=== PATIENT | female | born 1950 | race Caucasian/White ===

== ENCOUNTER → 2018-01-30 09:50 | Outpatient (POV) | payer MEDICARE, MEDICAID, SELFPAY | PROVIDERS: PCP Internal Medicine Adolescent Medicine; Visit Provider Physician Assistant | DX: Z00.00 Encounter for general adult medical examination without abnormal findings (principal) ==

== ENCOUNTER → 2018-03-06 08:30 | Outpatient (CLI) | payer MEDICARE, MEDICAID, SELFPAY ==
[2018-03-06 08:57] LABS: Basophils # 0.1 K/mm3 (0-0.2); Basophils % 0.5 % (0.1-2.0); Eosinophils # 0.3 K/mm3 (0.0-0.4); Eosinophils % 2.2 % (0.1-12.0); Hematocrit 43.6 % (37.0-47.0); Hemoglobin 13.4 g/dL (12.2-16.2); Lymphocytes # 4.3 K/mm3 (0.7-4.5); Lymphocytes % 38.3 K/mm3 (10-50); Mean Corpuscular HGB Conc 30.8 g/dL (31.8-35.4); Mean Corpuscular Hemoglobin 27.7 pg (27.0-31.2); Mean Platelet Volume 7.2 fl (7.4-10.4); Monocytes # 0.8 K/mm3 (0.1-1.0); Monocytes % 6.8 % (1.7-9.3); Neutrophils # 5.9 K/mm3 (1.8-7.8); Neutrophils % 52.1 % (37.0-80.0); Platelet Count 449 K/mm3 (142-424); Red Blood Count 4.85 M/mm3 (4.20-5.40); Red Cell Distribution Width 16.5 % (11.5-17.5); White Blood Count 11.2 K/mm3 (4.8-10.8)
[2018-03-06 09:57] LABS: Alanine Aminotransferase 42 U/L (12-78); Albumin Level 3.9 gm/dL (3.4-5.0); Albumin/Globulin Ratio 1.1 (1.1-1.8); Alkaline Phosphatase 146 U/L (46-116); Anion Gap 11.3 mEq/L (5-15); Aspartate Amino Transferase 26 U/L (15-37); Bilirubin,Total 0.2 mg/dL (0.2-1.0); Blood Urea Nitrogen 23 mg/dL (7-18); Carbon Dioxide 30 mmol/L (21.0-32.0); Chloride 106 mmol/L (98-107); Creatinine,Serum 0.84 mg/dL (0.55-1.02); Estimated Glomerular Filt Rate 68 ml/min (>60); GFR (African American) 82 ML/MIN (>60); Globulin 3.7 gm/dl (1.3-3.2); Glucose 92 mg/dL (74-106); Potassium 5.3 mmoL/L (3.5-5.1); Sodium 142 mmol/L (136-145); Total Protein,Serum 7.6 gm/dL (6.4-8.2)
== END ==
PROVIDERS: Visit Provider Physician Assistant
DX: Z79.899 Other long term (current) drug therapy (principal); L40.0 Psoriasis vulgaris
CPT/HCPCS: 36415; 80053; 85025; 86480

== ENCOUNTER → 2018-03-13 11:02 | Outpatient (POV) | payer MEDICARE, OTHER, SELFPAY ==
[2018-03-13 11:40] VITALS: BP 147/81; PULSE 86; RESP 20; TEMP 36.6; O2SAT 99; BMI 25.7
--- NOTE | 2018-03-13 12:01 | HMH.PAINSOAP ---
[facility] Pain Management SOAP Note Subjective:: This patient is a pleasant 66-year-old white female who we previously saw for low back pain with bilateral hip injections. She was doing well up until recently when she hurt her back getting up into her 's truck. I believe she aggravated her SI joints. She is tender over both SI joints. She does have a positive Diamante's test bilaterally. She has benefited in the past from previous SI joint injections. She does suffer from chronic sacroiliitis. I believe she would benefit from repeat SI joint injections under fluoroscopy. Objective:: Alert and oriented ?3 in no acute distress. Patient does have an antalgic gait. Patient does have tenderness over both SI joints. Diamante's test positive bilaterally. Motor strength of the lower extremities is 5/5. There is no gross sensory deficit. Assessment:: Sacroiliitis Plan:: We will seek approval and plan on bilateral SI joint injections under fluoroscopy.
== END ==
PROVIDERS: PCP Internal Medicine Adolescent Medicine; Visit Provider Anesthesiology
DX: M46.1 Sacroiliitis, not elsewhere classified (principal)
CPT/HCPCS: 99212

== ENCOUNTER → 2018-04-03 10:57 | Outpatient (POV) | payer MEDICARE, OTHER, SELFPAY ==
[2018-04-03 11:05] VITALS: BP 170/74; PULSE 70; RESP 18; O2SAT 98; BMI 25.7
--- NOTE | 2018-04-03 11:18 | HMH.PAINSOAP ---
[facility] Pain Management SOAP Note Subjective:: Patient is a pleasant 68-year-old white female who presents today for follow-up after bilateral SI joint injections. Patient states she is doing extremely well. She rates her pain a 0 out of 10 today. She states she is 90-100% better. Patient is interested in just following up on an as-needed basis. ROS General: no recent weight change, no fever, no sleep disturbances Respiratory: no cough, no shortness of air, no recurring pulmonary infections Cardiovascular/Peripheral Vascular: No chest pain, No palpitations, no edema, no shortness of breath. Gastrointestinal: no incontinence, normal bowel movements reported Genitourinary: no incontinence Musculoskeletal: Bilateral SI joint pain Psychiatric: normal mood/ affect Neurological: [denies weakness in extremities], [denies balance issues] Objective:: Physical Exam General: Alert and oriented x3, no acute distress, pleasant and cooperative, [on room air] Lungs: Resps E/U, Symmetrical chest expansion, Eyes: PERRL Musculoskeletal: Flexion and extension of lumbar spine somewhat guarded secondary to pain, deep tendon reflexes normal, strength in upper and lower extremities [5/5], normal gait noted Neurological: speech clear, certified professional midwife equal, no gross sensory deficits Assessment:: Sacroiliitis Plan:: We will follow-up with this patient on an as-needed basis. This note was dictated using voice recognition software and may contain errors or omissions
--- NOTE | 2018-04-03 11:21 | P.CONS_ITS ---
[facility] Pain Management SOAP Note Subjective:: Patient is a pleasant 68-year-old white female who presents today for follow-up after bilateral SI joint injections. Patient states she is doing extremely well. She rates her pain a 0 out of 10 today. She states she is 90-100% better. Patient is interested in just following up on an as-needed basis. ROS General: no recent weight change, no fever, no sleep disturbances Respiratory: no cough, no shortness of air, no recurring pulmonary infections Cardiovascular/Peripheral Vascular: No chest pain, No palpitations, no edema, no shortness of breath. Gastrointestinal: no incontinence, normal bowel movements reported Genitourinary: no incontinence Musculoskeletal: Bilateral SI joint pain Psychiatric: normal mood/ affect Neurological: [denies weakness in extremities], [denies balance issues] Objective:: Physical Exam General: Alert and oriented x3, no acute distress, pleasant and cooperative, [ on room air] Lungs: Resps E/U, Symmetrical chest expansion, Eyes: PERRL Musculoskeletal: Flexion and extension of lumbar spine somewhat guarded secondary to pain, deep tendon reflexes normal, strength in upper and lower extremities [5/5], normal gait noted Neurological: speech clear, 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 This note was dictated using voice recognition software and may contain errors or omissions
== END ==
PROVIDERS: PCP Internal Medicine Adolescent Medicine; Visit Provider Clinical Nurse Specialist Family Health
DX: M46.1 Sacroiliitis, not elsewhere classified (principal)
CPT/HCPCS: 99212

== ENCOUNTER → 2018-05-02 13:47 | Outpatient (CLI) | payer MEDICARE, MEDICAID, SELFPAY ==
--- NOTE | 2018-05-02 13:57 | US_ITS ---
US thyroid HISTORY: ITS.REASON: THYROID NODULES ORDERING PHYSICIAN: Ruth Rodriguez PATIENT AGE: 68 years FINDINGS: The right lobe is 4.1 x 1.7 x 1.7 cm. 13 x 11 mm cyst in the upper pole. There is some question of mural nodularity posteriorly. Follow-up ultrasound suggested. This may be due to artifact. 4 mm mixed nodule mid pole The left lobe is 3.7 x 1.3 x 1.1 cm. 6 mm isoechoic nodule upper pole anteriorly 11 mm isoechoic area in the mid polar region possibly due to nodule but not well demonstrated in both transverse and longitudinal images millimeters due to an area of heterogeneous echogenicity. IMPRESSION: Bilateral thyroid nodules. There is an 13 mm cyst in the upper pole on the right with question of a mural nodule and there is a question of 11 mm isoechoic nodule in the mid polar region on the left. Recommend 6 month follow-up.
--- NOTE | 2018-05-02 13:57 | CT_ITS ---
CT chest w con HISTORY: ITS.REASON: LUNG NODULES ORDERING PHYSICIAN: Ruth Rodriguez PATIENT AGE: 68 years COMPARISON: 07/21/2017 TECHNIQUE: Axial images obtained following the administration of 75 mL of Isovue 370 . Sagittal, and coronal reformatted images are also generated and reviewed. All CT scans at the facility use one or more dose reduction, viz: automated exposure control; ma/kV adjustment per patient size (including targeted exams where dose is matched to indication; i.e. head); or iterative reconstruction technique. FINDINGS: There is an isodense lesion in the right lobe of the thyroid gland measuring 12 mm previously measuring 9 mm corresponding to a cystic area noted on ultrasound of the same day. No mediastinal or hilar mass or adenopathy. Normal heart size. Coronary artery calcifications are present. No evidence of pericardial effusion. There is a small hiatal hernia. There is a stable 5 mm nodule in the right lower lobe laterally. These may contain a small central calcific density. Calcified granulomas present in the left upper lobe and 3 mm noncalcified nodule noted in the left lower lobe unchanged. No new nodules are evident. No effusions or infiltrates. Upper abdominal images are unremarkable. There is tortuosity of the descending thoracic aorta and there are DJD changes in the thoracic spine with levoscoliosis. IMPRESSION: Slight enlargement of cystic lesion of the right lobe of the thyroid gland Otherwise stable CT appearance of the chest with no change in bilateral pulmonary nodules
== END ==
PROVIDERS: PCP Internal Medicine Adolescent Medicine; Visit Provider Nurse Practitioner Family
DX: R91.1 Solitary pulmonary nodule (principal); E04.1 Nontoxic single thyroid nodule
CPT/HCPCS: 71260; 76536; Q9967

== ENCOUNTER → 2018-05-08 10:41 | Outpatient (POV) | payer MEDICARE, MEDICAID, SELFPAY ==
[2018-05-08 10:52] VITALS: BP 139/70; PULSE 73; RESP 18; TEMP 36.7; O2SAT 94; BMI 27.4
--- NOTE | 2018-05-08 12:16 | HMH.PAINSOAP ---
[facility] Pain Management SOAP Note Subjective:: Patient is a pleasant 68-year-old white female who presents today for follow-up. Patient has been seen before for bilateral SI joint injections. Patient does extremely well with this getting 90-100% relief for several months. Since last visit she has been having extreme left hip pain. Patient states the pain is in her low back radiating into her left groin and over the left outer part of her hip. Patient rates her pain a 7 out of 10 today. Patient has done well with injections in the past and is wondering if there is an injection that will help take care of this pain. ROS General: no recent weight change, no fever, no sleep disturbances Respiratory: no cough, no shortness of air, no recurring pulmonary infections Cardiovascular/Peripheral Vascular: No chest pain, No palpitations, no edema, no shortness of breath. Gastrointestinal: no incontinence, normal bowel movements reported Genitourinary: no incontinence Musculoskeletal: Left hip pain, left SI joint pain Psychiatric: normal mood/ affect Neurological: [denies weakness in extremities], [denies balance issues] Objective:: Physical Exam General: Alert and oriented x3, no acute distress, pleasant and cooperative, [on room air] Lungs: Resps E/U, Symmetrical chest expansion, Eyes: PERRL Musculoskeletal: Flexion and extension of lumbar spine somewhat guarded secondary to pain, deep tendon reflexes normal, strength in upper and lower extremities [5/5], slightly antalgic gait noted, positive Diamante's test on the left side, extreme point tenderness over left greater trochanteric bursa Neurological: speech clear, 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 Patient has gotten good relief with her injections in the past. Patient gets up to 80% relief for several months at a time. Patient's tried and failed anti-inflammatories and is not on any anticoagulation therapy. Patient has tried and failed physical therapy and home stretching exercises. This note was dictated using voice recognition software and may contain errors or omissions
--- NOTE | 2018-05-08 12:31 | P.CONS_ITS ---
[facility] Pain Management SOAP Note Subjective:: Patient is a pleasant 68-year-old white female who presents today for follow- up. Patient has been seen before for bilateral SI joint injections. Patient does extremely well with this getting 90-100% relief for several months. Since last visit she has been having extreme left hip pain. Patient states the pain is in her low back radiating into her left groin and over the left outer part of her hip. Patient rates her pain a 7 out of 10 today. Patient has done well with injections in the past and is wondering if there is an injection that will help take care of this pain. ROS General: no recent weight change, no fever, no sleep disturbances Respiratory: no cough, no shortness of air, no recurring pulmonary infections Cardiovascular/Peripheral Vascular: No chest pain, No palpitations, no edema, no shortness of breath. Gastrointestinal: no incontinence, normal bowel movements reported Genitourinary: no incontinence Musculoskeletal: Left hip pain, left SI joint pain Psychiatric: normal mood/ affect Neurological: [denies weakness in extremities], [denies balance issues] Objective:: Physical Exam General: Alert and oriented x3, no acute distress, pleasant and cooperative, [ on room air] Lungs: Resps E/U, Symmetrical chest expansion, Eyes: PERRL Musculoskeletal: Flexion and extension of lumbar spine somewhat guarded secondary to pain, deep tendon reflexes normal, strength in upper and lower extremities [5/5], slightly antalgic gait noted, positive Diamante's test on the left side, extreme point tenderness over left greater trochanteric bursa Neurological: speech clear, 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 Patient has gotten good relief with her injections in the past. Patient gets up to 80% relief for several months at a time. Patient's tried and failed anti- inflammatories and is not on any anticoagulation therapy. Patient has tried and failed physical therapy and home stretching exercises. This note was dictated using voice recognition software and may contain errors or omissions
== END ==
PROVIDERS: PCP Internal Medicine Adolescent Medicine; Visit Provider Clinical Nurse Specialist Family Health
DX: M46.1 Sacroiliitis, not elsewhere classified (principal); M70.62 Trochanteric bursitis, left hip
CPT/HCPCS: 99212

== ENCOUNTER 2018-05-19 12:16 | Day surgery (SDC) | payer MEDICARE, OTHER, SELFPAY ==
[2018-05-19 12:45] VITALS: BP 120/72; PULSE 75; RESP 18; TEMP 36.4; O2SAT 95; BMI 27.4
[2018-05-19 13:04] VITALS: BP 163/79; PULSE 71; RESP 20
[2018-05-19 13:09] VITALS: BP 158/72; PULSE 71; RESP 18; O2SAT 98
--- NOTE | 2018-05-19 13:17 | P.PCN_ITS ---
- Procedure Date: 05/19/18 Time: 13:15 Anesthesiologist:: Johnnie Nieto MD Complications:: None Pre-procedure Diagnosis:: Sacroiliitis and trochanteric bursitis Post-procedure Diagnosis:: Same Indications for Procedure:: This patient is a pleasant 68-year-old white female who we are treating for left -sided hip pain. Previously we saw her for bilateral SI joint injections. She got 90-100% pain relief for several months after these injections. Now her pain is concentrated over the left hip. She is tender over left SI joint. She is tender over the left trochanteric bursa. She does have a positive Diamante's test on the left side. I do believe she would benefit from a left SI joint injection and a left trochanteric bursa injection under fluoroscopy. Procedure Details:: Left SI joint injection under fluoroscopy Informed consent was obtained and the risks and benefits of the procedure was explained to the patient. Patient was taken to the procedure room. Patient was placed prone on the procedure table. The left hip was prepped using ChloraPrep. The skin and subcutaneous tissues were anesthetized using lidocaine. I placed a 22-gauge spinal needle into the inferior aspect of the left SI joint. Needle placement was confirmed with dye. After this we injected 5 mL bupivacaine 0.25% and Depo-Medrol 40 mg into the left SI joint. The patient tolerated the procedure well with no complication. Left trochanteric bursa injection under fluoroscopy Informed consent was obtained and the risk and benefits of the procedure was explained to the patient. The patient was taken to procedure room and placed prone on the procedure table. The left hip was prepped using ChloraPrep. The skin and subcutaneous tissues were anesthetized using lidocaine. I placed a 22- gauge spinal needle under fluoroscopic guidance and advanced until it contacted the left greater trochanter. Needle placement was confirmed with dye. After this we injected 5 mL bupivacaine 0.25% and Depo-Medrol 40 mg. Patient tolerated the procedure well with no complications. Plan and Disposition:: We will follow-up with her in 2 weeks. We will reevaluate her symptoms at that time.
[2018-05-19 13:29] VITALS: BP 166/74; PULSE 69; RESP 18; TEMP 37.2; O2SAT 98
== END 2018-05-19 13:30 | disposition home or self-care (01) ==
LOC: SC.PAINP 12:18
PROVIDERS: PCP Internal Medicine Adolescent Medicine; Visit Provider Anesthesiology
DX: M46.1 Sacroiliitis, not elsewhere classified (principal); M70.62 Trochanteric bursitis, left hip
CPT/HCPCS: 20610; 27096; G0260; J1030; Q9966

== ENCOUNTER → 2018-06-12 09:48 | Outpatient (POV) | payer MEDICARE, OTHER, SELFPAY ==
[2018-06-12 10:19] VITALS: BP 149/75; PULSE 71; RESP 18; O2SAT 98; BMI 27.4
--- NOTE | 2018-06-12 10:25 | HMH.PAINSOAP ---
[facility] Pain Management SOAP Note Subjective:: Patient is a pleasant 68-year-old white female who presents today for follow-up after left SI joint injection and left greater trochanteric bursa injection she rates her pain a 0 out of 10 today. Patient does have some mid thoracic pain at times that she is concerned about. Patient states that it does not radiate. Patient states it can be annoying at times. I asked the patient if she is ever had an MRI and she is uninterested in obtaining one at this time. Patient states that she would be not opposed to getting an x-ray however. We will send her for an x-ray today. ROS General: no recent weight change, no fever, no sleep disturbances Respiratory: no cough, no shortness of air, no recurring pulmonary infections Cardiovascular/Peripheral Vascular: No chest pain, No palpitations, no edema, no shortness of breath. Gastrointestinal: no incontinence, normal bowel movements reported Genitourinary: no incontinence Musculoskeletal: Thoracic back pain Psychiatric: normal mood/ affect Neurological: [denies weakness in extremities], [denies balance issues] Objective:: Physical Exam General: Alert and oriented x3, no acute distress, pleasant and cooperative, [on room air] Lungs: Resps E/U, Symmetrical chest expansion, Eyes: PERRL Musculoskeletal: Flexion and extension of thoracic spine somewhat guarded secondary to pain, deep tendon reflexes normal, strength in upper and lower extremities [5/5], normal gait noted Neurological: speech clear, 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 We will follow-up the patient in a couple weeks and review these results. Patient's been instructed to call the office if her pain worsens or she needs anything prior to next appointment. This note was dictated using voice recognition software and may contain errors or omissions
--- NOTE | 2018-06-12 10:31 | XR_ITS ---
EXAM: XR thoracic spine 2V HISTORY: ITS.REASON: BACK PAIN Comparison: 07/13/2017 FINDINGS: S shaped scoliosis noted in the thoracic spine with upper curvature convex right and 19 degrees and lower curvature convex left and 19 degrees. There is associated degenerative disc disease of the thoracic spine with marginal osteophytes along the right lateral aspect of T8, T9, T10, and T11. No acute fracture or dislocation. IMPRESSION: Scoliosis with degenerative disc disease and osteophytosis
== END ==
PROVIDERS: PCP Internal Medicine Adolescent Medicine; Visit Provider Clinical Nurse Specialist Family Health
DX: M54.6 Pain in thoracic spine (principal); M46.1 Sacroiliitis, not elsewhere classified; M70.62 Trochanteric bursitis, left hip
CPT/HCPCS: 72070; 99212

== ENCOUNTER → 2018-06-15 10:27 | Outpatient (POV) | payer MEDICARE, SELFPAY | PROVIDERS: Visit Provider Dermatology | DX: Z00.00 Encounter for general adult medical examination without abnormal findings (principal) ==

== ENCOUNTER → 2018-07-04 08:41 | Outpatient (POV) | payer MEDICARE, OTHER, SELFPAY ==
[2018-07-04 09:12] VITALS: BP 115/64; PULSE 78; RESP 18; O2SAT 98; BMI 27.4
--- NOTE | 2018-07-04 09:16 | HMH.PAINSOAP ---
[facility] Pain Management SOAP Note Subjective:: Patient is a pleasant 68-year-old white female who presents today for follow-up in regards to thoracic x-rays. Patient does have some significant scoliosis along with degenerative disc disease of the thoracic spine. Patient is interested in interventional means in taking care of this. Patient rates her pain 8 out of 10. Patient states her back pain does not radiate however it is annoying. Patient has never utilize bracing before. Patient is not on any anticoagulation therapy. Patient states that most of her pain comes when she is standing or and sweeping ROS General: no recent weight change, no fever, no sleep disturbances Respiratory: no cough, no shortness of air, no recurring pulmonary infections Cardiovascular/Peripheral Vascular: No chest pain, No palpitations, no edema, no shortness of breath. Gastrointestinal: no incontinence, normal bowel movements reported Genitourinary: no incontinence Musculoskeletal: Back pain Psychiatric: normal mood/ affect Neurological: [denies weakness in extremities], [denies balance issues] Objective:: Physical Exam General: Alert and oriented x3, no acute distress, pleasant and cooperative, [on room air] Lungs: Resps E/U, Symmetrical chest expansion, Eyes: PERRL Musculoskeletal: Flexion and extension of thoracic spine somewhat guarded secondary to pain, deep tendon reflexes normal, strength in upper and lower extremities [5/5], slightly antalgic gait noted Neurological: 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 We will also order thoracic back brace for her. I will follow-up with the patient after her injection. This note was dictated using voice recognition software and may contain errors or omissions
--- NOTE | 2018-07-04 09:19 | P.CONS_ITS ---
[facility] Pain Management SOAP Note Subjective:: Patient is a pleasant 68-year-old white female who presents today for follow-up in regards to thoracic x-rays. Patient does have some significant scoliosis along with degenerative disc disease of the thoracic spine. Patient is interested in interventional means in taking care of this. Patient rates her pain 8 out of 10. Patient states her back pain does not radiate however it is annoying. Patient has never utilize bracing before. Patient is not on any anticoagulation therapy. Patient states that most of her pain comes when she is standing or and sweeping ROS General: no recent weight change, no fever, no sleep disturbances Respiratory: no cough, no shortness of air, no recurring pulmonary infections Cardiovascular/Peripheral Vascular: No chest pain, No palpitations, no edema, no shortness of breath. Gastrointestinal: no incontinence, normal bowel movements reported Genitourinary: no incontinence Musculoskeletal: Back pain Psychiatric: normal mood/ affect Neurological: [denies weakness in extremities], [denies balance issues] Objective:: Physical Exam General: Alert and oriented x3, no acute distress, pleasant and cooperative, [ on room air] Lungs: Resps E/U, Symmetrical chest expansion, Eyes: PERRL Musculoskeletal: Flexion and extension of thoracic spine somewhat guarded secondary to pain, deep tendon reflexes normal, strength in upper and lower extremities [5/5], slightly antalgic gait noted Neurological: speech clear, 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 We will also order thoracic back brace for her. I will follow-up with the patient after her injection. This note was dictated using voice recognition software and may contain errors or omissions
== END ==
PROVIDERS: Visit Provider Clinical Nurse Specialist Family Health
DX: M41.9 Scoliosis, unspecified (principal); M51.34 Other intervertebral disc degeneration, thoracic region
CPT/HCPCS: 99213

== ENCOUNTER → 2018-08-15 11:08 | Outpatient (POV) | payer MEDICARE, OTHER, SELFPAY ==
--- NOTE | 2018-08-15 11:43 | HMH.PAINSOAP ---
[facility] Pain Management SOAP Note Subjective:: Patient is a pleasant 68-year-old white female who presents today after thoracic epidural steroid injection. Patient states she had no relief from this. Patient states most of her pain is in the area of her bra line. Patient is currently changing physicians. She is on tramadol and alprazolam from her primary care physician. Rating a 6 out of 10 today. Patient has had SI joint injections in the past and has had good relief with that. Patient's not on any anti-inflammatories at this time ROS General: no recent weight change, no fever, no sleep disturbances Respiratory: no cough, no shortness of air, no recurring pulmonary infections Cardiovascular/Peripheral Vascular: No chest pain, No palpitations, no edema, no shortness of breath. Gastrointestinal: no incontinence, normal bowel movements reported Genitourinary: no incontinence Musculoskeletal: Back pain Psychiatric: normal mood/ affect Neurological: [denies weakness in extremities], [denies balance issues] Objective:: Physical Exam General: Alert and oriented x3, no acute distress, pleasant and cooperative, [on room air] Lungs: Resps E/U, Symmetrical chest expansion, Eyes: PERRL Musculoskeletal: Flexion and extension of thoracic spine somewhat guarded secondary to pain, deep tendon reflexes normal, strength in upper and lower extremities [5/5], slightly antalgic gait noted Neurological: speech clear, stone layer 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 3 times daily to and follow-up with her in 1 month. Patient is to call our office if she has any issues prior to next appointment. This note was dictated using voice recognition software and may contain errors or omissions
--- NOTE | 2018-08-15 11:46 | P.CONS_ITS ---
[facility] Pain Management SOAP Note Subjective:: Patient is a pleasant 68-year-old white female who presents today after thoracic epidural steroid injection. Patient states she had no relief from this. Patient states most of her pain is in the area of her bra line. Patient is currently changing physicians. She is on tramadol and alprazolam from her primary care physician. Rating a 6 out of 10 today. Patient has had SI joint injections in the past and has had good relief with that. Patient's not on any anti-inflammatories at this time ROS General: no recent weight change, no fever, no sleep disturbances Respiratory: no cough, no shortness of air, no recurring pulmonary infections Cardiovascular/Peripheral Vascular: No chest pain, No palpitations, no edema, no shortness of breath. Gastrointestinal: no incontinence, normal bowel movements reported Genitourinary: no incontinence Musculoskeletal: Back pain Psychiatric: normal mood/ affect Neurological: [denies weakness in extremities], [denies balance issues] Objective:: Physical Exam General: Alert and oriented x3, no acute distress, pleasant and cooperative, [on room air] Lungs: Resps E/U, Symmetrical chest expansion, Eyes: PERRL Musculoskeletal: Flexion and extension of thoracic spine somewhat guarded secondary to pain, deep tendon reflexes normal, strength in upper and lower extremities [5/5], slightly antalgic gait noted Neurological: speech clear, social worker assistant 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 3 times daily to and follow-up with her in 1 month. Patient is to call our office if she has any issues prior to next appointment. This note was dictated using voice recognition software and may contain errors or omissions
[2018-08-15 11:47] VITALS: BP 135/63; PULSE 75; RESP 18; O2SAT 98; BMI 27.6
== END ==
PROVIDERS: PCP Emergency Medicine; Visit Provider Clinical Nurse Specialist Family Health
DX: M51.14 Intervertebral disc disorders with radiculopathy, thoracic region (principal)
CPT/HCPCS: 99213

== ENCOUNTER → 2018-08-29 08:52 | Outpatient (POV) | payer MEDICARE, SELFPAY | PROVIDERS: PCP Emergency Medicine; Visit Provider Dermatology | DX: Z00.00 Encounter for general adult medical examination without abnormal findings (principal) ==

== ENCOUNTER → 2018-09-12 09:01 | Outpatient (POV) | payer MEDICARE, OTHER, SELFPAY ==
[2018-09-12 09:59] VITALS: BP 176/83; PULSE 74; RESP 18; O2SAT 98; BMI 27.4
--- NOTE | 2018-09-12 10:57 | HMH.PAINSOAP ---
[facility] Pain Management SOAP Note Subjective:: Patient is a pleasant 68-year-old white female who presents today for follow-up. Patient had a thoracic epidural injection where she states she had no relief. Patient states most of her pain is in the area of her bra line. She is having difficulty with her daily functions. She states that twisting movements make it worse. She is on tramadol and alprazolam from her primary care physician along with Voltaren gel she states that this only helps temporarily. She rates her pain a 5 out of 10. Patient has had an SI joint injection in the past and has good relief with that. Patient's not on any anti-inflammatories. ROS General: no recent weight change, no fever, no sleep disturbances Respiratory: no cough, no shortness of air, no recurring pulmonary infections Cardiovascular/Peripheral Vascular: No chest pain, No palpitations, no edema, no shortness of breath. Gastrointestinal: no incontinence, normal bowel movements reported Genitourinary: no incontinence Musculoskeletal: Thoracic back pain Psychiatric: normal mood/ affect Neurological: [denies weakness in extremities], [denies balance issues] Objective:: Physical Exam General: Alert and oriented x3, no acute distress, pleasant and cooperative, [on room air] Lungs: Resps E/U, Symmetrical chest expansion, Eyes: PERRL Musculoskeletal: Flexion and extension of thoracic spine somewhat guarded secondary to pain, deep tendon reflexes normal, strength in upper and lower extremities [5/5], slightly antalgic gait noted positive Kemps test Neurological: speech clear, 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 Patient's not on any anticoagulation therapy. I will follow-up with her after her injections. This note was dictated using voice recognition software and may contain errors or omissions
--- NOTE | 2018-09-12 11:00 | P.CONS_ITS ---
[facility] [place] Pain Management SOAP Note Subjective:: Patient is a pleasant 68-year-old white female who presents today for follow-up. Patient had a thoracic epidural injection where she states she had no relief. Patient states most of her pain is in the area of her bra line. She is having difficulty with her daily functions. She states that twisting movements make it worse. She is on tramadol and alprazolam from her primary care physician along with Voltaren gel she states that this only helps temporarily. She rates her pain a 5 out of 10. Patient has had an SI joint injection in the past and has good relief with that. Patient's not on any anti-inflammatories. ROS General: no recent weight change, no fever, no sleep disturbances Respiratory: no cough, no shortness of air, no recurring pulmonary infections Cardiovascular/Peripheral Vascular: No chest pain, No palpitations, no edema, no shortness of breath. Gastrointestinal: no incontinence, normal bowel movements reported Genitourinary: no incontinence Musculoskeletal: Thoracic back pain Psychiatric: normal mood/ affect Neurological: [denies weakness in extremities], [denies balance issues] Objective:: Physical Exam General: Alert and oriented x3, no acute distress, pleasant and cooperative, [on room air] Lungs: Resps E/U, Symmetrical chest expansion, Eyes: PERRL Musculoskeletal: Flexion and extension of thoracic spine somewhat guarded secondary to pain, deep tendon reflexes normal, strength in upper and lower extremities [5/5], slightly antalgic gait noted positive Kemps test Neurological: speech clear, 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 Patient's not on any anticoagulation therapy. I will follow-up with her after her injections. This note was dictated using voice recognition software and may contain errors or omissions
== END ==
PROVIDERS: PCP Emergency Medicine; Visit Provider Clinical Nurse Specialist Family Health
DX: M51.14 Intervertebral disc disorders with radiculopathy, thoracic region (principal); M41.9 Scoliosis, unspecified
CPT/HCPCS: 99213

== ENCOUNTER → 2018-12-11 08:56 | Outpatient (POV) | payer MEDICARE, OTHER, SELFPAY ==
[2018-12-11 09:31] VITALS: BP 119/64; PULSE 73; RESP 18; O2SAT 99; BMI 27.6
--- NOTE | 2018-12-11 09:41 | P.CONS_ITS ---
[facility] Pain Management SOAP Note Subjective:: Patient is a pleasant 68-year-old white female who presents today for follow-up after thoracic medial branch blocks. She rates her pain a 0 out of 10 states she is much more functional and doing well. She would like to follow-up on an as-needed basis. ROS General: no recent weight change, no fever, no sleep disturbances Respiratory: no cough, no shortness of air, no recurring pulmonary infections Cardiovascular/Peripheral Vascular: No chest pain, No palpitations, no edema, no shortness of breath. Gastrointestinal: no incontinence, normal bowel movements reported Genitourinary: no incontinence Musculoskeletal: Back pain Psychiatric: normal mood/ affect Neurological: [denies weakness in extremities], [denies balance issues] Objective:: Physical Exam General: Alert and oriented x3, no acute distress, pleasant and cooperative, [on room air] Lungs: Resps E/U, Symmetrical chest expansion Eyes: PERRL Musculoskeletal: Flexion and extension of thoracic spine somewhat guarded secondary to pain, deep tendon reflexes normal, strength in upper and lower e xtremities [5/5], [abnormal gait noted] Neurological: speech clear, mortgage closer equal, no gross sensory deficits Assessment:: Degenerative disc disease thoracic spine with thoracic spondylosis and facet arthropathy Plan:: We will follow-up with her on an as-needed basis. Patient is going to call us when she needs this. Dr. Nieto has reviewed this note and agrees with this plan of care. This note was dictated using voice recognition software and may contain errors or omissions
== END ==
PROVIDERS: PCP Emergency Medicine; Visit Provider Clinical Nurse Specialist Family Health
DX: M51.34 Other intervertebral disc degeneration, thoracic region; M47.894 Other spondylosis, thoracic region; M54.04 Panniculitis affecting regions of neck and back, thoracic region
CPT/HCPCS: 99213

== ENCOUNTER → 2018-12-26 13:25 | Outpatient (CLI) | payer MEDICARE, OTHER, SELFPAY ==
[2018-12-26 13:39] LABS: Basophils % 0.4 % (0.1-2.0); Eosinophils # 0.1 K/mm3 (0.0-0.4); Eosinophils % 1.5 % (0.1-12.0); Hematocrit 39.1 % (37.0-47.0); Hemoglobin 12.5 g/dL (12.2-16.2); Lymphocytes # 2.8 K/mm3 (0.7-4.5); Mean Corpuscular Hemoglobin 28.9 pg (27.0-31.2); Mean Corpuscular Volume 90.4 fl (81-99); Mean Platelet Volume 7.5 fl (7.4-10.4); Monocytes # 0.8 K/mm3 (0.1-1.0); Monocytes % 7.9 % (1.7-9.3); Neutrophils % 61.3 % (37.0-80.0); Platelet Count 395 K/mm3 (142-424); Red Blood Count 4.33 M/mm3 (4.20-5.40); White Blood Count 9.8 K/mm3 (4.8-10.8)
[2018-12-26 14:30] LABS: Alanine Aminotransferase 30 U/L (12-78); Albumin Level 3.7 gm/dL (3.4-5.0); Alkaline Phosphatase 156 U/L (46-116); Anion Gap 15.2 mEq/L (5-15); Aspartate Amino Transferase 16 U/L (15-37); Bilirubin,Total 0.4 mg/dL (0.2-1.0); Blood Urea Nitrogen 16 mg/dL (7-18); Calcium 9.8 mg/dL (8.5-10.1); Carbon Dioxide 28 mmol/L (21.0-32.0); Chloride 103 mmol/L (98-107); Chol/HDL Ratio 4.1 (1-3.5); Cholesterol 140 mg/dL (140-200); Creatinine,Serum 1.02 mg/dL (0.55-1.02); Estimated Glomerular Filt Rate 54 ml/min (>60); GFR (African American) 65 ML/MIN (>60); Globulin 3.8 gm/dl (1.3-3.2); Glucose 99 mg/dL (74-106); HDL Cholesterol 34 mg/dL (29-89); LDL Cholesterol 63 mg/dL (0-130); Potassium 5.2 mmoL/L (3.5-5.1); Sodium 141 mmol/L (136-145); T4 (Thyroxine) 8.2 ug/dl (4.7-13.3); Total Protein,Serum 7.5 gm/dL (6.4-8.2); Triglycerides 214 mg/dL (30-200); VLDL Cholesterol 43 mg/dL (0-40)
== END ==
PROVIDERS: Visit Provider Physician Assistant
DX: N39.0 Urinary tract infection, site not specified (principal); F41.9 Anxiety disorder, unspecified; I25.10 Atherosclerotic heart disease of native coronary artery without angina pectoris; L40.9 Psoriasis, unspecified; I21.9 Acute myocardial infarction, unspecified
CPT/HCPCS: 80053; 80061; 84436; 84443; 85025; 87086

== ENCOUNTER → 2019-02-27 09:17 | Outpatient (POV) | payer MEDICARE, OTHER, SELFPAY ==
[2019-03-02 23:09] LABS: QuantiFERON-TB Gold Plus Negative (Negative)
== END ==
PROVIDERS: Visit Provider Dermatology
DX: L40.0 Psoriasis vulgaris (principal); Z79.899 Other long term (current) drug therapy
CPT/HCPCS: 36415; 86480

== ENCOUNTER → 2019-06-04 10:05 | Outpatient (CLI) | payer MEDICARE, OTHER, SELFPAY ==
--- NOTE | 2019-06-04 10:09 | MM_ITS ---
MM Dig screening mamm BI w/CAD CAD Screening COMPARISON: Digital mammograms CAD 04/26/2017 and 07/03/2014 INDICATION: There is a history of breast cancer patient's sister diagnosed before menopause. TECHNIQUE: Standard CC and MLO images were obtained. R2 CAD reviewed. FINDINGS: The breasts are composed primarily of fat with minimal scattered fibroglandular densities in each breast. There are few scattered benign-appearing microcalcifications in each breast. There is a mole marker left breast. There is no suspicious lesion and there are no suspicious microcalcifications. IMPRESSION: Fatty type breast parenchyma with no suspicious lesion seen BI-RADS Category: 2 Benign Finding(s) RECOMMENDED FOLLOW-UP: 1YR - 1 YEAR FOLLOW-UP (A letter has been sent to the patient regarding results of the study.)
== END ==
PROVIDERS: PCP Emergency Medicine; Visit Provider Emergency Medicine
DX: Z12.31 Encounter for screening mammogram for malignant neoplasm of breast (principal)
CPT/HCPCS: 77067

== ENCOUNTER → 2019-07-10 12:53 | Outpatient (POV) | payer MEDICARE, OTHER, SELFPAY | PROVIDERS: Visit Provider Dermatology | DX: Z00.00 Encounter for general adult medical examination without abnormal findings (principal) ==

== ENCOUNTER → 2019-07-12 12:23 | Outpatient (CLI) | payer MEDICARE, OTHER, SELFPAY ==
--- NOTE | 2019-07-12 12:24 | US_ITS ---
PROCEDURE: US THYROID CLINICAL INDICATION: thyroid nodule Follow-up thyroid nodules the COMPARISON: THY US thyroid from 05/02/2018 FINDINGS: Right lobe: 3.9 x 2.2 x 2 cm. There is a 19 x 14 mm cyst in the upper pole on the right previously measuring 14 x 11 mm. There is a mural nodule along the posterior wall. A 3 mm isoechoic nodules present in the mid polar region unchanged. Left lobe: 3.9 x 1.3 x 1 cm. A 4 mm hypoechoic nodules present in the upper pole unchanged Isthmus: Unremarkable Additional findings: IMPRESSION: Complex cystic nodule in the upper pole of the right lobe of the thyroid gland which is slightly increased in size. Suggest ultrasound guided fine needle aspiration Dictated by: Breezy Benedict MD 07/12/2019 17:35 Signed by: <Electronically signed by Breezy Benedict MD in [place]> 07/12/2019 17:35
== END ==
PROVIDERS: PCP Emergency Medicine; Visit Provider Emergency Medicine
DX: E04.1 Nontoxic single thyroid nodule (principal)
CPT/HCPCS: 76536

== ENCOUNTER → 2019-08-22 12:33 | Outpatient (CLI) | payer MEDICARE, OTHER, SELFPAY ==
--- NOTE | 2019-08-22 12:37 | US_ITS ---
PROCEDURE: US FNA THYROID CLINICAL INDICATION: THYROID NODULE COMPARISON: US THYROID from 07/12/2019 TECHNIQUE: Following obtaining informed consent, using aseptic technique and local anesthesia with buffered lidocaine, fine-needle aspiration was performed of the nodule of interest using sonographic guidance. 2 passes were made into the nodule with a 21-gauge needle. Specimen was given to cytology. Approximately 3 cc of dark fluid was aspirated. The nodule is much smaller at the end of the aspiration. FINDINGS: CYTOLOGY: Negative for malignancy. Compatible with cyst contents IMPRESSION: Uneventful fine needle aspiration of right thyroid nodule showing compatible with cyst contents negative for malignancy. Would recommend a six-month sonographic follow-up due to the nodular component of the cyst. The patient tolerated the procedure well without evidence of immediate complications and left the ultrasound suite in stable condition. Dictated by: Breezy Benedict MD 08/31/2019 09:19 Electronically signed by Breezy Benedict MD in [place] 08/31/2019 09:19
== END ==
PROVIDERS: PCP Emergency Medicine; Visit Provider Emergency Medicine
DX: E04.1 Nontoxic single thyroid nodule (principal)
CPT/HCPCS: 10005; 76942; 88173; 88305

== ENCOUNTER → 2019-12-26 12:21 | Outpatient (CLI) | payer MEDICARE, OTHER, SELFPAY ==
--- NOTE | 2019-12-26 12:28 | XR_ITS ---
PROCEDURE: XR HUMERUS LT CLINICAL INDICATION: right arm pain Posttraumatic pain COMPARISON: No exams were available for comparison FINDINGS: No fracture or dislocation. No lytic or blastic change. There is normal mineralization. The joint spaces are well-preserved. No significant degenerative/arthritic changes. No erosive changes evident. Other findings:None. IMPRESSION: No acute findings. Dictated by: Breezy Benedict MD 12/26/2019 13:42 Electronically signed by Breezy Benedict MD in [place] 12/26/2019 13:42
--- NOTE | 2019-12-26 12:28 | XR_ITS ---
PROCEDURE: XR ELBOW LT 2V CLINICAL INDICATION: left elbow pain COMPARISON: No exams were available for comparison FINDINGS: No fracture or dislocation. No lytic or blastic change. There is normal mineralization. The joint spaces are well-preserved. No significant degenerative/arthritic changes. No erosive changes evident. Other findings:There are minimal hypertrophic changes of the coracoid process. No displaced fat pad IMPRESSION: No acute findings. Dictated by: Breezy Benedict MD 12/26/2019 13:34 Electronically signed by Breezy Benedict MD in [place] 12/26/2019 13:34
[2019-12-26 13:35] LABS: Basophils # 0.1 K/mm3 (0-0.2); Basophils % 0.6 % (0.1-2.0); Eosinophils # 0.2 K/mm3 (0.0-0.4); Eosinophils % 2.2 % (0.1-12.0); Hematocrit 39.7 % (37.0-47.0); Hemoglobin 12.8 g/dL (12.2-16.2); Lymphocytes # 3.3 K/mm3 (0.7-4.5); Lymphocytes % 33.3 % (10-50); Mean Corpuscular HGB Conc 32.2 g/dL (31.8-35.4); Mean Corpuscular Hemoglobin 28.7 pg (27.0-31.2); Mean Corpuscular Volume 89.3 fl (81-99); Mean Platelet Volume 7.6 fl (7.4-10.4); Monocytes # 0.8 K/mm3 (0.1-1.0); Monocytes % 8.3 % (1.7-9.3); Neutrophils # 5.5 K/mm3 (1.8-7.8); Neutrophils % 55.6 % (37.0-80.0); Platelet Count 468 K/mm3 (142-424); Red Blood Count 4.45 M/mm3 (4.20-5.40); Red Cell Distribution Width 15.4 % (11.5-17.5); White Blood Count 9.9 K/mm3 (4.8-10.8)
[2019-12-26 14:47] LABS: Amphetamine/Metha Screen,Urine Negative ng/mL (<1000); Barbiturates Screen,Urine Negative ng/mL (<200); Benzodiazepines Screen,Urine Positive ng/mL (<200); Cannabinoid Screen,Urine Negative ng/mL (<50); Cocaine Screen,Urine Negative ng/mL (<300); Methadone Screen,Urine Negative ng/mL (<300); Opiate Screen,Urine Negative ng/mL (<300); Phencyclidine Screen,Urine Negative ng/mL (<25)
[2019-12-26 15:19] LABS: Alanine Aminotransferase 35 U/L (9-52); Albumin Level 3.7 g/dL (3.4-5.0); Alkaline Phosphatase 129 U/L (46-116); Anion Gap 14.6 mEq/L (5-15); Aspartate Amino Transferase 31 U/L (15-37); Bilirubin,Total 0.3 mg/dL (0.2-1.0); Blood Urea Nitrogen 25 mg/dL (7-18); Calcium 9.4 mg/dL (8.5-10.1); Carbon Dioxide 27 mmol/L (21.0-32.0); Chloride 109 mmol/L (98-107); Chol/HDL Ratio 4.7 (1-3.5); Cholesterol 135 mg/dL (140-200); Creatinine,Serum 1.04 mg/dL (0.55-1.02); Estimated Glomerular Filt Rate 53 ml/min (>60); Free T4 (Free Thyroxine) 1.03 ng/dl (0.76-1.46); GFR (African American) 64 ML/MIN (>60); Globulin 3.6 gm/dl (1.3-3.2); Glucose 105 mg/dL (74-106); HDL Cholesterol 29 mg/dL (29-89); Potassium 5.6 mmoL/L (3.5-5.1); Sodium 145 mmol/L (137-145); Total Protein,Serum 7.3 g/dL (6.4-8.2)
[2019-12-26 15:20] LABS: Triglycerides 414 mg/dL (30-200)
[2019-12-27 10:28] LABS: Vitamin D 25 Hydroxy 44.5 ng/mL (30.0-100.0)
[2019-12-31 20:58] LABS: QuantiFERON-TB Gold Plus Negative (Negative)
== END ==
PROVIDERS: PCP Emergency Medicine; Visit Provider Emergency Medicine
DX: M79.601 Pain in right arm (principal); M25.522 Pain in left elbow; E04.1 Nontoxic single thyroid nodule; E66.3 Overweight; M79.7 Fibromyalgia
CPT/HCPCS: 36415; 73060; 73070; 80053; 80061; 80305; 82652; 84439; 84443; 85025; 86480

== ENCOUNTER → 2020-01-11 13:59 | Outpatient (CLI) | payer MEDICARE, OTHER, SELFPAY ==
[2020-01-11 15:41] LABS: Anion Gap 14.1 mEq/L (5-15); Blood Urea Nitrogen 23 mg/dl (7-17); Calcium 10.5 mg/dl (8.4-10.2); Carbon Dioxide 25 mmol/L (22.0-30.0); Chloride 104 mmol/L (98-107); Estimated Glomerular Filt Rate 49 ml/min (>60); GFR (African American) 60 ML/MIN (>60); Glucose 104 mg/dl (74-100); Potassium 5.1 mmoL/L (3.5-5.1); Sodium 138 mmol/L (136-145)
== END ==
PROVIDERS: Visit Provider Physician Assistant
DX: E87.5 Hyperkalemia (principal)
CPT/HCPCS: 36415; 80048

== ENCOUNTER → 2020-04-17 09:27 | Outpatient (CLI) | payer MEDICARE, OTHER, SELFPAY ==
--- NOTE | 2020-04-17 09:27 | US_ITS ---
PROCEDURE: US THYROID CLINICAL INDICATION: 6 mth f/u Follow-up nodules COMPARISON: US THYROID from 07/12/2019 US FNA THYROID from 08/22/2019 FINDINGS: Right lobe: 3.6 x 1.7 x 1.4 cm. There is a 9 x 7 mm mostly hypoechoic nodule in the upper pole. Previously there was a 2 x 1.5 cm cystic nodule in this area. This was aspirated on 08/22/2019. The current nodule is hypoechoic well-circumscribed with no calcifications and wider than tall. 2 mm hypoechoic nodules present in the mid polar region and a 5 mm mixed nodule in the lower pole not readily apparent on the previous exam. Left lobe: 3.7 x 1.5 x 1 cm. 3 mm hypoechoic nodule upper pole benign-appearing. 4 mm hypoechoic nodule mid polar region benign-appearing Isthmus: Unremarkable Additional findings: IMPRESSION: There are bilateral thyroid nodules. On the right there is now solid nodule in the area where there was a cystic lesion before which could represent result of hemorrhage within the cyst. Recommend six-month follow-up to confirm stability. Other nodules appear benign. Dictated by: Breezy Benedict MD 04/18/2020 08:30 Electronically signed by Breezy Benedict MD in [place] 04/18/2020 08:30
== END ==
PROVIDERS: PCP Emergency Medicine; Visit Provider Emergency Medicine
DX: E04.1 Nontoxic single thyroid nodule (principal)
CPT/HCPCS: 76536

== ENCOUNTER → 2020-05-13 09:53 | Outpatient (POV) | payer MEDICARE, OTHER, SELFPAY | PROVIDERS: PCP Emergency Medicine; Visit Provider Physician Assistant | DX: Z00.00 Encounter for general adult medical examination without abnormal findings (principal) ==

== ENCOUNTER → 2020-09-16 09:38 | Outpatient (POV) | payer MEDICARE, OTHER, SELFPAY | PROVIDERS: Visit Provider Dermatology | DX: Z00.00 Encounter for general adult medical examination without abnormal findings (principal) ==

== ENCOUNTER → 2021-01-09 14:11 | Outpatient (CLI) | payer MEDICARE, OTHER, SELFPAY ==
[2021-01-09 14:57] LABS: Amphetamine/Metha Screen,Urine Negative ng/ml (<1000)
[2021-01-09 14:58] LABS: Barbiturates Screen,Urine Negative ng/ml (<200); Benzodiazepines Screen,Urine Positive ng/ml (<200)
[2021-01-09 14:59] LABS: Cannabinoid Screen,Urine Negative ng/ml (<50)
[2021-01-09 15:00] LABS: Cocaine Screen,Urine Negative ng/ml (<300); Methadone Screen,Urine Negative ng/ml (<300)
[2021-01-09 15:01] LABS: Opiate Screen,Urine Negative ng/ml (<300)
[2021-01-09 15:02] LABS: Phencyclidine Screen,Urine Negative ng/ml (<25)
== END ==
PROVIDERS: Visit Provider Emergency Medicine
DX: R82.90 Unspecified abnormal findings in urine (principal); Z79.899 Other long term (current) drug therapy
CPT/HCPCS: 80305; 87086

== ENCOUNTER → 2021-01-27 10:21 | Outpatient (CLI) | payer MEDICARE, OTHER, SELFPAY ==
[2021-01-27 11:05] LABS: Chloride 108 mmol/L (98-107)
[2021-01-27 11:06] LABS: Potassium 5.2 mmoL/L (3.5-5.1); Sodium 142 mmol/L (136-145)
[2021-01-27 11:08] LABS: Alanine Aminotransferase 32 U/L (12-78); Albumin Level 4.5 g/dl (3.5-5.0); Albumin/Globulin Ratio 1.3 (1.1-1.8); Alkaline Phosphatase 136 U/L (38-126); Anion Gap 13.2 mEq/L (5-15); Aspartate Amino Transferase 45 U/L (14-36); Bilirubin,Total 0.5 mg/dl (0.2-1.3); Blood Urea Nitrogen 18 mg/dl (7-17); Carbon Dioxide 26 mmol/L (22.0-30.0); Cholesterol 149 mg/dl (140-200); Estimated Glomerular Filt Rate 62 ml/min (>60); GFR (African American) 75 ML/MIN (>60); Globulin 3.5 g/dL (1.3-3.2); Triglycerides 304 mg/dl (30-150); VLDL Cholesterol 61 mg/dL (0-40)
[2021-01-27 11:09] LABS: Calcium 10.3 mg/dl (8.4-10.2); Chol/HDL Ratio 4.4 (1-3.5); Glucose 115 mg/dl (74-100); HDL Cholesterol 34 mg/dl (40-60)
[2021-01-27 11:20] LABS: Direct LDL Cholesterol 52.18 mg/dL (100-129)
[2021-01-27 11:25] LABS: Free T4 (Free Thyroxine) 0.92 ng/dl (0.78-2.19)
[2021-01-27 11:45] LABS: Hemoglobin A1C 6.1 % (4.0-6.0)
[2021-01-30 23:23] LABS: QuantiFERON-TB Gold Plus Negative (Negative)
== END ==
PROVIDERS: Visit Provider Emergency Medicine
DX: R93.89 Abnormal findings on diagnostic imaging of other specified body structures (principal); Z79.899 Other long term (current) drug therapy; E66.3 Overweight
CPT/HCPCS: 36415; 80053; 80061; 83036; 84439; 84443; 86480

== ENCOUNTER → 2021-02-24 10:12 | Outpatient (POV) | payer MEDICARE, OTHER, SELFPAY | PROVIDERS: Visit Provider Dermatology | DX: Z00.00 Encounter for general adult medical examination without abnormal findings (principal) ==

== ENCOUNTER → 2021-07-01 14:08 | Outpatient (CLI) | payer MEDICARE, OTHER, SELFPAY ==
[2021-07-01 14:46] LABS: Amphetamine/Metha Screen,Urine Negative ng/ml (<1000); Barbiturates Screen,Urine Negative ng/ml (<200)
[2021-07-01 14:47] LABS: Benzodiazepines Screen,Urine Positive ng/ml (<200)
[2021-07-01 14:48] LABS: Cannabinoid Screen,Urine Negative ng/ml (<50); Cocaine Screen,Urine Negative ng/ml (<300)
[2021-07-01 14:49] LABS: Methadone Screen,Urine Negative ng/ml (<300)
[2021-07-01 14:50] LABS: Opiate Screen,Urine Negative ng/ml (<300); Phencyclidine Screen,Urine Negative ng/ml (<25)
== END ==
PROVIDERS: Visit Provider Emergency Medicine
DX: M79.7 Fibromyalgia (principal)
CPT/HCPCS: 80305

== ENCOUNTER → 2021-11-10 15:50 | Outpatient (POV) | payer MEDICARE, OTHER, SELFPAY ==
[2021-11-10 11:52] LABS: Basophils # 0.2 K/mm3 (0-0.2); Basophils % 1.6 % (0.1-2.0); Eosinophils # 0.2 K/mm3 (0.0-0.4); Eosinophils % 2.3 % (0.1-12.0); Hematocrit 37.7 % (37.0-47.0); Lymphocytes # 3.3 K/mm3 (0.7-4.5); Lymphocytes % 32.7 % (10-50); Mean Corpuscular HGB Conc 31.7 g/dL (31.8-35.4); Mean Corpuscular Volume 91.3 fl (81-99); Mean Platelet Volume 7.9 fl (7.4-10.4); Monocytes # 0.8 K/mm3 (0.1-1.0); Neutrophils # 5.6 K/mm3 (1.8-7.8); Neutrophils % 55.4 % (37.0-80.0); Platelet Count 391 K/mm3 (142-424); Red Blood Count 4.13 M/mm3 (4.20-5.40); Red Cell Distribution Width 16.3 % (11.5-17.5); White Blood Count 10.1 K/mm3 (4.8-10.8)
[2021-11-10 12:35] LABS: Alanine Aminotransferase 29 U/L (12-78); Albumin Level 4.2 g/dl (3.5-5.0); Albumin/Globulin Ratio 1.4 (1.1-1.8); Alkaline Phosphatase 127 U/L (38-126); Anion Gap 14.6 mEq/L (5-15); Aspartate Amino Transferase 44 U/L (14-36); Bilirubin,Total 0.3 mg/dl (0.2-1.3); Blood Urea Nitrogen 22 mg/dl (7-17); Calcium 9.6 mg/dl (8.4-10.2); Carbon Dioxide 23 mmol/L (22.0-30.0); Chloride 107 mmol/L (98-107); Estimated Glomerular Filt Rate 55 ml/min (>60); GFR (African American) 66 ML/MIN (>60); Globulin 3.1 g/dL (1.3-3.2); Glucose 91 mg/dl (74-100); Potassium 4.6 mmoL/L (3.5-5.1); Sodium 140 mmol/L (136-145); Total Protein,Serum 7.3 g/dl (6.3-8.2)
[2021-11-15 20:08] LABS: QuantiFERON-TB Gold Plus Negative (Negative)
== END ==
PROVIDERS: Visit Provider Dermatology
DX: L40.0 Psoriasis vulgaris (principal); Z79.899 Other long term (current) drug therapy
CPT/HCPCS: 36415; 80053; 85025; 86480

== ENCOUNTER → 2021-12-29 16:00 | Outpatient (CLI) | payer MEDICARE, OTHER, SELFPAY ==
[2021-12-29 20:08] LABS: Amphetamine/Metha Screen,Urine Negative ng/ml (<1000)
[2021-12-29 20:09] LABS: Barbiturates Screen,Urine Negative ng/ml (<200); Benzodiazepines Screen,Urine Negative ng/ml (<200)
[2021-12-29 20:10] LABS: Cannabinoid Screen,Urine Negative ng/ml (<50); Cocaine Screen,Urine Negative ng/ml (<300)
[2021-12-29 20:11] LABS: Methadone Screen,Urine Negative ng/ml (<300)
[2021-12-29 20:12] LABS: Opiate Screen,Urine Negative ng/ml (<300); Phencyclidine Screen,Urine Negative ng/ml (<25)
== END ==
PROVIDERS: Visit Provider Emergency Medicine
DX: Z79.899 Other long term (current) drug therapy (principal); R82.90 Unspecified abnormal findings in urine; B96.20 Unspecified Escherichia coli [E. coli] as the cause of diseases classified elsewhere
CPT/HCPCS: 80305; 87086; 87088; 87186

== ENCOUNTER → 2022-01-26 10:54 | Outpatient (POV) | payer MEDICARE, OTHER, SELFPAY | PROVIDERS: Visit Provider Dermatology | DX: Z00.00 Encounter for general adult medical examination without abnormal findings (principal) ==

== ENCOUNTER → 2022-04-16 11:39 | Outpatient (CLI) | payer MEDICARE, OTHER, SELFPAY ==
--- NOTE | 2022-04-16 11:45 | XR_ITS ---
FINAL REPORT CLINICAL HISTORY: knee pain FINDINGS: RIGHT KNEE: 4 views of the right knee obtained. There is no acute fracture or dislocation. There are mild degenerative changes. There are moderate vascular calcifications. There is a large joint effusion. IMPRESSION: Large joint effusion with no acute fracture identified. Reviewed, Interpreted and Dictated by Taurus Kwon III, MD Transcribed by Karyna Tripp Authenticated and [facility]
== END ==
PROVIDERS: PCP Emergency Medicine; Visit Provider Orthopaedic Surgery
DX: M25.561 Pain in right knee (principal)
CPT/HCPCS: 73564

== ENCOUNTER → 2022-08-14 10:41 | Outpatient (CLI) | payer MEDICARE, OTHER, SELFPAY ==
[2022-08-14 11:33] LABS: Prothrombin Time 12.8 seconds (10.1-12.5)
== END ==
PROVIDERS: PCP Emergency Medicine; Visit Provider Orthopaedic Surgery
DX: Z51.81 Encounter for therapeutic drug level monitoring (principal); Z79.01 Long term (current) use of anticoagulants
CPT/HCPCS: 36415; 85610

== ENCOUNTER → 2022-08-20 10:20 | Outpatient (CLI) | payer MEDICARE, OTHER, SELFPAY ==
[2022-08-20 13:29] LABS: Prothrombin Time 50.4 seconds (10.1-12.5)
[2022-08-20 13:30] LABS: INR 5.12 (0.9-1.1)
== END ==
PROVIDERS: PCP Emergency Medicine; Visit Provider Orthopaedic Surgery
DX: Z51.81 Encounter for therapeutic drug level monitoring (principal); Z79.01 Long term (current) use of anticoagulants
CPT/HCPCS: 36415; 85610

== ENCOUNTER → 2022-08-23 13:32 | Outpatient (CLI) | payer MEDICARE, OTHER, SELFPAY ==
[2022-08-23 14:20] LABS: INR 2.41 (0.9-1.1); Prothrombin Time 24.8 seconds (10.1-12.5)
== END ==
PROVIDERS: PCP Emergency Medicine; Visit Provider Orthopaedic Surgery
DX: Z51.81 Encounter for therapeutic drug level monitoring (principal); Z79.01 Long term (current) use of anticoagulants
CPT/HCPCS: 36415; 85610

== ENCOUNTER → 2022-08-27 10:12 | Outpatient (CLI) | payer MEDICARE, OTHER, SELFPAY ==
[2022-08-27 12:10] LABS: INR 1.93 (0.9-1.1); Prothrombin Time 20.1 seconds (10.1-12.5)
== END ==
PROVIDERS: PCP Emergency Medicine; Visit Provider Orthopaedic Surgery
DX: Z51.81 Encounter for therapeutic drug level monitoring (principal); Z79.01 Long term (current) use of anticoagulants
CPT/HCPCS: 36415; 85610

== ENCOUNTER → 2022-09-01 10:12 | Outpatient (CLI) | payer MEDICARE, OTHER, SELFPAY ==
[2022-09-01 11:58] LABS: INR 2.22 (0.9-1.1); Prothrombin Time 22.9 seconds (10.1-12.5)
== END ==
PROVIDERS: PCP Emergency Medicine; Visit Provider Orthopaedic Surgery
DX: Z51.81 Encounter for therapeutic drug level monitoring (principal); Z79.01 Long term (current) use of anticoagulants
CPT/HCPCS: 36415; 85610

== ENCOUNTER → 2022-09-10 09:58 | Outpatient (CLI) | payer MEDICARE, OTHER, SELFPAY ==
[2022-09-10 10:57] LABS: INR 3.25 (0.9-1.1); Prothrombin Time 32.8 seconds (10.1-12.5)
[2022-09-10 16:36] LABS: Amphetamine/Metha Screen,Urine Negative ng/ml (<1000); Barbiturates Screen,Urine Negative ng/ml (<200)
[2022-09-10 16:37] LABS: Benzodiazepines Screen,Urine Positive ng/ml (<200); Cannabinoid Screen,Urine Negative ng/ml (<50)
[2022-09-10 16:39] LABS: Cocaine Screen,Urine Negative ng/ml (<300); Methadone Screen,Urine Negative ng/ml (<300)
[2022-09-10 16:40] LABS: Opiate Screen,Urine Negative ng/ml (<300); Phencyclidine Screen,Urine Negative ng/ml (<25)
== END ==
PROVIDERS: PCP Emergency Medicine; Visit Provider Orthopaedic Surgery
DX: F41.9 Anxiety disorder, unspecified (principal); M51.36 Other intervertebral disc degeneration, lumbar region; Z79.01 Long term (current) use of anticoagulants; Z51.81 Encounter for therapeutic drug level monitoring
CPT/HCPCS: 36415; 80305; 85610

== ENCOUNTER → 2022-09-17 10:28 | Outpatient (CLI) | payer MEDICARE, OTHER, SELFPAY ==
[2022-09-17 11:45] LABS: Prothrombin Time 12.8 seconds (10.1-12.5)
== END ==
PROVIDERS: PCP Emergency Medicine; Visit Provider Orthopaedic Surgery
DX: Z51.81 Encounter for therapeutic drug level monitoring (principal); Z79.01 Long term (current) use of anticoagulants
CPT/HCPCS: 36415; 85610

== ENCOUNTER → 2022-12-27 10:44 | Outpatient (CLI) | payer MEDICARE, OTHER, MEDICAID, SELFPAY ==
--- NOTE | 2022-12-27 10:47 | CA_ITS ---
FINAL REPORT TECHNIQUE: Multiple transverse and longitudinal images were performed of right the femoral-popliteal deep venous system with augmentation and compression maneuvers. CLINICAL HISTORY: Swelling after fall FINDINGS: Right lower extremity duplex ultrasound demonstrates normal flow in the deep venous system. There is no abnormal echogenicity to suggest thrombus. There is normal compression and augmentation. IMPRESSION: No evidence of right DVT. Reviewed, Interpreted and Dictated by Emma Kenny MD Transcribed by Yaritza Pride Authenticated and [facility]
[2022-12-29 23:40] LABS: QuantiFERON-TB Gold Plus Negative (Negative)
== END ==
PROVIDERS: PCP Emergency Medicine; Visit Provider Emergency Medicine
DX: M79.89 Other specified soft tissue disorders (principal); Z11.1 Encounter for screening for respiratory tuberculosis
CPT/HCPCS: 36415; 86480; 93971

== ENCOUNTER → 2023-02-11 23:25 | Outpatient (CLI) | payer MEDICARE, OTHER, SELFPAY ==
[2023-02-11 19:52] LABS: Amphetamine/Metha Screen,Urine Negative ng/ml (<1000)
[2023-02-11 19:53] LABS: Barbiturates Screen,Urine Negative ng/ml (<200)
[2023-02-11 19:54] LABS: Benzodiazepines Screen,Urine Negative ng/ml (<200)
[2023-02-11 19:55] LABS: Cannabinoid Screen,Urine Negative ng/ml (<50); Cocaine Screen,Urine Negative ng/ml (<300)
[2023-02-11 19:56] LABS: Methadone Screen,Urine Negative ng/ml (<300)
[2023-02-11 19:57] LABS: Opiate Screen,Urine Negative ng/ml (<300); Phencyclidine Screen,Urine Negative ng/ml (<25)
== END ==
PROVIDERS: PCP Emergency Medicine; Visit Provider Emergency Medicine
DX: Z79.899 Other long term (current) drug therapy (principal); T14.8XXA Other injury of unspecified body region, initial encounter; W19.XXXA Unspecified fall, initial encounter; S89.91XA Unspecified injury of right lower leg, initial encounter
CPT/HCPCS: 80305; 87070; 87205

== ENCOUNTER → 2023-04-08 16:40 | Outpatient (CLI) | payer MEDICARE, OTHER, SELFPAY ==
[2023-04-08 12:51] LABS: Basophils # 0.1 K/mm3 (0-0.2); Basophils % 0.5 % (0.1-2.0); Eosinophils # 0.3 K/mm3 (0.0-0.4); Eosinophils % 2.8 % (0.1-12.0); Hematocrit 39.6 % (37.0-47.0); Hemoglobin 12.8 g/dL (12.2-16.2); Lymphocytes # 3.4 K/mm3 (0.7-4.5); Lymphocytes % 34.3 % (10-50); Mean Corpuscular HGB Conc 32.5 g/dL (31.8-35.4); Mean Corpuscular Hemoglobin 28.5 pg (27.0-31.2); Mean Corpuscular Volume 87.9 fl (81-99); Mean Platelet Volume 9.2 fl (7.4-10.4); Monocytes # 0.8 K/mm3 (0.1-1.0); Monocytes % 8.4 % (1.7-9.3); Neutrophils # 5.3 K/mm3 (1.8-7.8); Platelet Count 398 K/mm3 (142-424); Red Cell Distribution Width 16.2 % (11.5-17.5); White Blood Count 9.9 K/mm3 (4.8-10.8)
[2023-04-08 13:12] LABS: Alanine Aminotransferase 33 U/L (12-78); Albumin Level 4.4 g/dl (3.5-5.0); Albumin/Globulin Ratio 1.4 (1.1-1.8); Alkaline Phosphatase 128 U/L (38-126); Anion Gap 18.7 mEq/L (5-15); Aspartate Amino Transferase 43 U/L (14-36); Bilirubin,Total 0.4 mg/dl (0.2-1.3); Blood Urea Nitrogen 18 mg/dl (7-17); Calcium 9.5 mg/dl (8.4-10.2); Carbon Dioxide 23 mmol/L (22.0-30.0); Chloride 105 mmol/L (98-107); Chol/HDL Ratio 4.1 (1-3.5); Cholesterol 141 mg/dl (140-200); Estimated Glomerular Filt Rate 62 ml/min (>60); GFR (African American) 74 ML/MIN (>60); Globulin 3.2 g/dL (1.3-3.2); Glucose 92 mg/dl (74-100); HDL Cholesterol 34 mg/dl (40-60); Potassium 4.7 mmoL/L (3.5-5.1); Sodium 142 mmol/L (136-145); Total Protein,Serum 7.6 g/dl (6.3-8.2); Triglycerides 306 mg/dl (30-150); VLDL Cholesterol 61 mg/dL (0-40)
[2023-04-08 13:24] LABS: Direct LDL Cholesterol 56.81 mg/dL (100-129)
[2023-04-08 13:29] LABS: 25-OH Vitamin D, Total 44.7 ng/mL (30-100)
[2023-04-08 13:43] LABS: Thyroid Stimulating Hormone 1.86 uIU/mL (0.465-4.68)
== END ==
PROVIDERS: PCP Emergency Medicine; Visit Provider Emergency Medicine
DX: I10 Essential (primary) hypertension (principal); R53.83 Other fatigue; I21.9 Acute myocardial infarction, unspecified; E55.9 Vitamin D deficiency, unspecified; M79.7 Fibromyalgia
CPT/HCPCS: 80053; 80061; 82306; 84443; 85025

== ENCOUNTER → 2023-10-04 09:12 | Outpatient (CLI) | payer MEDICARE, MEDICAID, SELFPAY | PROVIDERS: PCP Emergency Medicine; Visit Provider Emergency Medicine | DX: R39.9 Unspecified symptoms and signs involving the genitourinary system (principal); B96.89 Other specified bacterial agents as the cause of diseases classified elsewhere | CPT/HCPCS: 87086 ==

== ENCOUNTER 2023-12-13 10:22 | Outpatient (CLI) | payer MEDICARE, MEDICAID, SELFPAY ==
[2023-12-13 10:58] LABS: Basophils # 0.1 K/mm3 (0-0.2); Basophils % 0.7 % (0.1-2.0); Eosinophils # 0.2 K/mm3 (0.0-0.4); Eosinophils % 2.1 % (0.1-12.0); Hematocrit 35.3 % (37.0-47.0); Hemoglobin 11.9 g/dL (12.2-16.2); Lymphocytes # 3.6 K/mm3 (0.7-4.5); Lymphocytes % 34.6 % (10-50); Mean Corpuscular HGB Conc 33.7 g/dL (31.8-35.4); Mean Corpuscular Hemoglobin 29.2 pg (27.0-31.2); Mean Corpuscular Volume 86.7 fl (81-99); Mean Platelet Volume 7.9 fl (7.4-10.4); Monocytes # 0.7 K/mm3 (0.1-1.0); Monocytes % 6.7 % (1.7-9.3); Neutrophils # 5.9 K/mm3 (1.8-7.8); Neutrophils % 55.9 % (37.0-80.0); Platelet Count 358 K/mm3 (142-424); Red Blood Count 4.07 M/mm3 (4.20-5.40); Red Cell Distribution Width 15.9 % (11.5-17.5); White Blood Count 10.5 K/mm3 (4.8-10.8)
[2023-12-13 11:20] LABS: Chloride 107 mmol/L (98-107); Potassium 4.6 mmoL/L (3.5-5.1); Sodium 140 mmol/L (136-145)
[2023-12-13 11:23] LABS: Alanine Aminotransferase 27 U/L (12-78); Albumin Level 3.9 g/dl (3.5-5.0); Albumin/Globulin Ratio 1.2 (1.1-1.8); Alkaline Phosphatase 126 U/L (38-126); Anion Gap 12.6 mEq/L (5-15); Aspartate Amino Transferase 30 U/L (14-36); Bilirubin,Total 0.5 mg/dl (0.2-1.3); Blood Urea Nitrogen 17 mg/dl (7-17); Carbon Dioxide 25 mmol/L (22.0-30.0); Estimated Glomerular Filt Rate 55 ml/min (>60); GFR (African American) 66 ML/MIN (>60); Globulin 3.3 g/dL (1.3-3.2); Total Protein,Serum 7.2 g/dl (6.3-8.2)
[2023-12-13 11:24] LABS: Calcium 9.5 mg/dl (8.4-10.2); Glucose 98 mg/dl (74-100)
[2023-12-16 05:12] LABS: QuantiFERON-TB Gold Plus Negative (Negative)
== END 2023-12-13 23:59 ==
LOC: LAB 10:24
PROVIDERS: PCP Family Medicine; Visit Provider Dermatology
DX: L40.0 Psoriasis vulgaris (principal); Z79.899 Other long term (current) drug therapy
CPT/HCPCS: 36415; 80053; 85025; 86480

== ENCOUNTER 2023-12-13 11:19 | Outpatient (POV) | payer MEDICARE, MEDICAID, SELFPAY | END 2023-12-13 23:59 | disposition home or self-care (01) | LOC: SC 11:20 | PROVIDERS: PCP Physician Assistant; Visit Provider Dermatology | DX: Z00.00 Encounter for general adult medical examination without abnormal findings (principal) ==

== ENCOUNTER 2024-04-17 08:10 | Outpatient (CLI) | payer MEDICARE, MEDICAID, SELFPAY ==
--- NOTE | 2024-04-17 08:18 | XR_ITS ---
FINAL REPORT CLINICAL HISTORY: Foot Pain COMPARISON: None FINDINGS: LEFT FOOT Three views of the left foot demonstrate a subacute to chronic fracture of the distal fifth metatarsal. There is mild degenerative change. The soft tissues are unremarkable. IMPRESSION: Subacute to chronic distal fifth metatarsal fracture. Reviewed, Interpreted and Dictated by Taurus Kwon III, MD Transcribed by Danielle Godwin Authenticated and [facility]
--- NOTE | 2024-04-17 08:18 | XR_ITS ---
FINAL REPORT CLINICAL HISTORY: Foot Pain FINDINGS: RIGHT FOOT 3 views of the right foot were obtained. There is no acute fracture or dislocation. There is mild degenerative change. Soft tissues are unremarkable. IMPRESSION: Mild degenerative change without acute bony abnormality. Reviewed, Interpreted and Dictated by Taurus Kwon III, MD Transcribed by Danielle Godwin Authenticated and [facility]
== END 2024-04-17 23:59 | disposition home or self-care (01) ==
LOC: RAD 08:11
PROVIDERS: PCP Family Medicine; Visit Provider Nurse Practitioner
DX: M79.671 Pain in right foot (principal); M79.672 Pain in left foot
CPT/HCPCS: 73630

== ENCOUNTER 2024-09-07 09:31 | Outpatient (CLI) | payer MEDICARE, MEDICAID, SELFPAY | END 2024-09-07 23:59 | disposition home or self-care (01) | LOC: LAB.DROPOF 09-10 09:32 | PROVIDERS: PCP Family Medicine; Visit Provider Family Medicine | DX: R39.9 Unspecified symptoms and signs involving the genitourinary system (principal) | CPT/HCPCS: 87086 ==

== ENCOUNTER 2024-11-15 11:15 | Outpatient (CLI) | payer MEDICARE, MEDICAID, SELFPAY ==
[2024-11-15 17:00] LABS: Creatinine,Urine Random 143 mg/dL (Not Estab.)
[2024-11-15 17:06] LABS: Microalbumin/Creatinine Ratio 30.6
== END 2024-11-15 23:59 | disposition home or self-care (01) ==
LOC: LAB.DROPOF 11-17 08:18
PROVIDERS: PCP Family Medicine; Visit Provider Family Medicine
DX: N39.0 Urinary tract infection, site not specified (principal); B96.20 Unspecified Escherichia coli [E. coli] as the cause of diseases classified elsewhere; Z11.59 Encounter for screening for other viral diseases; E78.5 Hyperlipidemia, unspecified
CPT/HCPCS: 82043; 82570; 87086; 87088; 87186

== ENCOUNTER 2024-12-10 09:47 | Outpatient (CLI) | payer MEDICARE, SELFPAY ==
[2024-12-10 10:09] LABS: Basophils # 0.1 K/mm3 (0-0.2); Basophils % 0.5 % (0.1-2.0); Eosinophils # 0.3 K/mm3 (0.0-0.4); Eosinophils % 2.6 % (0.1-12.0); Hematocrit 39.3 % (37.0-47.0); Hemoglobin 12.1 g/dL (12.2-16.2); Lymphocytes # 3.1 K/mm3 (0.7-4.5); Lymphocytes % 31.9 % (10-50); Mean Corpuscular HGB Conc 30.8 g/dL (31.8-35.4); Mean Corpuscular Hemoglobin 27.3 pg (27.0-31.2); Mean Corpuscular Volume 88.7 fl (81-99); Mean Platelet Volume 9.9 fl (7.4-10.4); Monocytes % 10.5 % (1.7-9.3); Neutrophils # 5.2 K/mm3 (1.8-7.8); Neutrophils % 54.3 % (37.0-80.0); Platelet Count 339 K/mm3 (142-424); Red Blood Count 4.43 M/mm3 (4.20-5.40); Red Cell Distribution Width 16.5 % (11.5-17.5); White Blood Count 9.6 K/mm3 (4.8-10.8)
[2024-12-10 10:35] LABS: Albumin Level 4.1 g/dl (3.5-5.0); Chloride 106 mmol/L (98-107); Potassium 4.6 mmoL/L (3.5-5.1); Sodium 141 mmol/L (136-145)
[2024-12-10 10:38] LABS: Alanine Aminotransferase 24 U/L (12-78); Albumin/Globulin Ratio 1.3 (1.1-1.8); Alkaline Phosphatase 124 U/L (38-126); Anion Gap 13.6 mEq/L (5-15); Aspartate Amino Transferase 36 U/L (14-36); Bilirubin,Total 0.4 mg/dl (0.2-1.3); Blood Urea Nitrogen 16 mg/dl (7-17); Calcium 9.7 mg/dl (8.4-10.2); Carbon Dioxide 26 mmol/L (22.0-30.0); Cholesterol 141 mg/dl (140-200); Estimated Glomerular Filt Rate 54 ml/min (>60); GFR (African American) 66 ML/MIN (>60); Globulin 3.1 g/dL (1.3-3.2); Glucose 93 mg/dl (74-100); Total Protein,Serum 7.2 g/dl (6.3-8.2); Triglycerides 354 mg/dl (30-150); VLDL Cholesterol 71 mg/dL (0-40)
[2024-12-10 10:39] LABS: Chol/HDL Ratio 5.2 (1-3.5); HDL Cholesterol 27 mg/dl (40-60)
[2024-12-10 10:50] LABS: Direct LDL Cholesterol 59.73 mg/dL (100-129)
[2024-12-10 13:26] LABS: HIV Combo NEGATIVE (Negative)
[2024-12-10 15:33] LABS: Hemoglobin A1C 5.6 % (4.0-6.0)
[2024-12-10 19:45] LABS: Thyroid Stimulating Hormone 3.31 uIU/mL (0.465-4.68)
== END 2024-12-10 23:59 | disposition home or self-care (01) ==
LOC: LAB 09:47
PROVIDERS: PCP Family Medicine; Visit Provider Family Medicine
DX: E78.5 Hyperlipidemia, unspecified (principal); I10 Essential (primary) hypertension; Z11.59 Encounter for screening for other viral diseases; Z11.4 Encounter for screening for human immunodeficiency virus [HIV]; Z13.1 Encounter for screening for diabetes mellitus
CPT/HCPCS: 36415; 80053; 80061; 83036; 84443; 85025; 87389

== ENCOUNTER 2025-03-13 09:46 | Outpatient (CLI) | payer MEDICARE, SELFPAY ==
--- OUTSIDE RECORDS SUMMARY | 2025-03-13 09:48 | XMS_ITS | Clinical Summary ---
Author Organization [facility] , [facility] Address [address] [place] [address] Phone Care Team Providers Care Service Observer Chief Name Role Phone FABI ALBA MD Unavailable [phone] Meño Taylor MD Unavailable [phone] Virgil Gallagher MD Primary Care Provider [phone] Reason for Visit and Chief Complaint [Patient Encounter] Problems Includes: Problems addressed during this encounter and other active Problems All Visits Onset Date Resolved Date Provider Condition S tatus Joint Pain in the Left Knee 06/20/2017 Meño Taylor MD Active Last Documented On 7 10:55AM ; [facility] Plan of Treatment No Plan of Treatment Recorded Assessments Includes: Assessments from this encounter No Assessments Recorded Medical Equipment - Implanted Devices Includes: Current Devices No Medical Equipment Recorded Medications Includes: Medications discussed during this encounter and other current Medications Current Medications (continue as prescribed) Nitroglycerin 0.4 MG Subling ual Tablet Sublingual 07/29/2022 Provider: Virgil Gallagher MD Diagnosis: Last Documented On 2 2:59PM By Chantell Arthur ; [facility], [facility] Ventolin HFA 108 (90 Base) MCG/ACT Inhalation Ae rosol Solution 07/29/2022 Provider: Diagnosis: Last Documented On 2 3:00PM By Chantell Arthur ; [facility], [facility] FLUoxetine HCl 20 MG Oral Capsule 07/28/2022 Provide r: Virgil Gallagher MD Diagnosis: Last Documented On 2 11:55AM By Whit Crook ; [facility], [facility] Famotidine 40 MG Oral Tablet 07/28/2022 Provider: Virgil Gallagher MD Diagnosis: Last Documented On 2 11:55AM By Whit Crook ; [facility], [facility] Enalapril Maleate 10 MG Oral Tablet 07/28/2022 Provi gifty: Diagnosis: Last Documented On 2 2:59PM By Chantell Arthur ; [facility], [facility] Atorvastatin Calcium 80 MG Oral Tablet 07/28/2022 Pr ovider: Virgil Gallagher MD Diagnosis: Last Documented On 2 2:59PM By Chantell Arthur ; [facility], [facility] Montelukast Sodium 10 MG Oral Tablet 07/13/2022 Prov ider: Diagnosis: Last Documented On 2 2:59PM By Chantell Arthur ; [facility], [facility] Fluticasone Propionate 50 MC G/ACT Nasal Suspension 07/13/2022 Provider: Virgil Gallagher MD Diagnosis: Last Documented On 2 2:59PM By Chantell Arthur ; [facility], [facility] ALPRAZolam 0.25 MG Oral Tablet 07/13/2022 Provider: Virgil Gallagher MD Diagnosis: Last Documented On 2 2:59PM By Chantell Arthur ; [facility], [facility] Symbicort 160-4.5 MCG/ACT Inhalation Aerosol Provider: Virgil Gallagher MD Diagnosis: Last Documented On 2 11:55AM By Whit Crook ; [facility], [facility] Metoprolol Tartrate 50 MG Oral Tablet 06/15/2022 Pro vider: Virgil Gallagher MD Diagnosis: Last Documented On 2 2:59PM By Chantell Arthur ; [facility], [facility] Gabapentin 600 MG Oral Tablet 06/08/2022 Provider: Virgil Gallagher MD Diagnosis: Last Documented On 2 2:59PM By Chantell Arthur ; [facility], [facility] Amitriptyline HCl 25 MG Oral Tablet 03/18/2022 Provi gifty: Virgil Gallagher MD Diagnosis: Last Documented On 2 2:59PM By Chantell Arthur ; [facility], [facility] traMADol HCl 50 MG Oral Tablet 02/24/2022 Provider: Virgil Gallagher MD Diagnosis: Last Documented On 2 2:59PM By Chantell Arthur ; [facility], [facility] Stelara 45 MG/0.5ML Subcutaneous Solution Prefil led Syringe 02/05/2022 Provider: Diagnosis: Last Documented On 2 11:55AM By Whit Crook ; [facility], [facility] Medications Administered Includes: Administered Medications from this encounter No Administered Medications Recorded Results Includes: Results discussed during this encounter No Results Recorded For Specified Dates History of Present Illness Includes: History of Present Illness from this encounter No History of Present Illness Recorded Social History No Social History Recorded - Smoking Status Unknown Medical History Includes: Medical History addressed during this encounter No Medical History Recorded Family History Includes: Family History addressed during this encounter No Family History Recorded Review of Systems Includes: Review of Systems from this encounter No Review of Systems Recorded Mental Status Includes: Mental Status from this encounter No Mental Status Recorded Functional Status Includes: Functional Status from this encounter No Functional Status Recorded Physical Exam Includes: Physical Exam from this encounter No Physical Exam Recorded Allergies Includes: Active Allergies Substance Type Reaction Onset Date Resolved Date Statu s Sulfa Antibiotics Allergy 07/29/2022 A ctive Last Documented On 2 12:54PM ; [facility], [facility] Septra Allergy 07/29/2022 Active Last Documented On 2 12:54PM ; [facility] predniSONE Allergy 07/29/2022 Active Last Documented On 2 12:54PM ; [facility], [facility] Penicillins Allergy 07/29/2022 Active Last Documented On 2 12:54PM ; [facility], [facility] Omnicef Allergy 07/29/2022 Active Last Documented On 2 12:54PM ; [facility], [facility] Macrobid Allergy 07/29/2022 Active Last Documented On 2 12:54PM ; [facility], [facility] Ibuprofen Allergy 07/29/2022 Active Last Documented On 2 12:54PM ; [facility], [facility] Cipro Allergy 07/29/2022 Active Last Documented On 2 12:54PM ; [facility], [facility] Ceftin Allergy 07/29/2022 Active Last Documented On 2 12:54PM ; [facility] Encounters Encounter Provider Location Date Check-In Time Check-Out Time Diagnosis [Patient Encounter] Meño Taylor MD 2 3:00PM 11:59PM Insurance Includes: Active Insurance Policies Plan Name Member ID Group # Subscriber Relationship Effect meet Dates 1 - Medicare Part B [facility] [id number] Julieta Bunn Self 11/14/2002 - Unknown 2 - [employer] [id number] Julieta Bunn Self 11/14/2016 - Unknown Clinical Notes Includes: Clinical Notes from this encounter No Clinical Notes Recorded
--- OUTSIDE RECORDS SUMMARY | 2025-03-13 09:48 | XMS_ITS | Clinical Summary ---
Author Organization [facility] , [facility] Address [address] [place] [address] Phone Care Team Providers Care Rayon Tester Name Role Phone ANJALI LEIVA, FABI Unavailable [phone] Claudia LEIVA, Meño Boggs Unavailable [phone] Elliott LEIVA, Virgil Martins Primary Care Provider [phone] Reason for Visit and Chief Complaint The Chief Complaint is: RIGHT KNEE PAIN Problems Includes: Problems addressed during this encounter and other active Problems All Visits Onset Date Resolved Date Provider Condition S tatus Joint Pain in the Left Knee 06/20/2017 Meño Taylor MD Active Last Documented On 7 10:55AM ; [facility], [facility] Plan of Treatment patient was doing relatively well. She is to continue with gradual progression to activity as tolerated. Follow-up in the office in one year with repeat x-rays of bilateral knees. Left partial knee replacement reports patient is doing well roughly 5 years postop today - Last Documented On 10/18/2022 1:19PM ; [facility], [facility] Instructions to patient Instructions for patient See PCP for BP Last Documented On 2 12:40PM ; [facility], [facility] Lose weight Last Documented On 2 12:40PM ; [facility], [facility] Assessments Includes: Assessments from this encounter Findings 9 weeks postop right medial UKA - Last Documented On 10/18/2022 1:19PM ; [facility], [facility] Instructions Includes: Instructions from this encounter Instructions to patient Instructions for patient See PCP for BP Last Documented On 2 12:40PM ; [facility], [facility] Lose weight Last Documented On 2 12:40PM ; [facility] Medical Equipment - Implanted Devices Includes: Current Devices No Medical Equipment Recorded Medications Includes: Medications discussed during this encounter and other current Medications Current Medications (continue as prescribed) Nitroglycerin 0.4 MG Subling ual Tablet Sublingual 07/29/2022 Provider: Virgil Gallagher MD Diagnosis: Last Documented On 2 2:59PM By Chantell Arthur ; [facility] Ventolin HFA 108 (90 Base) MCG/ACT Inhalation Ae rosol Solution 07/29/2022 Provider: Diagnosis: Last Documented On 2 3:00PM By Chantell Arthur ; [facility] FLUoxetine HCl 20 MG Oral Capsule 07/28/2022 Provide r: Virgil Gallagher MD Diagnosis: Last Documented On 2 11:55AM By Whit Crook ; [facility] Famotidine 40 MG Oral Tablet 07/28/2022 Provider: Virgil Gallagher MD Diagnosis: Last Documented On 2 11:55AM By Whit Crook ; [facility] Enalapril Maleate 10 MG Oral Tablet 07/28/2022 Provi gifty: Diagnosis: Last Documented On 2 2:59PM By Chantell Arthur ; [facility] Atorvastatin Calcium 80 MG Oral Tablet 07/28/2022 Pr ovider: Virgil Gallagher MD Diagnosis: Last Documented On 2 2:59PM By Chantell Arthur ; [facility] Montelukast Sodium 10 MG Oral Tablet 07/13/2022 Prov ider: Diagnosis: Last Documented On 2 2:59PM By Chantell Arthur ; [facility] Fluticasone Propionate 50 MC G/ACT Nasal Suspension 07/13/2022 Provider: Virgil Gallagher MD Diagnosis: Last Documented On 2 2:59PM By Chantell Arthur ; [facility] ALPRAZolam 0.25 MG Oral Tablet 07/13/2022 Provider: Virgil Gallagher MD Diagnosis: Last Documented On 2 2:59PM By Chantell Arthur ; [facility] Symbicort 160-4.5 MCG/ACT Inhalation Aerosol Provider: Virgil Gallagher MD Diagnosis: Last Documented On 2 11:55AM By Whit Crook ; [facility], [facility] Metoprolol Tartrate 50 MG Oral Tablet 06/15/2022 Pro vider: Virgil Gallagher MD Diagnosis: Last Documented On 2 2:59PM By Chantell Arthur ; [facility] Gabapentin 600 MG Oral Tablet 06/08/2022 Provider: Virgil Gallagher MD Diagnosis: Last Documented On 2 2:59PM By Chantell Arthur ; [facility] Amitriptyline HCl 25 MG Oral Tablet 03/18/2022 Provi gifty: Virgil Gallagher MD Diagnosis: Last Documented On 2 2:59PM By Chantell Arthur ; [facility] traMADol HCl 50 MG Oral Tablet 02/24/2022 Provider: Virgil Gallagher MD Diagnosis: Last Documented On 2 2:59PM By Chantell Arthur ; [facility], [facility] Stelara 45 MG/0.5ML Subcutaneous Solution Prefil led Syringe 02/05/2022 Provider: Diagnosis: Last Documented On 2 11:55AM By Whit Crook ; [facility], [facility] Past Medications on file Warfarin Sodium 2 MG Oral Tablet 09/13/2022 - 09/28/2022 Provider: Ole duran PA-C Diagnosis: once a day Last Documented On 2 4:25PM By Enedina Martines ; [facility], [facility] Warfarin Sodium 3 MG Oral Tablet 09/02/2022 - 10/02/2022 Provider: Ole duran PA-C Diagnosis: once a day Last Documented On 2 12:18PM By Enedina Martines ; [facility], [facility] Warfarin Sodium 3 MG Oral Tablet 08/24/2022 - 09/08/2022 Provider: Meño bauer MD Diagnosis: once a day Last Documented On 2 1:03PM By Enedina Martines ; [facility] Warfarin Sodium 5 MG Oral Tablet 08/10/2022 - 08/25/2022 Provider: Meño bauer MD Diagnosis: once a day Last Documented On 2 10:20AM By Carlito Taylor ; [facility] Lovenox 40 MG/0.4ML Injection Solution Prefilled Syringe 08/10/2022 - 08/12/2022 Provider: Meño bauer MD Diagnosis: 1 sub q injection 1 time day Last Documented On 2 10:20AM By Carlito Taylor ; [facility] traMADol HCl 50 MG Oral Tablet 08/09/2022 - 08/14/2022 Provider: Meño bauer MD Diagnosis: 1-2 po q 4-6h Last Documented On 2 8:44AM By Carlito Taylor ; [facility] oxyCODONE HCl 5 MG Oral Tablet 08/09/2022 - 08/14/2022 Provider: Meño bauer MD Diagnosis: 1-2 po q 4-6h Last Documented On 2 8:44AM By Carlito Taylor ; [facility] Ondansetron HCl 4 MG Oral Tablet 08/09/2022 - 08/14/2022 Provider: Meño Taylor MD Diagnosis: [id number] Last Documented On 2 8:44AM By Carlito Taylor ; [facility] Meloxicam 15 MG Oral Tablet 08/09/2022 - 09/08/2022 Provider: Meño bauer MD Diagnosis: once a day Last Documented On 2 8:44AM By Carlito Taylor ; [facility] Colace 100 MG Oral Capsule 08/09/2022 - 11/07/2022 Provider: Meño bauer MD Diagnosis: 1-2 tabs daily Last Documented On 2 8:44AM By Carlito Taylor ; [facility] Cefadroxil 500 MG Oral Capsule 08/09/2022 - 08/12/2022 Provider: Meño bauer MD Diagnosis: twice a day Last Documented On 2 8:44AM By Carlito Taylor ; [facility] Acetaminophen 500 MG Oral Tablet 08/09/2022 - 09/08/2022 Provider: Meño Taylor MD Diagnosis: 2 three times a day Last Documented On 2 8:44AM By Carlito Taylor ; [facility] Vitamin D3 50 MCG (2000 UT) Oral Tablet 08/04/2022 - 09/03/2022 Provider: Nayeli RUTH Diagnosis: once a day Last Documented On 2 7:55PM By Nayeli MG [facility] Neurontin 300MG Oral Capsule, conventional 07/26/2017 - 10/24/2017 Provider: Meño Taylor MD Diagnosis: Aftercare follow ing joint replacement surgery 1 every bedtime FOR SURGERY DO NOT FILL TILL 08/02/17 Last Documented On 7 1:56PM By Scarlett MG [facility] TraMADol HCl 50MG Oral Tablet 07/26/2017 - 08/08/2017 Provider: Meño Taylor MD Diagnosis: Aftercare follow ing joint replacement surgery 2 tablets every 6 hours. FOR SURGERY DO NOT FILL TILL 08/02/17 Last Documented On 7 1:57PM By Scarlett Li ; [facility] Medications Administered Includes: Administered Medications from this encounter No Administered Medications Recorded Vital Signs Includes: Vital Signs from this encounter Vital Name 10/18/2022 12:55P Blood Pressure Sitting (mmHg) 98/76 Pulse Rate-Sitting (bpm) 71 Height (in) 64 Weight (lb) 161 Body Mass Index (kg/m2) 27.6 Body Surface Area (m2) 1.8 Note: ck Last Documented: On 10/18/2022 12:57P M ; [facility] Results Includes: Results discussed during this encounter No Results Recorded For Specified Dates History of Present Illness Includes: History of Present Illness from this encounter CINTHIA Bunn is a 72 year old female. - Allergy list reviewed - Problem list reviewed - Medication list reviewed - Medication list reviewed with patient Social History Description Last Updated No recent change in diet 07/29/2022 Last Documented On 2 12:40PM ; [facility] MANZANO Not a current smoker. 07/29/2022 Last Documented On 2 12:40PM ; [facility] Tobacco non-user 07/29/2022 Last Documented On 2 12:40PM ; [facility] No tobacco use 06/20/2017 Last Documented On 2 12:40PM ; [facility], [facility] Smoking status : Never smoker 06/20/2017 Last Documented On 2 12:40PM ; [facility] Caffeine use 06/20/2017 Last Documented On 2 12:40PM ; [facility] No recent change in diet 06/20/2017 Last Documented On 2 12:40PM ; [facility], [facility] Not a current smoker 06/20/2017 Last Documented On 2 12:40PM ; [facility], [facility] Not exercising regularly 06/20/2017 Last Documented On 2 12:40PM ; [facility] Not using alcohol 06/20/2017 Last Documented On 2 12:40PM ; [facility] Not using drugs 06/20/2017 Last Documented On 2 12:40PM ; [facility], [facility] Procedures and Surgical History Includes: Procedures from this encounter Procedures Code Diagnosis Performing Provider Service L ocation Service Date use of tobacco assessment performed 1000F Last Documented On 2 12:40PM ; [facility], [facility] patient screened for future fall risk: documentation of any fall with injury in past year 1100F Last Documented On 2 12:40PM ; [facility], [facility] Surgical History Last Updated History of History of Gallbladder 2021 Last Documented On 2 12:40PM ; [facility], [facility] History of hysterectomy 07/29/2022 Last Documented On 2 12:40PM ; [facility], [facility] History of appendectomy 06/20/2017 Last Documented On 2 12:40PM ; [facility], [facility] History of heart surgery 06/20/2017 Last Documented On 2 12:40PM ; [facility], [facility] Medical History Includes: Medical History addressed during this encounter Description Last Updated Recent immunization for flu 08/26/2022 1 12/19/2021 Last Documented On 2 1:19PM ; [facility], [facility] History of arthritis 07/29/2022 Last Documented On 2 12:40PM ; [facility], [facility] History of asthma 07/29/2022 Last Documented On 2 12:40PM ; [facility], [facility] History of heart disease 07/29/2022 Last Documented On 2 12:40PM ; [facility], [facility] History of Heartburn / Acid Reflux 07/29 Last Documented On 2 12:40PM ; [facility], [facility] History of History of Blood Clots 2021 Last Documented On 2 12:40PM ; [facility], [facility] History of History of Blood Transfusion 07/29/2022 Last Documented On 2 12:40PM ; [facility], [facility] History of History of Heart Attack / Str [place] 07/29/2022 Last Documented On 2 12:40PM ; [facility], [facility] History of History of Rheumatology 07/29 Last Documented On 2 12:40PM ; [facility], [facility] History of Hypertension 07/29/2022 Last Documented On 2 12:40PM ; [facility], [facility] History of osteoporosis 07/29/2022 Last Documented On 2 12:40PM ; [facility], [facility] Past Surgical History: P. knee replaceme nt 07/29/2022 Last Documented On 2 12:40PM ; [facility], [facility] Recent immunization for pneumococcal pne umonia 2020 07/29/2022 Last Documented On 2 12:40PM ; [facility], [facility] A history of cancer 06/20/2017 Last Documented On 2 12:40PM ; [facility], [facility] Arthritic joint problems 06/20/2017 Last Documented On 2 12:40PM ; [facility], [facility] Gallbladder disease 06/20/2017 Last Documented On 2 12:40PM ; [facility], [facility] History of acute myocardial infarction 0 06/20/2017 Last Documented On 2 12:40PM ; [facility], [facility] History of depression 06/20/2017 Last Documented On 2 12:40PM ; [facility], [facility] Rheumatology history 06/20/2017 Last Documented On 2 12:40PM ; [facility], [facility] A recent injection 06/20/2017 Last Documented On 2 12:40PM ; [facility], [facility] Family History Includes: Family History addressed during this encounter Description Last Updated Diabetes mellitus 07/29/2022 Last Documented On 2 12:40PM ; [facility], [facility] Family history of cancer 07/29/2022 Last Documented On 2 12:40PM ; [facility], [facility] Family history of heart disease 07/29/20 22 Last Documented On 2 12:40PM ; [facility], [facility] Family history of osteoporosis 2 Last Documented On 2 12:40PM ; [facility], [facility] Family history of rheumatoid arthritis 0 07/29/2022 Last Documented On 2 12:40PM ; [facility], [facility] Family history of systemic hypertension 07/29/2022 Last Documented On 2 12:40PM ; [facility], [facility] Family history of thromboembolic disease 07/29/2022 Last Documented On 2 12:40PM ; [facility], [facility] stroke seizures 06/20/2017 Last Documented On 2 12:40PM ; [facility], [facility] Fraternal history of family history of h eart disease 06/20/2017 Last Documented On 2 12:40PM ; [facility], [facility] Fraternal history of rheumatoid arthriti s 06/20/2017 Last Documented On 2 12:40PM ; [facility], [facility] Maternal history of diabetes mellitus Last Documented On 2 12:40PM ; [facility], [facility] Maternal history of family history of ca ncer 06/20/2017 Last Documented On 2 12:40PM ; [facility], [facility] Maternal history of thromboembolic disea se 06/20/2017 Last Documented On 2 12:40PM ; [facility] Review of Systems Includes: Review of Systems from this encounter Systemic: Not feeling tired and no recent weight loss. Recent weight gain. No edema. Head: No headache and no sinus pain. Eyes: No vision problems. Cataracts. No Glasses/Contacts and no Glaucoma. Otolaryngeal: No hearing loss. Tinnitus. No nasal symptoms. Cardiovascular: No chest pain or discomfort and no palpitations. Hypertension. No High Cholesterol. Pulmonary: Daytime asthma symptoms. No cough and no chronic cough. No wheezing. Gastrointestinal: No heartburn and no abdominal pain. No Indigestion. Acid Reflux. No Peptic Ulcer, no GI Stomach Bleed, and no Ulcers. Endocrine: Hot flashes and muscle weakness. No Diabetes, no Hypothyroid, and no Hyperthyroid. Hematologic: No easy bleeding. A tendency for easy bruising. No Anemia. Musculoskeletal: Arthritis. No lower back pain. No soft tissue swelling. Pain localized to one or more joints. Neurological: No dizziness, no convulsions, and no numbness. Psychological: Anxiety. No emotional lability, no depression, and no insomnia. Not crying for no reason. Skin: No dry skin. No Ulcers. Scars. No rash and no ulcers. Allergic and Immunologic: Complaint of seasonal allergic reaction. Mental Status Includes: Mental Status from this encounter Description Anxiety Functional Status Includes: Functional Status from this encounter No Functional Status Recorded Physical Exam Includes: Physical Exam from this encounter Immunizations Includes: Immunizations addressed during this encounter Vaccine Dose # Date Site Reaction(s) Status Source Influenza 1 08/26/2021 Complete (Reported) Patient Last Documented On 2 12:55PM ; [facility] Influenza 2 08/26/2021 Complete (Reported) Patient Last Documented On 2 12:56PM ; [facility] PCV (Pneumovax 23) 1 10/18/2022 Complete (Refused - Patient objection) [facility] Last Documented On 2 12:55PM ; [facility] Allergies Includes: Active Allergies Substance Type Reaction Onset Date Resolved Date Statu s Sulfa Antibiotics Allergy 07/29/2022 A ctive Last Documented On 2 12:54PM ; [facility] Septra Allergy 07/29/2022 Active Last Documented On 2 12:54PM ; [facility] predniSONE Allergy 07/29/2022 Active Last Documented On 2 12:54PM ; [facility] Penicillins Allergy 07/29/2022 Active Last Documented On 2 12:54PM ; [facility] Omnicef Allergy 07/29/2022 Active Last Documented On 2 12:54PM ; [facility] Macrobid Allergy 07/29/2022 Active Last Documented On 2 12:54PM ; [facility] Ibuprofen Allergy 07/29/2022 Active Last Documented On 2 12:54PM ; [facility] Cipro Allergy 07/29/2022 Active Last Documented On 2 12:54PM ; [facility] Ceftin Allergy 07/29/2022 Active Last Documented On 2 12:54PM ; [facility] Encounters Encounter Provider Location Date Check-In Time Check-Out Time Diagnosis Post Op Ole Bello PA-C [facility] 2 12:44PM 1:24PM Insurance Includes: Active Insurance Policies Plan Name Member ID Group # Subscriber Relationship Effect meet Dates 1 - Medicare Part B [facility] [id number] Julieta Bunn Self 11/14/2002 - Unknown 2 - [place] [id number] Julieta Bunn Self 11/14/2016 - Unknown Clinical Notes Includes: Clinical Notes from this encounter No Clinical Notes Recorded
--- OUTSIDE RECORDS SUMMARY | 2025-03-13 09:49 | XMS_ITS ---
Care Plan - [facility], [facility] Created on: March 13, 2025 Julieta Bunn : 1950 Sex: Female Author Organization [facility] Address [address] [place] [address] Phone Care Team Providers Care Pulmonary Disease Specialist Name Role Phone ANJALI LEIVA, FABI Unavailable [phone] Claudia LEIVA, Meño Boggs Unavailable [phone] Elliott LEIVA, Virgil Martins Primary Care Provider [phone]
--- OUTSIDE RECORDS SUMMARY | 2025-03-13 09:49 | XMS_ITS | Clinical Summary ---
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 Name Role Phone ANJALI LEIVA, FABI Unavailable [phone] Claudia LEIVA, Meño Boggs Unavailable [phone] Elliott LEIVA, Virgil Martins Primary Care Provider [phone] Reason for Visit and Chief Complaint The Chief Complaint is: r uka Problems Includes: Problems addressed during this encounter and other active Problems All Visits Onset Date Resolved Date Provider Condition S tatus Joint Pain in the Left Knee 06/20/2017 Meño Taylor MD Active Last Documented On 10:55AM ; [facility] Plan of Treatment No Plan of Treatment Recorded Assessments Includes: Assessments from this encounter Findings 1. Preoperative Exam- Pt underwent preoperative laboratory workup and diagnostic studies. - Last Documented On 08/09/2022 9:37AM ; [facility] 2. HTN- Continue Enalapril and Metoprolol. - Last Documented On 08/09/2022 9:37AM ; [facility] 3. CAD- S/p Cardiac stent x 2 approx 3 years ago. - Last Documented On 08/09/2022 9:37AM ; [facility] 4. Asthma- Nebs/Inhalers prn. - Last Documented On 08/09/2022 9:37AM ; [facility] 5. H/o Spontaneous DVT- Postoperative anticoagulation per Dr Taylor. - Last Documented On 08/09/2022 9:37AM ; [facility] 6. GERD- Continue Famotidine. - Last Documented On 08/09/2022 9:37AM ; [facility] 7. HL- Continue Atorvastatin. - Last Documented On 08/09/2022 9:37AM ; [facility] 8. Seasonal Allergies- Continue Singulair. - Last Documented On 08/09/2022 9:37AM ; [facility] 9. Low Vit D- I called in Vit D3 2000 IU po daily with PCP f/u in 30 days. - Last Documented On 08/09/2022 9:37AM ; [facility] 10. H/o DVT- Postoperative anticoagulation per Dr Taylor. - Last Documented On 08/09/2022 9:37AM ; [facility] 11. Right Knee Pain secondary to DJD- Proceed with surgery as scheduled with Dr Taylor on 08/10/2022. - Last Documented On 08/09/2022 9:37AM ; [facility] Medical Equipment - Implanted Devices Includes: Current Devices No Medical Equipment Recorded Medications Includes: Medications discussed during this encounter and other current Medications New / Renewed during this visit Nayeli RUTH on 08/04/2022 Vitamin D3 50 MCG (2000 UT) Oral Tablet Provider: Nayeli RUTH 30 day supply: 30 tablet, 0 refills Diagnosis: once a day Pharmacy: [facility] [address], [id number] - Last Documented On 2 7:55PM By Nayeli Duque ; [facility] Current Medications (continue as prescribed) Nitroglycerin 0.4 MG Subling ual Tablet Sublingual 07/29/2022 Provider: Virgil Gallagher MD Diagnosis: Last Documented On 2 2:59PM By Chantell Arthur ; [facility] Ventolin HFA 108 (90 Base) MCG/ACT Inhalation Ae rosol Solution 07/29/2022 Provider: Diagnosis: Last Documented On 2 3:00PM By Chantell Arthur ; [facility] FLUoxetine HCl 20 MG Oral Capsule 07/28/2022 Provide r: Virgil Gallagher MD Diagnosis: Last Documented On 2 11:55AM By Whit Crook ; [facility] Famotidine 40 MG Oral Tablet 07/28/2022 Provider: Virgil Gallagher MD Diagnosis: Last Documented On 2 11:55AM By Whit Crook ; [facility] Enalapril Maleate 10 MG Oral Tablet 07/28/2022 Provi gifty: Diagnosis: Last Documented On 2 2:59PM By Chantell Arthur ; [facility] Atorvastatin Calcium 80 MG Oral Tablet 07/28/2022 Pr ovider: Virgil Gallagher MD Diagnosis: Last Documented On 2 2:59PM By Chantell Arthur ; [facility] Montelukast Sodium 10 MG Oral Tablet 07/13/2022 Prov ider: Diagnosis: Last Documented On 2 2:59PM By Chantell Arthur ; [facility] Fluticasone Propionate 50 MC G/ACT Nasal Suspension 07/13/2022 Provider: Virgil Gallagher MD Diagnosis: Last Documented On 2 2:59PM By Chantell Arthur ; [facility] ALPRAZolam 0.25 MG Oral Tablet 07/13/2022 Provider: Virgil Gallagher MD Diagnosis: Last Documented On 2 2:59PM By Chantell Arthur ; [facility] Symbicort 160-4.5 MCG/ACT Inhalation Aerosol Provider: Virgil Gallagher MD Diagnosis: Last Documented On 2 11:55AM By Whit Crook ; [facility] Metoprolol Tartrate 50 MG Oral Tablet 06/15/2022 Pro vider: Virgil Gallagher MD Diagnosis: Last Documented On 2 2:59PM By Chantell Arthur ; [facility] Gabapentin 600 MG Oral Tablet 06/08/2022 Provider: Virgil Gallagher MD Diagnosis: Last Documented On 2 2:59PM By Chantell Arthur ; [facility] Amitriptyline HCl 25 MG Oral Tablet 03/18/2022 Provi gifty: Virgil Gallagher MD Diagnosis: Last Documented On 2 2:59PM By Chantell Arthur ; [facility] traMADol HCl 50 MG Oral Tablet 02/24/2022 Provider: Virgil Gallagher MD Diagnosis: Last Documented On 2 2:59PM By Chantell Arthur ; [facility] Stelara 45 MG/0.5ML Subcutaneous Solution Prefil led Syringe 02/05/2022 Provider: Diagnosis: Last Documented On 2 11:55AM By Whit Crook ; [facility] Past Medications on file Warfarin Sodium 2 MG Oral Tablet 09/13/2022 - 09/28/2022 Provider: Ole duran PA-C Diagnosis: once a day Last Documented On 2 4:25PM By Enedina Martines ; [facility] Warfarin Sodium 3 MG Oral Tablet 09/02/2022 - 10/02/2022 Provider: Ole duran PA-C Diagnosis: once a day Last Documented On 2 12:18PM By Enedina Martines ; [facility] Warfarin Sodium 3 MG Oral Tablet 08/24/2022 - 09/08/2022 Provider: Meño bauer MD Diagnosis: once a day Last Documented On 2 1:03PM By Enedina Martines ; [facility] Warfarin Sodium 5 MG Oral Tablet 08/10/2022 - 08/25/2022 Provider: Meño bauer MD Diagnosis: once a day Last Documented On 2 10:20AM By Carlito Taylor ; [facility] Lovenox 40 MG/0.4ML Injection Solution Prefilled Syringe 08/10/2022 - 08/12/2022 Provider: Meño bauer MD Diagnosis: 1 sub q injection 1 time day Last Documented On 2 10:20AM By Carlito Taylor ; [facility] traMADol HCl 50 MG Oral Tablet 08/09/2022 - 08/14/2022 Provider: Meño bauer MD Diagnosis: 1-2 po q 4-6h Last Documented On 2 8:44AM By Carlito Taylor ; [facility] oxyCODONE HCl 5 MG Oral Tablet 08/09/2022 - 08/14/2022 Provider: Meño bauer MD Diagnosis: 1-2 po q 4-6h Last Documented On 2 8:44AM By Carlito Taylor ; [facility] Ondansetron HCl 4 MG Oral Tablet 08/09/2022 - 08/14/2022 Provider: Meño Taylor MD Diagnosis: [id number] Last Documented On 2 8:44AM By Carlito Taylor ; [facility] Meloxicam 15 MG Oral Tablet 08/09/2022 - 09/08/2022 Provider: Meño bauer MD Diagnosis: once a day Last Documented On 2 8:44AM By Carlito Taylor ; [facility] Colace 100 MG Oral Capsule 08/09/2022 - 11/07/2022 Provider: Meño bauer MD Diagnosis: 1-2 tabs daily Last Documented On 2 8:44AM By Carlito Taylor ; [facility] Cefadroxil 500 MG Oral Capsule 08/09/2022 - 08/12/2022 Provider: Meño bauer MD Diagnosis: twice a day Last Documented On 2 8:44AM By Carlito Taylor ; [facility] Acetaminophen 500 MG Oral Tablet 08/09/2022 - 09/08/2022 Provider: Meño Taylor MD Diagnosis: 2 three times a day Last Documented On 2 8:44AM By Carlito Taylor ; [facility] Neurontin 300MG Oral Capsule, conventional 07/26/2017 - 10/24/2017 Provider: Meño Taylor MD Diagnosis: Aftercare follow ing joint replacement surgery 1 every bedtime FOR SURGERY DO NOT FILL TILL 08/02/17 Last Documented On 7 1:56PM By Scarlett Li ; [facility] TraMADol HCl 50MG Oral Tablet 07/26/2017 - 08/08/2017 Provider: Meño Taylor MD Diagnosis: Aftercare follow ing joint replacement surgery 2 tablets every 6 hours. FOR SURGERY DO NOT FILL TILL 08/02/17 Last Documented On 7 1:57PM By Scarlett Li ; [facility] Medications Administered Includes: Administered Medications from this encounter No Administered Medications Recorded Vital Signs Includes: Vital Signs from this encounter Vital Name 08/04/2022 10:19A Blood Pressure Sitting (mmHg) 96/60 Pulse Rate-Sitting (bpm) 74 Height (in) 64 Weight (lb) 168 Body Mass Index (kg/m2) 28.8 Body Surface Area (m2) 1.8 Oxygen Saturation (%) 94 Note: tdt Last Documented: On 08/04/2022 10:24A M ; [facility] Results Includes: Results discussed during this encounter No Results Recorded For Specified Dates History of Present Illness Includes: History of Present Illness from this encounter HPI Julieta Bunn is a 72 year old female. - Allergy list reviewed - Problem list reviewed - Medication list reviewed This patient is a pleasant 72 yo WF who presents with right knee pain. The pain has been going on for 5 years but has gotten progressively worse. She describes it as a sharp pain. It is now to the point that it is affecting her ADLs. She has tried NSAIDs and injections without relief of her pain. She has not fallen. She has used a walker as an assistive device. She was seen at Dr Taylor's office and evaluated and it was determined that she has severe DJD affecting the right knee. Pt was offered a Right Partial vs Total Knee Arthroplasty and agreed to the procedure. Pt has a h/o spontaneous DVT approx 3 years ago. She was treated with anticoagulation for 6 months. No recurrence. No PE history. She has had N/V trouble with anesthesia in the past. Pt has a h/o asthma but no VITA or COPD. Social History Description Last Updated No recent change in diet 07/29/2022 Last Documented On 2 10:19AM ; [facility] Not a current smoker. 07/29/2022 Last Documented On 2 10:19AM ; [facility] Tobacco non-user 07/29/2022 Last Documented On 2 10:19AM ; [facility] No tobacco use 06/20/2017 Last Documented On 2 10:19AM ; [facility] Smoking status : Never smoker 06/20/2017 Last Documented On 2 10:19AM ; [facility] Caffeine use 06/20/2017 Last Documented On 2 10:19AM ; [facility] No recent change in diet 06/20/2017 Last Documented On 2 10:19AM ; [facility] Not a current smoker 06/20/2017 Last Documented On 2 10:19AM ; [facility] Not exercising regularly 06/20/2017 Last Documented On 2 10:19AM ; [facility] Not using alcohol 06/20/2017 Last Documented On 2 10:19AM ; [facility] Not using drugs 06/20/2017 Last Documented On 2 10:19AM ; [facility] Procedures and Surgical History Surgical History Last Updated History of History of Gallbladder 2021 Last Documented On 2 10:19AM ; [facility] History of hysterectomy 07/29/2022 Last Documented On 2 10:19AM ; [facility] History of appendectomy 06/20/2017 Last Documented On 2 10:19AM ; [facility] History of heart surgery 06/20/2017 Last Documented On 2 10:19AM ; [facility] Medical History Includes: Medical History addressed during this encounter Description Last Updated Recent immunization for flu 08/10/2021 Last Documented On 2 10:19AM ; [facility] History of arthritis 07/29/2022 Last Documented On 2 10:19AM ; [facility] History of asthma 07/29/2022 Last Documented On 2 10:19AM ; [facility] History of heart disease 07/29/2022 Last Documented On 2 10:19AM ; [facility] History of Heartburn / Acid Reflux 07/29 Last Documented On 2 10:19AM ; [facility] History of History of Blood Clots 2021 Last Documented On 2 10:19AM ; [facility] History of History of Blood Transfusion 07/29/2022 Last Documented On 2 10:19AM ; [facility] History of History of Heart Attack / Str [place] 07/29/2022 Last Documented On 2 10:19AM ; [facility] History of History of Rheumatology 07/29 Last Documented On 2 10:19AM ; [facility] History of Hypertension 07/29/2022 Last Documented On 2 10:19AM ; [facility] History of osteoporosis 07/29/2022 Last Documented On 2 10:19AM ; [facility] Past Surgical History: P. knee replaceme nt 07/29/2022 Last Documented On 2 10:19AM ; [facility] Recent immunization for pneumococcal pne onia 201907/29/2022 Last Documented On 2 10:19AM ; [facility] A history of cancer 06/20/2017 Last Documented On 2 10:19AM ; [facility] Arthritic joint problems 06/20/2017 Last Documented On 2 10:19AM ; [facility] Gallbladder disease 06/20/2017 Last Documented On 2 10:19AM ; [facility] History of acute myocardial infarction 0 06/20/2017 Last Documented On 2 10:19AM ; [facility] History of depression 06/20/2017 Last Documented On 2 10:19AM ; [facility] Rheumatology history 06/20/2017 Last Documented On 2 10:19AM ; [facility] A recent injection 06/20/2017 Last Documented On 2 10:19AM ; [facility] Family History Includes: Family History addressed during this encounter Description Last Updated Pt mother at 77 from COPD. Pt fathe r from a [place] at 55. 08/04/2022 Last Documented On 2 10:35AM ; [facility] Review of Systems Includes: Review of Systems from this encounter Constitutional: Neg for fevers or chills. Eyes: Neg for blurry vision or change in vision. ENT: Neg for sore throat, ear pain, or dizziness. Cardiac: Neg for chest pain or dyspnea on exertion. Respiratory: Neg for shortness of breath. Gastrointestinal: Neg for nausea, vomiting, diarrhea, or constipation. Musculoskeletal: Pos for right knee pain. Neurologic: Neg for headaches or seizures. Psychiatric: Neg for anxiety and depression. Integumentary: Neg for rash. Mental Status Includes: Mental Status from this encounter No Mental Status Recorded Functional Status Includes: Functional Status from this encounter No Functional Status Recorded Physical Exam Includes: Physical Exam from this encounter Allergies Includes: Active Allergies Substance Type Reaction Onset Date Resolved Date Statu s Sulfa Antibiotics Allergy 07/29/2022 A ctive Last Documented On 2 12:54PM ; [facility] Septra Allergy 07/29/2022 Active Last Documented On 2 12:54PM ; [facility] predniSONE Allergy 07/29/2022 Active Last Documented On 2 12:54PM ; [facility] Penicillins Allergy 07/29/2022 Active Last Documented On 2 12:54PM ; [facility] Omnicef Allergy 07/29/2022 Active Last Documented On 2 12:54PM ; [facility] Macrobid Allergy 07/29/2022 Active Last Documented On 2 12:54PM ; [facility] Ibuprofen Allergy 07/29/2022 Active Last Documented On 2 12:54PM ; [facility] Cipro Allergy 07/29/2022 Active Last Documented On 2 12:54PM ; [facility] Ceftin Allergy 07/29/2022 Active Last Documented On 2 12:54PM ; [facility] Encounters Encounter Provider Location Date Check-In Time Check-Out Time Diagnosis Pre Admission Testing Nayeli RUTH [facility] 08/04/20 22 10:13AM 10:31AM Insurance Includes: Active Insurance Policies Plan Name Member ID Group # Subscriber Relationship Effect meet Dates 1 - Medicare Part B [facility] [id number] Julieta Bunn Self 11/14/2002 - Unknown 2 - [employer] [id number] Julieta Bunn Self 11/14/2016 - Unknown Clinical Notes Includes: Clinical Notes from this encounter No Clinical Notes Recorded
--- OUTSIDE RECORDS SUMMARY | 2025-03-13 09:49 | XMS_ITS | Clinical Summary ---
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 Role Phone ANJALI LEIVA, FABI Unavailable [phone] Claudia LEIVA, Meño Boggs Unavailable [phone] Virgil Gallagher MD Primary Care Provider [phone] Reason for Visit and Chief Complaint The Chief Complaint is: RIGHT KNEE PAIN Problems Includes: Problems addressed during this encounter and other active Problems All Visits Onset Date Resolved Date Provider Condition S tatus Joint Pain in the Left Knee 06/20/2017 Meño Taylor MD Active Last Documented On 7 10:55AM ; [facility], [facility] Plan of Treatment Fall Risk Assessment: This patient has been identified as a fall risk. Balance/gait along with postural blood pressure, vision and home fall hazards have been assessed. Medications have been reviewed, and recommendations made with regard to contributing factors for future falls. Plan of care: Consideration of vitamin D supplementation along with balance and strength training with consideration for formal physical therapy has been discussed with the patient. - Last Documented On 09/02/2022 11:25AM ; [facility], [facility] Patient overall doing relatively well. Continue with physical therapy and home exercise program. May gradual progress to activity as tolerated. Follow-up in the office in 6 weeks for final recheck - Last Documented On 09/02/2022 11:25AM ; [facility], [facility] Instructions to patient Instructions for patient See PCP for BP Last Documented On 2 10:54AM ; [facility] Lose weight Last Documented On 2 10:54AM ; [facility], [facility] Assessments Includes: Assessments from this encounter Findings 3 weeks postop right medial U KA - Last Documented On 09/02/2022 11:25AM ; [facility], [facility] Instructions Includes: Instructions from this encounter Instructions to patient Instructions for patient See PCP for BP Last Documented On 2 10:54AM ; [facility], [facility] Lose weight Last Documented On 2 10:54AM ; [facility], [facility] Medical Equipment - Implanted Devices Includes: Current Devices No Medical Equipment Recorded Medications Includes: Medications discussed during this encounter and other current Medications New / Renewed during this visit Ole Bello PA-C on 09/02/2022 Warfarin Sodium 3 MG Oral Tablet Provider: Ole Ying 30 day supply: 30 tablet, 0 refills Diagnosis: once a day Pharmacy: [facility] - [address] [place] [address] [phone] - Last Documented On 2 12:18PM By Enedina Martines ; [facility] Current Medications (continue as prescribed) Nitroglycerin 0.4 MG Subling ual Tablet Sublingual 07/29/2022 Provider: Virgil Gallagher MD Diagnosis: Last Documented On 2 2:59PM By Chantell Arthur ; [facility], [facility] Ventolin HFA 108 (90 Base) MCG/ACT Inhalation Ae rosol Solution 07/29/2022 Provider: Diagnosis: Last Documented On 2 3:00PM By Chantell Arthur ; [facility] FLUoxetine HCl 20 MG Oral Capsule 07/28/2022 Provide r: Virgil Gallagher MD Diagnosis: Last Documented On 2 11:55AM By Whit Crook ; [facility], [facility] Famotidine 40 MG Oral Tablet 07/28/2022 Provider: Virgil Gallagher MD Diagnosis: Last Documented On 2 11:55AM By Whit Crook ; [facility], [facility] Enalapril Maleate 10 MG Oral Tablet 07/28/2022 Provi gifty: Diagnosis: Last Documented On 2 2:59PM By Chantell Arthur ; [facility], [facility] Atorvastatin Calcium 80 MG Oral Tablet 07/28/2022 Pr ovider: Virgil Gallagher MD Diagnosis: Last Documented On 2 2:59PM By Chantell Arthur ; [facility], [facility] Montelukast Sodium 10 MG Oral Tablet 07/13/2022 Prov ider: Diagnosis: Last Documented On 2 2:59PM By Chantell Arthur ; [facility], [facility] Fluticasone Propionate 50 MC G/ACT Nasal Suspension 07/13/2022 Provider: Virgil Gallagher MD Diagnosis: Last Documented On 2 2:59PM By Chantell Arthur ; [facility], [facility] ALPRAZolam 0.25 MG Oral Tablet 07/13/2022 Provider: Virgil Gallagher MD Diagnosis: Last Documented On 2 2:59PM By Chantell Arthur ; [facility], [facility] Symbicort 160-4.5 MCG/ACT Inhalation Aerosol Provider: Virgil Gallagher MD Diagnosis: Last Documented On 2 11:55AM By Whit Crook ; [facility], [facility] Metoprolol Tartrate 50 MG Oral Tablet 06/15/2022 Pro vider: Virgil Gallagher MD Diagnosis: Last Documented On 2 2:59PM By Chantell Arthur ; [facility], [facility] Gabapentin 600 MG Oral Tablet 06/08/2022 Provider: Virgil Gallagher MD Diagnosis: Last Documented On 2 2:59PM By Chantell Arthur ; [facility], [facility] Amitriptyline HCl 25 MG Oral Tablet 03/18/2022 Provi gifty: Virgil Gallagher MD Diagnosis: Last Documented On 2 2:59PM By Chantell Arthur ; [facility], [facility] traMADol HCl 50 MG Oral Tablet 02/24/2022 Provider: Virgil Gallagher MD Diagnosis: Last Documented On 2 2:59PM By Chantell Arthur ; [facility], [facility] Stelara 45 MG/0.5ML Subcutaneous Solution Prefil led Syringe 02/05/2022 Provider: Diagnosis: Last Documented On 2 11:55AM By Whit Crook ; [facility], [facility] Past Medications on file Warfarin Sodium 2 MG Oral Tablet 09/13/2022 - 09/28/2022 Provider: Ole duran PA-C Diagnosis: once a day Last Documented On 2 4:25PM By Enedina Martines ; [facility] Warfarin Sodium 3 MG Oral Tablet 08/24/2022 - 09/08/2022 Provider: Meño bauer MD Diagnosis: once a day Last Documented On 2 1:03PM By Enedina Martines ; [facility] Warfarin Sodium 5 MG Oral Tablet 08/10/2022 - 08/25/2022 Provider: Meño bauer MD Diagnosis: once a day Last Documented On 10:20AM By Carlito Taylor ; [facility] Lovenox 40 MG/0.4ML Injection Solution Prefilled Syringe 08/10/2022 - 08/12/2022 Provider: Meño bauer MD Diagnosis: 1 sub q injection 1 time day Last Documented On 10:20AM By Carlito Taylor ; [facility] traMADol HCl 50 MG Oral Tablet 08/09/2022 - 08/14/2022 Provider: Meño bauer MD Diagnosis: 1-2 po q 4-6h Last Documented On 8:44AM By Carlito Taylor ; [facility] oxyCODONE HCl 5 MG Oral Tablet 08/09/2022 - 08/14/2022 Provider: Meño bauer MD Diagnosis: 1-2 po q 4-6h Last Documented On 8:44AM By Carlito Taylor ; [facility] Ondansetron HCl 4 MG Oral Tablet 08/09/2022 - 08/14/2022 Provider: Meño Taylor MD Diagnosis: [id number] Last Documented On 2 8:44AM By Carlito Taylor ; [facility] Meloxicam 15 MG Oral Tablet 08/09/2022 - 09/08/2022 Provider: Meño bauer MD Diagnosis: once a day Last Documented On 2 8:44AM By Carlito Taylor ; [facility] Colace 100 MG Oral Capsule 08/09/2022 - 11/07/2022 Provider: Meño bauer MD Diagnosis: 1-2 tabs daily Last Documented On 2 8:44AM By Carlito Taylor ; [facility], [facility] Cefadroxil 500 MG Oral Capsule 08/09/2022 - 08/12/2022 Provider: Meño bauer MD Diagnosis: twice a day Last Documented On 2 8:44AM By Carlito Taylor ; [facility], [facility] Acetaminophen 500 MG Oral Tablet 08/09/2022 - 09/08/2022 Provider: Meño Taylor MD Diagnosis: 2 three times a day Last Documented On 2 8:44AM By Carlito Taylor ; [facility], [facility] Vitamin D3 50 MCG (2000 UT) Oral Tablet 08/04/2022 - 09/03/2022 Provider: Nayeli RUTH Diagnosis: once a day Last Documented On 2 7:55PM By Nayeli Duque ; [facility], [facility] Neurontin 300MG Oral Capsule, conventional 07/26/2017 - 10/24/2017 Provider: Meño Taylor MD Diagnosis: Aftercare follow ing joint replacement surgery 1 every bedtime FOR SURGERY DO NOT FILL TILL 08/02/17 Last Documented On 7 1:56PM By Scarlett Proctor [facility], [facility] TraMADol HCl 50MG Oral Tablet 07/26/2017 - 08/08/2017 Provider: Meño Taylor MD Diagnosis: Aftercare follow ing joint replacement surgery 2 tablets every 6 hours. FOR SURGERY DO NOT FILL TILL 08/02/17 Last Documented On 7 1:57PM By Scarlett Proctor [facility], [facility] Medications Administered Includes: Administered Medications from this encounter No Administered Medications Recorded Vital Signs Includes: Vital Signs from this encounter Vital Name 09/02/2022 10:54A Height (in) 64 Weight (lb) 168 Body Mass Index (kg/m2) 28.8 Body Surface Area (m2) 1.8 Note: rw Last Documented: On 09/02/2022 10:55A M ; [facility], [facility] Results Includes: Results discussed during this encounter No Results Recorded For Specified Dates History of Present Illness Includes: History of Present Illness from this encounter HPI Julieta Bunn is a 72 year old female. - Symptoms Pain better with rest / pain worse when walking. - Allergy list reviewed - Problem list reviewed - Medication list reviewed - Medication list reviewed with patient - Previous history of chronic pain 3 years - Sharp pain Symptoms - Stabbing - Patient pain level from 1-10: 8 - Yes, previous treatment. Dr. Warnre and Dr. Oconnor Social History Description Last Updated No recent change in diet 07/29/2022 Last Documented On 2 10:54AM ; [facility], [facility] Not a current smoker. 07/29/2022 Last Documented On 2 10:54AM ; [facility], [facility] Tobacco non-user 07/29/2022 Last Documented On 2 10:54AM ; [facility], [facility] No tobacco use 06/20/2017 Last Documented On 2 10:54AM ; [facility] Smoking status : Never smoker 06/20/2017 Last Documented On 2 10:54AM ; [facility], [facility] Caffeine use 06/20/2017 Last Documented On 2 10:54AM ; [facility], [facility] No recent change in diet 06/20/2017 Last Documented On 2 10:54AM ; [facility], [facility] Not a current smoker 06/20/2017 Last Documented On 2 10:54AM ; [facility], [facility] Not exercising regularly 06/20/2017 Last Documented On 2 10:54AM ; [facility], [facility] Not using alcohol 06/20/2017 Last Documented On 2 10:54AM ; [facility], [facility] Not using drugs 06/20/2017 Last Documented On 2 10:54AM ; [facility], [facility] Procedures and Surgical History Includes: Procedures from this encounter Procedures Code Diagnosis Performing Provider Service L ocation Service Date use of tobacco assessment performed 1000F Last Documented On 2 10:54AM ; [facility], [facility] patient screened for future fall risk: documentation of any fall with injury in past year 1100F Last Documented On 2 10:54AM ; [facility], [facility] Surgical History Last Updated History of History of Gallbladder 2021 Last Documented On 2 10:54AM ; [facility] History of hysterectomy 07/29/2022 Last Documented On 2 10:54AM ; [facility], [facility] History of appendectomy 06/20/2017 Last Documented On 2 10:54AM ; [facility] History of heart surgery 06/20/2017 Last Documented On 2 10:54AM ; [facility], [facility] Medical History Includes: Medical History addressed during this encounter Description Last Updated Recent immunization for flu 08/10/2021 Last Documented On 2 10:54AM ; [facility], [facility] History of arthritis 07/29/2022 Last Documented On 2 10:54AM ; [facility], [facility] History of asthma 07/29/2022 Last Documented On 2 10:54AM ; [facility], [facility] History of heart disease 07/29/2022 Last Documented On 2 10:54AM ; [facility], [facility] History of Heartburn / Acid Reflux 07/29 Last Documented On 2 10:54AM ; [facility], [facility] History of History of Blood Clots 2021 Last Documented On 2 10:54AM ; [facility], [facility] History of History of Blood Transfusion 07/29/2022 Last Documented On 2 10:54AM ; [facility], [facility] History of History of Heart Attack / Str [place] 07/29/2022 Last Documented On 2 10:54AM ; [facility], [facility] History of History of Rheumatology 07/29 Last Documented On 2 10:54AM ; [facility], [facility] History of Hypertension 07/29/2022 Last Documented On 2 10:54AM ; [facility], [facility] History of osteoporosis 07/29/2022 Last Documented On 2 10:54AM ; [facility], [facility] Past Surgical History: P. knee replaceme nt 07/29/2022 Last Documented On 2 10:54AM ; [facility] Recent immunization for pneumococcal pne umonia 201907/29/2022 Last Documented On 2 10:54AM ; [facility] A history of cancer 06/20/2017 Last Documented On 2 10:54AM ; [facility] Arthritic joint problems 06/20/2017 Last Documented On 2 10:54AM ; [facility] Gallbladder disease 06/20/2017 Last Documented On 2 10:54AM ; [facility] History of acute myocardial infarction 0 06/20/2017 Last Documented On 2 10:54AM ; [facility] History of depression 06/20/2017 Last Documented On 2 10:54AM ; [facility] Rheumatology history 06/20/2017 Last Documented On 2 10:54AM ; [facility] A recent injection 06/20/2017 Last Documented On 2 10:54AM ; [facility] Family History Includes: Family History addressed during this encounter Description Last Updated Diabetes mellitus 07/29/2022 Last Documented On 2 10:54AM ; [facility] Family history of cancer 07/29/2022 Last Documented On 2 10:54AM ; [facility] Family history of heart disease 07/29/20 22 Last Documented On 2 10:54AM ; [facility] Family history of osteoporosis 2 Last Documented On 2 10:54AM ; [facility] Family history of rheumatoid arthritis 0 07/29/2022 Last Documented On 2 10:54AM ; [facility] Family history of systemic hypertension 07/29/2022 Last Documented On 2 10:54AM ; [facility] Family history of thromboembolic disease 07/29/2022 Last Documented On 2 10:54AM ; [facility] stroke seizures 06/20/2017 Last Documented On 2 10:54AM ; [facility] Fraternal history of family history of h eart disease 06/20/2017 Last Documented On 2 10:54AM ; [facility] Fraternal history of rheumatoid arthriti s 06/20/2017 Last Documented On 2 10:54AM ; [facility] Maternal history of diabetes mellitus Last Documented On 2 10:54AM ; [facility] Maternal history of family history of ca ncer 06/20/2017 Last Documented On 2 10:54AM ; [facility] Maternal history of thromboembolic disea se 06/20/2017 Last Documented On 2 10:54AM ; [facility] Review of Systems Includes: Review of Systems [...] ctive Last Documented On 2 12:54PM ; [facility] Septra Allergy 07/29/2022 Active Last Documented On 2 12:54PM ; [facility] predniSONE Allergy 07/29/2022 Active Last Documented On 2 12:54PM ; [facility] Penicillins Allergy 07/29/2022 Active Last Documented On 2 12:54PM ; [facility] Omnicef Allergy 07/29/2022 Active Last Documented On 2 12:54PM ; [facility] Macrobid Allergy 07/29/2022 Active Last Documented On 2 12:54PM ; [facility] Ibuprofen Allergy 07/29/2022 Active Last Documented On 2 12:54PM ; [facility] Cipro Allergy 07/29/2022 Active Last Documented On 2 12:54PM ; [facility] Ceftin Allergy 07/29/2022 Active Last Documented On 2 12:54PM ; [facility] Encounters Encounter Provider Location Date Check-In Time Check-Out Time Diagnosis Post Op Ole Bello PA-C [facility] 2 10:30AM 11:27AM Insurance Includes: Active Insurance Policies Plan Name Member ID Group # Subscriber Relationship Effect meet Dates 1 - Medicare Part B [facility] [id number] Julieta Bunn Self 11/14/2002 - Unknown 2 - Tradier [id number] Julieta Bunn Self 11/14/2016 - Unknown Clinical Notes Includes: Clinical Notes from this encounter No Clinical Notes Recorded
--- OUTSIDE RECORDS SUMMARY | 2025-03-13 09:49 | XMS_ITS ---
Author Organization [facility] Address [address] [place] [address] Phone Care Team Providers Care Community Arts Officer Name Role Phone ANJALI LEIVA, FABI Unavailable [phone] Claudia LEIVA, Meño Boggs Unavailable [phone] Elliott LEIVA, Virgil Martins Primary Care Provider [phone] Reason for Referral Date Encounter Description Provider Reason for Referral 07/29/22 Physician Specified Meño chowdhury MD Referral To Physician Problems Includes: Active, inactive, and resolved Problems All Visits Onset Date Resolved Date Provider Condition S tatus Joint Pain in the Left Knee 06/20/2017 Meño Taylor MD Active Last Documented On 7 10:55AM ; [facility] Plan of Treatment Instructions to patient Instructions for patient See PCP for BP Last Documented On 2 12:40PM ; [facility] Lose weight Last Documented On 2 12:40PM ; [facility], [facility] Instructions for patient See PCP for BP Last Documented On 2 10:54AM ; [facility] Lose weight Last Documented On 2 10:54AM ; [facility] Instructions for patient See PCP for BP Last Documented On 2 1:19PM ; [facility] Lose weight Last Documented On 2 1:21PM ; [facility] Instructions for patient See PCP for BP Last Documented On 7 11:12AM ; [facility] Instructions for patient See PCP for BP Last Documented On 7 10:12AM ; [facility], [facility] No intervention and counseli ng on cessation of tobacco use Last Documented On 7 3:39PM ; [facility], [facility] Assessments Includes: Assessments for all patient encounters No Assessments Recorded Instructions Includes: Instructions for all patient encounters Instructions to patient Instructions for patient See PCP for BP Last Documented On 2 12:40PM ; [facility] Lose weight Last Documented On 2 12:40PM ; [facility] Instructions for patient See PCP for BP Last Documented On 2 10:54AM ; [facility] Lose weight Last Documented On 2 10:54AM ; [facility], [facility] Instructions for patient See PCP for BP Last Documented On 2 1:19PM ; [facility] Lose weight Last Documented On 2 1:21PM ; [facility] Instructions for patient See PCP for BP Last Documented On 7 11:12AM ; [facility], [facility] Instructions for patient See PCP for BP Last Documented On 7 10:12AM ; [facility], [facility] No intervention and counseli ng on cessation of tobacco use Last Documented On 7 3:39PM ; [facility], [facility] Medical Equipment - Implanted Devices Includes: Current and historical Devices No Medical Equipment Recorded Medications Includes: Current and historical Medications Current Medications (continue as prescribed) Nitroglycerin 0.4 MG Subling ual Tablet Sublingual 07/29/2022 Provider: Virgil Gallagher MD Diagnosis: Last Documented On 2 2:59PM By Chantell Arthur ; [facility] Ventolin HFA 108 (90 Base) MCG/ACT Inhalation Ae rosol Solution 07/29/2022 Provider: Diagnosis: Last Documented On 2 3:00PM By Chantell Arthur ; [facility] FLUoxetine HCl 20 MG Oral Capsule 07/28/2022 Provide r: Virgil Gallagher MD Diagnosis: Last Documented On 2 11:55AM By Whit Crook ; [facility] Famotidine 40 MG Oral Tablet 07/28/2022 Provider: Virgil Gallagher MD Diagnosis: Last Documented On 2 11:55AM By Whit Crook ; [facility], [facility] Enalapril Maleate 10 MG Oral Tablet 07/28/2022 Provi gifty: Diagnosis: Last Documented On 2 2:59PM By Chantell Arthur ; [facility], [facility] Atorvastatin Calcium 80 MG Oral Tablet 07/28/2022 Pr ovider: Virgil Gallagher MD Diagnosis: Last Documented On 2 2:59PM By Chantell Arthur ; [facility], [facility] Montelukast Sodium 10 MG Oral Tablet 07/13/2022 Prov ider: Diagnosis: Last Documented On 2 2:59PM By Chantell Arthur ; [facility], [facility] Fluticasone Propionate 50 MC G/ACT Nasal Suspension 07/13/2022 Provider: Virgil Gallagher MD Diagnosis: Last Documented On 2 2:59PM By Chantell Arthur ; [facility], [facility] ALPRAZolam 0.25 MG Oral Tablet 07/13/2022 Provider: Virgil Gallagher MD Diagnosis: Last Documented On 2 2:59PM By Chantell Arthur ; [facility], [facility] Symbicort 160-4.5 MCG/ACT Inhalation Aerosol Provider: Virgil Gallagher MD Diagnosis: Last Documented On 2 11:55AM By Whit Crook ; [facility], [facility] Metoprolol Tartrate 50 MG Oral Tablet 06/15/2022 Pro vider: Virgil Gallagher MD Diagnosis: Last Documented On 2 2:59PM By Chantell Arthur ; [facility], [facility] Gabapentin 600 MG Oral Tablet 06/08/2022 Provider: Virgil Gallagher MD Diagnosis: Last Documented On 2 2:59PM By Chantell Arthur ; [facility], [facility] Amitriptyline HCl 25 MG Oral Tablet 03/18/2022 Provi gifty: Virgil Gallagher MD Diagnosis: Last Documented On 2 2:59PM By Chantell Arthur ; [facility], [facility] traMADol HCl 50 MG Oral Tablet 02/24/2022 Provider: Virgil Gallagher MD Diagnosis: Last Documented On 2 2:59PM By Chantell Arthur ; [facility], [facility] Stelara 45 MG/0.5ML Subcutaneous Solution Prefil led Syringe 02/05/2022 Provider: Diagnosis: Last Documented On 11:55AM By Whit Crook ; [facility] Past Medications on file Warfarin Sodium 2 MG Oral Tablet 09/13/2022 - 09/28/2022 Provider: Ole duran PA-C Diagnosis: once a day Last Documented On 2 4:25PM By Enedina Martines ; [facility] Warfarin Sodium 3 MG Oral Tablet 09/02/2022 - 10/02/2022 Provider: Ole duran PA-C Diagnosis: once a day Last Documented On 12:18PM By Enedina Martines ; [facility] Warfarin Sodium 3 MG Oral Tablet 08/24/2022 - 09/08/2022 Provider: Meño bauer MD Diagnosis: once a day Last Documented On 2 1:03PM By Enedina Martines ; [facility], [facility] Warfarin Sodium 5 MG Oral Tablet 08/10/2022 - 08/25/2022 Provider: Meño bauer MD Diagnosis: once a day Last Documented On 2 10:20AM By Carlito Taylor ; [facility], [facility] Lovenox 40 MG/0.4ML Injection Solution Prefilled Syringe 08/10/2022 - 08/12/2022 Provider: Meño bauer MD Diagnosis: 1 sub q injection 1 time day Last Documented On 2 10:20AM By Carlito Taylor ; [facility], [facility] traMADol HCl 50 MG Oral Tablet 08/09/2022 - 08/14/2022 Provider: Meño bauer MD Diagnosis: 1-2 po q 4-6h Last Documented On 2 8:44AM By Carlito Taylor ; [facility] oxyCODONE HCl 5 MG Oral Tablet 08/09/2022 - 08/14/2022 Provider: Meño bauer MD Diagnosis: 1-2 po q 4-6h Last Documented On 2 8:44AM By Carlito Taylor ; [facility] Ondansetron HCl 4 MG Oral Tablet 08/09/2022 - 08/14/2022 Provider: Meño Taylor MD Diagnosis: 2ktr6-7h Last Documented On 2 8:44AM By Carlito Taylor ; [facility] Meloxicam 15 MG Oral Tablet 08/09/2022 - 09/08/2022 Provider: Meño bauer MD Diagnosis: once a day Last Documented On 2 8:44AM By Carlito Taylor ; [facility] Colace 100 MG Oral Capsule 08/09/2022 - 11/07/2022 Provider: Meño bauer MD Diagnosis: 1-2 tabs daily Last Documented On 2 8:44AM By Carlito Taylor ; [facility] Cefadroxil 500 MG Oral Capsule 08/09/2022 - 08/12/2022 Provider: Meño bauer MD Diagnosis: twice a day Last Documented On 2 8:44AM By Carlito Taylor ; [facility] Acetaminophen 500 MG Oral Tablet 08/09/2022 - 09/08/2022 Provider: Meño Taylor MD Diagnosis: 2 three times a day Last Documented On 8:44AM By Carlito Taylor ; [facility] Vitamin D3 50 MCG (1999 [place]) Oral Tablet 08/04/2022 - 09/03/2022 Provider: Nayeli RUTH Diagnosis: once a day Last Documented On 2 7:55PM By Nayeli Duque ; [facility] Polyethylene Glycol 3350 Granules 07/29/2022 - 022 Provider: Diagnosis: Last Documented On 11:52AM By Whit Crook ; [facility] raNITIdine HCl 150 MG Oral Capsule 07/29/2022 - 2021 Provider: Diagnosis: Last Documented On 11:52AM By Whit Crook ; [facility] ALPRAZolam 0.25 MG Oral Tablet 02/24/2022 - 08/03/2022 Provider: Virgil Gallagher MD Diagnosis: Last Documented On 09/20/202 2 11:53AM By Whit Crook ; [facility] Coumadin 2MG Oral Tablet 09/13/2017 - 07/29/2022 Provi gifty: Meño Taylor MD Diagnosis: once a day Last Documented On 2 1:19PM By Chantell Arthur ; [facility] Coumadin 1MG Oral Tablet 08/19/2017 - 07/29/2022 Provi gifty: Meño Taylor MD Diagnosis: take as directed; at night per doctor dosage Last Documented On 2 2:57PM By Chantell Arthur ; [facility] Coumadin 3MG Oral Tablet 08/18/2017 - 07/29/2022 Provi gifty: Meño Taylor MD Diagnosis: once a day Last Documented On 2 2:57PM By Chantell Arthur ; [facility] Neurontin 300MG Oral Capsule, conventional 07/26/2017 - 10/24/2017 Provider: Meño Taylor MD Diagnosis: Aftercare follow ing joint replacement surgery 1 every bedtime FOR SURGERY DO NOT FILL TILL 08/02/17 Last Documented On 7 1:56PM By Scarlett Li ; [facility] Mobic 15MG Oral Tablet 07/26/2017 - 07/29/2022 Provider: Meño Taylor MD Diagnosis: Aftercare follow ing joint replacement surgery once a day FOR SURGERY DO NOT FILL TILL 08/02/17 Last Documented On 2 2:57PM By Chantell Arthur ; [facility] Colace 100MG Oral Capsule, conventional 07/26/2017 - 07/29/2022 Provider: Meño Taylor MD Diagnosis: Aftercare follow ing joint replacement surgery 1-2 tabs daily FOR SURGERY * *DO NOT FILL TILL 08/02/17 Last Documented On 2 2:57PM By Chantell Arthur ; [facility] Acetaminophen 500MG Oral Tablet 07/26/2017 - 07/29/2022 Provider: Meño Taylor MD Diagnosis: Aftercare follow ing joint replacement surgery 2 three times a day FOR SURG CARLIN DO NOT FILL TILL 08/02/17 Last Documented On 2 2:57PM By Chantell Arthur ; [facility] TraMADol HCl 50MG Oral Tablet 07/26/2017 - 08/08/2017 Provider: Meño Taylor MD Diagnosis: Aftercare follow ing joint replacement surgery 2 tablets every 6 hours. FOR SURGERY DO NOT FILL TILL 08/02/17 Last Documented On 7 1:57PM By Scarlett Li ; [facility], [facility] Medications Administered Includes: Administered Medications in patient's chart No Administered Medications Recorded Results Includes: Results from 03/13/2024 through 03/13/2025 No Results Recorded For Specified Dates History of Present Illness History of Present Illness not supported for this document type No History of Present Illness Recorded Social History Description Last Updated No recent change in diet 07/29/2022 Last Documented On 2 4:25PM ; [facility] Not a current smoker. 07/29/2022 Last Documented On 2 4:25PM ; [facility] Tobacco non-user 07/29/2022 Last Documented On 2 4:25PM ; [facility] No tobacco use 06/20/2017 Last Documented On 7 9:36AM ; [facility] Smoking status : Never smoker 06/20/2017 Last Documented On 7 9:36AM ; [facility] Caffeine use 06/20/2017 Last Documented On 7 9:36AM ; [facility] No recent change in diet 06/20/2017 Last Documented On 7 9:36AM ; [facility] Not a current smoker 06/20/2017 Last Documented On 7 9:36AM ; [facility] Not exercising regularly 06/20/2017 Last Documented On 7 9:36AM ; [facility] Not using alcohol 06/20/2017 Last Documented On 7 9:36AM ; [facility] Not using drugs 06/20/2017 Last Documented On 7 9:36AM ; [facility] Procedures and Surgical History Surgical History Last Updated History of History of Gallbladder 2021 Last Documented On 2 4:25PM ; [facility] History of hysterectomy 07/29/2022 Last Documented On 2 4:25PM ; [facility] History of appendectomy 06/20/2017 Last Documented On 7 9:36AM ; [facility] History of heart surgery 06/20/2017 Last Documented On 7 9:36AM ; [facility] Medical History Includes: Medical History in patient's chart Description Last Updated Recent immunization for flu 08/26/2022 1 12/19/2021 Last Documented On 2 1:19PM ; [facility] History of arthritis 07/29/2022 Last Documented On 2 4:25PM ; [facility] History of asthma 07/29/2022 Last Documented On 2 4:25PM ; [facility] History of heart disease 07/29/2022 Last Documented On 2 4:25PM ; [facility] History of Heartburn / Acid Reflux 07/29 Last Documented On 2 4:25PM ; [facility] History of History of Blood Clots 2021 Last Documented On 2 4:25PM ; [facility] History of History of Blood Transfusion 07/29/2022 Last Documented On 2 4:25PM ; [facility] History of History of Heart Attack / Str [place] 07/29/2022 Last Documented On 2 4:25PM ; [facility] History of History of Rheumatology 07/29 Last Documented On 2 4:25PM ; [facility] History of Hypertension 07/29/2022 Last Documented On 2 4:25PM ; [facility] History of osteoporosis 07/29/2022 Last Documented On 2 4:25PM ; [facility] Past Surgical History: P. knee replaceme nt 07/29/2022 Last Documented On 2 4:25PM ; [facility] Recent immunization for pneumococcal pne umonia 201907/29/2022 Last Documented On 2 4:25PM ; [facility] A history of cancer 06/20/2017 Last Documented On 7 9:36AM ; [facility] Arthritic joint problems 06/20/2017 Last Documented On 7 9:36AM ; [facility] Gallbladder disease 06/20/2017 Last Documented On 7 9:36AM ; [facility] History of acute myocardial infarction 0 06/20/2017 Last Documented On 7 9:36AM ; [facility] History of depression 06/20/2017 Last Documented On 7 9:36AM ; [facility] Rheumatology history 06/20/2017 Last Documented On 7 9:36AM ; [facility] A recent injection 06/20/2017 Last Documented On 7 9:36AM ; [facility] Family History Includes: Family History in patient's chart Description Last Updated Diabetes mellitus 07/29/2022 Last Documented On 2 4:25PM ; [facility] Family history of cancer 07/29/2022 Last Documented On 2 4:25PM ; [facility] Family history of heart disease 07/29/20 22 Last Documented On 2 4:25PM ; [facility] Family history of osteoporosis 2 Last Documented On 2 4:25PM ; [facility] Family history of rheumatoid arthritis 0 07/29/2022 Last Documented On 2 4:25PM ; [facility] Family history of systemic hypertension 07/29/2022 Last Documented On 2 4:25PM ; [facility] Family history of thromboembolic disease 07/29/2022 Last Documented On 2 4:25PM ; [facility] stroke seizures 06/20/2017 Last Documented On 7 9:36AM ; [facility] Fraternal history of family history of h eart disease 06/20/2017 Last Documented On 7 9:36AM ; [facility] Fraternal history of rheumatoid arthriti s 06/20/2017 Last Documented On 7 9:36AM ; [facility] Maternal history of diabetes mellitus Last Documented On 7 9:36AM ; [facility] Maternal history of family history of ca ncer 06/20/2017 Last Documented On 7 9:36AM ; [facility] Maternal history of thromboembolic disea se 06/20/2017 Last Documented On 7 9:36AM ; [facility], [facility] Review of Systems Review of Systems not supported for this document type No Review of Systems Recorded Mental Status Description Anxiety Functional Status No Functional Status Recorded Physical Exam Physical Exam not supported for this document type No Physical Exam Recorded Immunizations Includes: Immunizations in patient's chart Vaccine Dose # Date Site Reaction(s) Status Source Influenza 1 08/26/2021 Complete (Reported) Patient Last Documented On 2 12:55PM ; [facility] Influenza 2 08/26/2021 Complete (Reported) Patient Last Documented On 2 12:56PM ; [facility] PCV (Pneumovax 23) 1 10/18/2022 Complete (Refused - Patient objection) [facility] Last Documented On 2 12:55PM ; [facility] Allergies Includes: Active, inactive, and resolved Allergies Substance Type Reaction Onset Date Resolved Date Statu s Sulfa Antibiotics Allergy 07/29/2022 A ctive Last Documented On 2 12:54PM ; [facility] Septra Allergy 07/29/2022 Active Last Documented On 2 12:54PM ; [facility] predniSONE Allergy 07/29/2022 Active Last Documented On 2 12:54PM ; [facility] Penicillins Allergy 07/29/2022 Active Last Documented On 2 12:54PM ; [facility] Omnicef Allergy 07/29/2022 Active Last Documented On 2 12:54PM ; [facility] Macrobid Allergy 07/29/2022 Active Last Documented On 2 12:54PM ; [facility] Ibuprofen Allergy 07/29/2022 Active Last Documented On 2 12:54PM ; [facility] Cipro Allergy 07/29/2022 Active Last Documented On 2 12:54PM ; [facility] Ceftin Allergy 07/29/2022 Active Last Documented On 2 12:54PM ; [facility] Insurance Includes: Active Insurance Policies Plan Name Member ID Group # Subscriber Relationship Effect meet Dates 1 - Medicare Part B [facility] [id number] Julieta Bunn Self 11/14/2002 - Unknown 2 - [employer] [id number] Julieta Bunn Self 11/14/2016 - Unknown Clinical Notes Includes: Signed Clinical Notes starting from 10/28/2022 No Clinical Notes Recorded
--- OUTSIDE RECORDS SUMMARY | 2025-03-13 09:49 | XMS_ITS | Clinical Summary ---
Author Organization [facility] Address [address] [place] [address] Phone Care Team Providers Care Corporate Driver Name Role Phone FABI ALBA MD Unavailable [phone] Claudia LEIVA, Meño Boggs Unavailable [phone] Elliott LEIVA, Virgil Martins Primary Care Provider [phone] Reason for Visit and Chief Complaint [facility] Outpatient [facility] Suites Problems Includes: Problems addressed during this encounter and other active Problems All Visits Onset Date Resolved Date Provider Condition S tatus Joint Pain in the Left Knee 06/20/2017 Meño Taylor MD Active Last Documented On 7 10:55AM ; [facility] Plan of Treatment No Plan of [...] On 2 2:59PM By Chantell Arthur ; [facility] Ventolin HFA 108 (90 Base) MCG/ACT Inhalation Ae rosol Solution 07/29/2022 Provider: Diagnosis: Last Documented On 2 3:00PM By Chantell Arthur ; [facility] FLUoxetine HCl 20 MG Oral Capsule 07/28/2022 Provide r: Virgil Gallagher MD Diagnosis: Last Documented On 2 11:55AM By Whit Crook ; [facility] Famotidine 40 MG Oral Tablet 07/28/2022 Provider: Virgil Gallagher MD Diagnosis: Last Documented On 2 11:55AM By Whit Crook ; [facility] Enalapril Maleate 10 MG Oral Tablet 07/28/2022 Provi gifty: Diagnosis: Last Documented On 2 2:59PM By Chantell Arthur ; [facility] Atorvastatin Calcium 80 MG Oral Tablet 07/28/2022 Pr ovider: Virgil Gallagher MD Diagnosis: Last Documented On 2 2:59PM By Chantell Arthur ; [facility] Montelukast Sodium 10 MG Oral Tablet 07/13/2022 Prov ider: Diagnosis: Last Documented On 2 2:59PM By Chantell Arthur ; [facility] Fluticasone Propionate 50 MC G/ACT Nasal Suspension 07/13/2022 Provider: Virgil Gallagher MD Diagnosis: Last Documented On 2 2:59PM By Chantell Arthur ; [facility] ALPRAZolam 0.25 MG Oral Tablet 07/13/2022 Provider: Virgil Gallagher MD Diagnosis: Last Documented On 2 2:59PM By Chantell Arthur ; [facility] Symbicort 160-4.5 MCG/ACT Inhalation Aerosol Provider: Virgil Gallagher MD Diagnosis: Last Documented On 2 11:55AM By Whit Crook ; [facility] Metoprolol Tartrate 50 MG Oral Tablet 06/15/2022 Pro vider: Virgil Gallagher MD Diagnosis: Last Documented On 2 2:59PM By Chantell Arthur ; [facility] Gabapentin 600 MG Oral Tablet 06/08/2022 Provider: Virgil Gallagher MD Diagnosis: Last Documented On 2 2:59PM By Chantell Arthur ; [facility] Amitriptyline HCl 25 MG Oral Tablet 03/18/2022 Provi gifty: Virgil Gallagher MD Diagnosis: Last Documented On 2 2:59PM By Chantell Arthur ; [facility] traMADol HCl 50 MG Oral Tablet 02/24/2022 Provider: Virgil Gallagher MD Diagnosis: Last Documented On 2 2:59PM By Chantell Arthur ; [facility] Stelara 45 MG/0.5ML Subcutaneous Solution Prefil led Syringe 02/05/2022 Provider: Diagnosis: Last Documented On 2 11:55AM By Whit Crook ; [facility] Medications Administered Includes: Administered Medications from [...] ctive Last Documented On 2 12:54PM ; [facility] Septra Allergy 07/29/2022 Active Last Documented On 2 12:54PM ; [facility] predniSONE Allergy 07/29/2022 Active Last Documented On 2 12:54PM ; [facility] Penicillins Allergy 07/29/2022 Active Last Documented On 2 12:54PM ; [facility] Omnicef Allergy 07/29/2022 Active Last Documented On 2 12:54PM ; [facility] Macrobid Allergy 07/29/2022 Active Last Documented On 2 12:54PM ; [facility] Ibuprofen Allergy 07/29/2022 Active Last Documented On 2 12:54PM ; [facility] Cipro Allergy 07/29/2022 Active Last Documented On 2 12:54PM ; [facility] Ceftin Allergy 07/29/2022 Active Last Documented On 2 12:54PM ; [facility] Encounters Encounter Provider Location Date Check-In Time Check-Out Time Diagnosis [facility] Out[facility] Suites Meño Taylor MD Surgery 08/10/20 22 11:47AM 11:59PM Insurance Includes: Active Insurance Policies Plan Name Member ID Group # Subscriber Relationship Effect meet Dates 1 - Medicare Part B [facility] [id number] Julieta Bunn Self 11/14/2002 - Unknown 2 - [employer] [id number] Julieta Bunn Self 11/14/2016 - Unknown Clinical Notes Includes: Clinical Notes from this encounter No Clinical Notes Recorded
--- NOTE | 2025-03-13 09:50 | MM_ITS ---
PROCEDURE INFORMATION: Exam: MG Bilateral Screening 3D Mammography Exam date and time: 03/13/2025 10:04 AM Age: 75 years old Clinical indication: Screening exam. TECHNIQUE: Imaging protocol: Bilateral Screening tomosynthesis and 2D mammography including computer-aided detection (CAD) when performed. COMPARISON: 1. MG DIG MAMM-SCREEN HAYLEE 06/04/2019 10:23 AM 2. MG DMSB DIG MAMM-SCREEN HAYLEE W/CAD 04/26/2017 8:44 AM FINDINGS: MAMMOGRAPHY: Breast composition: There are scattered areas of fibroglandular density. Mass: No suspicious masses. Architectural distortion: None. Calcifications: Calcifications spanning roughly 1.4 cm upper-outer left breast middle to posterior depth. Asymmetric density: None. Skin thickening: None. Axillary adenopathy: None. IMPRESSION: Left breast calcifications.Recommend left breast diagnostic mammogram including spot magnification views of the left breast in the CC and ML projections for further evaluation. ASSESSMENT: BI-RADS Category 0: Incomplete- Need Additional Imaging Evaluation.
[2025-03-15 22:02] LABS: QuantiFERON-TB Gold Plus Negative (Negative)
== END 2025-03-13 23:59 | disposition home or self-care (01) ==
LOC: RAD 09:47
PROVIDERS: Dermatology; PCP Family Medicine; Visit Provider Family Medicine
DX: Z12.31 Encounter for screening mammogram for malignant neoplasm of breast (principal)
CPT/HCPCS: 36415; 77063; 77067; 86480

== ENCOUNTER 2025-03-28 13:00 | Outpatient (CLI) | payer MEDICARE, SELFPAY ==
--- OUTSIDE RECORDS SUMMARY | 2025-03-29 11:23 | XMS_ITS | Data Portability ---
Author Organization [facility] Address [address] [place] [address] Assessment Encounter Date Assessment Date Assessment LastModified by Organization Details LastModified Time 12/15/2016 12/15/2016 PREOPERATIVE DIAGNOSIS: Right renal calculus, also right distal ureteral calculus. POSTOPERATIVE DIAGNOSIS: Right renal calculus, also right distal ureteral calculus. PROCEDURE: Cystoscopy, left ureteroscopy, laser lithotripsy, and basket extraction of right distal ureteral stone, 5 mm. Right flexible retrograde pyeloscopy with laser of 1-cm lower pole right renal stones, right ureteral stent placement. ANESTHESIA: General. DRAINS: A 4.8 x 24 right ureteral stent, string removed. SPECIMEN: Right distal ureteral stone fragments. SURGEON: Serjio Walker MD BRIEF HISTORY: The patient is a 61-year-old female with multiple medical conditions, recently presented to [place] with a 5-mm stone at her right distal ureter at the level of the iliac vessels. We elected to try to observe her hoping she would pass this spontaneously. She had significant pain throughout the week and so she was brought to the operating room today for intervention. She also has a 10-mm stone, lower pole calyx on the right. Given its size, we elected to treat it also if things go well with her ureteral stone. OPERATIVE NOTE: After satisfactory general anesthesia, she was placed in dorsal lithotomy position. Genitalia was prepped and draped in the normal fashion. Sequential compression garments were placed and were functioning at the time of induction. The 22-Macanese cystoscope sheath was then introduced. She has a moderate cystocele grade 2-3. The right ureteral orifice was cannulated with 0.035. Zip wires were introduced where it encountered the stone. It was easily manipulated around the stone and advanced to the level of the kidney. The ureteral orifice would not accommodate the semi-rigid ureteroscope easily and therefore 15-Macanese balloon dilating system was used to dilate transmural ureter. I was then able to access the stone. Her distal ureter however had significant edema. No ureter perforation was caused or encountered. The stone was visualized with 200 micron fiber fragmented into tiny pieces. These were then extracted with 1.9 mm basket. The ureter was cleared. I was able then to pass the flexible ureteroscope over the wire easily to the level of renal pelvis. The lower pole stone was visualized easily. A 200 micron fiber was used with maximum power of 1.0 to fragment the stone into mostly powder. All significant fragments were millimeter or less. These were not extracted. Due to the degree of edema, I elected to place the stent without a string. The wires were backloaded to the cystoscope. The stent was placed with a good curl in kidney and curl in bladder. Strings were removed. Bladder is drained and cystoscope was removed. Xylocaine jelly was instilled in the urethra. We will leave the stent for two weeks. She will followup with me in [place]. She will continue on doxycycline 100 mg b.i.d. She is also placed on pyridium. She is given a prescription for [place] 7.5 mg #30. [id number] Not available 12/16/2016 05:54:23 Plan of Treatment Reminders Order Date Submit Date Provider Last Modified By Organization Details Last Modified Time Details Appointments None record ed. Lab None record ed. Referral None record ed. Procedures None record ed. Surgeries None record ed. Imaging None record ed. Medication Orders None record ed. Patient TargetsNo targets recorded. Patient InstructionsNo instructions recorded. Reason for Referral None Reported. Results Created Date Observation Date Name Description Value Unit Range Abnormal Flag Note LastModifiedBy Organization Detail LastModifiedTime 12/15/19 17 12/15/2016 urina lysis , dipst ick Unknown Analyte Yellow Not Available [facility] [address], [address], 12/15/2016 09:04:32 12/15/19 17 12/15/2016 urina lysis , dipst ick Unknown Analyte Slight ly Hazy Not Available [facility] [address] [address], [place], [address], 12/15/2016 09:04:32 12/15/19 17 12/15/2016 urina lysis , dipst ick Unknown Analyte 1.[address] [facility] [address] [place] [address], [phone], 12/15/2016 09:04:32 12/15/19 17 12/15/2016 urina lysis , dipst ick Unknown Analyte 5.[address] [facility] [address] [place] [address], [phone], 12/15/2016 09:04:32 12/15/19 17 12/15/2016 urina lysis , dipst ick Unknown Analyte 500 Velma/ul (++) Not Available [facility] [address] [place] [address], [phone], 12/15/2016 09:04:32 12/15/19 17 12/15/2016 urina lysis , dipst ick Unknown Analyte Negati ve Not Available [facility] [address] [place] [address], [phone], 12/15/2016 09:04:32 12/15/19 17 12/15/2016 urina lysis , dipst ick Unknown Analyte Negati ve Not Available [facility] [address] [place] [address], [phone], 12/15/2016 09:04:32 12/15/19 17 12/15/2016 urina lysis , dipst ick Unknown Analyte Normal Not Available [facility] [address] [place] [address], [phone], 12/15/2016 09:04:32 12/15/19 17 12/15/2016 urina lysis , dipst ick Unknown Analyte Negati ve Not Available [facility] [address] [place] [address], [phone], 12/15/2016 09:04:32 12/15/19 17 12/15/2016 urina lysis , dipst ick Unknown Analyte Normal Not Available [facility] [address] [place] [address], [phone], 12/15/2016 09:04:32 12/15/19 17 12/15/2016 urina lysis , dipst ick Unknown Analyte Negati ve Not Available [facility] [address] [place] [address], [phone], 12/15/2016 09:04:32 12/15/1912/15/2016 urina lysis , dipst ick Unknown Analyte Negati ve Not Available [facility] [address] [place] [address], [phone], 12/15/2016 09:04:32 12/15/19 17 12/15/2016 urina lysis , dipst ick Unknown Analyte Automa rosendo Not Available [facility] [address] [place] [address], [phone], 12/15/2016 09:04:32 12/15/1912/15/2016 urina lysis , dipst ick Unknown Analyte Clean Catch Not Available [facility] [address] [place] [address], [phone], 12/15/2016 09:04:32 12/15/19 17 12/17/2016 kidne y stone jeanna sis specimen source Right Ureter al normal Not Available [facility] [address] [place] [address], [phone], 12/17/2016 23:19:08 12/15/1912/17/2016 kidne y stone jeanna sis composition See Below normal Calci um Oxala te Monoh ydrat e (Whew ellit e) 60% Calci um Oxala te Dihyd rate (Wedd ellit e) 40% Not Available [facility] [address] [place], [address], 12/17/2016 23:19:08 12/15/19 17 12/17/2016 kidne y stone jeanna sis nidus Not observ ed normal Not Available [facility] [address] [place] [address], [phone], 12/17/2016 23:19:08 12/15/19 17 12/17/2016 kidne y stone jeanna sis weight 0.0090 g normal The image will follo w, unles s test is cance lled or no pictu re is avail able to repor t. TEST PERFO RMED AT: [facility] [address] [place] [phone] [facility] IGLESIA EUGENE MD ,FCAP Not Available [facility] [address] [place], [address], 12/17/2016 23:19:08 12/28/19 17 12/28/2016 XR, abdom en, 1 view No observ ation record ed. [address] (Scheduling) [address], [place], [address], 12/29/2016 10:53:49 04/19/20 17 12/04/2016 CT, abdom en + pelvi s, w/o contr ast No observ ation record ed. [facility] [address], [place], [address], 04/19/2017 16:46:13 07/19/20 17 07/19/2017 XR, abdom en, 1 view No observ ation record ed. [address] (Scheduling) [address], [place], [address], 07/20/2017 09:02:06 Result Notes None recorded. Procedures Surgical History Date Name Laterality Status Provider Name and Address Organization Details Recorded Time 7 CYSTOSCOPY, WITH URETEROSCOPY, WITH LITHOTRIPSY (SURG) completed SERJIO WALKER MD [address] [place], [address], [facility] 01/05/2017 10:29:05 Imaging Results Imaging Date Name Status LastModified by Organiz ation Details LastModified Time 12/28/2016 XR, abdomen, 1 view completed [address] (Scheduling) [address], [place], [address], 12/29/2016 10:53:49 12/04/2016 CT, abdomen + pelvis, w/o contrast completed [facility] [address], [place], [address], 04/19/2017 16:46:13 07/19/2017 XR, abdomen, 1 view completed [address] (Scheduling) [address], [place], [address], 07/20/2017 09:02:06 Procedure Notes None recorded. Medical Equipment None Reported. Vitals None Recorded Social History None recorded. Functional Status None recorded. Mental Status None recorded. Family History Nothing Reported. Medical History No medical history recorded. Gynecological HistoryNo gynecological history recorded. Obstetrics History GPAL:G 0 P 0 0 0 0 Past Encounters Encounter ID Performer Location Encounter Start Date Encounter Closed Date Diagnosis/Indication Diagnosis SNOMED-CT Code Diagnosis ICD10 Code Diagnosis Note [id number] SERJIO WALKER MD SURGERY SCHEDULE [address] [place] [address] 12/15/2016 07:37:12 12/15/2016 07:41:23 Health Concerns Section Related Observation LastModified by Organization Detai ls LastModified Time None Recorded Concern Status LastModified by Organization Details LastModified Time None Recorded Advance Directives Directive None Recorded Payers Insurance Date Sequence Insurance Name Policy Number Policy Ramirez Covered Member ID Ramirez Member ID Guarantor Name 09/18/2024 2 [employer] Julieta Bunn [id number] Julieta Bunn 09/18/2024 1 [place] Julieta Bunn [id number] Julieta Bunn 09/18/2024 1 [facility] (MEDICARE REPLACEMENT/A DVANTAGE - HMO) [id number] Bunn [id number] Julieta Bunn OBGyn Episode No OBEpisode recorded.
== END 2025-03-28 23:59 | disposition home or self-care (01) ==
LOC: LAB.DROPOF 03-29 11:22
PROVIDERS: PCP Nurse Practitioner Family; Visit Provider Nurse Practitioner Family
DX: R30.0 Dysuria (principal)
CPT/HCPCS: 87086

== ENCOUNTER 2025-08-19 10:57 | Outpatient (CLI) | payer MEDICARE, SELFPAY ==
--- NOTE | 2025-08-19 11:01 | XR_ITS ---
FINAL REPORT CLINICAL HISTORY: back pain after fall last Tuesday COMPARISON: 06/12/2018 thoracic spine FINDINGS: AP and lateral views of the thoracic spine were obtained. Scoliosis has progressed since the prior exam in 2018. There are several midthoracic compression deformities which are worse or new compared to the prior study. Multilevel degenerative disc disease is noted. No acute paraspinal abnormality. IMPRESSION: Several compression deformities, worse or new since previous exam. Recommend MRI for further evaluation. AP and lateral views of the lumbosacral spine were obtained. There is a compression fracture of the superior endplate of T12 which appears new since 2018. There is grade 1 anterior spondylolisthesis of L4 on L5. Remaining vertebral body heights are preserved. Multilevel degenerative disc disease is more pronounced at L1-2 and L5-S1. No acute paraspinal abnormality. IMPRESSION: T12 compression fracture, new since prior. Consider CT or MRI for further evaluation. Grade 1 anterior spondylolisthesis of L4 on L5. Reviewed, Interpreted and Dictated by Emma Kenny MD Transcribed by Danielle Godwin Authenticated and [facility]
--- NOTE | 2025-08-19 11:01 | XR_ITS ---
FINAL REPORT CLINICAL HISTORY: back pain after fall last tuesday FINDINGS: 3 views of the sacrum and coccyx were obtained. There is no prior exam for comparison. There is no acute fracture or other acute osseous abnormality of the sacrum and coccyx. There is degenerative joint disease of the SI joints bilaterally. No acute soft tissue abnormality is present. IMPRESSION: No acute abnormality of the sacrum or coccyx. 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 Reviewed, Interpreted and Dictated by Emma Kenny MD Transcribed by Reyna Burnett Authenticated and . [facility]
--- OUTSIDE RECORDS SUMMARY | 2025-08-19 11:05 | XMS_ITS | Clinical Summary ---
Author Organization [facility] , [facility] Address [address] [place] [address] Phone Care Team Providers Care Plastic Boat Buffer Name Role Phone FABI ALBA MD Unavailable [phone] Claudia LEIVA, Meño Boggs Unavailable [phone] Virgil Gallagher MD Primary Care Provider [phone] Reason for Visit and Chief Complaint [Patient Encounter] Problems Includes: Problems addressed during this encounter and other active Problems All Visits Onset Date Resolved Date Provider Condition S tatus Joint Pain Left Knee 06/20/2017 Meño Taylor MD Active Last Documented On 7 10:55AM ; [facility], [facility] Plan of Treatment No Plan of [...] On 2 2:59PM By Chantell Arthur ; [facility] Ventolin HFA 108 (90 Base) MCG/ACT Inhalation Ae rosol Solution 07/29/2022 Provider: Diagnosis: Last Documented On 2 3:00PM By Chantell Arthur ; [facility] FLUoxetine HCl 20 MG Oral Capsule 07/28/2022 Provide r: Virgil Gallagher MD Diagnosis: Last Documented On 2 11:55AM By Whit Crook ; [facility] Famotidine 40 MG Oral Tablet 07/28/2022 Provider: Virgil Gallagher MD Diagnosis: Last Documented On 2 11:55AM By Whit Crook ; [facility] Enalapril Maleate 10 MG Oral Tablet 07/28/2022 Provi gifty: Diagnosis: Last Documented On 2 2:59PM By Chantell Arthur ; [facility] Atorvastatin Calcium 80 MG Oral Tablet 07/28/2022 Pr ovider: Virgil Gallagher MD Diagnosis: Last Documented On 2 2:59PM By Chantell Arthur ; [facility] Montelukast Sodium 10 MG Oral Tablet 07/13/2022 Prov ider: Diagnosis: Last Documented On 2 2:59PM By Chantell Arthur ; [facility] Fluticasone Propionate 50 MC G/ACT Nasal Suspension 07/13/2022 Provider: Virgil Gallagher MD Diagnosis: Last Documented On 2 2:59PM By Chantell Arthur ; [facility] ALPRAZolam 0.25 MG Oral Tablet 07/13/2022 Provider: Virgil Gallagher MD Diagnosis: Last Documented On 2 2:59PM By Chantell Arthur ; [facility], [facility] Symbicort 160-4.5 MCG/ACT Inhalation Aerosol Provider: Virgil Gallagher MD Diagnosis: Last Documented On 2 11:55AM By Whit Crook ; [facility] Metoprolol Tartrate 50 MG Oral Tablet 06/15/2022 Pro vider: Virgil Gallagher MD Diagnosis: Last Documented On 2 2:59PM By Chantell Arthur ; [facility] Gabapentin 600 MG Oral Tablet 06/08/2022 Provider: Virgil Gallagher MD Diagnosis: Last Documented On 2 2:59PM By Chantell Arthur ; [facility] Amitriptyline HCl 25 MG Oral Tablet 03/18/2022 Provi gifty: Virgil Gallagher MD Diagnosis: Last Documented On 2 2:59PM By Chantell Arthur ; [facility] traMADol HCl 50 MG Oral Tablet 02/24/2022 Provider: Virgil Gallagher MD Diagnosis: Last Documented On 2 2:59PM By Chantell Arthur ; [facility] Stelara 45 MG/0.5ML Subcutaneous Solution Prefil led Syringe 02/05/2022 Provider: Diagnosis: Last Documented On 2 11:55AM By Whit Crook ; [facility] Medications Administered Includes: Administered Medications from [...] ctive Last Documented On 2 12:54PM ; [facility], [facility] Septra Allergy 07/29/2022 Active Last Documented On 2 12:54PM ; [facility] predniSONE Allergy 07/29/2022 Active Last Documented On 2 12:54PM ; [facility] Penicillins Allergy 07/29/2022 Active Last Documented On 2 12:54PM ; [facility] Omnicef Allergy 07/29/2022 Active Last Documented On 2 12:54PM ; [facility] Macrobid Allergy 07/29/2022 Active Last Documented On 2 12:54PM ; [facility] Ibuprofen Allergy 07/29/2022 Active Last Documented On 2 12:54PM ; [facility] Cipro Allergy 07/29/2022 Active Last Documented On 2 12:54PM ; [facility] Ceftin Allergy 07/29/2022 Active Last Documented On 2 12:54PM ; [facility] Encounters Encounter Provider Location Date Check-In Time Check-Out Time Diagnosis [Patient Encounter] Meño Taylor MD 2 3:00PM 11:59PM Insurance Includes: Active Insurance Policies Plan Name Member ID Group # Subscriber Relationship Effect meet Dates 1 - Medicare Part B [facility] [id number] Julieta Bunn Self 11/14/2002 - Unknown 2 - [employer] [id number] Julieta Bunn Self 11/14/2016 - Unknown Clinical Notes Includes: Clinical Notes from this encounter No Clinical Notes Recorded
--- OUTSIDE RECORDS SUMMARY | 2025-08-19 11:05 | XMS_ITS | Clinical Summary ---
Author Organization [facility] , [facility] Address [address] [place] [address] Phone Care Team Providers Care Dog Food Dough Mixer Name Role Phone ANJALI LEIVA, FABI Unavailable [phone] Claudia LEIVA, Meño Boggs Unavailable [phone] Elliott LEIVA, Virgil Martins Primary Care Provider [phone] Reason for Visit and Chief Complaint The Chief Complaint is: r uka Problems Includes: Problems addressed during this encounter and other active Problems All Visits Onset Date Resolved Date Provider Condition S tatus Joint Pain Left Knee 06/20/2017 Meño Taylor MD Active Last Documented On 7 10:55AM ; [facility] Plan of Treatment No Plan of Treatment Recorded Assessments Includes: Assessments from this encounter Findings 1. Preoperative Exam- Pt underwent preoperative laboratory workup and diagnostic studies. - Last Documented On 08/09/2022 9:37AM ; [facility] 2. HTN- Continue Enalapril and Metoprolol. - Last Documented On 08/09/2022 9:37AM ; [facility] 3. CAD- S/p Cardiac stent x 2 approx 3 years ago. - Last Documented On 08/09/2022 9:37AM ; [facility] 4. Asthma- Nebs/Inhalers prn. - Last Documented On 08/09/2022 9:37AM ; [facility] 5. H/o Spontaneous DVT- Postoperative anticoagulation per Dr Taylor. - Last Documented On 08/09/2022 9:37AM ; [facility] 6. GERD- Continue Famotidine. - Last Documented On 08/09/2022 9:37AM ; [facility], [facility] 7. HL- Continue Atorvastatin. - Last Documented On 08/09/2022 9:37AM ; [facility], [facility] 8. Seasonal Allergies- Continue Singulair. - Last Documented On 08/09/2022 9:37AM ; [facility], [facility] 9. Low Vit D- I called in Vit D3 2000 IU po daily with PCP f/u in 30 days. - Last Documented On 08/09/2022 9:37AM ; [facility], [facility] 10. H/o DVT- Postoperative anticoagulation per Dr Taylor. - Last Documented On 08/09/2022 9:37AM ; [facility], [facility] 11. Right Knee Pain secondary to DJD- Proceed with surgery as scheduled with Dr Taylor on 08/10/2022. - Last Documented On 08/09/2022 9:37AM ; [facility], [facility] Medical Equipment - Implanted Devices Includes: Current Devices No Medical Equipment Recorded Medications Includes: Medications discussed during this encounter and other current Medications New / Renewed during this visit Nayeli RUTH on 08/04/2022 Vitamin D3 50 MCG (2000 UT) Oral Tablet Provider: Nayeli RUTH 30 day supply: 30 tablet, 0 refills Diagnosis: once a day Pharmacy: [facility] [address], [phone] - Last Documented On 2 7:55PM By Nayeli Duque ; [facility], [facility] Current Medications (continue as prescribed) Nitroglycerin 0.4 MG Subling ual Tablet Sublingual 07/29/2022 Provider: Virgil Gallagher MD Diagnosis: Last Documented On 2 2:59PM By Chantell Arthur ; [facility], [facility] Ventolin HFA 108 (90 Base) MCG/ACT Inhalation Ae rosol Solution 07/29/2022 Provider: Diagnosis: Last Documented On 2 3:00PM By Chantell Arthur ; [facility], [facility] FLUoxetine HCl 20 MG Oral Capsule 07/28/2022 Provide r: Virgil Gallagher MD Diagnosis: Last Documented On 2 11:55AM By Whit Crook ; [facility], [facility] Famotidine 40 MG Oral Tablet 07/28/2022 Provider: Virgil Gallagher MD Diagnosis: Last Documented On 2 11:55AM By Whit Crook ; [facility], [facility] Enalapril Maleate 10 MG Oral Tablet 07/28/2022 Provi gifty: Diagnosis: Last Documented On 2 2:59PM By Chantell Arthur ; [facility], [facility] Atorvastatin Calcium 80 MG Oral Tablet 07/28/2022 Pr ovider: Virgil Gallagher MD Diagnosis: Last Documented On 2 2:59PM By Chantell Arthur ; [facility], [facility] Montelukast Sodium 10 MG Oral Tablet 07/13/2022 Prov ider: Diagnosis: Last Documented On 2 2:59PM By Chantell Arthur ; [facility], [facility] Fluticasone Propionate 50 MC G/ACT Nasal Suspension 07/13/2022 Provider: Virgil Gallagher MD Diagnosis: Last Documented On 2 2:59PM By Chantell Arthur ; [facility], [facility] ALPRAZolam 0.25 MG Oral Tablet 07/13/2022 Provider: Virgil Gallagher MD Diagnosis: Last Documented On 2 2:59PM By Chantell Arthur ; [facility], [facility] Symbicort 160-4.5 MCG/ACT Inhalation Aerosol Provider: Virgil Gallagher MD Diagnosis: Last Documented On 2 11:55AM By Whit Crook ; [facility], [facility] Metoprolol Tartrate 50 MG Oral Tablet 06/15/2022 Pro vider: Virgil Gallagher MD Diagnosis: Last Documented On 2 2:59PM By Chantell Arthur ; [facility], [facility] Gabapentin 600 MG Oral Tablet 06/08/2022 Provider: Virgil Gallagher MD Diagnosis: Last Documented On 2 2:59PM By Chantell Arthur ; [facility], [facility] Amitriptyline HCl 25 MG Oral Tablet 03/18/2022 Provi gifty: Virgil Gallagher MD Diagnosis: Last Documented On 2 2:59PM By Chantell Arthur ; [facility], [facility] traMADol HCl 50 MG Oral Tablet 02/24/2022 Provider: Virgil Gallagher MD Diagnosis: Last Documented On 2 2:59PM By Chantell Arthur ; [facility], [facility] Stelara 45 MG/0.5ML Subcutaneous Solution Prefil led Syringe 02/05/2022 Provider: Diagnosis: Last Documented On 2 11:55AM By Whit Crook ; [facility], [facility] Past Medications on file Warfarin Sodium 2 MG Oral Tablet 09/13/2022 - 09/28/2022 Provider: Ole duran PA-C Diagnosis: once a day Last Documented On 2 4:25PM By Enedina Martines ; [facility] Warfarin Sodium 3 MG Oral Tablet 09/02/2022 - 10/02/2022 Provider: Ole duran PA-C Diagnosis: once a day Last Documented On 12:18PM By Enedina Martines ; [facility] Warfarin Sodium 3 MG Oral Tablet 08/24/2022 - 09/08/2022 Provider: Meño bauer MD Diagnosis: once a day Last Documented On 2 1:03PM By Enedina Martines ; [facility], [facility] Warfarin Sodium 5 MG Oral Tablet 08/10/2022 - 08/25/2022 Provider: Meño bauer MD Diagnosis: once a day Last Documented On 2 10:20AM By Carlito Taylor ; [facility], [facility] Lovenox 40 MG/0.4ML Injection Solution Prefilled Syringe 08/10/2022 - 08/12/2022 Provider: Meño bauer MD Diagnosis: 1 sub q injection 1 time day Last Documented On 2 10:20AM By Carlito Taylor ; [facility] traMADol HCl 50 MG Oral Tablet 08/09/2022 - 08/14/2022 Provider: Meño bauer MD Diagnosis: 1-2 po q 4-6h Last Documented On 2 8:44AM By Carlito Taylor ; [facility] oxyCODONE HCl 5 MG Oral Tablet 08/09/2022 - 08/14/2022 Provider: Meño bauer MD Diagnosis: 1-2 po q 4-6h Last Documented On 2 8:44AM By Carlito Taylor ; [facility] Ondansetron HCl 4 MG Oral Tablet 08/09/2022 - 08/14/2022 Provider: Meño Taylor MD Diagnosis: [id number] Last Documented On 2 8:44AM By Carlito Taylor ; [facility] Meloxicam 15 MG Oral Tablet 08/09/2022 - 09/08/2022 Provider: Meño bauer MD Diagnosis: once a day Last Documented On 2 8:44AM By Carlito Taylor ; [facility] Colace 100 MG Oral Capsule 08/09/2022 - 11/07/2022 Provider: Meño bauer MD Diagnosis: 1-2 tabs daily Last Documented On 2 8:44AM By Carlito Taylor ; [facility] Cefadroxil 500 MG Oral Capsule 08/09/2022 - 08/12/2022 Provider: Meño bauer MD Diagnosis: twice a day Last Documented On 2 8:44AM By Carlito Taylor ; [facility] Acetaminophen 500 MG Oral Tablet 08/09/2022 - 09/08/2022 Provider: Meño Taylor MD Diagnosis: 2 three times a day Last Documented On 2 8:44AM By Carlito Taylor ; [facility] Neurontin 300MG Oral Capsule, conventional 07/26/2017 - 10/24/2017 Provider: Meño Taylor MD Diagnosis: Aftercare follow ing joint replacement surgery 1 every bedtime FOR SURGERY DO NOT FILL TILL 08/02/17 Last Documented On 7 1:56PM By Scarlett Li ; [facility] TraMADol HCl 50MG Oral Tablet 07/26/2017 - 08/08/2017 Provider: Meño Taylor MD Diagnosis: Aftercare follow ing joint replacement surgery 2 tablets every 6 hours. FOR SURGERY DO NOT FILL TILL 08/02/17 Last Documented On 7 1:57PM By Scarlett Li ; [facility], [facility] Medications Administered [...] Last Documented: On 08/04/2022 10:24A M ; [facility], [facility] Results Includes: [...] 07/29/2022 Last Documented On 2 10:19AM ; [facility], [facility] Not a current smoker. 07/29/2022 Last Documented On 2 10:19AM ; [facility], [facility] Tobacco non-user 07/29/2022 Last Documented On 2 10:19AM ; [facility], [facility] No tobacco use 06/20/2017 Last Documented On 2 10:19AM ; [facility], [facility] Smoking status : Never smoker 06/20/2017 Last Documented On 2 10:19AM ; [facility], [facility] Caffeine use 06/20/2017 Last Documented On 2 10:19AM ; [facility] No recent change in diet [...] 06/20/2017 Last Documented On 2 10:19AM ; [facility] Procedures and Surgical History Surgical History Last Updated History of History of Gallbladder 2021 Last Documented On 2 10:19AM ; [facility] History of hysterectomy 07/29/2022 Last Documented On 2 10:19AM ; [facility] History of appendectomy 06/20/2017 Last Documented On 2 10:19AM ; [facility] History of heart surgery 06/20/2017 Last Documented On 2 10:19AM ; [facility] Medical History Includes: Medical History addressed during this encounter Description Last Updated Recent immunization for flu 08/10/2021 Last Documented On 2 10:19AM ; [facility] History of arthritis 07/29/2022 Last Documented On 2 10:19AM ; [facility] History of asthma 07/29/2022 Last Documented On 2 10:19AM ; [facility] History of heart disease 07/29/2022 Last Documented On 2 10:19AM ; [facility] History of Heartburn / Acid Reflux 07/29 Last Documented On 2 10:19AM ; [facility] History of History of Blood Clots 2021 Last Documented On 2 10:19AM ; [facility] History of History of Blood Transfusion 07/29/2022 Last Documented On 2 10:19AM ; [facility], [facility] History of History of Heart Attack / Str [place] 07/29/2022 Last Documented On 2 10:19AM ; [facility], [facility] History of History of Rheumatology 07/29 Last Documented On 2 10:19AM ; [facility] History of Hypertension 07/29/2022 Last Documented On 2 10:19AM ; [facility] History of osteoporosis 07/29/2022 Last Documented On 2 10:19AM ; [facility], [facility] Past Surgical History: P. knee replaceme nt 07/29/2022 Last Documented On 2 10:19AM ; [facility], [facility] Recent immunization for pneumococcal pne onia 201907/29/2022 Last Documented On 2 10:19AM ; [facility] A history of cancer 06/20/2017 Last Documented On 2 10:19AM ; [facility], [facility] Arthritic joint problems 06/20/2017 Last Documented On 2 10:19AM ; [facility] Gallbladder disease 06/20/2017 Last Documented On 2 10:19AM ; [facility], [facility] History of acute myocardial infarction 0 06/20/2017 Last Documented On 2 10:19AM ; [facility] History of depression 06/20/2017 Last Documented On 2 10:19AM ; [facility], [facility] Rheumatology history 06/20/2017 Last Documented On 2 10:19AM ; [facility], [facility] A recent injection 06/20/2017 Last Documented On 2 10:19AM ; [facility], [facility] Family History Includes: Family History addressed during this encounter Description Last Updated Pt mother at 77 from COPD. Pt fathe r from a [place] at 55. 08/04/2022 Last Documented On 2 10:35AM ; [facility], [facility] Review of Systems Includes: Review [...] ctive Last Documented On 2 12:54PM ; [facility] Septra Allergy 07/29/2022 Active Last Documented On 2 12:54PM ; [facility] predniSONE Allergy 07/29/2022 Active Last Documented On 2 12:54PM ; [facility] Penicillins Allergy 07/29/2022 Active Last Documented On 2 12:54PM ; [facility] Omnicef Allergy 07/29/2022 Active Last Documented On 2 12:54PM ; [facility] Macrobid Allergy 07/29/2022 Active Last Documented On 2 12:54PM ; [facility] Ibuprofen Allergy 07/29/2022 Active Last Documented On 2 12:54PM ; [facility] Cipro Allergy 07/29/2022 Active Last Documented On 2 12:54PM ; [facility] Ceftin Allergy 07/29/2022 Active Last Documented On 2 12:54PM ; [facility] Encounters Encounter Provider Location Date Check-In Time Check-Out Time Diagnosis Pre Admission Testing Nayeli RUTH [facility] 08/04/20 22 10:13AM 10:31AM Insurance Includes: Active Insurance Policies Plan Name Member ID Group # Subscriber Relationship Effect meet Dates 1 - Medicare Part B [facility] [id number] Julieta Bunn Self 11/14/2002 - Unknown 2 - [employer] [id number] Julieta Bunn Self 11/14/2016 - Unknown Clinical Notes Includes: Clinical Notes from this encounter No Clinical Notes Recorded
--- OUTSIDE RECORDS SUMMARY | 2025-08-19 11:05 | XMS_ITS | Data Portability ---
Author Organization [facility] Address [address] [place] [address] Assessment Encounter Date Assessment Date Assessment LastModified [...] with multiple medical conditions, recently presented to [place] with a 5-mm stone at her right [...] functioning at the time of induction. The 22-Brazilian cystoscope sheath was then introduced. She has a moderate cystocele grade 2-3. The right ureteral orifice was cannulated with 0.035. Zip wires were introduced where it encountered the stone. It was easily manipulated around the stone and advanced to the level of the kidney. The ureteral orifice would not accommodate the semi-rigid ureteroscope easily and therefore 15-Brazilian balloon dilating system was used to dilate [...] weeks. She will followup with me in [place]. She will continue on doxycycline 100 mg b.i.d. She is also placed on pyridium. She is given a prescription for [place] 7.5 mg #30. [id number] Not available 12/16/2016 05:54:23 Plan of [...] [facility] [address], [address], 12/15/2016 09:04:32 12/15/19 17 12/15/2016 urina lysis , dipst ick Unknown Analyte Slight ly Hazy Not Available [facility] [address], [address], 12/15/2016 09:04:32 12/15/19 17 12/15/2016 urina lysis , dipst ick Unknown Analyte 1.[address] [facility] [address] [place] [address], [phone], 12/15/2016 09:04:32 12/15/19 17 12/15/2016 urina lysis , dipst ick Unknown Analyte 5.[address] [facility] [address] [place] [address], [phone], 12/15/2016 09:04:32 12/15/19 17 12/15/2016 urina lysis , dipst ick Unknown Analyte 500 Velma/ul (++) Not Available [facility] [address] [place] [address], [phone], 12/15/2016 09:04:32 12/15/19 17 12/15/2016 urina lysis , dipst ick Unknown Analyte Negati ve Not Available [facility] [address] [place] [address], [phone], 12/15/2016 09:04:32 12/15/19 17 12/15/2016 urina lysis , dipst ick Unknown Analyte Negati ve Not Available [facility] [address] [place] [address], [phone], 12/15/2016 09:04:32 12/15/19 17 12/15/2016 urina lysis , dipst ick Unknown Analyte Normal Not Available [facility] [address] [place] [address], [phone], 12/15/2016 09:04:32 12/15/19 17 12/15/2016 urina lysis , dipst ick Unknown Analyte Negati ve Not Available [facility] [address] [place] [address], [phone], 12/15/2016 09:04:32 12/15/19 17 12/15/2016 urina lysis , dipst ick Unknown Analyte Normal Not Available [facility] [address] [place] [address], [phone], 12/15/2016 09:04:32 12/15/19 17 12/15/2016 urina lysis , dipst ick Unknown Analyte Negati ve Not Available [facility] [address] [place] [address], [phone], 12/15/2016 09:04:32 12/15/19 17 12/15/2016 urina lysis , dipst ick Unknown Analyte Negati ve Not Available [facility] [address] [place] [address], [phone], 12/15/2016 09:04:32 12/15/19 17 12/15/2016 urina lysis , dipst ick Unknown Analyte Automa rosendo Not Available [facility] [address] [place] [address], [phone], 12/15/2016 09:04:32 12/15/1912/15/2016 urina lysis , dipst ick Unknown Analyte Clean Catch Not Available [facility] [address] [place] [address], [phone], 12/15/2016 09:04:32 12/15/1912/17/2016 kidne y stone jeanna sis specimen source Right Ureter al normal Not Available [facility] [address] [place] [address], [phone], 12/17/2016 23:19:08 12/15/19 17 12/17/2016 kidne y stone jeanna sis composition See Below normal Calci um Oxala te Monoh ydrat e (Whew ellit e) 60% Calci um Oxala te Dihyd rate (Wedd ellit e) 40% Not Available [facility] [address] [place], [address], 12/17/2016 23:19:08 12/15/19 17 12/17/2016 kidne y stone jeanna sis nidus Not observ ed normal Not Available [facility] [address] [place], [address], 12/17/2016 23:19:08 12/15/19 17 12/17/2016 kidne y stone jeanna sis weight 0.0090 g normal The image will follo w, unles s test is cance lled or no pictu re is avail able to repor t. TEST PERFO RMED AT: [facility] [address] [place] [address] [employer] [facility] IGLESIA EUGENE MD ,FCAP Not Available [facility] [address] [place], [address], 12/17/2016 23:19:08 12/28/19 17 12/28/2016 XR, abdom en, 1 view No observ ation record ed. [address] (Scheduling) [address], [place], [address], 12/29/2016 10:53:49 04/19/20 17 12/04/2016 CT, abdom en + pelvi s, w/o contr ast No observ ation record ed. [facility] [address], [place], [address], 04/19/2017 16:46:13 07/19/20 17 07/19/2017 XR, abdom en, 1 view No observ ation record ed. [address] (Scheduling) [address], [place] [address], 07/20/2017 09:02:06 Result Notes None recorded. Procedures Surgical History Date Name Laterality Status Provider Name and Address Organization Details Recorded Time 7 CYSTOSCOPY, WITH URETEROSCOPY, WITH LITHOTRIPSY (SURG) completed SERJIO WALKER MD [address] [place], [address], [facility] 01/05/2017 10:29:05 Imaging Results None recorded. Procedure Notes None recorded. Medical Equipment None [...] Diagnosis SNOMED-CT Code Diagnosis ICD10 Code Diagnosis IMO Codes Diagnosis Note [id number] SERJIO WALKER MD SURGERY SCHEDULE [address] [place] [address] 12/15/2016 07:37:12 12/15/2016 07:41:23 Health Concerns Section Related Observation LastModified by Organization Detai ls LastModified Time None Recorded Concern Status LastModified by Organization Details LastModified Time None Recorded Advance Directives Directive None Recorded Payers Insurance Date Sequence Insurance Name Policy Number Policy Ramirez Covered Member ID Ramirez Member ID Guarantor Name 09/18/2024 2 [employer] Julieta Bunn [id number] Julieta Bunn 09/18/2024 1 [place] Julieta Bunn [id number] Julieta Bunn 09/18/2024 1 [facility] (MEDICARE REPLACEMENT/A DVANTAGE - HMO) [id number] Julieta Bunn [id number] Julieta Bunn OBGyn Episode No OBEpisode recorded.
--- OUTSIDE RECORDS SUMMARY | 2025-08-19 11:05 | XMS_ITS | Clinical Summary ---
Author Organization [employer] ([place], [place], [place], [place]) Address [address] [place] [address] Care Team Providers Care Rfid Specialist Name Role Phone Unavailable Primary Care Provider Unavailabl e Allergies Active Allergy Reactions Criticality Noted Date Comments Ciprofloxacin 09/09/2024 Hydrocodone-Acetaminophen 09/09/2024 Penicillin 09/09/2024 Medications No known medications Social History Tobacco Use Types Packs/Day Years Used Date Smoking Tobacco: Every Day Cigarettes Smokeless Tobacco: Never Tobacco Cessation:Ready to Q uit: Not Asked; Counseling Given: Not Answered Alcohol Use Standard Drinks/Week Comments Never 0 (1 standard drink = 0.6 oz pur e alcohol) Family and Community Support Answer Jacques e Recorded Help with Day to Day Activities Not on file 09/09/2024 Feeling Lonely or Isolated Not on file 09/09 Educational Attainment Answer Date Chente rded Speak language other than Guamanian at home Not on file 09/09/2024 Want help with school or training Not on file 09/09/2024 Substance Use Answer Date Recorded Used prescription meds for non-medical reasons N ot on file 09/09/2024 Used illegal drugs past 12 months Not on file 09/09/2024 Comments No Sex and Gender Information Value Date Recorded Sex Assigned at Not on file Legal Sex Female 7:34 PM CDT Gender Identity Not on file Sexual Orientation Not on file Last Filed Vital Signs Vital Sign Reading Time Taken Comments Blood Pressure 113/56 09/24/2024 10:15 AM EST Pulse 71 09/09/2024 2:41 PM EDT Temperature 36.7 C (98.1 F) 09/09/2024 2:41 PM EDT Respiratory Rate 18 09/24/2024 10:15 AM EST Oxygen Saturation 93% 09/09/2024 2:41 PM EDT Inhaled Oxygen Concentration - - Weight 71.7 kg (158 lb) 09/24/2024 10:15 AM EST Height 162.6 cm (5' 4 ) 09/24/2024 10:15 AM EST Body Mass Index 27.12 09/24/2024 10:15 AM EST Plan of Treatment Health Maintenance Due Date Last Done Comments CT Colonography 1951 Colonoscopy 1950 Colorectal Cancer Screening 1950 DXA SCAN 1950 FOBT/FIT 1951 Fit-DNA (Cologuard) 1950 Sigmoidoscopy 1951 Depression Screening (12+) 1963 Tobacco Cessation Counseling and Screening (12+) 1963 Hepatitis C Screening 1969 Breast Cancer Screening 1991 Shingles Vaccine (Zoster) (1 of 2) 2001 DTAP/TDAP/TD VACCINES (2 - T d or Tdap) 07/24/2012 07/24/2002 Pneumococcal 50+ years (2 of 2 - PCV) 04/20/2018 04/20/2017 Falls Risk Screening 11/14/2024 Medicare Initial AWV [id number] 11/15/2024 COVID-19 VACCINE (6 - 2024-2 6 season) 2025 10/12/2022, 02/19/2022, 07/23/2021, Additional history exists Influenza Vaccine (#1) 2025 08/16/2023, 2021 Respiratory Syncytial Virus (RSV) Adult or (1 - 1-dose 75+ series) 2026 Insurance [facility] ADV DUAL COMPLETE
--- OUTSIDE RECORDS SUMMARY | 2025-08-19 11:06 | XMS_ITS | Clinical Summary ---
Author Organization [facility] Address [address] [place] [address] Care Team Providers Care Purchase Price Analyst Name Role Phone Virgil Gallagher MD Primary Care Provider [phone] Allergies Active Allergy Reactions Criticality Noted Date Comments Cefuroxime Axetil Unknown - Low Severity Low 2015 Cefuroxime Unknown - Low Severity Low 08/27/2016 Ibuprofen 08/27/2016 Penicillins 08/19/2016 Sulfa Antibiotics Unknown - Low Severity Low 2015 Medications amitriptyline (ELAVIL) 25 MG tablet Daily. 2 6 Active atorvastatin (LIPITOR) 80 MG tablet Daily. 6 6 Active enalapril (VASOTEC) 20 MG tablet 2 (Two) Times a Day. 8 6 Active fluticasone (FLONASE) 50 MCG/ACT nasal spray As Needed. 5 6 Active metoprolol tartrate (LOPRESSOR) 50 MG tablet 1 tablet 2 (Two) Times a Day. 6 6 Active montelukast (SINGULAIR) 10 MG tablet Daily. 5 6 Active polyethylene glycol (MIRALAX) powder Daily. 3 6 Active ranitidine (ZANTAC) 300 MG tablet Daily. 2 6 Active traMADol (ULTRAM) 50 MG tablet Daily As Needed. 0 6 Active nitroglycerin (NITROSTAT) 0.[address] 1 TABLET UNDER THE TONGUE AND ALLOW TO DISSOLVE EVERY 5 MINUTES NEEDED FOR CHEST PAIN. IF MORE THAN 3 DOSES ARE NEEDED, CALL 911. 25 tablet 6 7 Active VENTOLIN HFA 108 (90 Base) MCG/ACT inhaler INHALE 1 PUFF EVERY 6 HOURS NEEDED FOR SHORTNESS OF BREATH. 0 Active SYMBICORT 160-4.5 MCG/ACT inhaler INHALE 2 PUFFS 2 TIMES EACH DAY 9 Active ALPRAZolam (XANAX) 0.25 MG tablet TAKE 1 TABLET 2 TIMES EACH DAY 9 Active STELARA 45 MG/0.5ML solution prefilled syringe Injection 0 Active aspirin 81 MG EC tablet Take 1 tablet by mouth Daily. Active gabapentin (NEURONTIN) 600 MG tablet Take 1 tablet by mouth 3 (Three) Times a Day. 0 Active FLUoxetine (PROzac) 20 MG capsule TAKE 1 CAPSULE 1 TIME EACH DAY. 0 Active betamethasone dipropionate (DIPROLENE) 0.05 % ointment APPLY A THIN FILM TO THE AFFECTED AREA OF SKIN 2 TIMES EACH DAY 0 Active famotidine (PEPCID) 40 MG tablet TAKE 1 TABLET 1 TIME EACH DAY 0 Active Active Problems Problem Noted Date Diagnosed Date Heart murmur 11/30/2019 Overview (11/30/2019): 1. Echo 11-30-19: Left ventricular systolic function is normal. Estimated EF = 65%. Aortic sclerosis without significant stenosis. CAD (coronary artery disease) 08/19/2016 Overview (11/28/2019): a. Inferior ST elevation [place], 03/12/2015. b. Single-vessel coronary artery disease, left heart catheterization, 03/12/2015: Placement of overlapping 3 x 18 and 3 x 15 mm Xience drug-eluting stents. Preserved LV systolic function. EF 60% to 65%. Hypertension 08/19/2016 Hyperlipidemia 08/19/2016 Crohn's disease 08/19/2016 Anxiety 08/19/2016 GERD (gastroesophageal reflux disease) 6 Osteoarthritis 08/19/2016 Chronic pain 08/19/2016 Anemia 08/19/2016 Overview (08/19/2016): Recurrent anemia Family History Medical History Relation Name Comments Heart attack Brother Heart attack Father Heart disease Father Aneurysm Mother Stroke Mother Heart murmur Sister Pulmonary fibrosis Sister Relation Name Status Comments Brother Alive STENTS Father (Age 53) Mother (Age 77) Sister Alive Social History Tobacco Use Types Packs/Day Years Used Date Smoking Tobacco: Former Cigarettes Q uit: 08/27/2009 Smokeless Tobacco: Never Alcohol Use Standard Drinks/Week Comments No 0 (1 standard drink = 0.6 oz pur e alcohol) Abuse Screen Answer Date Recorded Unsafe at Home or Work/School Not on file Feels Threatened by Someone? Not on file 08/2023 Does Anyone Keep You from Co ntacting Others or Doint Things Outside the Home? Not on file 08/23/2023 Physical Sign of Abuse Present Not on file 1 Housing Stability Answer Date Recorded Current Living Arrangements Not on file 08/14 Potentially Unsafe Housing Conditions Not on nicole e 08/23/2023 Family and Community Support Answer Jacques e Recorded Help with Day-to-Day Activities Not on file 08/23/2023 Lonely or Isolated Not on file 08/23/2023 Employment Answer Date Recorded Do you want help finding or keeping work or a linda b? Not on file 08/23/2023 Disabilities Answer Date Recorded Concentrating, Remembering, or Making Decisions Difficulty Not on file 08/23/2023 Doing Errands Independently Difficulty Not on fi le 08/23/2023 Education Answer Date Recorded Help with school or training? Not on file Preferred Language Not on file 08/23/2023 Comments Unknown Sex and Gender Information Value Date Recorded Sex Assigned at Not on file Legal Sex Female 1:51 PM EDT Gender Identity Not on file Sexual Orientation Not on file Last Filed Vital Signs Vital Sign Reading Time Taken Comments Blood Pressure 138/62 03/04/2023 10:51 AM EDT Pulse 61 03/04/2023 10:51 AM EDT Temperature 36.3 C (97.3 F) 12/05/2020 10:07 AM EST Respiratory Rate - - Oxygen Saturation 96% 03/04/2023 10:51 AM EDT Inhaled Oxygen Concentration - - Weight 73.5 kg (162 lb) 03/10/2023 1:43 PM EDT Height 162.6 cm (5' 4 ) 03/10/2023 1:43 PM EDT Body Mass Index 27.81 03/10/2023 1:43 PM EDT Plan of Treatment Health Maintenance Due Date Last Done Comments DXA SCAN 1951 MAMMOGRAM 1991 COLOGUARD 02/04/1996 COLON CANCER SCREENING 5 YEA R SIGMOIDOSCOPY 02/04/1996 COLONOSCOPY 02/04/1996 COLORECTAL CANCER SCREENING 02/04/1996 CT COLONOGRAPHY 02/04/1996 FECAL OCCULT BLOOD TEST 02/04/1996 FIT Testing (1 year) 02/04/1996 ZOSTER VACCINE (1 of 2) 2001 TDAP/TD VACCINES (2 - Tdap) 07/24/2012 07/24/2002 LIPID PANEL 03/13/2016 03/13/2015 ANNUAL WELLNESS VISIT 07/06/2017 HEPATITIS C SCREENING 07/06/2017 Pneumococcal Vaccine 50+ (2 of 2 - PCV) 04/20/2018 04/20/2017 INFLUENZA VACCINE 06/14/2025 09/06/2022, , 08/26/2021, Additional history exists COVID-19 Vaccine (6 - 2024-2 6 season) 2025 10/12/2022, 02/19/2022, 07/23/2021, Additional history exists Procedures Procedure Name Priority Date/Time Associated Diagnosis Comments LIPID PANEL Routine 03/13/2015 5:17 AM EDT from Last 3 Months or Most Recently Relevant to Health Maintenance Results * (ABNORMAL) Lipid panel (03/13/2015 5:17 AM EDT) Total Cholesterol 317(H) 0 - 200 mg/dL [facility] Comment: DF by IF @ 03/13/2015 05:42 Cholesterol Reference Ranges: Desirable: less than 200 mg/dL Borderline: 200-239 mg/dL High: greater than 239 mg/dL Triglycerides 932(H) 0 - 150 mg/dL [facility] Comment: DF by IF @ 03/13/2015 05:42 Triglyceride Reference Ranges: Normal less than 150 mg/dL Borderline 150-199 mg/dL High 200-499 mg/dL Very High greater than 499 mg/dL HDL Cholesterol 44 40 - 60 mg/dL [facility] Comment: DF by IF @ 03/13/2015 05:42 HDL Cholesterol Reference Ranges: Low less than 40 mg/dL High greater than 59 mg/dL LDL Cholesterol 116 0 - 130 mg/dL [facility] Comment: US by IF @ 03/13/2015 05:42 LDL Cholesterol Reference Ranges: Optimal less than 100 mg/dL Near Optimal 100-129 mg/dL Borderline 130-159 mg/dL High 160-189 mg/dL Very High greater than 189 mg/dL Blood specimen (specimen) 03/13/2015 5:17 AM EDT Narrative [facility] - 03/13/2015 5:42 AM EDT Specimen Type: Blood us [facility]ikey[facility] BLOOD ORDERABLES Final Result [facility] [address] [place] [id number], from Last 3 Months or Most Recently Relevant to Health Maintenance Insurance MEDICARE ADVANTAGE [facility] HMO NON PAR Care Teams Purchase Price Analyst Relationship Specialty Start Date End Date Virgil Gallagher MD PCP - General Emergency Medicine 11/30/19
--- OUTSIDE RECORDS SUMMARY | 2025-08-19 11:06 | XMS_ITS | Clinical Summary ---
Author Organization [facility] Address [address] [address] Phone Care Team Providers Care Liquor Runner Name Role Phone ANJALI LEIVA, FABI Unavailable [phone] Claudia LEIVA, Meño Boggs Unavailable [phone] Virgil Gallagher MD Primary Care Provider [phone] Reason for Visit and Chief Complaint The Chief Complaint is: RIGHT KNEE PAIN Problems Includes: Problems addressed during this encounter and other active Problems All Visits Onset Date Resolved Date Provider Condition S tatus Joint Pain Left Knee 06/20/2017 Meño Taylor MD Active Last Documented On 7 10:55AM ; [facility] Plan of Treatment patient was doing relatively well. She is to continue with gradual progression to activity as tolerated. Follow-up in the office in one year with repeat x-rays of bilateral knees. Left partial knee replacement reports patient is doing well roughly 5 years postop today - Last Documented On 10/18/2022 1:19PM ; [facility] Instructions to patient Instructions for patient See PCP for BP Last Documented On 2 12:40PM ; [facility] Lose weight Last Documented On 2 12:40PM ; [facility] Assessments Includes: Assessments from this encounter Findings 9 weeks postop right medial UKA - Last Documented On 10/18/2022 1:19PM ; [facility] Instructions Includes: Instructions from this encounter Instructions to patient Instructions for patient See PCP for BP Last Documented On 2 12:40PM ; [facility] Lose weight Last Documented On 2 12:40PM ; [facility] Medical Equipment - Implanted Devices Includes: Current Devices No Medical Equipment Recorded Medications Includes: Medications discussed during this encounter and other current Medications Current Medications (continue as prescribed) Nitroglycerin 0.4 MG Subling ual Tablet Sublingual 07/29/2022 Provider: Virgil Gallagher MD Diagnosis: Last Documented On 2 2:59PM By Chantell Arthur ; [facility] Ventolin HFA 108 (90 Base) MCG/ACT Inhalation Ae rosol Solution 07/29/2022 Provider: Diagnosis: Last Documented On 2 3:00PM By Chantell Arthur ; [facility] FLUoxetine HCl 20 MG Oral Capsule 07/28/2022 Provide r: Virgil Gallagher MD Diagnosis: Last Documented On 2 11:55AM By Whit Crook ; [facility] Famotidine 40 MG Oral Tablet 07/28/2022 Provider: Virgil Gallagher MD Diagnosis: Last Documented On 2 11:55AM By Whit Crook ; [facility] Enalapril Maleate 10 MG Oral Tablet 07/28/2022 Provi gifty: Diagnosis: Last Documented On 2 2:59PM By Chanetll Arthur ; [facility] Atorvastatin Calcium 80 MG Oral Tablet 07/28/2022 Pr ovider: Virgil Gallagher MD Diagnosis: Last Documented On 2 2:59PM By Chantell Arthur ; [facility] Montelukast Sodium 10 MG Oral Tablet 07/13/2022 Prov ider: Diagnosis: Last Documented On 2 2:59PM By Chantell Arthur ; [facility] Fluticasone Propionate 50 MC G/ACT Nasal Suspension 07/13/2022 Provider: Virgil Gallagher MD Diagnosis: Last Documented On 2 2:59PM By Chantell Arthur ; [facility] ALPRAZolam 0.25 MG Oral Tablet 07/13/2022 Provider: Virgil Gallagher MD Diagnosis: Last Documented On 2 2:59PM By Chantell Arthur ; [facility] Symbicort 160-4.5 MCG/ACT Inhalation Aerosol Provider: Virgil Gallagher MD Diagnosis: Last Documented On 2 11:55AM By Whit Crook ; [facility] Metoprolol Tartrate 50 MG Oral Tablet 06/15/2022 Pro vider: Virgil Gallagher MD Diagnosis: Last Documented On 2 2:59PM By Chantell Arthur ; [facility] Gabapentin 600 MG Oral Tablet 06/08/2022 Provider: Virgil Gallagher MD Diagnosis: Last Documented On 2 2:59PM By Chantell Arthur ; [facility] Amitriptyline HCl 25 MG Oral Tablet 03/18/2022 Provi gifty: Virgil Gallagher MD Diagnosis: Last Documented On 2 2:59PM By Chantell Arthur ; [facility] traMADol HCl 50 MG Oral Tablet 02/24/2022 Provider: Virgil Gallagher MD Diagnosis: Last Documented On 2 2:59PM By Chantell Arthur ; [facility] Stelara 45 MG/0.5ML Subcutaneous Solution Prefil led Syringe 02/05/2022 Provider: Diagnosis: Last Documented On 2 11:55AM By Whit Crook ; [facility] Past Medications on file Warfarin Sodium 2 MG Oral Tablet 09/13/2022 - 09/28/2022 Provider: Ole duran PA-C Diagnosis: once a day Last Documented On 2 4:25PM By Enedina Martines ; [facility] Warfarin Sodium 3 MG Oral Tablet 09/02/2022 - 10/02/2022 Provider: Ole duran PA-C Diagnosis: once a day Last Documented On 2 12:18PM By Enedina Martines ; [facility] Warfarin Sodium 3 MG Oral Tablet 08/24/2022 - 09/08/2022 Provider: Meño bauer MD Diagnosis: once a day Last Documented On 2 1:03PM By Enedina Martines ; [facility] Warfarin Sodium 5 MG Oral Tablet 08/10/2022 - 08/25/2022 Provider: Meño bauer MD Diagnosis: once a day Last Documented On 2 10:20AM By Carlito Taylor ; [facility] Lovenox 40 MG/0.4ML Injection Solution Prefilled Syringe 08/10/2022 - 08/12/2022 Provider: Meño bauer MD Diagnosis: 1 sub q injection 1 time day Last Documented On 2 10:20AM By Carlito Taylor ; [facility] traMADol HCl 50 MG Oral Tablet 08/09/2022 - 08/14/2022 Provider: Meño bauer MD Diagnosis: 1-2 po q 4-6h Last Documented On 2 8:44AM By Carlito Taylor ; [facility] oxyCODONE HCl 5 MG Oral Tablet 08/09/2022 - 08/14/2022 Provider: Meño bauer MD Diagnosis: 1-2 po q 4-6h Last Documented On 2 8:44AM By Carlito Taylor ; [facility] Ondansetron HCl 4 MG Oral Tablet 08/09/2022 - 08/14/2022 Provider: Meño Taylor MD Diagnosis: 3dtd4-1a Last Documented On 2 8:44AM By Carlito Taylor ; [facility] Meloxicam 15 MG Oral Tablet 08/09/2022 - 09/08/2022 Provider: Meño bauer MD Diagnosis: once a day Last Documented On 2 8:44AM By Carlito Taylor ; [facility] Colace 100 MG Oral Capsule 08/09/2022 - 11/07/2022 Provider: Meño bauer MD Diagnosis: 1-2 tabs daily Last Documented On 2 8:44AM By Carlito Taylor ; [facility] Cefadroxil 500 MG Oral Capsule 08/09/2022 - 08/12/2022 Provider: Meño bauer MD Diagnosis: twice a day Last Documented On 2 8:44AM By Carlito Taylor ; [facility] Acetaminophen 500 MG Oral Tablet 08/09/2022 - 09/08/2022 Provider: Meño Taylor MD Diagnosis: 2 three times a day Last Documented On 2 8:44AM By Carlito Taylor ; [facility] Vitamin D3 50 MCG (1999 [place]) Oral Tablet 08/04/2022 - 09/03/2022 Provider: Nayeli RUTH Diagnosis: once a day Last Documented On 2 7:55PM By Nayeli [facility] Neurontin 300MG Oral Capsule, conventional 07/26/2017 - 10/24/2017 Provider: Meño Taylor MD Diagnosis: Aftercare follow ing joint replacement surgery 1 every bedtime FOR SURGERY DO NOT FILL TILL 08/02/17 Last Documented On 7 1:56PM By Scarlett [facility] TraMADol HCl 50MG Oral Tablet 07/26/2017 - 08/08/2017 Provider: Meño Taylor MD Diagnosis: Aftercare follow ing joint replacement surgery 2 tablets every 6 hours. FOR SURGERY DO NOT FILL TILL 08/02/17 Last Documented On 7 1:57PM By Scarlett Li ; [facility] Medications Administered Includes: Administered Medications from this encounter No Administered Medications Recorded Vital Signs Includes: Vital Signs from this encounter Vital Name 10/18/2022 12:55P Blood Pressure Sitting (mmHg) 98/76 Pulse Rate-Sitting (bpm) 71 Height (in) 64 Weight (lb) 161 Body Mass Index (kg/m2) 27.6 Body Surface Area (m2) 1.8 Note: ck Last Documented: On 10/18/2022 12:57P M ; [facility] Results Includes: Results discussed during [...] Documented On 2 12:40PM ; [facility] Not a current smoker. 07/29/2022 Last Documented On 2 12:40PM ; [facility] Tobacco non-user 07/29/2022 Last Documented On 2 12:40PM ; [facility] No tobacco use 06/20/2017 Last Documented On 2 12:40PM ; [facility] Smoking status : Never smoker 06/20/2017 Last Documented On 2 12:40PM ; [facility] Caffeine use 06/20/2017 Last Documented On 2 12:40PM ; [facility] No recent change in diet 06/20/2017 Last Documented On 2 12:40PM ; [facility] Not a current smoker 06/20/2017 Last Documented On 2 12:40PM ; [facility] Not exercising regularly 06/20/2017 Last Documented On 2 12:40PM ; [facility] Not using alcohol 06/20/2017 Last Documented On 2 12:40PM ; [facility] Not using drugs 06/20/2017 Last Documented On 2 12:40PM ; [facility] Procedures and Surgical History Includes: Procedures from this encounter Procedures Code Diagnosis Performing Provider Service L ocation Service Date use of tobacco assessment performed 1000F Last Documented On 2 12:40PM ; [facility] patient screened for future fall risk: documentation of any fall with injury in past year 1100F Last Documented On 2 12:40PM ; [facility] Surgical History Last Updated History of History of Gallbladder 2021 Last Documented On 2 12:40PM ; [facility] History of hysterectomy 07/29/2022 Last Documented On 2 12:40PM ; [facility] History of appendectomy 06/20/2017 Last Documented On 2 12:40PM ; [facility] History of heart surgery 06/20/2017 Last Documented On 2 12:40PM ; [facility] Medical History Includes: Medical History addressed during this encounter Description Last Updated Recent immunization for flu 08/26/2022 1 12/19/2021 Last Documented On 2 1:19PM ; [facility] History of arthritis 07/29/2022 Last Documented On 2 12:40PM ; [facility] History of asthma 07/29/2022 Last Documented On 2 12:40PM ; [facility], [facility] History of heart disease 07/29/2022 Last Documented On 2 12:40PM ; [facility], [facility] History of Heartburn / Acid Reflux 07/29 Last Documented On 2 12:40PM ; [facility], [facility] History of History of Blood Clots 2021 Last Documented On 2 12:40PM ; [facility], [facility] History of History of Blood Transfusion 07/29/2022 Last Documented On 2 12:40PM ; [facility], [facility] History of History of Heart Attack / Str [place] 07/29/2022 Last Documented On 2 12:40PM ; [facility], [facility] History of History of Rheumatology 07/29 Last Documented On 2 12:40PM ; [facility], [facility] History of Hypertension 07/29/2022 Last Documented On 2 12:40PM ; [facility], [facility] History of osteoporosis 07/29/2022 Last Documented On 2 12:40PM ; [facility], [facility] Past Surgical History: P. knee replaceme nt 07/29/2022 Last Documented On 2 12:40PM ; [facility] Recent immunization for pneumococcal pne umonia 2020 07/29/2022 Last Documented On 2 12:40PM ; [facility], [facility] A history of cancer 06/20/2017 Last Documented On 2 12:40PM ; [facility] Arthritic joint problems 06/20/2017 Last Documented On 2 12:40PM ; [facility], [facility] Gallbladder disease 06/20/2017 Last Documented On 2 12:40PM ; [facility] History of acute myocardial infarction 0 06/20/2017 Last Documented On 2 12:40PM ; [facility], [facility] History of depression 06/20/2017 Last Documented On 2 12:40PM ; [facility] Rheumatology history 06/20/2017 Last Documented On 2 12:40PM ; [facility] A recent injection 06/20/2017 Last Documented On 2 12:40PM ; [facility] Family History Includes: Family History addressed during this encounter Description Last Updated Diabetes mellitus 07/29/2022 Last Documented On 2 12:40PM ; [facility], [facility] Family history of cancer 07/29/2022 Last Documented On 2 12:40PM ; [facility] Family history of heart disease 07/29/20 22 Last Documented On 2 12:40PM ; [facility] Family history of osteoporosis 2 Last Documented On 2 12:40PM ; [facility] Family history of rheumatoid arthritis 0 07/29/2022 Last Documented On 2 12:40PM ; [facility] Family history of systemic hypertension 07/29/2022 Last Documented On 2 12:40PM ; [facility] Family history of thromboembolic disease 07/29/2022 Last Documented On 2 12:40PM ; [facility] stroke seizures 06/20/2017 Last Documented On 2 12:40PM ; [facility] Fraternal history of family history of h eart disease 06/20/2017 Last Documented On 2 12:40PM ; [facility] Fraternal history of rheumatoid arthriti s 06/20/2017 Last Documented On 2 12:40PM ; [facility] Maternal history of diabetes mellitus Last Documented On 2 12:40PM ; [facility] Maternal history of family history of ca ncer 06/20/2017 Last Documented On 2 12:40PM ; [facility], [facility] Maternal history of thromboembolic disea se 06/20/2017 Last Documented On 2 12:40PM ; [facility] Review of Systems Includes: Review [...] Patient Last Documented On 2 12:55PM ; [facility] Influenza 2 08/26/2021 Complete (Reported) Patient Last Documented On 2 12:56PM ; [facility] PCV (Pneumovax 23) 1 10/18/2022 Complete (Refused - Patient objection) [facility] Last Documented On 2 12:55PM ; [facility] Allergies Includes: Active Allergies Substance Type Reaction Onset Date Resolved Date Statu s Sulfa Antibiotics Allergy 07/29/2022 A ctive Last Documented On 2 12:54PM ; [facility] Septra Allergy 07/29/2022 Active Last Documented On 2 12:54PM ; [facility] predniSONE Allergy 07/29/2022 Active Last Documented On 2 12:54PM ; [facility] Penicillins Allergy 07/29/2022 Active Last Documented On 2 12:54PM ; [facility] Omnicef Allergy 07/29/2022 Active Last Documented On 2 12:54PM ; [facility] Macrobid Allergy 07/29/2022 Active Last Documented On 2 12:54PM ; [facility] Ibuprofen Allergy 07/29/2022 Active Last Documented On 2 12:54PM ; [facility] Cipro Allergy 07/29/2022 Active Last Documented On 2 12:54PM ; [facility] Ceftin Allergy 07/29/2022 Active Last Documented On 2 12:54PM ; [facility] Encounters Encounter Provider Location Date Check-In Time Check-Out Time Diagnosis Post Op Ole Bello PA-C [facility] 2 12:44PM 1:24PM Insurance Includes: Active Insurance Policies Plan Name Member ID Group # Subscriber Relationship Effect meet Dates 1 - Medicare Part B [facility] [id number] Julieta Bunn Self 11/14/2002 - Unknown 2 - [employer] [id number] Julieta Bunn Self 11/14/2016 - Unknown Clinical Notes Includes: Clinical Notes from this encounter No Clinical Notes Recorded
--- OUTSIDE RECORDS SUMMARY | 2025-08-19 11:06 | XMS_ITS ---
Care Plan - [facility], [facility] Created on: August 19, 2025 Julieta Bunn : 1950 Sex: Female Author Organization [facility] Address [address] [place] [address] Phone Care Team Providers Care Risk Management Intern Name Role Phone ANJALI LEIVA, FABI Unavailable [phone] Claudia LEIVA, Meño Boggs Unavailable [phone] Elliott LEIVA, Virgil Martins Primary Care Provider [phone]
--- OUTSIDE RECORDS SUMMARY | 2025-08-19 11:06 | XMS_ITS | Referral Summary ---
Author Organization [employer] ([place], [place] Address [address] [place] [address] Care Team Providers Care Instant Potato Processor Name Role Phone Unavailable Primary Care Provider [...] Date Chente rded Speak language other than Norwegian at home Not on file 09/09/2024 Want [...] 09/24/2024 10:15 AM EST Plan of Treatment Not on file Insurance [facility] MCR ADV DUAL COMPLETE
--- OUTSIDE RECORDS SUMMARY | 2025-08-19 11:06 | XMS_ITS | Clinical Summary ---
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 Phone FABI ALBA MD Unavailable [phone] Claudia LEIVA, Meño Boggs Unavailable [phone] Elliott LEIVA, Virgil Martins Primary Care Provider [phone] Reason for Visit and Chief Complaint [facility] Outpatient Surgery Suites Problems Includes: Problems addressed during this encounter and other active Problems All Visits Onset Date Resolved Date Provider Condition S tatus Joint Pain Left Knee 06/20/2017 Meño Taylor MD Active Last Documented On 7 10:55AM ; [facility] Plan of Treatment No Plan of [...] On 2 2:59PM By Chantell Arthur ; [facility] Ventolin HFA 108 (90 Base) MCG/ACT Inhalation Ae rosol Solution 07/29/2022 Provider: Diagnosis: Last Documented On 2 3:00PM By Chantell Arthur ; [facility] FLUoxetine HCl 20 MG Oral Capsule 07/28/2022 Provide r: Virgil Gallagher MD Diagnosis: Last Documented On 2 11:55AM By Whit Crook ; [facility] Famotidine 40 MG Oral Tablet 07/28/2022 Provider: Virgil Gallagher MD Diagnosis: Last Documented On 2 11:55AM By Whit Crook ; [facility] Enalapril Maleate 10 MG Oral Tablet 07/28/2022 Provi gifty: Diagnosis: Last Documented On 2 2:59PM By Chantell Arthur ; [facility] Atorvastatin Calcium 80 MG Oral Tablet 07/28/2022 Pr ovider: Virgil Gallagher MD Diagnosis: Last Documented On 2 2:59PM By Chantell Arthur ; [facility] Montelukast Sodium 10 MG Oral Tablet 07/13/2022 Prov ider: Diagnosis: Last Documented On 2 2:59PM By Chantell Arthur ; [facility] Fluticasone Propionate 50 MC G/ACT Nasal Suspension 07/13/2022 Provider: Virgil Gallagher MD Diagnosis: Last Documented On 2 2:59PM By Chantell Arthur ; [facility] ALPRAZolam 0.25 MG Oral Tablet 07/13/2022 Provider: Virgil Gallagher MD Diagnosis: Last Documented On 2 2:59PM By Chantell Arthur ; [facility] Symbicort 160-4.5 MCG/ACT Inhalation Aerosol Provider: Virgil Gallagher MD Diagnosis: Last Documented On 2 11:55AM By Whit Crook ; [facility] Metoprolol Tartrate 50 MG Oral Tablet 06/15/2022 Pro vider: Virgil Gallagher MD Diagnosis: Last Documented On 2 2:59PM By Chantell Arthur ; [facility] Gabapentin 600 MG Oral Tablet 06/08/2022 Provider: Virgil Gallagher MD Diagnosis: Last Documented On 2 2:59PM By Chantell Arthur ; [facility] Amitriptyline HCl 25 MG Oral Tablet 03/18/2022 Provi gifty: Virgil Gallagher MD Diagnosis: Last Documented On 2 2:59PM By Chantell Arthur ; [facility] traMADol HCl 50 MG Oral Tablet 02/24/2022 Provider: Virgil Gallagher MD Diagnosis: Last Documented On 2 2:59PM By Chantell Arthur ; [facility] Stelara 45 MG/0.5ML Subcutaneous Solution Prefil led Syringe 02/05/2022 Provider: Diagnosis: Last Documented On 2 11:55AM By Whit Crook ; [facility] Medications Administered Includes: Administered Medications from this [...] ctive Last Documented On 2 12:54PM ; [facility] Septra Allergy 07/29/2022 Active Last Documented On 2 12:54PM ; [facility] predniSONE Allergy 07/29/2022 Active Last Documented On 2 12:54PM ; [facility] Penicillins Allergy 07/29/2022 Active Last Documented On 2 12:54PM ; [facility] Omnicef Allergy 07/29/2022 Active Last Documented On 2 12:54PM ; [facility] Macrobid Allergy 07/29/2022 Active Last Documented On 2 12:54PM ; [facility] Ibuprofen Allergy 07/29/2022 Active Last Documented On 2 12:54PM ; [facility] Cipro Allergy 07/29/2022 Active Last Documented On 2 12:54PM ; [facility] Ceftin Allergy 07/29/2022 Active Last Documented On 2 12:54PM ; [facility] Encounters Encounter Provider Location Date Check-In Time Check-Out Time Diagnosis [facility] Outpatient Surgery Suites Meño Taylor MD Surgery 08/10/20 22 11:47AM 11:59PM Insurance Includes: Active Insurance Policies Plan Name Member ID Group # Subscriber Relationship Effect meet Dates 1 - Medicare Part B [facility] [id number] Julieta Bunn Self 11/14/2002 - Unknown 2 - [employer] [id number] Julieta Bunn Self 11/14/2016 - Unknown Clinical Notes Includes: Clinical Notes from this encounter No Clinical Notes Recorded
--- OUTSIDE RECORDS SUMMARY | 2025-08-19 11:06 | XMS_ITS | Clinical Summary ---
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 Role Phone ANJALI LEIVA, FABI Unavailable [phone] Claudia LEIVA, Meño Boggs Unavailable [phone] Virgil Gallagher MD Primary Care Provider [phone] Reason for Visit and Chief Complaint The Chief Complaint is: RIGHT KNEE PAIN Problems Includes: Problems addressed during this encounter and other active Problems All Visits Onset Date Resolved Date Provider Condition S tatus Joint Pain Left Knee 06/20/2017 Meño Taylor MD Active Last Documented On 7 10:55AM ; [facility] Plan of Treatment Fall Risk Assessment: This [...] - Last Documented On 09/02/2022 11:25AM ; [facility] Patient overall doing relatively well. Continue with physical therapy and home exercise program. May gradual progress to activity as tolerated. Follow-up in the office in 6 weeks for final recheck - Last Documented On 09/02/2022 11:25AM ; [facility] Instructions to patient Instructions for patient See PCP for BP Last Documented On 2 10:54AM ; [facility] Lose weight Last Documented On 2 10:54AM ; [facility] Assessments Includes: Assessments from this encounter Findings 3 weeks postop right medial U KA - Last Documented On 09/02/2022 11:25AM ; [facility] Instructions Includes: Instructions from this encounter Instructions to patient Instructions for patient See PCP for BP Last Documented On 2 10:54AM ; [facility] Lose weight Last Documented On 2 10:54AM ; [facility] Medical Equipment - Implanted Devices Includes: Current Devices No Medical Equipment Recorded Medications Includes: Medications discussed during this encounter and other current Medications New / Renewed during this visit Ole Bello PA-C on 09/02/2022 Warfarin Sodium 3 MG Oral Tablet Provider: Ole Ying 30 day supply: 30 tablet, 0 refills Diagnosis: once a day Pharmacy: [facility] - [address] [place] [address], [id number] - Last Documented On 2 12:18PM By Enedina Martines ; [facility] Current Medications (continue as prescribed) Nitroglycerin 0.4 MG Subling ual Tablet Sublingual 07/29/2022 Provider: Virgil Gallagher MD Diagnosis: Last Documented On 2 2:59PM By Chantell Arthur ; [facility] Ventolin HFA 108 (90 Base) MCG/ACT Inhalation Ae rosol Solution 07/29/2022 Provider: Diagnosis: Last Documented On 2 3:00PM By Chantell Arthur ; [facility] FLUoxetine HCl 20 MG Oral Capsule 07/28/2022 Provide r: iVrgil Gallagher MD Diagnosis: Last Documented On 2 11:55AM By Whit Crook ; [facility] Famotidine 40 MG Oral Tablet 07/28/2022 Provider: Virgil Gallagher MD Diagnosis: Last Documented On 2 11:55AM By Whit Crook ; [facility] Enalapril Maleate 10 MG Oral Tablet 07/28/2022 Provi gifty: Diagnosis: Last Documented On 2 2:59PM By Chantell Arthur ; [facility] Atorvastatin Calcium 80 MG Oral Tablet 07/28/2022 Pr ovider: Virgil Gallagher MD Diagnosis: Last Documented On 2 2:59PM By Chantell Arthur ; [facility] Montelukast Sodium 10 MG Oral Tablet 07/13/2022 Prov ider: Diagnosis: Last Documented On 2 2:59PM By Chantell Arthur ; [facility] Fluticasone Propionate 50 MC G/ACT Nasal Suspension 07/13/2022 Provider: Virgil Gallagher MD Diagnosis: Last Documented On 2 2:59PM By Chantell Arthur ; [facility] ALPRAZolam 0.25 MG Oral Tablet 07/13/2022 Provider: Virgil Gallagher MD Diagnosis: Last Documented On 2 2:59PM By Chantell Arthur ; [facility] Symbicort 160-4.5 MCG/ACT Inhalation Aerosol Provider: Virgil Gallagher MD Diagnosis: Last Documented On 2 11:55AM By Whit Crook ; [facility] Metoprolol Tartrate 50 MG Oral Tablet 06/15/2022 Pro vider: Virgil Gallagher MD Diagnosis: Last Documented On 2 2:59PM By Chantell Arthur ; [facility] Gabapentin 600 MG Oral Tablet 06/08/2022 Provider: Virgil Gallagher MD Diagnosis: Last Documented On 2 2:59PM By Chantell Arthur ; [facility] Amitriptyline HCl 25 MG Oral Tablet 03/18/2022 Provi gifty: Virgil Gallagher MD Diagnosis: Last Documented On 2 2:59PM By Chantell Arthur ; [facility] traMADol HCl 50 MG Oral Tablet 02/24/2022 Provider: Virgil Gallagher MD Diagnosis: Last Documented On 2 2:59PM By Chantell Arthur ; [facility] Stelara 45 MG/0.5ML Subcutaneous Solution Prefil led Syringe 02/05/2022 Provider: Diagnosis: Last Documented On 2 11:55AM By Whit Crook ; [facility] Past Medications on file Warfarin Sodium 2 MG Oral Tablet 09/13/2022 - 09/28/2022 Provider: Ole duran PA-C Diagnosis: once a day Last Documented On 2 4:25PM By Enedina Martines ; [facility] Warfarin Sodium 3 MG Oral Tablet 08/24/2022 - 09/08/2022 Provider: Meño bauer MD Diagnosis: once a day Last Documented On 2 1:03PM By Enedina Martines ; [facility] Warfarin Sodium 5 MG Oral Tablet 08/10/2022 - 08/25/2022 Provider: Meño bauer MD Diagnosis: once a day Last Documented On 2 10:20AM By Carlito Taylor ; [facility] Lovenox 40 MG/0.4ML Injection Solution Prefilled Syringe 08/10/2022 - 08/12/2022 Provider: Meño bauer MD Diagnosis: 1 sub q injection 1 time day Last Documented On 2 10:20AM By Carlito Taylor ; [facility] traMADol HCl 50 MG Oral Tablet 08/09/2022 - 08/14/2022 Provider: Meño bauer MD Diagnosis: 1-2 po q 4-6h Last Documented On 2 8:44AM By Carlito Taylor ; [facility] oxyCODONE HCl 5 MG Oral Tablet 08/09/2022 - 08/14/2022 Provider: Meño bauer MD Diagnosis: 1-2 po q 4-6h Last Documented On 2 8:44AM By Carlito Taylor ; [facility] Ondansetron HCl 4 MG Oral Tablet 08/09/2022 - 08/14/2022 Provider: Meño Taylor MD Diagnosis: [id number] Last Documented On 2 8:44AM By Carlito Taylor ; [facility] Meloxicam 15 MG Oral Tablet 08/09/2022 - 09/08/2022 Provider: Meño bauer MD Diagnosis: once a day Last Documented On 2 8:44AM By Carlito Taylor ; [facility] Colace 100 MG Oral Capsule 08/09/2022 - 11/07/2022 Provider: Meño bauer MD Diagnosis: 1-2 tabs daily Last Documented On 2 8:44AM By Carlito Taylor ; [facility] Cefadroxil 500 MG Oral Capsule 08/09/2022 - 08/12/2022 Provider: Meño bauer MD Diagnosis: twice a day Last Documented On 2 8:44AM By Carlito Taylor ; [facility] Acetaminophen 500 MG Oral Tablet 08/09/2022 - 09/08/2022 Provider: Meño Taylor MD Diagnosis: 2 three times a day Last Documented On 2 8:44AM By Carlito Taylor ; [facility] Vitamin D3 50 MCG (1999 [place]) Oral Tablet 08/04/2022 - 09/03/2022 Provider: Nayeli RUTH Diagnosis: once a day Last Documented On 2 7:55PM By Nayeli Duque ; [facility] Neurontin 300MG Oral Capsule, conventional 07/26/2017 - 10/24/2017 Provider: Meño Taylor MD Diagnosis: Aftercare follow ing joint replacement surgery 1 every bedtime FOR SURGERY DO NOT FILL TILL 08/02/17 Last Documented On 7 1:56PM By Scarlett Proctor [facility] TraMADol HCl 50MG Oral Tablet 07/26/2017 - 08/08/2017 Provider: Meño Taylor MD Diagnosis: Aftercare follow ing joint replacement surgery 2 tablets every 6 hours. FOR SURGERY DO NOT FILL TILL 08/02/17 Last Documented On 7 1:57PM By Scarlett Proctor [facility] Medications Administered Includes: Administered Medications from this encounter No Administered Medications Recorded Vital Signs Includes: Vital Signs from this encounter Vital Name 09/02/2022 10:54A Height (in) 64 Weight (lb) 168 Body Mass Index (kg/m2) 28.8 Body Surface Area (m2) 1.8 Note: rw Last Documented: On 09/02/2022 10:55A M ; [facility] Results Includes: Results discussed during this encounter [...] 1-10: 8 - Yes, previous treatment. Dr. Warner and Dr. Oconnor Social History Description Last Updated No recent change in diet 07/29/2022 Last Documented On 2 10:54AM ; [facility] Not a current smoker. 07/29/2022 Last Documented On 2 10:54AM ; [facility] Tobacco non-user 07/29/2022 Last Documented On 2 10:54AM ; [facility] No tobacco use 06/20/2017 Last Documented On 2 10:54AM ; [facility] Smoking status : Never smoker 06/20/2017 Last Documented On 2 10:54AM ; [facility] Caffeine use 06/20/2017 Last Documented On 2 10:54AM ; [facility] No recent change in diet 06/20/2017 Last Documented On 2 10:54AM ; [facility] Not a current smoker 06/20/2017 Last Documented On 2 10:54AM ; [facility] Not exercising regularly 06/20/2017 Last Documented On 2 10:54AM ; [facility] Not using alcohol 06/20/2017 Last Documented On 2 10:54AM ; [facility] Not using drugs 06/20/2017 Last Documented On 2 10:54AM ; [facility] Procedures and Surgical History Includes: Procedures from this encounter Procedures Code Diagnosis Performing Provider Service L ocation Service Date use of tobacco assessment performed 1000F Last Documented On 2 10:54AM ; [facility] patient screened for future fall risk: documentation of any fall with injury in past year 1100F Last Documented On 2 10:54AM ; [facility] Surgical History Last Updated History of History of Gallbladder 2021 Last Documented On 2 10:54AM ; [facility] History of hysterectomy 07/29/2022 Last Documented On 2 10:54AM ; [facility] History of appendectomy 06/20/2017 Last Documented On 2 10:54AM ; [facility] History of heart surgery 06/20/2017 Last Documented On 2 10:54AM ; [facility] Medical History Includes: Medical History addressed during this encounter Description Last Updated Recent immunization for flu 08/10/2021 Last Documented On 2 10:54AM ; [facility] History of arthritis 07/29/2022 Last Documented On 2 10:54AM ; [facility] History of asthma 07/29/2022 Last Documented On 2 10:54AM ; [facility] History of heart disease 07/29/2022 Last Documented On 2 10:54AM ; [facility] History of Heartburn / Acid Reflux 07/29 Last Documented On 2 10:54AM ; [facility] History of History of Blood Clots 2021 Last Documented On 2 10:54AM ; [facility] History of History of Blood Transfusion 07/29/2022 Last Documented On 2 10:54AM ; [facility] History of History of Heart Attack / Str [place] 07/29/2022 Last Documented On 2 10:54AM ; [facility] History of History of Rheumatology 07/29 Last Documented On 2 10:54AM ; [facility] History of Hypertension 07/29/2022 Last Documented On 2 10:54AM ; [facility] History of osteoporosis 07/29/2022 Last Documented On 2 10:54AM ; [facility] Past Surgical History: P. knee replaceme nt 07/29/2022 Last Documented On 2 10:54AM ; [facility] Recent immunization for pneumococcal pne umonia 201907/29/2022 Last Documented On 2 10:54AM ; [facility] A history of cancer 06/20/2017 Last Documented On 2 10:54AM ; [facility] Arthritic joint problems 06/20/2017 Last Documented On 2 10:54AM ; [facility] Gallbladder disease 06/20/2017 Last Documented On 2 10:54AM ; [facility] History of acute myocardial infarction 0 06/20/2017 Last Documented On 2 10:54AM ; [facility] History of depression 06/20/2017 Last Documented On 2 10:54AM ; [facility] Rheumatology history 06/20/2017 Last Documented On 2 10:54AM ; [facility] A recent injection 06/20/2017 Last Documented On 2 10:54AM ; [facility] Family History Includes: Family History addressed during this encounter Description Last Updated Diabetes mellitus 07/29/2022 Last Documented On 2 10:54AM ; [facility] Family history of cancer 07/29/2022 Last Documented On 2 10:54AM ; [facility] Family history of heart disease 07/29/20 22 Last Documented On 2 10:54AM ; [facility] Family history of osteoporosis 2 Last Documented On 2 10:54AM ; [facility] Family history of rheumatoid arthritis 0 07/29/2022 Last Documented On 2 10:54AM ; [facility] Family history of systemic hypertension 07/29/2022 Last Documented On 2 10:54AM ; [facility] Family history of thromboembolic disease 07/29/2022 Last Documented On 2 10:54AM ; [facility] stroke seizures 06/20/2017 Last Documented On 2 10:54AM ; [facility] Fraternal history of family history of h eart disease 06/20/2017 Last Documented On 2 10:54AM ; [facility] Fraternal history of rheumatoid arthriti s 06/20/2017 Last Documented On 2 10:54AM ; [facility] Maternal history of diabetes mellitus Last Documented On 2 10:54AM ; [facility] Maternal history of family history of ca ncer 06/20/2017 Last Documented On 2 10:54AM ; [facility] Maternal history of thromboembolic disea se 06/20/2017 Last Documented On 2 10:54AM ; [facility] Review of Systems Includes: Review of [...] Active Last Documented On 2 12:54PM ; [facility] Omnicef Allergy 07/29/2022 Active Last Documented On 2 12:54PM ; [facility] Macrobid Allergy 07/29/2022 Active Last Documented On 2 12:54PM ; [facility] Ibuprofen Allergy 07/29/2022 Active Last Documented On 2 12:54PM ; [facility] Cipro Allergy 07/29/2022 Active Last Documented On 2 12:54PM ; [facility] Ceftin Allergy 07/29/2022 Active Last Documented On 2 12:54PM ; [facility] Encounters Encounter Provider Location Date Check-In Time Check-Out Time Diagnosis Post Op Ole Bello PA-C [facility] 2 10:30AM 11:27AM Insurance Includes: Active Insurance Policies Plan Name Member ID Group # Subscriber Relationship Effect meet Dates 1 - Medicare Part B [facility] [id number] Julieta Bunn Self 11/14/2002 - Unknown 2 - [employer] [id number] Julieta Bunn Self 11/14/2016 - Unknown Clinical Notes Includes: Clinical Notes from this encounter No Clinical Notes Recorded
--- OUTSIDE RECORDS SUMMARY | 2025-08-19 11:06 | XMS_ITS ---
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 Name Role Phone ANJALI LEIVA, FABI Unavailable [phone] Claudia LEIVA, Meño Boggs Unavailable [phone] Elliott LEIVA, Virgil Martins Primary Care Provider [phone] Reason for Referral Date Encounter Description Provider Reason for Referral 07/29/22 Physician Specified Meño chowdhury MD Referral To Physician Problems Includes: Active, inactive, and resolved Problems All Visits Onset Date Resolved Date Provider Condition S tatus Joint Pain Left Knee 06/20/2017 Meño Taylor MD Active Last Documented On 7 10:55AM ; [facility] Plan of Treatment Instructions to patient Instructions for patient See PCP for BP Last Documented On 2 12:40PM ; [facility] Lose weight Last Documented On 2 12:40PM ; [facility] Instructions for patient [...] BP Last Documented On 7 10:12AM ; [facility] No intervention and counseli ng on cessation of tobacco use Last Documented On 7 3:39PM ; [facility], [facility] Assessments Includes: Assessments for all patient encounters No Assessments Recorded Instructions Includes: Instructions for all patient encounters Instructions to patient Instructions for patient See PCP for BP Last Documented On 2 12:40PM ; [facility] Lose weight Last Documented On 2 12:40PM ; [facility] Instructions for patient See PCP for BP Last Documented On 2 10:54AM ; [facility] Lose weight Last Documented On 2 10:54AM ; [facility] Instructions for patient See PCP for BP Last Documented On 2 1:19PM ; [facility] Lose weight Last Documented On 2 1:21PM ; [facility] Instructions for patient See PCP for BP Last Documented On 7 11:12AM ; [facility] Instructions for patient See PCP for BP Last Documented On 7 10:12AM ; [facility], [facility] No intervention and counseli ng on cessation of tobacco use Last Documented On 7 3:39PM ; [facility], [facility] Medical Equipment - Implanted Devices Includes: Current and historical Devices No Medical Equipment Recorded Medications Includes: Current and historical Medications Current Medications (continue as prescribed) Nitroglycerin 0.4 MG Subling ual Tablet Sublingual 07/29/2022 Provider: Virgil Gallagher MD Diagnosis: Last Documented On 2 2:59PM By Chantell Arthur ; [facility] Ventolin HFA 108 (90 Base) MCG/ACT Inhalation Ae rosol Solution 07/29/2022 Provider: Diagnosis: Last Documented On 2 3:00PM By Chantell Arthur ; [facility] FLUoxetine HCl 20 MG Oral Capsule 07/28/2022 Provide r: Virgil Gallagher MD Diagnosis: Last Documented On 2 11:55AM By Whit Crook ; [facility] Famotidine 40 MG Oral Tablet 07/28/2022 Provider: Virgil Gallagher MD Diagnosis: Last Documented On 2 11:55AM By Whit Crook ; [facility], [facility] Enalapril Maleate 10 MG Oral Tablet 07/28/2022 Provi gifty: Diagnosis: Last Documented On 2 2:59PM By Chantell Arthur ; [facility], [facility] Atorvastatin Calcium 80 MG Oral Tablet 07/28/2022 Pr ovider: Virgil Gallagher MD Diagnosis: Last Documented On 2 2:59PM By Chantell Arthur ; [facility], [facility] Montelukast Sodium 10 MG Oral Tablet 07/13/2022 Prov ider: Diagnosis: Last Documented On 2 2:59PM By Chantell Arthur ; [facility], [facility] Fluticasone Propionate 50 MC G/ACT Nasal Suspension 07/13/2022 Provider: Virgil Gallagher MD Diagnosis: Last Documented On 2 2:59PM By Chantell Arthur ; [facility], [facility] ALPRAZolam 0.25 MG Oral Tablet 07/13/2022 Provider: Virgil Gallagher MD Diagnosis: Last Documented On 2 2:59PM By Chantell Arthur ; [facility], [facility] Symbicort 160-4.5 MCG/ACT Inhalation Aerosol Provider: Virgil Gallagher MD Diagnosis: Last Documented On 2 11:55AM By Whit Crook ; [facility] Metoprolol Tartrate 50 MG Oral Tablet 06/15/2022 Pro vider: Virgil Gallagher MD Diagnosis: Last Documented On 2 2:59PM By Chantell Arthur ; [facility], [facility] Gabapentin 600 MG Oral Tablet 06/08/2022 Provider: Virgil Gallagher MD Diagnosis: Last Documented On 2 2:59PM By Chantell Arthur ; [facility] Amitriptyline HCl 25 MG Oral Tablet 03/18/2022 Provi gifty: Virgil Gallagher MD Diagnosis: Last Documented On 2 2:59PM By Chantell Arthur ; [facility] traMADol HCl 50 MG Oral Tablet 02/24/2022 Provider: Virgil Gallagher MD Diagnosis: Last Documented On 2 2:59PM By Chantell Arthur ; [facility], [facility] Stelara 45 MG/0.5ML Subcutaneous Solution Prefil led Syringe 02/05/2022 Provider: Diagnosis: Last Documented On 11:55AM By Whit Crook ; [facility], [facility] Past Medications on file Warfarin Sodium 2 MG Oral Tablet 09/13/2022 - 09/28/2022 Provider: Ole duran PA-C Diagnosis: once a day Last Documented On 4:25PM By Enedina Martines ; [facility] Warfarin Sodium 3 MG Oral Tablet 09/02/2022 - 10/02/2022 Provider: Ole duran PA-C Diagnosis: once a day Last Documented On 12:18PM By Enedina Martines ; [facility] Warfarin Sodium 3 MG Oral Tablet 08/24/2022 - 09/08/2022 Provider: Meño bauer MD Diagnosis: once a day Last Documented On 1:03PM By Enedina Martines ; [facility], [facility] Warfarin Sodium 5 MG Oral Tablet 08/10/2022 - 08/25/2022 Provider: Meño bauer MD Diagnosis: once a day Last Documented On 10:20AM By Carlito Taylor ; [facility], [facility] Lovenox 40 MG/0.4ML Injection Solution Prefilled Syringe 08/10/2022 - 08/12/2022 Provider: Meño bauer MD Diagnosis: 1 sub q injection 1 time day Last Documented On 2 10:20AM By Carlito Taylor ; [facility] traMADol HCl 50 MG Oral Tablet 08/09/2022 - 08/14/2022 Provider: Meño bauer MD Diagnosis: 1-2 po q 4-6h Last Documented On 8:44AM By Carlito Taylor ; [facility] oxyCODONE HCl 5 MG Oral Tablet 08/09/2022 - 08/14/2022 Provider: Meño bauer MD Diagnosis: 1-2 po q 4-6h Last Documented On 8:44AM By Carlito Taylor ; [facility] Ondansetron HCl 4 MG Oral Tablet 08/09/2022 - 08/14/2022 Provider: Meño Taylor MD Diagnosis: [id number] Last Documented On 2 8:44AM By Carlito Taylor ; [facility] Meloxicam 15 MG Oral Tablet 08/09/2022 - 09/08/2022 Provider: Meño bauer MD Diagnosis: once a day Last Documented On 2 8:44AM By Carlito Taylor ; [facility] Colace 100 MG Oral Capsule 08/09/2022 - 11/07/2022 Provider: Meño bauer MD Diagnosis: 1-2 tabs daily Last Documented On 8:44AM By Carlito Taylor ; [facility] Cefadroxil 500 MG Oral Capsule 08/09/2022 - 08/12/2022 Provider: Meño bauer MD Diagnosis: twice a day Last Documented On 2 8:44AM By Carlito Taylor ; [facility] Acetaminophen 500 MG Oral Tablet 08/09/2022 - 09/08/2022 Provider: Meño Taylor MD Diagnosis: 2 three times a day Last Documented On 8:44AM By Carlito Taylor ; [facility] Vitamin D3 50 MCG (1999 [place]) Oral Tablet 08/04/2022 - 09/03/2022 Provider: Nayeli RUTH Diagnosis: once a day Last Documented On 7:55PM By Nayeli Duque ; [facility] Polyethylene Glycol 3350 Granules 07/29/2022 - 022 Provider: Diagnosis: Last Documented On 2 11:52AM By Whit Crook ; [facility] raNITIdine HCl 150 MG Oral Capsule 07/29/2022 - 2021 Provider: Diagnosis: Last Documented On 11:52AM By Whit Crook ; [facility] ALPRAZolam 0.25 MG Oral Tablet [...] On 7 1:56PM By Scarlett Li ; [facility] Mobic 15MG Oral Tablet 07/26/2017 - 07/29/2022 Provider: Meño Taylor MD Diagnosis: Aftercare follow ing joint replacement surgery once a day FOR SURGERY DO NOT FILL TILL 08/02/17 Last Documented On 2 2:57PM By Chantell Arthur ; [facility] Colace 100MG Oral Capsule, conventional [...] On 2 2:57PM By Chantell Arthur ; [facility] TraMADol HCl 50MG Oral Tablet 07/26/2017 - 08/08/2017 Provider: Meño Taylor MD Diagnosis: Aftercare follow ing joint replacement surgery 2 tablets every 6 hours. FOR SURGERY DO NOT FILL TILL 08/02/17 Last Documented On 7 1:57PM By Scarlett Li ; [facility] Medications Administered Includes: Administered Medications in patient's chart No Administered Medications Recorded Results Includes: Results from 08/19/2024 through 08/19/2025 No Results Recorded For Specified Dates History of Present Illness History of Present Illness not supported for this document type No History of Present Illness Recorded Social History Description Last Updated No recent change in diet 07/29/2022 Last Documented On 2 4:25PM ; [facility] Not a current smoker. 07/29/2022 Last Documented On 2 4:25PM ; [facility] Tobacco non-user 07/29/2022 Last Documented On 2 4:25PM ; [facility] No tobacco use 06/20/2017 Last Documented On 7 9:36AM ; [facility] Smoking status : Never smoker 06/20/2017 Last Documented On 7 9:36AM ; [facility] Caffeine use 06/20/2017 Last Documented On 7 9:36AM ; [facility] No recent change in diet 06/20/2017 Last Documented On 7 9:36AM ; [facility] Not a current smoker 06/20/2017 Last Documented On 7 9:36AM ; [facility] Not exercising regularly 06/20/2017 Last Documented On 7 9:36AM ; [facility] Not using alcohol 06/20/2017 Last Documented On 7 9:36AM ; [facility] Not using drugs 06/20/2017 Last Documented On 7 9:36AM ; [facility] Procedures and Surgical History Surgical History Last Updated History of History of Gallbladder 2021 Last Documented On 2 4:25PM ; [facility] History of hysterectomy 07/29/2022 Last Documented On 2 4:25PM ; [facility] History of appendectomy 06/20/2017 Last Documented On 7 9:36AM ; [facility] History of heart surgery 06/20/2017 Last Documented On 7 9:36AM ; [facility] Medical History Includes: Medical History in patient's chart Description Last Updated Recent immunization for flu 08/26/2022 1 12/19/2021 Last Documented On 2 1:19PM ; [facility] History of arthritis 07/29/2022 Last Documented On 2 4:25PM ; [facility] History of asthma 07/29/2022 Last Documented On 2 4:25PM ; [facility] History of heart disease 07/29/2022 Last Documented On 2 4:25PM ; [facility] History of Heartburn / Acid Reflux 07/29 Last Documented On 2 4:25PM ; [facility] History of History of Blood Clots 2021 Last Documented On 2 4:25PM ; [facility] History of History of Blood Transfusion 07/29/2022 Last Documented On 2 4:25PM ; [facility] History of History of Heart Attack / Str [place] 07/29/2022 Last Documented On 2 4:25PM ; [facility] History of History of Rheumatology 07/29 Last Documented On 2 4:25PM ; [facility] History of Hypertension 07/29/2022 Last Documented On 2 4:25PM ; [facility] History of osteoporosis 07/29/2022 Last Documented On 2 4:25PM ; [facility] Past Surgical History: P. knee replaceme nt 07/29/2022 Last Documented On 2 4:25PM ; [facility] Recent immunization for pneumococcal pne onia 201907/29/2022 Last Documented On 2 4:25PM ; [facility] A history of cancer 06/20/2017 Last Documented On 7 9:36AM ; [facility] Arthritic joint problems 06/20/2017 Last Documented On 7 9:36AM ; [facility] Gallbladder disease 06/20/2017 Last Documented On 7 9:36AM ; [facility] History of acute myocardial infarction 0 06/20/2017 Last Documented On 7 9:36AM ; [facility] History of depression 06/20/2017 Last Documented On 7 9:36AM ; [facility] Rheumatology history 06/20/2017 Last Documented On 7 9:36AM ; [facility] A recent injection 06/20/2017 Last Documented On 7 9:36AM ; [facility] Family History Includes: Family History in patient's chart Description Last Updated Diabetes mellitus 07/29/2022 Last Documented On 2 4:25PM ; [facility] Family history of cancer 07/29/2022 Last Documented On 2 4:25PM ; [facility] Family history of heart disease 07/29/20 22 Last Documented On 2 4:25PM ; [facility] Family history of osteoporosis 2 Last Documented On 2 4:25PM ; [facility] Family history of rheumatoid arthritis 0 07/29/2022 Last Documented On 2 4:25PM ; [facility] Family history of systemic hypertension 07/29/2022 Last Documented On 2 4:25PM ; [facility] Family history of thromboembolic disease 07/29/2022 Last Documented On 2 4:25PM ; [facility] stroke seizures 06/20/2017 Last Documented On 7 9:36AM ; [facility] Fraternal history of family history of h eart disease 06/20/2017 Last Documented On 7 9:36AM ; [facility] Fraternal history of rheumatoid arthriti s 06/20/2017 Last Documented On 7 9:36AM ; [facility] Maternal history of diabetes mellitus Last Documented On 7 9:36AM ; [facility] Maternal history of family history of ca ncer 06/20/2017 Last Documented On 7 9:36AM ; [facility] Maternal history of thromboembolic disea se 06/20/2017 Last Documented On 7 9:36AM ; [facility] Review of Systems Review of Systems [...] Patient Last Documented On 2 12:55PM ; [facility] Influenza 2 08/26/2021 Complete (Reported) Patient Last Documented On 2 12:56PM ; [facility] PCV (Pneumovax 23) 1 10/18/2022 Complete (Refused - Patient objection) [facility] Last Documented On 2 12:55PM ; [facility] Allergies Includes: Active, inactive, and resolved Allergies Substance Type Reaction Onset Date Resolved Date Statu s Sulfa Antibiotics Allergy 07/29/2022 A ctive Last Documented On 2 12:54PM ; [facility] Septra Allergy 07/29/2022 Active Last Documented On 2 12:54PM ; [facility] predniSONE Allergy 07/29/2022 Active Last Documented On 2 12:54PM ; [facility] Penicillins Allergy 07/29/2022 Active Last Documented On 2 12:54PM ; [facility] Omnicef Allergy 07/29/2022 Active Last Documented On 2 12:54PM ; [facility] Macrobid Allergy 07/29/2022 Active Last Documented On 2 12:54PM ; [facility] Ibuprofen Allergy 07/29/2022 Active Last Documented On 2 12:54PM ; [facility] Cipro Allergy 07/29/2022 Active Last Documented On 2 12:54PM ; [facility] Ceftin Allergy 07/29/2022 Active Last Documented On 2 12:54PM ; [facility] Insurance Includes: Active Insurance Policies Plan Name Member ID Group # Subscriber Relationship Effect meet Dates 1 - Medicare Part B [facility] [id number] Julieta Bunn Self 11/14/2002 - Unknown 2 - [employer] [id number] Julieta Bunn Self 11/14/2016 - Unknown Clinical Notes Includes: Signed Clinical Notes starting from 10/28/2022 No Clinical Notes Recorded
== END 2025-08-19 23:59 | disposition home or self-care (01) ==
LOC: RAD 10:58
PROVIDERS: PCP Nurse Practitioner Family; Visit Provider Nurse Practitioner Family
DX: S22.080A Wedge compression fracture of T11-T12 vertebra, initial encounter for closed fracture (principal); M43.16 Spondylolisthesis, lumbar region; M46.1 Sacroiliitis, not elsewhere classified; W19.XXXA Unspecified fall, initial encounter
CPT/HCPCS: 72083; 72220

== ENCOUNTER 2025-08-23 09:15 | Emergency (ER) | payer MEDICARE, SELFPAY ==
[2025-08-23] VITALS (13 sets, daily range): BP systolic 133–176; BP diastolic 53–91; PULSE 61–74; RESP 15–16; TEMP 36.7–36.9; O2SAT 94–99; BMI 26.6
--- OUTSIDE RECORDS SUMMARY | 2025-08-23 09:27 | XMS_ITS | Clinical Summary ---
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
--- OUTSIDE RECORDS SUMMARY | 2025-08-23 09:27 | XMS_ITS | Clinical Summary ---
Author Organization [facility] Address [address] [place] [address] Care Team Providers Care Business Services Clerk Name Role Phone Virgil Gallagher MD Primary Care Provider Allergies Active Allergy Reactions Criticality Noted Date [...] 08/19/2016 Overview (11/28/2019): a. Inferior ST elevation [place], 03/12/2015. b. Single-vessel coronary artery disease, left [...] Total Cholesterol 317(H) 0 - 200 mg/dL [facility] Comment: DF by IF @ 03/13/2015 05:42 Cholesterol Reference Ranges: Desirable: less than 200 mg/dL Borderline: 200-239 mg/dL High: greater than 239 mg/dL Triglycerides 932(H) 0 - 150 mg/dL [facility] Comment: DF by IF @ 03/13/2015 05:42 Triglyceride Reference Ranges: Normal less than 150 mg/dL Borderline 150-199 mg/dL High 200-499 mg/dL Very High greater than 499 mg/dL HDL Cholesterol 44 40 - 60 mg/dL [facility] Comment: DF by IF @ 03/13/2015 05:42 HDL Cholesterol Reference Ranges: Low less than 40 mg/dL High greater than 59 mg/dL LDL Cholesterol 116 0 - 130 mg/dL [facility] Comment: US by IF @ 03/13/2015 05:42 LDL Cholesterol Reference Ranges: Optimal less than 100 mg/dL Near Optimal 100-129 mg/dL Borderline 130-159 mg/dL High 160-189 mg/dL Very High greater than 189 mg/dL Blood specimen (specimen) 03/13/2015 5:17 AM EDT Narrative [facility] - 03/13/2015 5:42 AM EDT Specimen Type: Blood us Karthikeyan [facility] BLOOD ORDERABLES Final Result [facility] [address] [place] [address], from Last 3 Months or Most Recently Relevant to Health Maintenance Insurance MEDICARE ADVANTAGE [facility] HMO NON PAR Care Teams Business Services Clerk Relationship Specialty Start Date End Date Virgil Gallagher MD PCP - General Emergency Medicine 11/30/19
--- OUTSIDE RECORDS SUMMARY | 2025-08-23 09:27 | XMS_ITS | Referral Summary ---
Author Organization [employer] ([place], [place], [place], [place]) Address [address] [place] [address] Care Team Providers Care Athletics Teacher Name Role Phone Unavailable Primary Care Provider [...] Date Chente rded Speak language other than Chinese at home Not on file 09/09/2024 Want [...] Plan of Treatment Not on file Insurance [facility] MCR ADV DUAL COMPLETE
--- NOTE | 2025-08-23 09:39 | MR_ITS ---
FINAL REPORT TECHNIQUE: Multiplanar and multisequence imaging of the lumbar spine was obtained without contrast. CLINICAL HISTORY: Several compression deformities, fall 3 days ago COMPARISON: None FINDINGS: Minimal grade 1 anterior spondylolisthesis of L4 on L5. Alignment of the lumbar vertebral bodies is otherwise normal in the sagittal plane. Vertebral body height is preserved. There is a superior endplate fracture at T12 with edema, acute. The spinal cord ends at the level of L1. There is normal signal intensity within the substance of the distal spinal cord. No acute paraspinal abnormality is identified. L1-2: Annular disc bulge with degenerative endplate changes and facet osteoarthropathy. Mild central canal stenosis. Moderate bilateral neural foraminal narrowing. L2-3: Annular disc bulge with degenerative endplate changes and facet osteoarthropathy. No central canal stenosis. Mild endplate foraminal stenosis bilaterally. L3-4: Annular disc bulge with degenerative endplate changes and facet osteoarthropathy. Mild central canal stenosis. Mild bilateral neural foraminal narrowing. L4-5: Annular disc bulge with degenerative endplate changes and facet osteoarthropathy. [id number] central canal stenosis. Moderate right and mild left neural foraminal narrowing. L5-S1: Annular disc bulge with degenerative endplate changes and facet osteoarthropathy. No central canal stenosis. Moderate bilateral neural foraminal narrowing. IMPRESSION: Multilevel degenerative disc disease. Grade 1 anterior spondylolisthesis of L4 on L5. Superior endplate fracture at T12. Reviewed, Interpreted and Dictated by Emma Kenny MD Transcribed by Danielle Godwin Authenticated and . [facility]
--- NOTE | 2025-08-23 09:39 | MR_ITS ---
FINAL REPORT TECHNIQUE: Multiplanar and multisequence MR imaging was obtained through the thoracic spine. CLINICAL HISTORY: Several compression deformities, fall 3 days ago COMPARISON: None FINDINGS: Scoliosis is noted. There is a mild superior endplate fracture at T12 with bone marrow edema, acute. There is less than 25% loss of vertebral body height. No other areas of bone marrow edema or acute fracture identified in the thoracic spine. Signal intensity within the substance of the cord is normal. There is no acute paraspinal abnormality. Multilevel disc desiccation and disc space narrowing is noted. There is mild multilevel degenerative disc disease. No significant canal stenosis. IMPRESSION: Acute superior endplate fracture at T12. Scoliosis and mild degenerative disc disease of the thoracic spine. Reviewed, Interpreted and Dictated by Emma Kenny MD Transcribed by Danielle Godwin Authenticated and [facility]
--- NOTE | 2025-08-23 09:40 | PC.NURSE ---
I called and spoke with Lindy in MRI she is going to attempt to fit in the pt at 1132
--- NOTE | 2025-08-23 09:44 | ED_ITS ---
Discharge Plan Disposition Patient Disposition: Still a Patient Condition: Good Prescriptions Prescriptions: No Action cholecalciferol (vitamin D3) 50 mcg (2,000 unit) capsule 2,000 unit PO DAILY Qty: 90 0RF Yesintek 45 mg/0.5 mL syringe 45 mg SQ oxybutynin chloride 5 mg tablet extended release 24hr 5 mg PO DAILY Qty: 14 1RF albuterol sulfate 1.25 mg/3 mL solution for nebulization 1.25 mg INHALATION Q4-6H PRN (Reason: shortness of breath or wheezing) Qty: 90 2RF (DME) [facility] [place] .Route Qty: 68 0RF Rx Instructions: As directed nitroglycerin 0.4 mg tablet, sublingual See Rx Instructions .ROUTE .COMPLEX Qty: 25 1RF Dose Instruction: DISSOLVE 1 TABLET UNDER THE TONGUE EVERY 5 MINUTES NEEDED FOR CHEST PAIN. DO NOT EXCEED A TOTAL OF 3 DOSES IN 15 MINUTES. Rx Instructions: DISSOLVE 1 TABLET UNDER THE TONGUE EVERY 5 MINUTES NEEDED FOR CHEST PAIN. DO NOT EXCEED A TOTAL OF 3 DOSES IN 15 MINUTES. budesonide 0.25 mg/2 mL suspension for nebulization 0.25 mg INHALATION BID Qty: 60 3RF albuterol sulfate [Ventolin HFA] 90 mcg/actuation HFA aerosol inhaler See Rx Instructions .ROUTE .COMPLEX Qty: 54 12RF Dose Instruction: INHALE 1 PUFF EVERY 6 HOURS NEEDED FOR SHORTNESS OF BREATH Rx Instructions: INHALE 1 PUFF EVERY 6 HOURS NEEDED FOR SHORTNESS OF BREATH fluticasone propionate 50 mcg/actuation spray,suspension See Rx Instructions .ROUTE .COMPLEX Qty: 48 2RF Dose Instruction: SPRAY 1 TIME IN EACH NOSTRIL 1 TIME EACH DAY FOR ALLERGIES Rx Instructions: SPRAY 1 TIME IN EACH NOSTRIL 1 TIME EACH DAY FOR ALLERGIES amitriptyline 25 mg tablet See Rx Instructions .ROUTE .COMPLEX Qty: 180 2RF Dose Instruction: TAKE 2 TABLETS 1 TIME EACH DAY AT BEDTIME Rx Instructions: TAKE 2 TABLETS 1 TIME EACH DAY AT BEDTIME atorvastatin 80 mg tablet See Rx Instructions .ROUTE .COMPLEX Qty: 90 2RF Dose Instruction: TAKE 1 TABLET 1 TIME EACH DAY IN THE EVENING \ Rx Instructions: TAKE 1 TABLET 1 TIME EACH DAY IN THE EVENING \ famotidine 40 mg tablet 40 mg PO DAILY 90 Days Qty: 90 1RF montelukast 10 mg tablet See Rx Instructions .ROUTE .COMPLEX Qty: 90 3RF Dose Instruction: TAKE 1 TABLET 1 TIME EACH DAY IN THE EVENING FOR ALLERGIES Rx Instructions: TAKE 1 TABLET 1 TIME EACH DAY IN THE EVENING FOR ALLERGIES alprazolam 0.25 mg tablet 0.25 mg PO BID Qty: 60 2RF gabapentin 600 mg tablet 600 mg PO TID Qty: 90 2RF fluoxetine 20 mg capsule See Rx Instructions .ROUTE .COMPLEX Qty: 30 5RF Dose Instruction: TAKE 1 CAPSULE 1 TIME EACH DAY Rx Instructions: TAKE 1 CAPSULE 1 TIME EACH DAY tramadol 50 mg tablet 50 mg PO Q8H PRN (Reason: pain) Qty: 90 1RF metoprolol tartrate 25 mg tablet 25 mg PO BID Qty: 60 2RF hydrocodone-acetaminophen 5-325 mg tablet 1 - 2 tab PO Q4-6H PRN (Reason: pain) Qty: 40 0RF Rx Instructions: contains tylenol so don't take additional tylenol or acetaminophen with it. also, don't take tramadol while taking this medication. oxycodone 10 mg tablet 10 mg PO Q6H PRN (Reason: pain) Qty: 30 0RF aspirin 81 MG tablet,delayed release (DR/EC) 81 mg PO DAILY Referrals Follow up/Referrals: Thuan Tripp MD [Primary Care Provider, Internal Medicine] - See instructions Clinical Impressions Clinical Impression: Closed T12 spinal fracture Print Language Print Language: Croatian Discharge ED Provider: Karthikeyan Will JR General Adult HPI General Chief complaint: PAIN Stated complaint: AO- Fall 08/20/25-back pain Time Seen by Provider: 08/23/25 09:34 History of Present Illness HPI narrative: This is a 75-year-old female with history of Crohn's disease, GERD, hypertension, arthritis, CAD, on aspirin, presenting to the emergency department from primary care provider office for evaluation of multiple compression deformities noted on thoracic and lumbar x-ray imaging. Patient fell at home 3 days ago. Was a mechanical fall, patient losing balance and falling to the ground. Did not hit her head or lose consciousness. Sent to the ER for MRI of thoracic spine and lumbar spine. Related Data Home Medications ?Medication ?Instructions ?Recorded ?Confirmed aspirin 81 mg tablet,delayed 81 mg PO DAILY HEART HEAL TH 05/19/18 08/19/25 release ustekinumab-kfce 45 mg/0.5 mL 45 mg SQ 05/21/25 subcutaneous syringe (Yesintek) Previous Rx's ?Medication ?Instructions ?Recorded cholecalciferol (vitamin D3) 50 2,000 unit PO DAILY Rodriguez pplement #90 04/09/20 mcg (2,000 unit) capsule caps albuterol sulfate 1.25 mg/3 mL 1.25 mg (3 mL) inhalati on Q4-6H 07/07/20 solution for nebulization PRN shortness of breath or wheezing #90 mL diaper,brief,adult,disposable #68 ea 02/11/23 (Depend [employer]wear For Women Large) budesonide 0.25 mg/2 mL suspension 0.25 mg (2 mL) inha lation BID . 03/27/24 for nebulization #60 mL nitroglycerin 0.4 mg sublingual See Rx Instructions .R oute 03/27/24 tablet .COMPLEX #25 tabs albuterol sulfate 90 mcg/actuation See Rx Instructions .Route 05/04/24 aerosol inhaler (Ventolin HFA) .COMPLEX #54 grams amitriptyline 25 mg tablet See Rx Instructions .Route 02/13/25 .COMPLEX #180 tabs atorvastatin 80 mg tablet See Rx Instructions .Route 0 02/13/25 .COMPLEX #90 tabs fluticasone propionate 50 See Rx Instructions .Route 0 02/13/25 mcg/actuation nasal .COMPLEX #48 grams spray,suspension famotidine 40 mg tablet 40 mg PO DAILY 90 days #90 t abs 04/16/25 oxybutynin chloride 5 mg 5 mg PO DAILY urine incontin ence 05/21/25 tablet,extended release 24 hr #14 tabs montelukast 10 mg tablet See Rx Instructions .Route 0 07/10/25 .COMPLEX #90 tabs alprazolam 0.25 mg tablet 0.25 mg PO BID Anxiety #60 t abs 07/30/25 fluoxetine 20 mg capsule See Rx Instructions .Route 1 .COMPLEX #30 caps gabapentin 600 mg tablet 600 mg PO TID #90 tabs 08/19 tramadol 50 mg tablet 50 mg PO Q8H PRN pain #90 ta bs 08/19/25 hydrocodone 5 mg-acetaminophen 325 1 - 2 tab PO Q4-6H PRN pain #40 08/20/25 mg tablet tabs metoprolol tartrate 25 mg tablet 25 mg PO BID High blo od pressure 08/20/25 #60 tabs oxycodone 10 mg tablet 10 mg PO Q6H PRN pain #30 ta bs 08/22/25 Allergies Allergy/AdvReac Type Severity Reaction Status Date / Time cefdinir (From Omnicef) Allergy Unknown Rash Verified 08/19/25 10:49 cefuroxime (From Ceftin) Allergy Unknown Rash Verified 08/19/25 10:49 ciprofloxacin (From Cipro) Allergy Unknown Rash Verified 08/19/25 10:49 ibuprofen (From Motrin) Allergy Unknown Vomiting Verified 08/19/25 10:49 nitrofurantoin (From Allergy Unknown Rash Verified 08/19/25 10:49 MACROBID) Penicillins Allergy Unknown Rash Verified 08/19/25 10:49 Sulfa (Sulfonamide Allergy Unknown Rash Verified 08/19/25 10:49 Antibiotics) sulfamethoxazole (From Allergy Unknown Rash Verified 08/19/25 10:49 SEPTRA) trimethoprim (From SEPTRA) Allergy Unknown Rash Verified 08/19/25 10:49 prednisone AdvReac Mild Agitated Verified 08/19/25 10:49 PFSH PFSH Disclaimer: The information contained in this section may have been updated after the patient was seen, as this information can be updated by other users. Medical History (Updated 08/23/25 @ 15:14 by Karthikeyan Will JR, DO) Low back pain Old myocardial infarction Claudication Crohn disease Thyroid nodule CAD (coronary artery disease) Anxiety DDD (degenerative disc disease), lumbar Surgical History History of knee surgery Family History Sister Cancer Father Coronary artery disease Heart attack Mother Diabetes Heart attack Stroke Social History Smoking Status: Current every day smoker tobacco type: cigarettes second hand exposure: No alcohol intake: never substance use type: denies use current occupational status: retired Travel in the last 8 weeks?: None household members: spouse housing: house current occupational exposures/hazards: No caffeine: No Have you lived/traveled outside [place] in past 30 days?: No Contact w/someone who lives/traveled outside [place] past 30 days?: No Exposure to someone with infectious disease in past 14 days?: No Do you have a fever (greater than 100.4 F or 38 C)?: No Have you tested positive for COVID-19?: No Exposed to someone with COVID-19 in past 14 days?: No Do you have a sore throat?: No Do you have a cough?: No Do you have any weakness?: No Do you have any diarrhea?: No Are you experiencing any unusual bleeding?: No Do you have any muscle aches/pain?: No Do you have any abdominal pain?: No Are you experiencing loss of taste or smell?: No Other Medical History Have you received the Flu Vaccine for this season: Yes Have you received the Pneumonia Vaccine: Yes ROS Obtained: Yes All systems reviewed & no additional complaints except as documented and Yes Systems reviewed as appropriate & no additional complaints except as documented Constitutional Constitutional: Reports system reviewed and no additional complaints, except as documented and Reports as per HPI Eyes Eyes: Reports system reviewed and no additional complaints, except as documented, Reports as per HPI and Denies loss of vision ENT Ears, Nose, Mouth, and Throat: Reports system reviewed and no additional complaints, except as documented, Reports as per HPI and Denies neck pain Cardiovascular Cardiovascular: Reports system reviewed and no additional complaints, except as documented, Reports as per HPI, Denies chest pain, Denies dyspnea and Denies syncope Respiratory Respiratory: Denies dyspnea Gastrointestinal Gastrointestingal: Denies abdominal pain Genitourinary Female Genitourinary: Reports system reviewed and no additional complaints, except as documented and Reports as per HPI Musculoskeletal Musculoskeletal: Reports system reviewed and no additional complaints, except as documented, Reports as per HPI, Reports abnormal gait, Reports back pain, Reports limited range of motion, Denies neck pain, Denies numbness and Denies tingling Neurologic Neurologic: Reports system reviewed and no additional complaints, except as documented, Reports as per HPI, Reports abnormal gait, Denies loss of vision, Denies numbness, Denies seizure-like activity, Denies sensory deficit, Denies syncope, Denies tingling and Reports other (No urinary or stool incontinence, no saddle anesthesia) Physical Exam General General appearance: alert and in no apparent distress Head Head exam: atraumatic and normocephalic Eye Eye exam: Present normal appearance, PERRL and EOMI ENT ENT exam: Present normal exam Neck Neck exam: Present normal inspection; Absent tenderness Chest Chest inspection: Present normal inspection; Absent tenderness Respiratory Respiratory exam: Present normal lung sounds bilaterally; Absent respiratory distress, wheezes or stridor Cardiovascular Cardiovascular exam: Present regular rate and normal rhythm Abdominal Exam Abdominal exam: Absent tenderness Extremities Exam Extremities exam: Present normal inspection Back Exam Back exam: Present tenderness (Tenderness to palpation to the thoracic and lumbar spine) Neurological Exam Neurological exam: Present alert, oriented X3 and other (No urinary or stool incontinence, no saddle anesthesia, no urinary retention) Skin Skin exam: Present warm and dry Medical Decision Making Medical Records Screening: Per USPSTF and CDC recommendations, given the prevalence of disease in our region, it is our hospital?s policy to screen for HIV and viral Hepatitis for all patients aged 18 and over and those with ongoing risk factors. [place] Inquiry Pt receiving controlled substance: No Vital Signs: 08/23/25 09:20 08/23/25 09:34 08/23/25 10:00 Temperature 98.4 F Temperature Source Oral Pulse Rate 68 68 Pulse Rate [Left Radial] 70 Respiratory Rate 15 Blood Pressure 175/80 H 176/91 H Blood Pressure [Right Arm] 175/80 H Blood Pressure Mean Blood Pressure Mean [Right Arm] 111 02 Sat by Pulse Oximetry 97 98 97 Oxygen Delivery Method Room Air Room Air Room Air 08/23/25 10:30 08/23/25 11:00 08/23/25 13:26 Temperature Temperature Source Pulse Rate 71 66 74 Pulse Rate [Left Radial] Respiratory Rate Blood Pressure 170/74 H 144/67 H 160/58 H Blood Pressure [Right Arm] Blood Pressure Mean Blood Pressure Mean [Right Arm] 02 Sat by Pulse Oximetry 95 95 94 L Oxygen Delivery Method Room Air Room Air Room Air 08/23/25 13:33 08/23/25 14:00 Temperature Temperature Source Pulse Rate 70 Pulse Rate [Left Radial] Respiratory Rate Blood Pressure 162/66 H 135/55 L Blood Pressure [Right Arm] Blood Pressure Mean 98 92 Blood Pressure Mean [Right Arm] 02 Sat by Pulse Oximetry 95 Oxygen Delivery Method Room Air Room Air Lab Data Lab Results 08/23/25 09:30: WBC 9.7, RBC 4.65, Hgb 12.9, Hct 40.5, MCV 87.1, MCH 27.7, MCHC 31.9, RDW 15.1, Plt Count 392, MPV 9.8, Neut % (Auto) 58.3, Lymph % (Auto) 30.5, Bandera % (Auto) 8.7, Eos % (Auto) 1.8, Baso % (Auto) 0.5, Neut # (Auto) 5.6, Lymph # (Auto) 3.0, Bandera # (Auto) 0.8, Eos # (Auto) 0.2, Baso # (Auto) 0.1, PT 10.8, INR 0.97, Sodium 141, Potassium 4.2, Chloride 103, Carbon Dioxide 25, Anion Gap 17.2 H, BUN 18 H, Creatinine 0.90, Estimated Creat Clear 55, Estimated GFR 61, Est GFR ( Amer) 74, Glucose 112 H, Calcium 10.1, Total Bilirubin 0.8, AST 29, ALT 21, Alkaline Phosphatase 192 H, Total Protein 8.5 H, Albumin 4.5, G lobulin 4.0 H, Albumin/Globulin Ratio 1.1 08/23/25 09:30 08/23/25 09:30 Orders (Tests/Meds): ED MEDICATIONS Discontinued Medications Generic Name Dose Route Start Last Admin Trade Name Freq PRN Reason Stop Dose Admin Acetaminophen 1,000 mg 08/23/25 09:42 08/23/25 10:02 Acetaminophen 500mg Tab PO 08/23/25 09:43 1,000 mg ONCE ONE Administration Lactated Ringer's 500 mls @ 999 mls/hr 08/23/25 11:44 08/23/25 13:54 Lactated Ringer's 1000 Ml Bag IV 08/23/25 12:14 Infused .Q31M ONE Infusion Methocarbamol 500 mg 08/23/25 09:42 08/23/25 10:02 Methocarbamol 500mg Tablet PO 08/23/25 09:43 500 mg ONCE ONE Administration Morphine Sulfate 4 mg 08/23/25 09:42 08/23/25 10:02 Morphine 4mg/Ml Syringe IV 08/23/25 09:43 4 mg ONCE ONE Administration Morphine Sulfate 2 mg 08/23/25 13:17 08/23/25 13:30 Morphine 2mg/Ml Syringe IV 08/23/25 13:18 2 mg ONCE ONE Administration ORDERS Category Date Time Status Complete Blood Count Auto Diff Stat Lab 08/23/25 09:30 Completed Comprehensive Metabolic Panel Stat Lab 08/23/25 09:30 Completed Hepatitis C Ab Qual. W/ RFX Stat Lab 08/23/25 09:30 Received Prothrombin Time INR Stat Lab 08/23/25 09:30 Completed Medical Decision Narrative: This is a 75-year-old female with history of Crohn's disease, GERD, hypertension, arthritis, CAD, on aspirin, presenting to the emergency department from primary care provider office for evaluation of multiple compression deformities noted on thoracic and lumbar x-ray imaging. Patient fell at home 3 days ago. Was a mechanical fall, patient losing balance and falling to the ground. Did not hit her head or lose consciousness. Sent to the ER for MRI. X-ray imaging done at primary care provider office. Please see radiology report shown below. IMPRESSION: Several compression deformities, worse or new since previous exam. Recommend MRI for further evaluation. AP and lateral views of the lumbosacral spine were obtained. There is a compression fracture of the superior endplate of T12 which appears new since 2018. There is grade 1 anterior spondylolisthesis of L4 on L5. Remaining vertebral body heights are preserved. Multilevel degenerative disc disease is more pronounced at L1-2 and L5-S1. No acute paraspinal abnormality. IMPRESSION: T12 compression fracture, new since prior. Consider CT or MRI for further evaluation. Grade 1 anterior spondylolisthesis of L4 on L5. Labs reviewed and independently interpreted, significant for slightly elevated anion gap. Will give IV fluids. Labs otherwise unremarkable. MRI of lumbar spine and thoracic spine significant for multilevel degenerative disc disease, grade 1 anterior spondylolisthesis of L4 and L5, superior endplate fracture at T12. Please see radiology report for further details. Remains tender to palpation to lower thoracic spine. Patient having difficulty with ambulation secondary to pain. We do not have TSLO bracing available here. I discussed patient's case with [facility] spine. They would like patient transferred for TSLO bracing. Patient is afebrile, hemodynamically stable, in no acute distress. No focal deficits. No urinary or stool incontinence. No saddle anesthesia. No urinary retention. Low concern for acute emergent pathology or spinal cord pathology at this time. Patient is agreeable with plan to be transferred for TSLO bracing at [facility]. Critical Care Critical Care Time Critical Care Time: No
[2025-08-23] MEDS: ACETAMINOPHEN 500MG TAB 1000 MG PO (10:02)
[2025-08-23] MEDS: METHOCARBAMOL 500MG TABLET 500 MG PO (10:02)
[2025-08-23] MEDS: MORPHINE 4MG/ML SYRINGE 4 MG IV (10:02)
[2025-08-23 10:03] LABS: Hematocrit 40.5 % (37.0-47.0); Hemoglobin 12.9 g/dL (12.2-16.2); Immature Granulocytes % 0.2 %; Mean Corpuscular HGB Conc 31.9 g/dL (31.8-35.4); Mean Corpuscular Hemoglobin 27.7 pg (27.0-31.2); Mean Corpuscular Volume 87.1 fl (81-99); Nucleated Red Blood Cells % 0 %; Platelet Count 392 K/mm3 (142-424); Red Blood Count 4.65 M/mm3 (4.20-5.40); Red Cell Distribution Width-SD 48.4 fL; White Blood Count 9.7 K/mm3 (4.8-10.8)
[2025-08-23 10:10] LABS: INR 0.97 (0.9-1.1); Prothrombin Time 10.8 seconds (10.1-12.5)
[2025-08-23 11:06] LABS: Alanine Aminotransferase 21 U/L (12-78); Albumin Level 4.5 g/dl (3.5-5.0); Albumin/Globulin Ratio 1.1 (1.1-1.8); Alkaline Phosphatase 192 U/L (38-126); Anion Gap 17.2 mEq/L (5-15); Aspartate Amino Transferase 29 U/L (14-36); Bilirubin,Total 0.8 mg/dl (0.2-1.3); Blood Urea Nitrogen 18 mg/dl (7-17); Calcium 10.1 mg/dl (8.4-10.2); Carbon Dioxide 25 mmol/L (22.0-30.0); Chloride 103 mmol/L (98-107); Creatinine Clearance Estimated 55 mL/min (50-200); Creatinine,Serum 0.90 mg/dl (0.52-1.04); Estimated Glomerular Filt Rate 61 ml/min (>60); GFR (African American) 74 ML/MIN (>60); Globulin 4.0 g/dL (1.3-3.2); Glucose 112 mg/dl (74-100); Potassium 4.2 mmoL/L (3.5-5.1); Sodium 141 mmol/L (136-145); Total Protein,Serum 8.5 g/dl (6.3-8.2)
--- NOTE | 2025-08-23 11:28 | PC.NURSE ---
pt going for MRI at this time via [employer]
--- NOTE | 2025-08-23 11:30 | PC.NURSE ---
pt at MRI
--- NOTE | 2025-08-23 12:50 | PC.NURSE ---
pt back from MRI
[2025-08-23] MEDS: LACTATED RINGERS 1000ML 500 ML 999 ML IV (13:01)
[2025-08-23] MEDS: MORPHINE 2MG/ML SYRINGE 2 MG IV (13:30)
--- NOTE | 2025-08-23 15:26 | PC.NURSE ---
I called and spoke with Nara at EMS regarding the pt needing transfered to [facility]. They will head this way.
--- NOTE | 2025-08-23 15:28 | PC.NURSE ---
attempted to call to update on plan of care, no answer
--- NOTE | 2025-08-23 15:32 | PC.NURSE ---
spoke with about updated POC.
[2025-08-23 19:39] LABS: Hepatitis C Ab Qual. W/ RFX NEGATIVE (Negative)
== END 2025-08-23 16:15 | disposition still patient (30) ==
PROVIDERS: Emergency Provider Student in an Organized Health Care Education/Training Program; PCP Family Medicine
DX: S22.089A Unspecified fracture of T11-T12 vertebra, initial encounter for closed fracture (principal); W18.30XA Fall on same level, unspecified, initial encounter
CPT/HCPCS: 72146; 72148; 80053; 85025; 85610; 86803; 96374; 96376; 99285; J2270; J7120

== ENCOUNTER 2025-09-21 12:49 | Emergency (ER) | payer MEDICARE, SELFPAY ==
--- OUTSIDE RECORDS SUMMARY | 2025-08-23 16:28 | XMS_ITS | Encounter Summary ---
Author Organization Healthcare Address [facility] [place] [address] Care Team Providers Care Flare Stitcher Name Role Phone Thuan Tripp MD Primary Care Provider Cathleen vailable Reason for Visit * Reason Comments Fall Encounter Details Date Type Department Care Team ([facility] st Contact Info) Description 08/23/2025 5:28 PM EDT - 08/24/2025 9:52 AM EDT Emergency [facility] Emergency Department [address] [place] [id number] Davis Lea MD [address] [facility] [address] [place] [address] Daniel Amaya DO [address] [place] [address] Levi Ayala MD [address] [place] [address] Closed fracture of twelfth thoracic vertebra, unspecified fracture morphology, initial encounter ([facility]) (Primary Dx); Fall, initial encounter Discharge Disposition: Home or Self Care Social History Tobacco Use Types Packs/Day Years Used Date Smoking Tobacco: Never Assessed Comments Unknown Sex and Gender Information Value Date Recorded Sex Assigned at Not on file Legal Sex Female 6:30 PM EDT Gender Identity Not on file Sexual Orientation Not on file documented as of this encounter Last Filed Vital Signs Vital Sign Reading Time Taken Comments Blood Pressure 186/76 08/24/2025 8:58 AM EDT Pulse 85 08/24/2025 8:58 AM EDT Temperature 36.7 C (98 F) 08/24/2025 8:58 AM EDT Respiratory Rate 16 08/24/2025 8:58 AM EDT Oxygen Saturation 96% 08/24/2025 8:58 AM EDT Inhaled Oxygen Concentration - - Weight 72.2 kg (159 lb 2.8 oz) 08/23/2025 5:29 P M EDT Height - - Body Mass Index - - documented in this encounter Functional Status * Calculated C-SSRS Risk Score (Lifetime/Recent) Answer Date of Assessment Author No Risk Indicated 08/24/2025 8:00 AM EDT Ryley Otero RN * Question Answer Date of Assessment Author 1. Wish to be (Past 1 Month) No 025 8:00 AM EDT Heather Otero RN 2. Non-Specific Active Suici maged Thoughts (Past 1 Month) No 08/24/2025 8:00 AM EDT Heather Otero RN 6. Suicidal Behavior (Lifetime) No 8:00 AM EDT Heather Otero RN documented as of this encounter Discharge Instructions * Discharge Instructions* Gopi Rosen MD - 08/24/2025 4:25 AM EDT - Anticipate non-operative management - Pain control with acetaminophen and oxycodone - No bending twisting or lifting greater than 10 lbs for the next 6 weeks - Follow-up with orthopedic surgery documented in this encounter Medications at Time of Discharge acetaminophen (Tylenol) 500 MG tablet Take 1 tablet by mouth every 6 hours as needed (pain). 100 tablet 08/24/2025 09/23/2025 oxyCODONE (Roxicodone) 5 MG immediate release tablet Take 1 tablet by mouth every 6 hours as needed (pain) for up to 3 days. 12 tablet 08/24/2025 08/27/2025 documented as of this encounter Miscellaneous Notes * Progress Notes - Rock RidgeRuth garcia Chris - 08/24/2025 9:05 AM EDT Case Management Adult Progress Note Julieta Bunn 75 y.o. female CSN: [id number] Admission: 08/23/2025 5:28 PM Primary Problem: No Principal Problem: There is no principal problem currently on the Problem List.Please update the Problem List and refresh. Pt is ready for discharge. SW requested to asissit with arranging Lyft ride. PT meets 300%FPG. No other discharge needs identified. SW will remain available through discharge if any other needs arise. Ruth Yan ASSOCIATE SCHOOL PSYCHOLOGIST, RECONCILING CLERK Social Work Case Management * Significant Event - Roderick Grant MD - 08/24/2025 6:35 AM EDT ORTHOPAEDIC SPINE SURGERY INTERIM SUMMARY Upright imaging performed and personally reviewed which demonstrates a stable appearing T12 compression fracture given limitation of imaging. She is neurologically intact on examination. TLICS 1. No surgical intervention indicated as this is a stable appearing injury. No bracing indicated. Recommend no bending twisting or lifting greater than 10 lbs for the next 6 weeks. As these fracture patterns are associated with osteoporosis, she should follow up with her primary care physician for discussion and potential initiation of osteoporotic medications. Rest of care per emergency department, sheis appropriate for discharge per Orthopedic spine surgery perspective. No follow up with Orthopedicspine surgery needed. Carlito Grant MD PGY-3, Orthopaedic Surgery [facility] Orthopaedic Trauma Service Pager: [phone] Orthopaedic Recon/Spine/Foot and Ankle Service Pager: [phone] * Consults - Heber Lee - 08/23/2025 6:50 PM EDT Pastoral Care Note Ada Accommodation Consultant visited with Julieta at bedside, she expressed appreciation without need of pastoral careat this time. Referral From: Ada Accommodation Consultant Initiated Pastoral Care Provided For: Patient Patient Profile: Consult Reasons: Initial visit Spiritual Assessment: Support Systems/ Spiritual Resources: Family Spiritual Needs: Emotional support Spiritual Issues: Family concerns, Change/ transition, Chronic pain/ illness Interventions: Interventions Provided: Supportive Listening, Introduced Patient/Family to Ada Accommodation Consultant Services Pastoral Care Outcomes: Patient Outcomes: Appreciative of Ada Accommodation Consultant Support * Consults - Nahid Nava MD - 08/23/2025 6:33 PM EDTAssociated Order(s): IP CONSULT TO ORTHOPAEDICS ORTHOPAEDIC SURGERY SPINE CONSULT NOTE Time Consulted 2119 Time of patient evaluation 2199 CHIEF COMPLAINT AND REASON FOR VISIT Back pain HISTORY OF PRESENT ILLNESS Julieta Bunn is a 75-year-old female with PMH of Crohn's, GERD, HTN, CAD on ASA, hx of NE (2017 s/p 2 stents) who presents to the emergency department as a transfer from her PCP for spine fractures s/p fall on 08/19. Patient states that on 08/19 soon walking in her kitchen when she lost herbalance and fell. Since then she has had some mid to lower back pain. She denies any head trauma orloss of consciousness. Patient states that she ambulates without assistive devices at baseline, hasa walker available from a recent knee surgery. Her PCP obtained an MRI of her T and L-spine which demonstrated a T12 superior endplate fracture and grade 1 L4 on L5 spondylolisthesis. PAST MEDICAL HISTORY Past Medical History[1] MEDICATIONS Current Medications[2] ALLERGIES Allergies[3] PAST SURGICAL HISTORY Surgical History[4] FAMILY HISTORY Family History[5] SOCIAL HISTORY Tobacco: 0.75ppd EtOH: denies Illicits: denies Lives: [place], [place] Employment: retired REVIEW OF SYSTEMS Fourteen point review of systems conducted and negative unless outlined above in HPI PHYSICAL EXAMINATION General Physical Exam Constitutional No acute distress Head Normocephalic and atraumatic Cardiovascular Peripheral perfusion intact Pulmonary/Chest Good respiratory effort, symmetric chest expansion, no respiratory difficulty appreciated Neurological Alert and oriented to person, place, and time Psychiatric Normal mood and affect, behavior and judgment There is no height or weight on file to calculate BMI. VITALS: she is @HEIGHT@ and @WEIGHT@. Vitals: 08/23/25 1729 BP: (!) 159/65 Pulse: 67 Resp: 16 Temp: 36.6 ??C (97.9 ??F) TempSrc: Oral SpO2: 92% Weight: 72.2 kg (159 lb 2.8 oz) COMPLETE SPINE EXAM: Motor Strength Right Left C5: Shoulder abduction (Deltoid) 03/18 03/18 C5: Elbow flexion (Biceps, Brachialis) 03/18 03/18 C6: Wrist extension (ECRB, ECRL) 03/18 03/18 C7: Elbow extension (Triceps) 03/18 03/18 C8: Finger flexion (Property Insurance Claims Examiner Strength) 03/18 03/18 T1: Finger abduction 03/18 03/18 Sensation Right Left Neck normal normal C5: Shoulder normal normal C6: Thumb, radial aspect hand/forearm (Radial Nerve) normal normal C7: Long finger (Median Nerve) normal normal C8: Little finger, ulnar aspect of hand/forearm (Ulnar n.) normal normal T1: Medial forearm/arm normal normal Reflexes Right Left C5: Biceps 2/4 2/4 C6: Brachioradialus 2/4 2/4 C7: Triceps 2/ 2/4 Malcolm's absent absent Motor Strength Right Left L2: Hip flexion (Iliopsoas) 03/18 03/18 L3: Knee extension (Quad) 03/18 03/18 L4: Ankle DF (TA) 03/18 03/18 L5: Great Toe DF (EHL) 03/18 03/18 S1: Ankle Pf, Foot Eversion (Peroneal longus/brevis) 03/18 03/18 S2: Great toe flexion (FHL), Knee flexion 03/18 03/18 Sensation Right Left L2: Proximal anterior thigh Normal Normal L3: Mid anterior thigh Normal Normal L4: Medial leg/foot, great toe (Saphenous n.) Normal Normal L5: Dorsum of mid foot Normal Normal S1: Lateral leg/foot, little toe, Back of leg (Sural n.) Normal Normal Reflexes Right Left L4: Patellar 2/4 2/4 S1: Achilles 2/4 2/4 Babinski Absent Absent Clonus <3 beats <3 beats IMAGING Personally reviewed all orthopaedic imaging which demonstrates: MR thoracic and lumbar spine demonstrates a T12 compression fracture. ASSESSMENT AND PLAN Julieta Bunn is a 75 y.o. female patient with T12 compression fx sustained after a ground level mechanical fall at home. Mobility Orders There are no questions and answers to display. Upright thoracolumbar spine radiographs ordered to assess stability - Thoracolumbar upright radiographs stable, patient can discharge and we will contact her if she requires formal follow up - Anticipate non-operative management - Pain control per ED - Patient's phone number: [phone] - Follow-up: Orthopaedics will coordinate Dispo: Per ED Lissette Schuler MD Orthopedic Surgery PGY-1 [facility] Nate Nava MD [1] No past medical history on file. [2] Current Facility-Administered Medications: acetaminophen (Tylenol) tablet 650 mg, 650 mg, Oral, q4h PRN, Lissette Schuler MD lidocaine (Lidoderm) 5 % patch 1 patch, 1 patch, Apply externally, q24h, Lissette Schuler MD oxyCODONE (Roxicodone) immediate release tablet 5 mg, 5 mg, Oral, q6h PRN, Lissette Schuler MD No current outpatient medications on file. [3] Allergies Allergen Reactions Cefepime Unknown - Patient states they do not know rxn details Cefuroxime Other - please document in the comment field Ciprofloxacin Unknown - Patient states they do not know rxn details Hydrocodone-Acetaminophen Other - please document in the comment field Ibuprofen Unknown - Patient states they do not know rxn details Iodinated Contrast Media Unknown - Patient states they do not know rxn details Penicillins Other - please document in the comment field Sulfa Drugs Unknown - Patient states they do not know rxn details [4] No past surgical history on file. [5] No family history on file. Cosigned by Debbie Cruz MD at 08/24/2025 8:13 AM EDT Associated attestation - Debbie Cruz MD - 08/24/2025 8:13 AM EDT I discussed the case with the resident/fellow and agree with the findings and plan as documented. * ED Provider Notes - Rocío Tompkins MD - 08/23/2025 5:19 PM EDT Images from the original note were not included. - HPI Chief Complaint Patient presents with Fall Julieta Bunn is a 75-year-old female with PMH of Crohn's, GERD, HTN, CAD on ASA, hx of NE (2017 s/p 2 stents) who presents to the emergency department as a transfer from her PCP for spine fractures s/p fall on 08/19. Patient states that on 08/19 soon walking in her kitchen when she lost herbalance and fell. Since then she has had some mid to lower back pain. She denies any head trauma orloss of consciousness. Patient states that she ambulates without assistive devices at baseline, hasa walker available from a recent knee surgery. Her PCP obtained an MRI of her T and L-spine which demonstrated a T12 superior endplate fracture and grade 1 L4 on L5 spondylolisthesis. History provided by: Patient Patient History Past Medical History[1] Surgical History[2] Family History[3] Social History[4] Allergies: Allergies[5] Physical Exam ED Triage Vitals [08/23/25 1729] Temp Heart Rate Resp BP 36.6 ??C (97.9 ??F) 67 16 (!) 159/65 SpO2 Temp Source Heart Rate Source Patient Position 92 % Oral -- -- BP Location FiO2 (%) -- -- Physical Exam Constitutional: General: She is not in acute distress. HENT: Head: Normocephalic and atraumatic. Cardiovascular: Rate and Rhythm: Normal rate. Pulses: Normal pulses. Pulmonary: Effort: Pulmonary effort is normal. No respiratory distress. Abdominal: General: Abdomen is flat. Palpations: Abdomen is soft. Tenderness: There is no abdominal tenderness. Musculoskeletal: Comments: No tenderness to palpation of spine, no palpable step-offs, gluteal tone intact, normal rectal tone No motor deficits to all extremities, no neuro deficits to all extremities Skin: General: Skin is warm and dry. Neurological: General: No focal deficit present. Mental Status: She is alert and oriented to person, place, and time. Psychiatric: Mood and Affect: Mood normal. Behavior: Behavior normal. Viral Coma Scale Score: 15 ED Course & MDM - In summary, this 75 y.o. female presents to the emergency department with back pain s/p fall on 08/19. On initial evaluation she was found to have T12 fracture. Differential diagnosis includes but is not limited to displaced fractures. Based on these concerns, the following were ordered: Orders Placed This Encounter Procedures CT Thoracic Spine wo IV Contrast CT Lumbar Spine wo IV Contrast XR Thoracolumbar Spine 2 Views XR Thoracolumbar Spine 2 Views Consult to Orthopaedics Surgery Assessment: 75 y.o. female presents to ED with complaint of back pain s/p fall. She was sent by her PCP for MRIT/L-spine demonstrating a T12 superior endplate fracture and grade 1 spondylolisthesis of L4/5. Orthopaedic surgery was consulted and provided pertinent recommendations Differential Diagnosis: In order to fully explore the differential diagnosis the following treatments and tests were ordered: ED Medication Administration from 08/23/2025 1501 to 08/25/2025 0519 Date/Time Order Dose Route Action 08/23/2025 1950 EDT acetaminophen (Tylenol) tablet 650 mg 650 mg Oral Given 08/23/2025 1950 EDT lidocaine (Lidoderm) 5 % patch 1 patch 1 patch Apply externally Medication Applied 08/23/2025 195 EDT oxyCODONE (Roxicodone) immediate release tablet 5 mg 5 mg Oral Given 08/24/2025 0345 EDT acetaminophen (Tylenol) tablet 650 mg 650 mg Oral Given 08/24/2025 0346 EDT oxyCODONE (Roxicodone) immediate release tablet 5 mg 5 mg Oral Given 08/24/2025 0940 EDT lidocaine (Lidoderm) 5 % patch 1 patch 0 patch Apply externally Medication Removed All Other Orders Ordered Status Ordering Provider 08/24/25 0417 XR Thoracolumbar Spine 2 Views Once Final result NAHID NAVA 08/24/25 0056 XR Thoracolumbar Spine 2 Views Once Comments: AP and Lateral View, Upright XR, in Brace Final result NAHID NAVA W 08/23/25 2348 Once Comments: AP and Lateral View, Upright XR, in Brace Canceled NAHID NAVA 08/23/25 2219 Once Comments: AP and Lateral View, Upright XR, in Brace Canceled DAVIS LEA 08/23/250 Once Canceled SHIRINOKASSANDRALISSETTE J 08/23/25 1904 Once Comments: AP and Lateral View, Upright XR, in Brace Canceled NARRO, LISSETTE J 08/23/[address] Thoracic Spine wo IV Contrast Once Final result NARRO, LISSETTE J 08/23/[address] Lumbar Spine wo IV Contrast Once Final result SHIRINO LISSETTE J 08/23/25 1828 Consult to Orthopaedics Surgery Once Specialty: Orthopaedic Surgery Provider: (Not yet assigned) Completed LISSETTE SCHULER ED Course as of 08/25/25 0519 Sat Aug 24, [address] Thoracic Spine wo IV Contrast IMPRESSION: Acute compression fracture superior endplate T12 with approximately 20% height loss. Thoracic spine levoscoliosis centered at T8-T9. No acute fracture or traumatic malalignment of the lumbar spine [LG] 0443 XR Thoracolumbar Spine 2 Views Redemonstrated compression fracture of the superior endplate of T12. [LG] 0631 XR Thoracolumbar Spine 2 Views Waiting for the final result to proceed with discharge Ortho recs provided [NW] 0832 The orthopedic surgery team be the x-rays and they are stable at this time. They do not recommend any acute surgical intervention at this time and feel the patient is appropriate for discharge from their perspective with outpatient pain management and follow up in their clinic. The patient hasremained stable here in the emergency department. She has a normal neurological exam. Patient does not require any further emergent workup or intervention and is appropriate for discharge. I had an interactive discussion with the patient regarding the plan and they express understanding and are agreeable with the plan. At this time the patient is not in need of any further urgent or emergent intervention and is safe and appropriate for discharge. At this time all questions have been answered tothe patient's satisfaction and all parties are agreeable to discharge. [NW] ED Course User Index [LG] Rocío Tompkins MD [NW] Gopi Rosen MD Clinical Impressions as of 08/25/25 0519 Fall, initial encounter Closed fracture of twelfth thoracic vertebra, unspecified fracture morphology, initial encounter ([facility]) Social Determinates of Health Risks (including Economic Stability, Education and level of understanding, Healthcare access and quality and concerning social factors): Lives far away Last PDMP Review: Daniel Amaya DO on 08/24/2025 6:38 AM Ultimately, this patient was Was discharged Home (Discharge) The primary encounter diagnosis was Closed fracture of twelfth thoracic vertebra, unspecified fracture morphology, initial encounter ([facility]). A diagnosis of Fall, initial encounter was also pertinent to this visit. . Patient was counseled on the diagnoses. Discharge medications if anyare listed below. Listed medications are thought be either curative for listed diagnoses or will help control ongoing symptoms. Patient is requested to follow up with Patient's Primary Care Provider and Orthopedics in order to obtain routine follow-up and specialty care. Instructions on follow up as well as precautions to return to the ER provided verbally by the EM provider, as well as written in patients discharge education packet. ED Prescriptions Medication Sig Dispense Start Date End Date Auth. Provider acetaminophen (Tylenol) 500 MG tablet Take 1 tablet by mouth every 6 hours as needed (pain). 100 tablet 08/24/2025 09/23/2025 Daniel Amaya DO oxyCODONE (Roxicodone) 5 MG immediate release tablet Take 1 tablet by mouth every 6 hours as needed(pain) for up to 3 days. 12 tablet 08/24/2025 08/27/2025 Daniel Amaya DO Discharge Instructions - Anticipate non-operative management - Pain control with acetaminophen and oxycodone - No bending twisting or lifting greater than 10 lbs for the next 6 weeks - Follow-up with orthopedic surgery Disposition Discharge AVS ([place] Snapshot) - Printed 08/24/2025 Follow-Ups: Follow up with Thuan Tripp MD (Family Medicine) in 2 weeks (09/07/2025); As needed - I reviewed patient`s chart, medical history, performed physical exam and discussed the assessment and plan with the attending. Rocío Tompkins MD Internal Medicine - Pediatrics - PGY1 [1] No past medical history on file. [2] No past surgical history on file. [3] No family history on file. [4] [5] Allergies Allergen Reactions Cefepime Unknown - Patient states they do not know rxn details Cefuroxime Other - please document in the comment field Ciprofloxacin Unknown - Patient states they do not know rxn details Hydrocodone-Acetaminophen Other - please document in the comment field Ibuprofen Unknown - Patient states they do not know rxn details Iodinated Contrast Media Unknown - Patient states they do not know rxn details Penicillins Other - please document in the comment field Sulfa Drugs Unknown - Patient states they do not know rxn details Rocío Tompkins MD Resident 08/25/25519 Cosigned by Davis Lea MD at 08/26/2025 8:01 AM EDT Associated attestation - Davis Lea MD - 08/26/2025 8:01 AM EDT I saw and evaluated the patient with the resident/fellow. I discussed the case with the resident/fellow and agree with the findings and plan as documented. * ED Triage Notes - Ruth Peck RN - 08/23/2025 5:19 PM EDT Pt fall on 08/13 presented to PCP today and found to that t12 fx was seen an 08/14 without findings, pt with continued pain, PMS intact. * Progress Notes - Rocío Tompkins MD - 08/23/2025 5:19 PM EDT ED TRANSFER OF CARE NOTE Transferring provider: Dr Lissette Schuler MD Transferring attending: Dr. Leonora MD CASSIA Time: 9:05PM I received sign-out and accepted care of this patient from the previous ED providers caring for this patient. I reviewed the patient's history, exam, work- up, and treatment plan up to this point. Please see the primary ED Provider Note for complete elements of the history, physical exam, and ED course. PERTINENT HISTORY: In brief, Julieta Bunn is a 75 y.o. female with relevant PMH Crohn's, GERD, HTN, CAD on ASA, hx of NE (2017 s/p 2 stents) who presents to the emergency department as a transfer from her PCP for spine fractures s/p fall on 08/19. PENDING: I accepted care of this patient from the previous provider pending ortho evaluatiion ED Medication Administration from 08/23/2025 1501 to 08/24/2025 0630 Date/Time Order Dose Route Action 08/23/20251949 EDT acetaminophen (Tylenol) tablet 650 mg 650 mg Oral Given 08/23/20251949 EDT lidocaine (Lidoderm) 5 % patch 1 patch 1 patch Apply externally Medication Applied 08/23/20251950 EDT oxyCODONE (Roxicodone) immediate release tablet 5 mg 5 mg Oral Given 08/24/2025344 EDT acetaminophen (Tylenol) tablet 650 mg 650 mg Oral Given 08/24/2025 0346 EDT oxyCODONE (Roxicodone) immediate release tablet 5 mg 5 mg Oral Given ED COURSE: ED Course as of 08/25/25 0517 Sat Aug 24, [address] Thoracic Spine wo IV Contrast IMPRESSION: Acute compression fracture superior endplate T12 with approximately 20% height loss. Thoracic spine levoscoliosis centered at T8-T9. No acute fracture or traumatic malalignment of the lumbar spine [LG] 0443 XR Thoracolumbar Spine 2 Views Redemonstrated compression fracture of the superior endplate of T12. [LG] 0631 XR Thoracolumbar Spine 2 Views Waiting for the final result to proceed with discharge Ortho recs provided [NW] 0832 The orthopedic surgery team be the x-rays and they are stable at this time. They do not recommend any acute surgical intervention at this time and feel the patient is appropriate for discharge from their perspective with outpatient pain management and follow up in their clinic. The patient hasremained stable here in the emergency department. She has a normal neurological exam. Patient does not require any further emergent workup or intervention and is appropriate for discharge. I had an interactive discussion with the patient regarding the plan and they express understanding and are agreeable with the plan. At this time the patient is not in need of any further urgent or emergent intervention and is safe and appropriate for discharge. At this time all questions have been answered tothe patient's satisfaction and all parties are agreeable to discharge. [NW] ED Course User Index [LG] Rocío Tompkins MD [NW] Gopi Rosen MD Clinical Impressions as of 08/25/25 0517 Fall, initial encounter Closed fracture of twelfth thoracic vertebra, unspecified fracture morphology, initial encounter ([facility]) Ultimately, this patient Was discharged Home (Discharge) The primary encounter diagnosis was Closed fracture of twelfth thoracic vertebra, unspecified fracture morphology, initial encounter ([facility]). A diagnosis of Fall, initial encounter was also pertinent to this visit. . Patient was counseled on the diagnoses. Discharge medications if anyare listed below. Listed medications are thought be either curative for listed diagnoses or will help control ongoing symptoms. Patient is requested to follow up with Patient's Primary Care Provider and Orthopedics in order to obtain routine follow-up. Instructions on follow up as well as precautions to return to the ER provided verbally by the EM provider, as well as written in patients discharge education packet. ED Prescriptions Medication Sig Dispense Start Date End Date Auth. Provider acetaminophen (Tylenol) 500 MG tablet Take 1 tablet by mouth every 6 hours as needed (pain). 100 tablet 08/24/2025 09/23/2025 Daniel Amaya DO Discharge Instructions Per ortho: - Thoracolumbar upright radiographs stable, patient can discharge and we will contact her if she requires formal follow up - Anticipate non-operative management - Pain control with acetaminophen and oxycodone - Follow-up: Orthopaedics will coordinate Disposition AVS (Citizen [place] Snapshot) - Printed 08/24/2025 Follow-Ups: Follow up with Thuan Tripp MD (Family Medicine) - Rocío Tompkins MD Cosigned by Daniel Amaya DO at 08/28/2025 12:06 AM EDT Associated attestation - Daniel Amaya DO - 08/28/2025 12:06 AM EDT Seen by resident only. * Progress Notes - Gopi Rosen MD - 08/23/2025 5:19 PM EDT Images from the original note were not included. ED TRANSFER OF CARE NOTE Transferring provider: Myke Stubbs attending: Jose Luis CASSIA Time: 0700 I received sign-out and accepted care of this patient from the previous ED providers caring for this patient. I reviewed the patient's history, exam, work- up, and treatment plan up to this point. Please see the primary ED Provider Note for complete elements of the history, physical exam, and ED course. PERTINENT HISTORY: In brief, Julieta Bunn is a 75 y.o. female who presented to the ED for evaluation of T12 fracture. PENDING: I accepted care of this patient from the previous provider while waiting for evaluation and/or recommendations from: Orthopedics. Ultimately, the aforementioned service recommended dischargewith follow up ED Medication Administration from 08/23/2025 1501 to 08/24/2025 1417 Date/Time Order Dose Route Action 08/23/20251949 EDT acetaminophen (Tylenol) tablet 650 mg 650 mg Oral Given 08/23/2025 1950 EDT lidocaine (Lidoderm) 5 % patch 1 patch 1 patch Apply externally Medication Applied 08/23/20251950 EDT oxyCODONE (Roxicodone) immediate release tablet 5 mg 5 mg Oral Given 08/24/2025 0345 EDT acetaminophen (Tylenol) tablet 650 mg 650 mg Oral Given 08/24/2025 0346 EDT oxyCODONE (Roxicodone) immediate release tablet 5 mg 5 mg Oral Given 08/24/2025 0940 EDT lidocaine (Lidoderm) 5 % patch 1 patch 0 patch Apply externally Medication Removed ED COURSE: ED Course as of 08/24/25 1417 Sat Aug 24, [address] Thoracic Spine wo IV Contrast IMPRESSION: Acute compression fracture superior endplate T12 with approximately 20% height loss. Thoracic spine levoscoliosis centered at T8-T9. No acute fracture or traumatic malalignment of the lumbar spine [LG] 0443 XR Thoracolumbar Spine 2 Views Redemonstrated compression fracture of the superior endplate of T12. [LG] 0631 XR Thoracolumbar Spine 2 Views Waiting for the final result to proceed with discharge Ortho recs provided [NW] 0832 The orthopedic surgery team be the x-rays and they are stable at this time. They do not recommend any acute surgical intervention at this time and feel the patient is appropriate for discharge from their perspective with outpatient pain management and follow up in their clinic. The patient hasremained stable here in the emergency department. She has a normal neurological exam. Patient does not require any further emergent workup or intervention and is appropriate for discharge. I had an interactive discussion with the patient regarding the plan and they express understanding and are agreeable with the plan. At this time the patient is not in need of any further urgent or emergent intervention and is safe and appropriate for discharge. At this time all questions have been answered tothe patient's satisfaction and all parties are agreeable to discharge. [NW] ED Course User Index [LG] Rocío Tompkins MD [NW] Gopi Rosen MD Clinical Impressions as of 08/24/25 1417 Fall, initial encounter Closed fracture of twelfth thoracic vertebra, unspecified fracture morphology, initial encounter ([facility]) Ultimately, this patient Was discharged Home (Discharge) The primary encounter diagnosis was Closed fracture of twelfth thoracic vertebra, unspecified fracture morphology, initial encounter ([facility]). A diagnosis of Fall, initial encounter was also pertinent to this visit. . Patient was counseled on the diagnoses. Discharge medications if anyare listed below. Listed medications are thought be either curative for listed diagnoses or will help control ongoing symptoms. Patient is requested to follow up with Patient's Primary Care Provider and Orthopedics in order to obtain routine follow-up, specialty care, further diagnostic testing, and discussion of further treatment options. Instructions on follow up as well as precautions to return to the ER provided verbally by the EM provider, as well as written in patients discharge educationpacket. ED Prescriptions Medication Sig Dispense Start Date End Date Auth. Provider acetaminophen (Tylenol) 500 MG tablet Take 1 tablet by mouth every 6 hours as needed (pain). 100 tablet 08/24/2025 09/23/2025 Daniel Amaya DO oxyCODONE (Roxicodone) 5 MG immediate release tablet Take 1 tablet by mouth every 6 hours as needed(pain) for up to 3 days. 12 tablet 08/24/2025 08/27/2025 Daniel Amaya DO Discharge Instructions - Anticipate non-operative management - Pain control with acetaminophen and oxycodone - No bending twisting or lifting greater than 10 lbs for the next 6 weeks - Follow-up with orthopedic surgery Disposition Discharge AVS ([place] Snapshot) - Printed 08/24/2025 Follow-Ups: Follow up with Thuan Tripp MD (Family Medicine) in 2 weeks (09/07/2025); As needed - Gopi Rosen MD Cosigned by Levi Ayala MD at 08/26/2025 9:15 AM EDT Associated attestation - Levi Ayala MD - 08/26/2025 9:15 AM EDT Seen by resident only. documented in this encounter Plan of Treatment Not on file documented as of this encounter Procedures Procedure Name Priority Date/Time Associated Diagnosis Comments XR THORACOLUMBAR SPINE 2 VIEWS STAT 08/24/2025 5:30 AM EDT XR THORACOLUMBAR SPINE 2 VIEWS STAT 08/24/2025 1:[address] LUMBAR SPINE WO IV CONTRAST STAT 08/23/2025 8:[address] THORACIC SPINE WO IV CONTRAST STAT 08/23/2025 8:38 PM EDT documented in this encounter Results * XR Thoracolumbar Spine 2 Views (08/24/2025 5:30 AM EDT) Anatomical Region Laterality Modality Spine, T-spine, L-spine Computed Radiography Impressions 08/24/2025 7:28 AM EDT Redemonstration of S shaped curvature of the thoracolumbar spine. T12 superior endplate deformity. L4 and L5 grade 1 anterolisthesis. CRITICAL RESULT: No. COMMUNICATION: Per this written report. By electronically signing this report, I, the attending physician, attest that I have personally reviewed the images/data for the above examination(s) and agree with the final edited report. Drafted by Ricardo Olivarez MD on 08/24/2025 7:08 AM Final report signed by Anibal Hinton MD on 08/24/2025 7:28 AM Narrative 08/24/2025 7:28 AM EDT CLINICAL INDICATION: standing upright TECHNIQUE: XR THORACOLUMBAR SPINE 2 VIEWS COMPARISON: Same-day radiographs. CT and MR dated 08/23/2025. FINDINGS: Redemonstration of S shaped curvature of the thoracolumbar spine. T12 superior endplate deformity. L4 on L5 grade 1 anterolisthesis. Procedure Note Anibal Hinton MD - 08/24/2025 CLINICAL INDICATION: standing upright TECHNIQUE: XR THORACOLUMBAR SPINE 2 VIEWS COMPARISON: Same-day radiographs. CT and MR dated 08/23/2025. FINDINGS: Redemonstration of S shaped curvature of the thoracolumbar spine. [id number] endplate deformity. L4 on L5 grade 1 anterolisthesis. IMPRESSION: Redemonstration of S shaped curvature of the thoracolumbar spine. [id number] endplate deformity. L4 and L5 grade 1 anterolisthesis. CRITICAL RESULT: No. COMMUNICATION: Per this written report. By electronically signing this report, I, the attending physician, attestthat I have personally reviewed the images/data for the aboveexamination(s) and agree with the final edited report. Drafted by Ricardo Olivarez MD on 08/24/2025 7:08 AM Final report signed by Anibal Hinton MD on 08/24/2025 7:28 AM Debbie Cruz MD IMG XR PROCEDURES Fi nal Result * XR Thoracolumbar Spine 2 Views (08/24/2025 1:24 AM EDT) Anatomical Region Laterality Modality Spine, T-spine, L-spine Computed Radiography Impressions 08/24/2025 2:47 AM EDT Redemonstrated compression fracture of the superior endplate of T12. CRITICAL RESULT: No. COMMUNICATION: Per this written report. Preliminary report signed by Serjio Ramírez MD on 08/24/2025 2:22 AM By electronically signing this report, I, the attending physician, attest that I have personally reviewed the images/data for the above examination(s) and agree with the final edited report. Drafted by Serjio Ramírez MD on 08/24/2025 2:18 AM Final report signed by Anibal Hinton MD on 08/24/2025 2:47 AM Narrative 08/24/2025 2:47 AM EDT CLINICAL INDICATION: t12 fx; ready for XR now no brace needed TECHNIQUE: XR THORACOLUMBAR SPINE 2 VIEWS COMPARISON: CT Thoracic and lumbar spine, 08/23/2025 FINDINGS: Redemonstrated compression fracture of the superior endplate of T12. Multilevel intervertebral disc space height loss. Procedure Note Anibal Hinton MD - 08/24/2025 CLINICAL INDICATION: t12 fx; ready for XR now no brace needed TECHNIQUE: XR THORACOLUMBAR SPINE 2 VIEWS COMPARISON: CT Thoracic and lumbar spine, 08/23/2025 FINDINGS: Redemonstrated compression fracture of the superior endplate of T12.Multilevel intervertebral disc space height loss. IMPRESSION: Redemonstrated compression fracture of the superior endplate of T12. CRITICAL RESULT: No. COMMUNICATION: Per this written report. Preliminary report signed by Serjio Ramírez MD on 08/24/2025 2:22 AM By electronically signing this report, I, the attending physician, attestthat I have personally reviewed the images/data for the aboveexamination(s) and agree with the final edited report. Drafted by Serjio Ramírez MD on 08/24/2025 2:18 AM Final report signed by Anibal Hinton MD on 08/24/2025 2:47 AM Debbie Cruz MD IMG XR PROCEDURES Fi nal Result * CT Lumbar Spine wo IV Contrast (08/23/2025 8:38 PM EDT) Anatomical Region Laterality Modality Spine, L-spine Computed Tomogra phy Impressions 08/23/2025 8:58 PM EDT Acute compression fracture superior endplate T12 with approximately 20% height loss. Thoracic spine levoscoliosis centered at T8-T9. No acute fracture or traumatic malalignment of the lumbar spine. CRITICAL RESULT: No. COMMUNICATION: Per this written report. Drafted by Eric Luong MD on 08/23/2025 8:54 PM Final report signed by Eric Luong MD on 08/23/2025 8:58 PM Narrative 08/23/2025 8:58 PM EDT CLINICAL INDICATION: pain TECHNIQUE: Imaging of the thoracic, and lumbar spine was performed, using spiral technique, without contrast administration. Reformatted images in the coronal and sagittal planes were generated from the axial data set to facilitate diagnostic accuracy and/or surgical planning. Total DLP (Dose-Length Product): 1195.83 mGy.cm (accession [id number]), 1195.83 mGy.cm (accession [id number]). Please note: The reported value represents the total of one or more individual components during the CT acquisition on this date and at this time, and as such, the same value may appear in more than one CT report depending on the interpreting/reporting physicians. COMPARISON: None. FINDINGS: Thoracic Spine: Vertebrae: Acute compression fracture superior endplate T12 with approximately 20% height loss. Alignment: No traumatic malalignment. Thoracic spine levoscoliosis centered at T8-T9. Paraspinal Soft Tissues: No paraspinal hematoma. Lumbar Spine: Vertebrae: No acute fracture. Degenerative changes of the lumbar spine most pronounced at L1-L2 and L4-L5. Alignment: No traumatic malalignment. Paraspinal Soft Tissues: No paraspinal hematoma. Procedure Note Eric Luong MD - 08/23/2025 CLINICAL INDICATION: pain TECHNIQUE: Imaging of the thoracic, and lumbar spine was performed, using spiraltechnique, without contrast administration. Reformatted images in thecoronal and sagittal planes were generated from the axial data set tofacilitate diagnostic accuracy and/or surgical planning. Total DLP (Dose-Length Product): 1195.83 mGy.cm (accession [id number]),1195.83 mGy.cm (accession [id number]). Please note: The reported valuerepresents the total of one or more individual components during the CTacquisition on this date and at this time, and as such, the same value mayappear in more than one CT report depending on the interpreting/reportingphysicians. COMPARISON: None. FINDINGS: Thoracic Spine: Vertebrae: Acute compression fracture superior endplate T12 withapproximately 20% height loss. Alignment: No traumatic malalignment. Thoracic spine levoscoliosiscentered at T8-T9. Paraspinal Soft Tissues: No paraspinal hematoma. Lumbar Spine: Vertebrae: No acute fracture. Degenerative changes of the lumbar spinemost pronounced at L1-L2 and L4-L5. Alignment: No traumatic malalignment. Paraspinal Soft Tissues: No paraspinal hematoma. IMPRESSION: Acute compression fracture superior endplate T12 with approximately 20%height loss. Thoracic spine levoscoliosis centered at T8-T9. No acute fracture or traumatic malalignment of the lumbar spine. CRITICAL RESULT: No. COMMUNICATION: Per this written report. Drafted by Eric Luong MD on 08/23/2025 8:54 PM Final report signed by Eric Luong MD on 08/23/2025 8:58 PM Davis Lea MD IMG CT PROCEDURES Final Result * CT Thoracic Spine wo IV Contrast (08/23/2025 8:38 PM EDT) Anatomical Region Laterality Modality Spine, T-spine Computed Tomogra phy Impressions 08/23/2025 8:58 PM EDT Acute compression fracture superior endplate T12 with approximately 20% height loss. Thoracic spine levoscoliosis centered at T8-T9. No acute fracture or traumatic malalignment of the lumbar spine. CRITICAL RESULT: No. COMMUNICATION: Per this written report. Drafted by Eric Luong MD on 08/23/2025 8:54 PM Final report signed by Eric Luong MD on 08/23/2025 8:58 PM Narrative 08/23/2025 8:58 PM EDT CLINICAL INDICATION: pain TECHNIQUE: Imaging of the thoracic, and lumbar spine was performed, using spiral technique, without contrast administration. Reformatted images in the coronal and sagittal planes were generated from the axial data set to facilitate diagnostic accuracy and/or surgical planning. Total DLP (Dose-Length Product): 1195.83 mGy.cm (accession [id number]), 1195.83 mGy.cm (accession [id number]). Please note: The reported value represents the total of one or more individual components during the CT acquisition on this date and at this time, and as such, the same value may appear in more than one CT report depending on the interpreting/reporting physicians. COMPARISON: None. FINDINGS: Thoracic Spine: Vertebrae: Acute compression fracture superior endplate T12 with approximately 20% height loss. Alignment: No traumatic malalignment. Thoracic spine levoscoliosis centered at T8-T9. Paraspinal Soft Tissues: No paraspinal hematoma. Lumbar Spine: Vertebrae: No acute fracture. Degenerative changes of the lumbar spine most pronounced at L1-L2 and L4-L5. Alignment: No traumatic malalignment. Paraspinal Soft Tissues: No paraspinal hematoma. Procedure Note Eric Luong MD - 08/23/2025 CLINICAL INDICATION: pain TECHNIQUE: Imaging of the thoracic, and lumbar spine was performed, using spiraltechnique, without contrast administration. Reformatted images in thecoronal and sagittal planes were generated from the axial data set tofacilitate diagnostic accuracy and/or surgical planning. Total DLP (Dose-Length Product): 1195.83 mGy.cm (accession [id number]),1195.83 mGy.cm (accession [id number]). Please note: The reported valuerepresents the total of one or more individual components during the CTacquisition on this date and at this time, and as such, the same value mayappear in more than one CT report depending on the interpreting/reportingphysicians. COMPARISON: None. FINDINGS: Thoracic Spine: Vertebrae: Acute compression fracture superior endplate T12 withapproximately 20% height loss. Alignment: No traumatic malalignment. Thoracic spine levoscoliosiscentered at T8-T9. Paraspinal Soft Tissues: No paraspinal hematoma. Lumbar Spine: Vertebrae: No acute fracture. Degenerative changes of the lumbar spinemost pronounced at L1-L2 and L4-L5. Alignment: No traumatic malalignment. Paraspinal Soft Tissues: No paraspinal hematoma. IMPRESSION: Acute compression fracture superior endplate T12 with approximately 20%height loss. Thoracic spine levoscoliosis centered at T8-T9. No acute fracture or traumatic malalignment of the lumbar spine. CRITICAL RESULT: No. COMMUNICATION: Per this written report. Drafted by Eric Luong MD on 08/23/2025 8:54 PM Final report signed by Eric Luong MD on 08/23/2025 8:58 PM Davis Lea MD IMG CT PROCEDURES Final Result documented in this encounter Visit Diagnoses Diagnosis Closed fracture of twelfth thoracic vertebra, unspecified fracture morphology, initial encounter ([facility])- Primary Fall, initial encounter Fall Unspecified fall documented in this encounter Administered Medications Inactive Administered Medications - up to 3 most recent administrations Medication Order MAR Action Action Date Dose Rate Site acetaminophen (Tylenol) tablet 650 mg 650 mg, Oral, Every 4 hours PRN, Starting on Tue08/23/25 at 1826, Until 08/24/25 at 1157, Routine, mild pain, prn mild pain. For patients with moderate/severe pain, give in addition to appropriate analgesics to facilitate multimodal pain management Given 08/24/2025 3:45 AM EDT 650 mg Given 08/23/2025 7:50 PM EDT 650 mg lidocaine (Lidoderm) 5 % patch 1 patch 1 patch, Apply externally, Every 24 hours, First dose on Tue08/23/25 at 1830, Until Discontinued, Administer over 12 Hours, Routine Medication Applied 08/23/2025 7:50 PM EDT 1 patch Back oxyCODONE (Roxicodone) immediate release tablet 5 mg 5 mg, Oral, Every 6 hours PRN, Starting on Tue08/23/25 at 1826, Until 08/24/25 at 1157, Routine, moderate pain, prn moderate pain (pain score 5-7). May be used in conjunction with other analgesics to facilitate multimodal pain management. Given 08/24/2025 3:46 AM EDT 5 mg Given 08/23/2025 7:51 PM EDT 5 mg documented in this encounter Active and Recently Administered Medications Times are shown in EDT. Scheduled Medication Order 08/22/2025 08/23/2025 08/24/2025 lidocaine (Lidoderm) 5 % patch 1 patch 1 patch, Apply externally, Every 24 hours, First dose on Tue08/23/25 at 1830, Until Discontinued, Administer over 12 Hours, Routine 1950 (Medication Applied - Provider: Estefani Boogie RN) 0940 (Medication Removed - Provider: Heather Otero RN) PRN Medication Order 08/22/2025 08/23/2025 08/24/2025 acetaminophen (Tylenol) tablet 650 mg 650 mg, Oral, Every 4 hours PRN, Starting on Tue08/23/25 at 1826, Until 08/24/25 at 1157, Routine, mild pain, prn mild pain. For patients with moderate/severe pain, give in addition to appropriate analgesics to facilitate multimodal pain management 1949 (Given - Provider: Estefani Boogie RN) 344 (Given - Provider: Sandhya Hernandez, MALAIKA) oxyCODONE (Roxicodone) immediate release tablet 5 mg 5 mg, Oral, Every 6 hours PRN, Starting on Tue08/23/25 at 1826, Until 08/24/25 at 1157, Routine, moderate pain, prn moderate pain (pain score 5-7). May be used in conjunction with other analgesics to facilitate multimodal pain management. 1950 (Given - Provider: Estefani Boogie RN) 345 (Given - Provider: Sandhya Hernandez, MALAIKA) documented in this encounter Care Teams Fl[employer] Relationship Specialty Start Date End Date Thuan Tripp MD PCP - General Family Medicine 08/23/25 documented as of this encounter
--- OUTSIDE RECORDS SUMMARY | 2025-09-20 00:08 | XMS_ITS | Continuity of Care Document ---
Author Organization [facility] Phone Care Team Providers Care Senior Sas Developer Name Role Phone BLANCA MONTOYA Primary Attending DANIELA OROURKE Primary Care [phone] BLANCA MONTOYA Unavailable BLANCA MONTOYA Admitting ALLERGIES AND ADVERSE REACTIONS ALLERGIES AND ADVERSE REACTIONS Code System Allergy Substance Adverse Reaction Date Reaction (Severity) Comment Status Reported By Updated By UnAssessed Allergies. RESULTS Patient: YESSI STEWARD Date of : February 03 7 LABORATORY RESULTS Information is not available LABORATORY NARRATIVE RESULTS Information is not available RADIOLOGY RESULTS ORDER 100: BONE DENSITY ([place]: [id number]) ORDER DATE: September 19, 2025 4:05:00 PM [place] PERFORMING LAB: [address] [id number] Final Result Date: September 19, 2025 5:49:00 PM [facility] (TECH: [id number]) [address] [address] (Phone) IMAGING REPORT Name: NICHELLE DICKSON : 1950 Age: 75 Years Patient Type: Outpatient Sex: F Exam Description: BONE DENSITY Exam Reason: osteoporosis Order Date/Time: 09/19/2025 11:35:34 AM Dictated By: Mamadou Arthur MD Ordering Physician: BLANCA MONTOYA Attending Physician: BLANCA MONTOYA EXAMINATION: DUAL X-RAY ABSORPTIOMETRY (DXA) FOR BONE MINERAL DENSITY. CLINICAL INDICATION: Osteoporosis. CLINICAL HISTORY: 75 years old, Female. Postmenopausal. TECHNIQUE: An axial (e.g., hips, spine) and/or appendicular (e.g., radius) exam was performed, as appropriate, using Casero densitometer. Images are obtained for bone mineral density measurement and are not obtained for diagnostic purposes. [id number] COMPARISON: None. FINDINGS: Scan quality: Good. LUMBAR SPINE (L1-L4): BMD (in g/cm*2): 1.265. T-score: 0.6. Z-score: 2.3. LEFT FEMORAL NECK: BMD (in g/cm*2): 0.784. T-score: -1.8. PAGE 1 OF 4 Name: NICHELLE DICKSON : 1950 Age: 75 Years Patient Type: Outpatient Sex: F Exam Description: BONE DENSITY Exam Reason: osteoporosis Order Date/Time: 09/19/2025 11:35:34 AM Z-score: 0.1. LEFT TOTAL HIP: BMD (in g/cm*2): 0.899. T-score: -0.9. Z-score: 0.8. RIGHT FEMORAL NECK: BMD (in g/cm*2): 0.772. T-score: -1.9. Z-score: 0.0. RIGHT TOTAL HIP: BMD (in g/cm*2): 0.913. T-score: -0.8. Z-score: 0.9. FRAX 10-YEAR PROBABILITY OF FRACTURE: 10-year fracture risk is performed using the [employer] FRAX calculator based on patient-reported risk factors. Major osteoporotic fracture: 17.9%. Hip fracture: 7.2%. IMPRESSION: Osteopenia based on BMD. World Health Organization criteria for BMD impression classify patients as: - Normal (T-score at or above -1.0). - Osteopenia (T-score between -1.0 and -2.5). - Osteoporosis (T-score at or below -2.5). Per the Bone Health and Osteoporosis Foundation the FRAX tool is most useful in patients with low femoral neck bone mineral density PAGE 2 OF : 1950 Age: 75 Years Patient Type: Outpatient Sex: F Exam Description: BONE DENSITY Exam Reason: osteoporosis Order Date/Time: 09/19/2025 11:35:34 AM (osteopenia). FRAX is calculated per request. RECOMMENDATIONS: 1. All patients should optimize their calcium and vitamin D intake. 2. Consider FDA-approved medical therapies in postmenopausal women and men aged 50 years and older, based on the following: - A hip or vertebral (clinical or morphometric) fracture. - T-score less than or equal to -2.5 at the femoral neck or spine after appropriate evaluation to exclude secondary causes. - Low bone density (T-score between -1.0 and -2.5 at the femoral neck or spine) and a 10-year probability of a hip fracture greater than or equal to 3% or a 10-year probability of a major osteoporosis-related fracture greater than or equal to 20% based on FRAX calculation. - Clinician judgment and/or patient preferences may indicate treatment for people with 10-year fracture probabilities above or below these levels. - Further guidance on treatment can be found at the National Osteoporosis Foundation's website bonesource.org. 3. Patients with diagnosis of osteoporosis or at high risk for fracture should have regular bone mineral density tests. For patients eligible for Medicare, routine testing is allowed once every 2 years. The testing frequency can be increased to one year for patients who have rapidly progressing disease, those who are receiving or discontinuing medical therapy to restore bone mass or have additional risk factors. Electronically signed by: Mamadou Arthur MD 09/19/2025 12:49 PM [facility] Principal Cataract Lens Generator Name: Mamadou Arthur Provider ID: [id number] Name: YESSINICHELLE PAGE : 1950 Age: 75 Years Patient Type: Outpatient Sex: F Exam Description: BONE DENSITY Exam Reason: osteoporosis Order Date/Time: 09/19/2025 11:35:34 AM [facility] PATHOLOGY NARRATIVE RESULTS Information is not available MICROBIOLOGY RESULTS No Micro Labs/Results Exist for Patient BLOOD ADMIN RESULTS Information is not available MEDICATIONS HOME MEDICATIONS Status RXNORM NDC Medication Dose Route Frequency Dates Comments Reported By Updated By Drug Treatment Unknown DISCHARGE MEDICATIONS Status RXNORM NDC Medication Dose Route Frequency Dates Dis pense Data Comments Physician Updated By No Discharge Medication Info rmation Available INPATIENT MEDICATIONS Status RXNORM NDC Medication Dose Route Frequency Rat e Quantity Dates Indication Dispense Data Comments Physician Updated By No Inpatient Medication Info rmation Available SOCIAL HISTORY SOCIAL HISTORY - Smoking Status SNOMED-CT Social History Element Description Effective Dates Offered Cessation Comment Updated By No Smoking Information Avail able SOCIAL HISTORY - Gender Sex: Female SOCIAL HISTORY - Status : status i nformation is not available Intention in Next Year: intention information is not available SOCIAL HISTORY - Assessments Code System Description Status Date Value of Assessment Updated By Comment Assessment Information is no t available SOCIAL HISTORY - [place] Affiliation [place] information is not av ailable SOCIAL HISTORY - Legal Sex Legal Sex : Female (finding) SOCIAL HISTORY - Sexual Behavior Sexual Orientation Gender Identity SNOMED-CT Description SNO MED -CT Description Activity Level No of Partners Partner Type UpdatedBy Information is not available SOCIAL HISTORY - Occupation Occupation information is no t available ENCOUNTERS ENCOUNTER INFORMATION Reason for Visit DEXA /BONE DENSITY Admission September 19, 2025 3:54:[address] [address] Discharge September 19, 2025 7:54:00 PM [facility] DISCHARGED TO HOME OR SELF CARE ENCOUNTER DIAGNOSES Notes information is not prashanth ilable. Code System Diagnosis Onset Date Diagnosis information is not available. ABSTRACT DIAGNOSES Code System Diagnosis Updated By Abatement Date M80.08XA ICD10 AGE-RELATED OSTE OPOROSIS WITH CURRENT PATHOLOGICAL FRACTURE, VERTEBRA(E), INITIAL ENCOUNTER FOR FRACTURE [id number] on September 18, 2025 2:55:06 PM [facility] CARE TEAM Care Senior Sas Developer Role BLANCA MONTOYA Primary Attending DANIELA OROURKE Primary Care BLANCA MONTOYA Referring BLANCA MONTOYA Admitting CARE TEAM CARE visual specialist Role on Team Location Telecom Status Start Date End Jacques e Updated By SHARAD Hebert MD PCP [address] [place], [address] normal September 19, 2025 3:57:06 PM [facility] September 19, 2025 7:54:00 PM [facility] [id number] on September 19, 2025 3:57:06 PM [facility] UNKNOWN DR HEREDIA NAME IN RN PCP PUT IN ADDRESS, PUT IN [place], [place], PUT IN normal September 18, 2025 2:55:06 PM UTC September 19, 2025 3:57:06 PM UTC [id number] on September 19, 2025 3:57:06 PM UTC JAN Lam MD Referring [facility] [place], [address] normal September 18, 2025 2:55:06 PM UTC September 19, 2025 7:54:00 PM UTC [id number] on September 19, 2025 3:57:06 PM UTC JAN Lam MD Attending [address] [place] [address], [id number] normal September 18, 2025 2:55:06 PM UTC September 19, 2025 7:54:00 PM UTC [id number] on September 19, 2025 3:57:06 PM UTC JAN Lam MD Admitting [address] [place] [address], [id number] normal September 18, 2025 2:55:06 PM UTC September 19, 2025 7:54:00 PM UTC [id number] on September 19, 2025 3:57:06 PM UTC INSURANCE PROVIDERS INSURANCE PROVIDER Coverage Status - Effective Date Coverage Type Payor Plan Order Relationship To Subscriber Insurance Plan No Insurance Plan 2024-11-14 M PRIMARY [id number] [phone] [facility] [employer]
[2025-09-21 13:39] VITALS: BP 161/57; PULSE 84; RESP 16; TEMP 36.7; O2SAT 96; BMI 24.7
--- OUTSIDE RECORDS SUMMARY | 2025-09-21 13:55 | XMS_ITS | Encounter Summary ---
Author Organization Healthcare Address [address] [place] [address] Care Team Providers Care Manager Language Name Role Phone Thuan Tripp MD Primary Care Provider Cathleen vailable Encounter Details Date Type Department Care Team (Late st Contact Info) Description 08/23/2025 Orders Only External Location [address] [place] [id number] Karthikeyan Will DO [address] [place], [place] [id number] Social History Tobacco Use Types Packs/Day Years Used Date Smoking Tobacco: Never Assessed Comments Unknown Sex and Gender Information Value Date Recorded Sex Assigned at Not on file Legal Sex Female 6:30 PM EDT Gender Identity Not on file Sexual Orientation Not on file documented as of this encounter Functional Status * Calculated C-SSRS Risk Score (Lifetime/Recent) Answer Date of Assessment Author No Risk Indicated 08/24/2025 8:00 AM EDT Ryley Otero RN * Question Answer Date of Assessment Author 1. Wish to be (Past 1 Month) No 025 8:00 AM EDT Heather Otero RN 2. Non-Specific Active Suici maged Thoughts (Past 1 Month) No 08/24/2025 8:00 AM LAURYT Heather Otero RN 6. Suicidal Behavior (Lifetime) No 8:00 AM LAURYT Heather Otero RN documented as of this encounter Plan of Treatment Not on file documented as of this encounter Procedures Procedure Name Priority Date/Time Associated Diagnosis Comments MR OUTSIDE IMAGES 08/23/2025 11:44 AM EDT documented in this encounter Results * MR transfer of outside films (08/23/2025 11:44 AM EDT) Anatomical Region Laterality Modality Magnetic Resonan ce 08/23/2025 11:4 4 AM EDT Karthikeyan Will DO IMG MRI PROCEDURES Edited Result - Final documented in this encounter Visit Diagnoses Not on filedocumented in this encounter Care Teams Manager Language Relationship Specialty Start Date End Date Thuan Tripp MD PCP - General Family Medicine 08/23/25 documented as of this encounter
--- OUTSIDE RECORDS SUMMARY | 2025-09-21 13:55 | XMS_ITS | Encounter Summary ---
Author Organization Healthcare Address [address] [place] [address] Care Team Providers Care Wax Room Supervisor Name Role Phone Thuan Tripp MD Primary Care Provider Cathleen vailable Encounter Details Date Type Department Care Team (Latest Contact Info) Description 08/24/2025 Travel Social History Tobacco Use Types Packs/Day Years [...] on file documented as of this encounter Visit Diagnoses Not on filedocumented in this encounter Care Teams Wax Room Supervisor Relationship Specialty Start Date End Date Thuan Tripp MD PCP - General Family Medicine 08/23/25 documented as of this encounter
--- OUTSIDE RECORDS SUMMARY | 2025-09-21 13:55 | XMS_ITS | Clinical Summary ---
Author Organization [employer] ([place], [place], [place], [place], [place]) Address [address] [place] [address] Care Team Providers Care Aircraft Technician Name Role Phone Unavailable Primary Care Provider [...] Date Chente rded Speak language other than Turkish at home Not on file 09/09/2024 Want [...] (1 - 1-dose 75+ series) 2026 Insurance [facility] MCR ADV DUAL COMPLETE
--- OUTSIDE RECORDS SUMMARY | 2025-09-21 13:55 | XMS_ITS | Clinical Summary ---
Author Organization [facility] Address [address] [place] [address] Phone Care Team Providers Care Retort Kiln Burner Name Role Phone FABI ALBA MD Unavailable [phone] Claudia LEIVA, Meño Boggs Unavailable [phone] Virgil Gallagher MD Primary Care Provider [phone] Reason for Visit and Chief Complaint [Patient Encounter] Problems Includes: Problems addressed during this encounter and other active Problems All Visits Onset Date Resolved Date Provider Condition S tatus Joint Pain Left Knee 06/20/2017 Meño Taylor MD Active Last Documented On 7 10:55AM ; [facility], [facility] Plan of Treatment No Plan of [...] On 2 2:59PM By Chantell Arthur ; [facility], [facility] Ventolin HFA 108 (90 Base) MCG/ACT Inhalation Ae rosol Solution 07/29/2022 Provider: Diagnosis: Last Documented On 2 3:00PM By Chantell Arthur ; [facility], [facility] FLUoxetine HCl 20 MG Oral Capsule 07/28/2022 Provide r: Virgil Gallagher MD Diagnosis: Last Documented On 2 11:55AM By Whit Crook ; [facility], [facility] Famotidine 40 MG Oral Tablet 07/28/2022 Provider: Virgil Gallagher MD Diagnosis: Last Documented On 2 11:55AM By Whit Crook ; [facility], [facility] Enalapril Maleate 10 MG Oral Tablet 07/28/2022 Provi gifty: Diagnosis: Last Documented On 2 2:59PM By Chantell Arthur ; [facility], [facility] Atorvastatin Calcium 80 MG Oral Tablet 07/28/2022 Pr ovider: Virgil Gallagher MD Diagnosis: Last Documented On 2 2:59PM By Chantell Arthur ; [facility], [facility] Montelukast Sodium 10 MG Oral Tablet 07/13/2022 Prov ider: Diagnosis: Last Documented On 2 2:59PM By Chantell Arthur ; [facility], [facility] Fluticasone Propionate 50 MC G/ACT Nasal Suspension 07/13/2022 Provider: Virgil Gallagher MD Diagnosis: Last Documented On 2 2:59PM By Chantell Arthur ; [facility], [facility] ALPRAZolam 0.25 MG Oral Tablet 07/13/2022 Provider: Virgil Gallagher MD Diagnosis: Last Documented On 2 2:59PM By Chantell Arthur ; [facility], [facility] Symbicort 160-4.5 MCG/ACT Inhalation Aerosol Provider: Virgil Gallagher MD Diagnosis: Last Documented On 2 11:55AM By Whit Crook ; [facility], [facility] Metoprolol Tartrate 50 MG Oral Tablet 06/15/2022 Pro vider: Virgil Gallagher MD Diagnosis: Last Documented On 2 2:59PM By Chantell Arthur ; [facility], [facility] Gabapentin 600 MG Oral Tablet 06/08/2022 Provider: Virgil Gallagher MD Diagnosis: Last Documented On 2 2:59PM By Chantell Arthur ; [facility], [facility] Amitriptyline HCl 25 MG Oral Tablet 03/18/2022 Provi gifty: Virgil Gallagher MD Diagnosis: Last Documented On 2 2:59PM By Chantell Arthur ; [facility], [facility] traMADol HCl 50 MG Oral Tablet 02/24/2022 Provider: Virgil Gallagher MD Diagnosis: Last Documented On 2 2:59PM By Chantell Arthur ; [facility], [facility] Stelara 45 MG/0.5ML Subcutaneous Solution Prefil led Syringe 02/05/2022 Provider: Diagnosis: Last Documented On 2 11:55AM By Whit Crook ; [facility], [facility] Medications Administered Includes: Administered Medications [...] ctive Last Documented On 2 12:54PM ; [facility], [facility] Septra Allergy 07/29/2022 Active Last Documented On 2 12:54PM ; [facility], [facility] predniSONE Allergy 07/29/2022 Active Last Documented On 2 12:54PM ; [facility], [facility] Penicillins Allergy 07/29/2022 Active Last Documented On 2 12:54PM ; [facility], [facility] Omnicef Allergy 07/29/2022 Active Last Documented On 2 12:54PM ; [facility], [facility] Macrobid Allergy 07/29/2022 Active Last Documented On 2 12:54PM ; [facility], [facility] Ibuprofen Allergy 07/29/2022 Active Last Documented On 2 12:54PM ; [facility], [facility] Cipro Allergy 07/29/2022 Active Last Documented On 2 12:54PM ; [facility], [facility] Ceftin Allergy 07/29/2022 Active Last Documented On 2 12:54PM ; [facility] Encounters Encounter Provider Location Date Check-In Time Check-Out Time Diagnosis [Patient Encounter] Meño Taylor MD 2 3:00PM 11:59PM Insurance Includes: Active Insurance Policies Plan Name Member ID Group # Subscriber Relationship Effect meet Dates 1 - Medicare Part B [facility] [id number] Julieta Bunn Self 11/14/2002 - Unknown 2 - [employer] [id number] Julieta Bunn Self 11/14/2016 - Unknown Clinical Notes Includes: Clinical Notes from this encounter No Clinical Notes Recorded
--- OUTSIDE RECORDS SUMMARY | 2025-09-21 13:55 | XMS_ITS | Encounter Summary ---
Author Organization Healthcare Address [address] [place] [address] Care Team Providers Care Oracle Data Warehouse Developer Name Role Phone Thuan Tripp MD Primary Care Provider Cathleen vailable Encounter Details Date Type Department Care Team (Late st Contact Info) Description 08/23/2025 Orders Only External Location [address] [place] [id number] Karthikeyan Will DO [address] [place], [place] [id number] Social History Tobacco Use Types Packs/Day Years [...] on filedocumented in this encounter Care Teams Oracle Data Warehouse Developer Relationship Specialty Start Date End Date Thuan Tripp MD PCP - General Family Medicine 08/23/25 documented as of this encounter
--- OUTSIDE RECORDS SUMMARY | 2025-09-21 13:55 | XMS_ITS | Clinical Summary ---
Author Organization [facility] , [facility] Address [address] [place] [address] Phone Care Team Providers Care Inspector Water Pollution Control Name Role Phone ANJALI LEIVA, FABI Unavailable [phone] Claudia LEIVA, Meño Boggs Unavailable [phone] Elliott LEIVA, Virgil Martins Primary Care Provider [phone] Reason for Visit and Chief Complaint The Chief Complaint is: r uka Problems Includes: Problems addressed during this encounter and other active Problems All Visits Onset Date Resolved Date Provider Condition S tatus Joint Pain Left Knee 06/20/2017 Meño Taylor MD Active Last Documented On 7 10:55AM ; [facility] Plan of Treatment No Plan of Treatment Recorded Assessments Includes: Assessments from this encounter Findings 1. Preoperative Exam- Pt underwent preoperative laboratory workup and diagnostic studies. - Last Documented On 08/09/2022 9:37AM ; [facility] 2. HTN- Continue Enalapril and Metoprolol. - Last Documented On 08/09/2022 9:37AM ; [facility] 3. CAD- S/p Cardiac stent x 2 approx 3 years ago. - Last Documented On 08/09/2022 9:37AM ; [facility] 4. Asthma- Nebs/Inhalers prn. - Last Documented On 08/09/2022 9:37AM ; [facility] 5. H/o Spontaneous DVT- Postoperative anticoagulation per Dr Taylor. - Last Documented On 08/09/2022 9:37AM ; [facility] 6. GERD- Continue Famotidine. - Last Documented On 08/09/2022 9:37AM ; [facility], [facility] 7. HL- Continue Atorvastatin. - Last Documented On 08/09/2022 9:37AM ; [facility] 8. Seasonal Allergies- Continue Singulair. - Last Documented On 08/09/2022 9:37AM ; [facility] 9. Low Vit D- I called in Vit D3 2000 IU po daily with PCP f/u in 30 days. - Last Documented On 08/09/2022 9:37AM ; [facility] 10. H/o DVT- Postoperative anticoagulation per Dr Taylor. - Last Documented On 08/09/2022 9:37AM ; [facility], [facility] 11. Right Knee Pain secondary to DJD- Proceed with surgery as scheduled with Dr Taylor on 08/10/2022. - Last Documented On 08/09/2022 9:37AM ; [facility], [facility] Medical Equipment - Implanted Devices Includes: Current Devices No Medical Equipment Recorded Medications Includes: Medications discussed during this encounter and other current Medications New / Renewed during this visit Nayeli RUTH on 08/04/2022 Vitamin D3 50 MCG (2000 UT) Oral Tablet Provider: Nayeli RUTH 30 day supply: 30 tablet, 0 refills Diagnosis: once a day Pharmacy: [email or web address] [address], [phone] - Last Documented On 2 7:55PM By Nayeli Duque ; [facility], [facility] Current Medications (continue as prescribed) Nitroglycerin 0.4 MG Subling ual Tablet Sublingual 07/29/2022 Provider: Virgil Gallagher MD Diagnosis: Last Documented On 2 2:59PM By Chantell Arthur ; [facility] Ventolin HFA 108 (90 Base) MCG/ACT Inhalation Ae rosol Solution 07/29/2022 Provider: Diagnosis: Last Documented On 2 3:00PM By Chantell Arthur ; [facility] FLUoxetine HCl 20 MG Oral Capsule 07/28/2022 Provide r: Virgil Gallagher MD Diagnosis: Last Documented On 2 11:55AM By Whit Crook ; [facility], [facility] Famotidine 40 MG Oral Tablet 07/28/2022 Provider: Virgil Gallagher MD Diagnosis: Last Documented On 2 11:55AM By Whit Crook ; [facility] Enalapril Maleate 10 MG Oral Tablet 07/28/2022 Provi gifty: Diagnosis: Last Documented On 2 2:59PM By Chantell Arthur ; [facility] Atorvastatin Calcium 80 MG Oral Tablet 07/28/2022 Pr ovider: Virgil Gallagher MD Diagnosis: Last Documented On 2 2:59PM By Chantell Arthur ; [facility] Montelukast Sodium 10 MG Oral Tablet 07/13/2022 Prov ider: Diagnosis: Last Documented On 2 2:59PM By Chantell Arthur ; [facility] Fluticasone Propionate 50 MC G/ACT Nasal Suspension 07/13/2022 Provider: Virgil Gallagher MD Diagnosis: Last Documented On 2 2:59PM By Chantell Arthur ; [facility] ALPRAZolam 0.25 MG Oral Tablet 07/13/2022 Provider: Virgil Gallagher MD Diagnosis: Last Documented On 2 2:59PM By Chantell Arthur ; [facility] Symbicort 160-4.5 MCG/ACT Inhalation Aerosol Provider: Virgil Gallagher MD Diagnosis: Last Documented On 2 11:55AM By Whit Crook ; [facility] Metoprolol Tartrate 50 MG Oral Tablet 06/15/2022 Pro vider: Virgil Gallagher MD Diagnosis: Last Documented On 2 2:59PM By Chantell Arthur ; [facility] Gabapentin 600 MG Oral Tablet 06/08/2022 Provider: Virgil Gallagher MD Diagnosis: Last Documented On 2 2:59PM By Chantell Arthur ; [facility] Amitriptyline HCl 25 MG Oral Tablet 03/18/2022 Provi gifty: Virgil Gallagher MD Diagnosis: Last Documented On 2 2:59PM By Chantell Arthur ; [facility] traMADol HCl 50 MG Oral Tablet 02/24/2022 Provider: Virgil Gallagher MD Diagnosis: Last Documented On 2 2:59PM By Chantell Arthur ; [facility], [facility] Stelara 45 MG/0.5ML Subcutaneous Solution Prefil led Syringe 02/05/2022 Provider: Diagnosis: Last Documented On 2 11:55AM By Whit Crook ; [facility] Past Medications on file Warfarin Sodium 2 MG Oral Tablet 09/13/2022 - 09/28/2022 Provider: Ole duran PA-C Diagnosis: once a day Last Documented On 2 4:25PM By Enedina Martines ; [facility] Warfarin Sodium 3 MG Oral Tablet 09/02/2022 - 10/02/2022 Provider: Ole duran PA-C Diagnosis: once a day Last Documented On 12:18PM By Enedina Martines ; [facility] Warfarin Sodium 3 MG Oral Tablet 08/24/2022 - 09/08/2022 Provider: Meño bauer MD Diagnosis: once a day Last Documented On 2 1:03PM By Enedina Martines ; [facility] Warfarin Sodium 5 MG Oral Tablet 08/10/2022 - 08/25/2022 Provider: Meño bauer MD Diagnosis: once a day Last Documented On 2 10:20AM By Carlito Taylor ; [facility], [facility] Lovenox 40 MG/0.4ML Injection Solution Prefilled Syringe 08/10/2022 - 08/12/2022 Provider: Meño bauer MD Diagnosis: 1 sub q injection 1 time day Last Documented On 2 10:20AM By Carlito Taylor ; [facility] traMADol HCl 50 MG Oral Tablet 08/09/2022 - 08/14/2022 Provider: Meño bauer MD Diagnosis: 1-2 po q 4-6h Last Documented On 2 8:44AM By Carlito Taylor ; [facility] oxyCODONE HCl 5 MG Oral Tablet 08/09/2022 - 08/14/2022 Provider: Meño bauer MD Diagnosis: 1-2 po q 4-6h Last Documented On 2 8:44AM By Carlito Taylor ; [facility] Ondansetron HCl 4 MG Oral Tablet 08/09/2022 - 08/14/2022 Provider: Meño Taylor MD Diagnosis: [id number] Last Documented On 2 8:44AM By Carlito Taylor ; [facility] Meloxicam 15 MG Oral Tablet 08/09/2022 - 09/08/2022 Provider: Meño bauer MD Diagnosis: once a day Last Documented On 2 8:44AM By Carlito Taylor ; [facility] Colace 100 MG Oral Capsule 08/09/2022 - 11/07/2022 Provider: Meño bauer MD Diagnosis: 1-2 tabs daily Last Documented On 2 8:44AM By Carlito Taylor ; [facility] Cefadroxil 500 MG Oral Capsule 08/09/2022 - 08/12/2022 Provider: Meño bauer MD Diagnosis: twice a day Last Documented On 2 8:44AM By Carlito Taylor ; [facility] Acetaminophen 500 MG Oral Tablet 08/09/2022 - 09/08/2022 Provider: Meño Taylor MD Diagnosis: 2 three times a day Last Documented On 2 8:44AM By Carlito Taylor ; [facility] Neurontin 300MG Oral Capsule, conventional 07/26/2017 - 10/24/2017 Provider: Meño Taylor MD Diagnosis: Aftercare follow ing joint replacement surgery 1 every bedtime FOR SURGERY DO NOT FILL TILL 08/02/17 Last Documented On 7 1:56PM By Scarlett Li ; [facility] TraMADol HCl 50MG Oral Tablet 07/26/2017 - 08/08/2017 Provider: Meño Taylor MD Diagnosis: Aftercare follow ing joint replacement surgery 2 tablets every 6 hours. FOR SURGERY DO NOT FILL TILL 08/02/17 Last Documented On 7 1:57PM By Scarlett Li ; [facility] Medications Administered Includes: Administered Medications from this encounter No Administered Medications Recorded Vital Signs Includes: Vital Signs from this encounter Vital Name 08/04/2022 10:19A Blood Pressure Sitting (mmHg) 96/60 Pulse Rate-Sitting (bpm) 74 Height (in) 64 Weight (lb) 168 Body Mass Index (kg/m2) 28.8 Body Surface Area (m2) 1.8 Oxygen Saturation (%) 94 Note: tdt Last Documented: On 08/04/2022 10:24A M ; [facility] Results Includes: Results discussed during this [...] Last Documented On 2 10:19AM ; [facility] Not a current smoker. 07/29/2022 Last Documented On 2 10:19AM ; [facility] Tobacco non-user 07/29/2022 Last Documented On 2 10:19AM ; [facility] No tobacco use 06/20/2017 Last Documented On 2 10:19AM ; [facility] Smoking status : Never smoker 06/20/2017 Last Documented On 2 10:19AM ; [facility] Caffeine use 06/20/2017 Last Documented On 2 10:19AM ; [facility] No recent change in [...] 06/20/2017 Last Documented On 2 10:19AM ; [facility] Procedures and Surgical History Surgical History Last Updated History of History of Gallbladder 2021 Last Documented On 2 10:19AM ; [facility] History of hysterectomy 07/29/2022 Last Documented On 2 10:19AM ; [facility] History of appendectomy 06/20/2017 Last Documented On 2 10:19AM ; [facility] History of heart surgery 06/20/2017 Last Documented On 2 10:19AM ; [facility] Medical History Includes: Medical History addressed during this encounter Description Last Updated Recent immunization for flu 08/10/2021 Last Documented On 2 10:19AM ; [facility] History of arthritis 07/29/2022 Last Documented On 2 10:19AM ; [facility] History of asthma 07/29/2022 Last Documented On 2 10:19AM ; [facility] History of heart disease 07/29/2022 Last Documented On 2 10:19AM ; [facility] History of Heartburn / Acid Reflux 07/29 Last Documented On 2 10:19AM ; [facility] History of History of Blood Clots 2021 Last Documented On 2 10:19AM ; [facility] History of History of Blood Transfusion 07/29/2022 Last Documented On 2 10:19AM ; [facility], [facility] History of History of Heart Attack / Str [place] 07/29/2022 Last Documented On 2 10:19AM ; [facility] History of History of Rheumatology 07/29 Last Documented On 2 10:19AM ; [facility] History of Hypertension 07/29/2022 Last Documented On 2 10:19AM ; [facility] History of osteoporosis 07/29/2022 Last Documented On 2 10:19AM ; [facility] Past Surgical History: P. knee replaceme nt 07/29/2022 Last Documented On 2 10:19AM ; [facility] Recent immunization for pneumococcal pne onia 201907/29/2022 Last Documented On 2 10:19AM ; [facility] A history of cancer 06/20/2017 Last Documented On 2 10:19AM ; [facility] Arthritic joint problems 06/20/2017 Last Documented On 2 10:19AM ; [facility] Gallbladder disease 06/20/2017 Last Documented On 2 10:19AM ; [facility] History of acute myocardial infarction 0 06/20/2017 Last Documented On 2 10:19AM ; [facility] History of depression 06/20/2017 Last Documented On 2 10:19AM ; [facility] Rheumatology history 06/20/2017 Last Documented On 2 10:19AM ; [facility] A recent injection 06/20/2017 Last Documented On 2 10:19AM ; [facility] Family History Includes: Family History addressed during this encounter Description Last Updated Pt mother at 77 from COPD. Pt fathe r from a [place] at 55. 08/04/2022 Last Documented On 2 10:35AM ; [facility] Review of Systems Includes: Review of [...] ctive Last Documented On 2 12:54PM ; [facility] Septra Allergy 07/29/2022 Active Last Documented On 2 12:54PM ; [facility] predniSONE Allergy 07/29/2022 Active Last Documented On 2 12:54PM ; [facility] Penicillins Allergy 07/29/2022 Active Last Documented On 2 12:54PM ; [facility] Omnicef Allergy 07/29/2022 Active Last Documented On 2 12:54PM ; [facility] Macrobid Allergy 07/29/2022 Active Last Documented On 2 12:54PM ; [facility] Ibuprofen Allergy 07/29/2022 Active Last Documented On 2 12:54PM ; [facility] Cipro Allergy 07/29/2022 Active Last Documented On 2 12:54PM ; [facility] Ceftin Allergy 07/29/2022 Active Last Documented On 2 12:54PM ; [facility] Encounters Encounter Provider Location Date Check-In Time Check-Out Time Diagnosis Pre Admission Testing Nayeli RUTH [facility] 08/04/20 22 10:13AM 10:31AM Insurance Includes: Active Insurance Policies Plan Name Member ID Group # Subscriber Relationship Effect meet Dates 1 - Medicare Part B [facility] [id number] Julieta Bunn Self 11/14/2002 - Unknown 2 - [id number] Julieta Bunn Self 11/14/2016 - Unknown Clinical Notes Includes: Clinical Notes from this encounter No Clinical Notes Recorded
--- OUTSIDE RECORDS SUMMARY | 2025-09-21 13:55 | XMS_ITS | Encounter Summary ---
Author Organization Healthcare Address [address] [place] [address] Care Team Providers Care Manager It Security Name Role Phone Thuan Tripp MD Primary Care Provider Cathleen vailable Encounter Details Date Type Department Care Team (Latest Contact Info) Description 08/23/2025 Travel Social History Tobacco Use Types Packs/Day [...] Date of Assessment Author No Risk Indicated 08/23/2025 6:00 PM EDT Roderick Galan RN * Question Answer Date of Assessment Author 1. Wish to be (Past 1 Month) No 08/23/2025 6:00 PM LAURYT Adilson Galan RN 2. Non-Specific Active Suicidal Thoughts (Past 1 Month) No 08/23/2025 6:00 PM LAURYT Adilson Galan RN 6. Suicidal Behavior (Lifetime) No 08/23/2025 6:00 PM EDT Adilson Galan RN documented as of this encounter Plan of Treatment Not on file documented as of this encounter Visit Diagnoses Not on filedocumented in this encounter Care Teams Manager It Security Relationship Specialty Start Date End Date Thuan Tripp MD PCP - General Family Medicine 08/23/25 documented as of this encounter
--- OUTSIDE RECORDS SUMMARY | 2025-09-21 13:55 | XMS_ITS | Clinical Summary ---
Author Organization [facility] , [facility] Address [address] [address] Phone Care Team Providers Care Head Golf Professional Name Role Phone FABI ALBA MD Unavailable [phone] Claudia LEIVA, Meño Boggs Unavailable [phone] Elliott LEIVA, Virgil Martins Primary Care Provider [phone] Reason for Visit and Chief Complaint [facility] Problems Includes: Problems addressed during this encounter and other active Problems All Visits Onset Date Resolved Date Provider Condition S tatus Joint Pain Left Knee 06/20/2017 Meño Taylor MD Active Last Documented On 7 10:55AM ; [facility] Plan of Treatment No Plan [...] On 2 2:59PM By Chantell Arthur ; [facility] Ventolin HFA 108 (90 Base) MCG/ACT Inhalation Ae rosol Solution 07/29/2022 Provider: Diagnosis: Last Documented On 2 3:00PM By Chantell Arthur ; [facility] FLUoxetine HCl 20 MG Oral Capsule 07/28/2022 Provide r: Virgil Gallagher MD Diagnosis: Last Documented On 2 11:55AM By Whit Crook ; [facility] Famotidine 40 MG Oral Tablet 07/28/2022 Provider: Virgil Gallagher MD Diagnosis: Last Documented On 2 11:55AM By Whit Crook ; [facility], [facility] Enalapril Maleate 10 MG Oral Tablet 07/28/2022 Provi gifty: Diagnosis: Last Documented On 2 2:59PM By Chantell Arthur ; [facility], [facility] Atorvastatin Calcium 80 MG Oral Tablet 07/28/2022 Pr ovider: Virgil Gallagher MD Diagnosis: Last Documented On 2 2:59PM By Chantell Arthur ; [facility], [facility] Montelukast Sodium 10 MG Oral Tablet 07/13/2022 Prov ider: Diagnosis: Last Documented On 2 2:59PM By Chantell Arthur ; [facility], [facility] Fluticasone Propionate 50 MC G/ACT Nasal Suspension 07/13/2022 Provider: Virgil Gallagher MD Diagnosis: Last Documented On 2 2:59PM By Chantell Arthur ; [facility], [facility] ALPRAZolam 0.25 MG Oral Tablet 07/13/2022 Provider: Virgil Gallagher MD Diagnosis: Last Documented On 2 2:59PM By Chantell Arthur ; [facility], [facility] Symbicort 160-4.5 MCG/ACT Inhalation Aerosol Provider: Virgil Gallagher MD Diagnosis: Last Documented On 2 11:55AM By Whit Crook ; [facility], [facility] Metoprolol Tartrate 50 MG Oral Tablet 06/15/2022 Pro vider: Virgil Gallagher MD Diagnosis: Last Documented On 2 2:59PM By Chantell Arthur ; [facility], [facility] Gabapentin 600 MG Oral Tablet 06/08/2022 Provider: Virgil Gallagher MD Diagnosis: Last Documented On 2 2:59PM By Chantell Arthur ; [facility], [facility] Amitriptyline HCl 25 MG Oral Tablet 03/18/2022 Provi gifty: Virgil Gallagher MD Diagnosis: Last Documented On 2 2:59PM By Chantell Arthur ; [facility], [facility] traMADol HCl 50 MG Oral Tablet 02/24/2022 Provider: Virgil Gallagher MD Diagnosis: Last Documented On 2 2:59PM By Chantell Arthur ; [facility], [facility] Stelara 45 MG/0.5ML Subcutaneous Solution Prefil led Syringe 02/05/2022 Provider: Diagnosis: Last Documented On 2 11:55AM By Whit Crook ; [facility], [facility] Medications Administered Includes: Administered Medications from [...] ctive Last Documented On 2 12:54PM ; [facility], [facility] Septra Allergy 07/29/2022 Active Last Documented On 2 12:54PM ; [facility] predniSONE Allergy 07/29/2022 Active Last Documented On 2 12:54PM ; [facility] Penicillins Allergy 07/29/2022 Active Last Documented On 2 12:54PM ; [facility], [facility] Omnicef Allergy 07/29/2022 Active Last Documented On 2 12:54PM ; [facility] Macrobid Allergy 07/29/2022 Active Last Documented On 2 12:54PM ; [facility] Ibuprofen Allergy 07/29/2022 Active Last Documented On 2 12:54PM ; [facility] Cipro Allergy 07/29/2022 Active Last Documented On 2 12:54PM ; [facility], [facility] Ceftin Allergy 07/29/2022 Active Last Documented On 2 12:54PM ; [facility], [facility] Encounters Encounter Provider Location Date Check-In Time Check-Out Time Diagnosis [facility] Meño Taylor MD Surgery 08/10/20 22 11:47AM 11:59PM Insurance Includes: Active Insurance Policies Plan Name Member ID Group # Subscriber Relationship Effect meet Dates 1 - Medicare Part B [facility] [id number] Julieta Bunn Self 11/14/2002 - Unknown 2 - [employer] [id number] Julieta Bunn Self 11/14/2016 - Unknown Clinical Notes Includes: Clinical Notes from this encounter No Clinical Notes Recorded
--- OUTSIDE RECORDS SUMMARY | 2025-09-21 13:55 | XMS_ITS | Data Portability ---
Author Organization [facility] Address [address] [facility] [address] [place] [address] Assessment Encounter Date Assessment Date Assessment LastModified [...] with multiple medical conditions, recently presented to [place] with a 5-mm stone at her right [...] functioning at the time of induction. The 22-Palauan cystoscope sheath was then introduced. She has a moderate cystocele grade 2-3. The right ureteral orifice was cannulated with 0.035. Zip wires were introduced where it encountered the stone. It was easily manipulated around the stone and advanced to the level of the kidney. The ureteral orifice would not accommodate the semi-rigid ureteroscope easily and therefore 15-Palauan balloon dilating system was used to dilate [...] weeks. She will followup with me in [place]. She will continue on doxycycline 100 mg b.i.d. She is also placed on pyridium. She is given a prescription for Herod 7.5 mg #30. [id number] Not available 12/16/2016 05:54:23 Plan of [...] [facility] [address], [address], 12/15/2016 09:04:32 12/15/19 17 12/15/2016 urina lysis , dipst ick Unknown Analyte Slight ly Hazy Not Available [facility] [address], [address], 12/15/2016 09:04:32 12/15/19 17 12/15/2016 urina lysis , dipst ick Unknown Analyte 1.[address] [facility] [address] [place] [address], [phone], 12/15/2016 09:04:32 12/15/19 17 12/15/2016 urina lysis , dipst ick Unknown Analyte 5.[address] [facility] [address] [place] [address], [phone], 12/15/2016 09:04:32 12/15/19 17 12/15/2016 urina lysis , dipst ick Unknown Analyte 500 Velma/ul (++) Not Available [facility] [address] [place] [address], [phone], 12/15/2016 09:04:32 12/15/19 17 12/15/2016 urina lysis , dipst ick Unknown Analyte Negati ve Not Available [facility] [address] [place] [address], [phone], 12/15/2016 09:04:32 12/15/19 17 12/15/2016 urina lysis , dipst ick Unknown Analyte Negati ve Not Available [facility] [address] [place] [address], [phone], 12/15/2016 09:04:32 12/15/19 17 12/15/2016 urina lysis , dipst ick Unknown Analyte Normal Not Available [facility] [address] [place] [address], [address], 12/15/2016 09:04:32 12/15/19 17 12/15/2016 urina lysis , dipst ick Unknown Analyte Negati ve Not Available [facility] [address] [place] [address], [phone], 12/15/2016 09:04:32 12/15/19 17 12/15/2016 urina lysis , dipst ick Unknown Analyte Normal Not Available [facility] [address] [place] [address], [address], 12/15/2016 09:04:32 12/15/19 17 12/15/2016 urina lysis , dipst ick Unknown Analyte Negati ve Not Available [facility] [address] [place] [address], [phone], 12/15/2016 09:04:32 12/15/19 17 12/15/2016 urina lysis , dipst ick Unknown Analyte Negati ve Not Available [facility] [address] [place] [address], [address], 12/15/2016 09:04:32 12/15/19 17 12/15/2016 urina lysis , dipst ick Unknown Analyte Automa rosendo Not Available [facility] [address] [place] [address], [phone], 12/15/2016 09:04:32 12/15/1912/15/2016 urina lysis , dipst ick Unknown Analyte Clean Catch Not Available [facility] [address] [place] [address], [phone], 12/15/2016 09:04:32 12/15/1912/17/2016 kidne y stone jeanna sis specimen source Right Ureter al normal Not Available [facility] [address] [place] [address], [phone], 12/17/2016 23:19:08 12/15/19 17 12/17/2016 kidne y stone jeanna sis composition See Below normal Calci um Oxala te Monoh ydrat e (Whew ellit e) 60% Calci um Oxala te Dihyd rate (Wedd ellit e) 40% Not Available [facility] [address] [place], [address], 12/17/2016 23:19:08 12/15/19 17 12/17/2016 kidne y stone jeanna sis nidus Not observ ed normal Not Available [facility] [address] [place], [address], 12/17/2016 23:19:08 12/15/19 17 12/17/2016 kidne y stone jeanna sis weight 0.0090 g normal The image will follo w, unles s test is cance lled or no pictu re is avail able to repor t. TEST PERFO RMED AT: [facility] [address] [place] [address] [facility] IGLESIA EUGENE MD ,FCAP Not Available [facility] [address] [place], [address], 12/17/2016 23:19:08 12/28/19 17 12/28/2016 XR, abdom en, 1 view No observ ation record ed. [address] (Scheduling) [address], [place], [address], 12/29/2016 10:53:49 04/19/20 17 12/04/2016 CT, abdom en + pelvi s, w/o contr ast No observ ation record ed. [facility] [address], [place], [address], 04/19/2017 16:46:13 07/19/20 17 07/19/2017 XR, abdom en, 1 view No observ ation record ed. [address] (Scheduling) [address], [place] [address], 07/20/2017 09:02:06 Result Notes None recorded. Procedures Surgical History Date Name Laterality Status Provider Name and Address Organization Details Recorded Time 7 CYSTOSCOPY, WITH URETEROSCOPY, WITH LITHOTRIPSY (SURG) completed SERJIO WALKER MD [address] [place], [address], [facility] 01/05/2017 10:29:05 Imaging Results None recorded. Procedure [...] ICD10 Code Diagnosis IMO Codes Diagnosis Note [id number] SERJIO WALKER MD SURGERY SCHEDULE [address] [place] [address] 12/15/2016 07:37:12 12/15/2016 07:41:23 Health Concerns Section Related Observation LastModified by Organization Detai ls LastModified Time None Recorded Concern Status LastModified by Organization Details LastModified Time None Recorded Advance Directives Directive None Recorded Payers Insurance Date Sequence Insurance Name Policy Number Policy Ramirez Covered Member ID Ramirez Member ID Guarantor Name 09/18/2024 2 [employer] Julieta Bunn [id number] Julieta Bunn 09/18/2024 1 [place] Julieta Bunn [id number] Julieta Bunn 09/18/2024 1 [facility] (MEDICARE REPLACEMENT/A DVANTAGE - HMO) [id number] Julieta Bunn [id number] Julieta Bunn OBGyn Episode No OBEpisode recorded.
--- OUTSIDE RECORDS SUMMARY | 2025-09-21 13:56 | XMS_ITS ---
Care Plan - [facility], [facility] Created on: September 21, 2025 Julieta Bunn : 1950 Sex: Female Author Organization [facility] Address [address] [place] [address] Phone Care Team Providers Care Commissioner Of Internal Revenue Name Role Phone ANJALI LEIVA, FABI Unavailable [phone] Claudia LEIVA, Meño Boggs Unavailable [phone] Elliott LEIVA, Virgil Martins Primary Care Provider [phone]
--- OUTSIDE RECORDS SUMMARY | 2025-09-21 13:56 | XMS_ITS | Clinical Summary ---
Author Organization [facility] Address [address] [place] [address] Care Team Providers Care Hand Zipper Trimmer Name Role Phone Thuan Tripp MD Primary Care Provider Cathleen vailable Allergies Active Allergy Reactions Criticality Noted Date Comments Cefepime Unknown - Patient st ates they do not know rxn details Low 07/24/2011 Cefuroxime Other - please docum ent in the comment field Low 08/27/2016 Ciprofloxacin Unknown - Patient st ates they do not know rxn details Low 07/24/2011 Hydrocodone-Acetaminophen Other - please document in the comment field Low 09/09/2024 Ibuprofen Unknown - Patient st ates they do not know rxn details Low 07/24/2011 Iodinated Contrast Media Unknown - Patie nt states they do not know rxn details Low 07/24/2011 Penicillins Other - please docum ent in the comment field Low 08/19/2016 Sulfa Drugs Unknown - Patient st ates they do not know rxn details Low 07/24/2011 Medications acetaminophen (Tylenol) 500 MG tablet Take 1 tablet by mouth every 6 hours as needed (pain). 100 tablet 08/24/2025 Active oxyCODONE (Roxicodone) 5 MG immediate release tablet Take 1 tablet by mouth every 6 hours as needed (pain) for up to 3 days. 12 tablet 08/24/2025 5 Active Problems Problem Noted Date Diagnosed Date Fall 08/24/2025 Encounters Date Type Department Care Team Description 08/24/2025 Travel 08/23/2025 5:28 PM EDT - 08/24/2025 9:52 AM EDT Emergency [facility] [address] [place] [address] [facility] MD Chapman, Steven B, DO Akpunonu, Peter Damian S, MD Closed fracture of twelfth thoracic vertebra, unspecified fracture morphology, initial encounter (CMS/HCC) (Primary Dx); Fall, initial encounter Discharge Disposition: Home or Self Care 08/23/2025 Travel 08/23/2025 Orders Only External Location [address] [place] [address] Karthikeyan Will DO 08/23/2025 Orders Only External Location [address] [place] [address] Karthikeyan Will DO from Last 3 Months Social History Tobacco Use Types Packs/Day Years [...] - - Body Mass Index - - Plan of Treatment Health Maintenance Due Date Last Done Comments [facility]-Bone Density Scan 1950 [facility]-Depression Screening 1950 [facility]-Hepatitis C Screening 1950 [facility]-Medicare Annual Wellness (AWV) 1950 [facility]-/Child/Adol SDOH Screenings 1950 [facility]- SDOH Screenings 1969 [facility]-Adult SDOH Screenings 1969 CT Colonography 02/04/1996 Colonoscopy 02/04/1996 FIT-DNA 02/04/1996 FIT 02/04/1996 FOBT 02/04/1996 Sigmoidoscopy 02/04/1996 [facility]-Colorectal Cancer Screening 02/04/1996 [facility]-Breast Cancer Screening 2001 [facility]-Zoster Vaccines (1 of 2) 2001 [facility]-DTaP,Tdap,and Td Vaccines (1 - Tdap) 07/25/2002 07/24/2002 [facility]-Pneumococcal Vaccine: 50+ Years (2 of 2 - PCV) 04/20/2018 04/20/2017 [id number] Vaccine (6 - season) 2025 10/12/2022, 02/19/2022, 07/23/2021, Additional history exists [facility]-Influenza Vaccine (#1) 07/15/202511/15, 08/16/2023, 09/06/2022, Additional history exists [facility]-RSV Vaccine: 60+ Years or (1 - 1-dose 75+ series) 2026 HPV Vaccines Aged Out No longer eligi ble based on patient's age to complete this topic [facility]-HIB Vaccines Aged Out No longer e ligible based on patient's age to complete this topic [facility]-Hepatitis A Vaccines Aged Out No longer eligible based on patient's age to complete this topic [facility]-IPV Vaccines Aged Out No longer e ligible based on patient's age to complete this topic [facility]-Rotavirus Vaccines Aged Out No lo nger eligible based on patient's age to complete this topic Procedures Procedure Name Priority Date/Time Associated Diagnosis Comments XR THORACOLUMBAR SPINE 2 VIEWS STAT 08/24/2025 5:30 AM EDT XR THORACOLUMBAR SPINE 2 VIEWS STAT 08/24/2025 1:[address] LUMBAR SPINE WO IV CONTRAST STAT 08/23/2025 8:[address] THORACIC SPINE WO IV CONTRAST STAT 08/23/2025 8:38 PM EDT MR OUTSIDE IMAGES 08/23/2025 11: 44 AM EDT MR OUTSIDE IMAGES 08/23/2025 11: 44 AM EDT from Last 3 Months Results * XR Thoracolumbar Spine 2 Views (08/24/2025 5:30 AM EDT) Only the most recent of2 resultswithin the time period is included. Anatomical Region Laterality Modality Spine, T-spine, L-spine [...] S shaped curvature of the thoracolumbar spine. [id number] endplate deformity. L4 on L5 grade 1 anterolisthesis. IMPRESSION: Redemonstration of S shaped curvature of the thoracolumbar spine. [id number] endplate deformity. L4 and L5 grade 1 anterolisthesis. CRITICAL RESULT: No. COMMUNICATION: Per this written report. By electronically signing this report, I, the attending physician, attestthat I have personally reviewed the images/data for the aboveexamination(s) and agree with the final edited report. Drafted by Ricardo Olivarez MD on 08/24/2025 7:08 AM Final report signed by Anibal Hinton MD on 08/24/2025 7:28 AM us Debbie Cruz MD IMG XR PROCEDURES Fi [...] Total DLP (Dose-Length Product): 1195.83 mGy.cm (accession [id number]), 1195.83 mGy.cm (accession [id number]). Please note: The reported value represents the [...] Total DLP (Dose-Length Product): 1195.83 mGy.cm (accession [id number]),1195.83 mGy.cm (accession [id number]). Please note: The reported valuerepresents the total [...] Total DLP (Dose-Length Product): 1195.83 mGy.cm (accession [id number]), 1195.83 mGy.cm (accession [id number]). Please note: The reported value represents the [...] Total DLP (Dose-Length Product): 1195.83 mGy.cm (accession [id number]),1195.83 mGy.cm (accession [id number]). Please note: The reported valuerepresents the total [...] MD IMG CT PROCEDURES Final Result * MR transfer of outside films (08/23/2025 11:44 AM EDT) Only the most recent of2 resultswithin the time period is included. Anatomical Region Laterality Modality Magnetic Resonan ce 08/23/2025 11:4 4 AM EDT Karthikeyan Will DO IMG MRI PROCEDURES Edited Result - Final from Last 3 Months Insurance Care Teams Hand Zipper Trimmer Relationship Specialty Start Date End Date Thuan Tripp MD PCP - General Family Medicine 08/23/25
--- OUTSIDE RECORDS SUMMARY | 2025-09-21 13:56 | XMS_ITS | Clinical Summary ---
Author Organization [facility] , [facility] Address [address] [place] [address] Phone Care Team Providers Care Transformation Manager Name Role Phone ANJALI LEIVA, FABI Unavailable [phone] Claudia LEIVA, Meño Boggs Unavailable [phone] Virgil Gallagher MD Primary Care Provider [phone] Reason for Visit and Chief Complaint The Chief Complaint is: RIGHT KNEE PAIN Problems Includes: Problems addressed during this encounter and other active Problems All Visits Onset Date Resolved Date Provider Condition S tatus Joint Pain Left Knee 06/20/2017 Meño Taylor MD Active Last Documented On 7 10:55AM ; [facility], [facility] Plan of Treatment Fall Risk Assessment: [...] - Last Documented On 09/02/2022 11:25AM ; [facility], [facility] Patient overall doing relatively well. Continue with physical therapy and home exercise program. May gradual progress to activity as tolerated. Follow-up in the office in 6 weeks for final recheck - Last Documented On 09/02/2022 11:25AM ; [facility], [facility] Instructions to patient Instructions for patient See PCP for BP Last Documented On 2 10:54AM ; [facility], [facility] Lose weight Last Documented On 2 10:54AM ; [facility], [facility] Assessments Includes: Assessments from this encounter Findings 3 weeks postop right medial U KA - Last Documented On 09/02/2022 11:25AM ; [facility], [facility] Instructions Includes: Instructions from this encounter Instructions to patient Instructions for patient See PCP for BP Last Documented On 2 10:54AM ; [facility], [facility] Lose weight Last Documented On 2 10:54AM ; [facility], [facility] Medical Equipment - Implanted Devices Includes: Current Devices No Medical Equipment Recorded Medications Includes: Medications discussed during this encounter and other current Medications New / Renewed during this visit Ole Bello PA-C on 09/02/2022 Warfarin Sodium 3 MG Oral Tablet Provider: Ole Ying 30 day supply: 30 tablet, 0 refills Diagnosis: once a day Pharmacy: [facility] - [address] [place] [address], [phone] - Last Documented On 2 12:18PM By Enedina Martines ; [facility], [facility] Current Medications (continue as prescribed) Nitroglycerin 0.4 MG Subling ual Tablet Sublingual 07/29/2022 Provider: Virgil Gallagher MD Diagnosis: Last Documented On 2 2:59PM By Chantell Arthur ; [facility], [facility] Ventolin HFA 108 (90 Base) MCG/ACT Inhalation Ae rosol Solution 07/29/2022 Provider: Diagnosis: Last Documented On 2 3:00PM By Chantell Arthur ; [facility] FLUoxetine HCl 20 MG Oral Capsule 07/28/2022 Provide r: Virgil Gallagher MD Diagnosis: Last Documented On 2 11:55AM By Whit Crook ; [facility], [facility] Famotidine 40 MG Oral Tablet 07/28/2022 Provider: Virigl Gallagher MD Diagnosis: Last Documented On 2 11:55AM By Whit Crook ; [facility], [facility] Enalapril Maleate 10 MG Oral Tablet 07/28/2022 Provi gifty: Diagnosis: Last Documented On 2 2:59PM By Chantell Arthur ; [facility], [facility] Atorvastatin Calcium 80 MG Oral Tablet 07/28/2022 Pr ovider: Virgil Gallagher MD Diagnosis: Last Documented On 2 2:59PM By Chantell Arthur ; [facility], [facility] Montelukast Sodium 10 MG Oral Tablet 07/13/2022 Prov ider: Diagnosis: Last Documented On 2 2:59PM By Chantell Arthur ; [facility], [facility] Fluticasone Propionate 50 MC G/ACT Nasal Suspension 07/13/2022 Provider: Virgil Gallagher MD Diagnosis: Last Documented On 2 2:59PM By Chantell Arthur ; [facility], [facility] ALPRAZolam 0.25 MG Oral Tablet 07/13/2022 Provider: Virgil Gallagher MD Diagnosis: Last Documented On 2 2:59PM By Chantell Arthur ; [facility], [facility] Symbicort 160-4.5 MCG/ACT Inhalation Aerosol Provider: Virgil Gallagher MD Diagnosis: Last Documented On 2 11:55AM By Whit Crook ; [facility], [facility] Metoprolol Tartrate 50 MG Oral Tablet 06/15/2022 Pro vider: Virgil Gallagher MD Diagnosis: Last Documented On 2 2:59PM By Chantell Arthur ; [facility], [facility] Gabapentin 600 MG Oral Tablet 06/08/2022 Provider: Virgil Gallagher MD Diagnosis: Last Documented On 2 2:59PM By Chantell Arthur ; [facility], [facility] Amitriptyline HCl 25 MG Oral Tablet 03/18/2022 Provi gifty: Virgil Gallagher MD Diagnosis: Last Documented On 2 2:59PM By Chantell Arthur ; [facility], [facility] traMADol HCl 50 MG Oral Tablet 02/24/2022 Provider: Virgil Gallagher MD Diagnosis: Last Documented On 2 2:59PM By Chantell Arthur ; [facility], [facility] Stelara 45 MG/0.5ML Subcutaneous Solution Prefil led Syringe 02/05/2022 Provider: Diagnosis: Last Documented On 2 11:55AM By Whit Crook ; [facility], [facility] Past Medications on file Warfarin Sodium 2 MG Oral Tablet 09/13/2022 - 09/28/2022 Provider: Ole duran PA-C Diagnosis: once a day Last Documented On 2 4:25PM By Enedina Martines ; [facility] Warfarin Sodium 3 MG Oral Tablet 08/24/2022 - 09/08/2022 Provider: Meño bauer MD Diagnosis: once a day Last Documented On 2 1:03PM By Enedina Martines ; [facility] Warfarin Sodium 5 MG Oral Tablet 08/10/2022 - 08/25/2022 Provider: Meño bauer MD Diagnosis: once a day Last Documented On 2 10:20AM By Carlito Taylor ; [facility] Lovenox 40 MG/0.4ML Injection Solution Prefilled Syringe 08/10/2022 - 08/12/2022 Provider: Meño bauer MD Diagnosis: 1 sub q injection 1 time day Last Documented On 2 10:20AM By Carlito Taylor ; [facility] traMADol HCl 50 MG Oral Tablet 08/09/2022 - 08/14/2022 Provider: Meño bauer MD Diagnosis: 1-2 po q 4-6h Last Documented On 2 8:44AM By Carlito Taylor ; [facility] oxyCODONE HCl 5 MG Oral Tablet 08/09/2022 - 08/14/2022 Provider: Meño bauer MD Diagnosis: 1-2 po q 4-6h Last Documented On 2 8:44AM By Carlito Taylor ; [facility] Ondansetron HCl 4 MG Oral Tablet 08/09/2022 - 08/14/2022 Provider: Meño Taylor MD Diagnosis: [id number] Last Documented On 2 8:44AM By Carlito Taylor ; [facility] Meloxicam 15 MG Oral Tablet 08/09/2022 - 09/08/2022 Provider: Meño bauer MD Diagnosis: once a day Last Documented On 2 8:44AM By Carlito Taylor ; [facility] Colace 100 MG Oral Capsule 08/09/2022 - 11/07/2022 Provider: Meño bauer MD Diagnosis: 1-2 tabs daily Last Documented On 2 8:44AM By Carlito Taylor ; [facility], [facility] Cefadroxil 500 MG Oral Capsule 08/09/2022 - 08/12/2022 Provider: Meño bauer MD Diagnosis: twice a day Last Documented On 2 8:44AM By Carlito Taylor ; [facility], [facility] Acetaminophen 500 MG Oral Tablet 08/09/2022 - 09/08/2022 Provider: Meño Taylor MD Diagnosis: 2 three times a day Last Documented On 2 8:44AM By Carlito Taylor ; [facility], [facility] Vitamin D3 50 MCG (1999 [place]) Oral Tablet 08/04/2022 - 09/03/2022 Provider: Nayeli RUTH Diagnosis: once a day Last Documented On 2 7:55PM By Nayeli Duque ; [facility], [facility] Neurontin 300MG Oral Capsule, conventional 07/26/2017 - 10/24/2017 Provider: Meño Taylor MD Diagnosis: Aftercare follow ing joint replacement surgery 1 every bedtime FOR SURGERY DO NOT FILL TILL 08/02/17 Last Documented On 7 1:56PM By Scarlett Proctor [facility], [facility] TraMADol HCl 50MG Oral Tablet 07/26/2017 - 08/08/2017 Provider: Meño Taylor MD Diagnosis: Aftercare follow ing joint replacement surgery 2 tablets every 6 hours. FOR SURGERY DO NOT FILL TILL 08/02/17 Last Documented On 7 1:57PM By Scarlett Proctor [facility], [facility] Medications Administered Includes: Administered Medications from this encounter No Administered Medications Recorded Vital Signs Includes: Vital Signs from this encounter Vital Name 09/02/2022 10:54A Height (in) 64 Weight (lb) 168 Body Mass Index (kg/m2) 28.8 Body Surface Area (m2) 1.8 Note: rw Last Documented: On 09/02/2022 10:55A M ; [facility], [facility] Results Includes: Results discussed during this [...] 07/29/2022 Last Documented On 2 10:54AM ; [facility], [facility] Not a current smoker. 07/29/2022 Last Documented On 2 10:54AM ; [facility] Tobacco non-user 07/29/2022 Last Documented On 2 10:54AM ; [facility] No tobacco use 06/20/2017 Last Documented On 2 10:54AM ; [facility] Smoking status : Never smoker 06/20/2017 Last Documented On 2 10:54AM ; [facility] Caffeine use 06/20/2017 Last Documented On 2 10:54AM ; [facility], [facility] No recent change in diet 06/20/2017 Last Documented On 2 10:54AM ; [facility], [facility] Not a current smoker 06/20/2017 Last Documented On 2 10:54AM ; [facility], [facility] Not exercising regularly 06/20/2017 Last Documented On 2 10:54AM ; [facility], [facility] Not using alcohol 06/20/2017 Last Documented On 2 10:54AM ; [facility], [facility] Not using drugs 06/20/2017 Last Documented On 2 10:54AM ; [facility], [facility] Procedures and Surgical History Includes: Procedures from this encounter Procedures Code Diagnosis Performing Provider Service L ocation Service Date use of tobacco assessment performed 1000F Last Documented On 2 10:54AM ; [facility], [facility] patient screened for future fall risk: documentation of any fall with injury in past year 1100F Last Documented On 2 10:54AM ; [facility], [facility] Surgical History Last Updated History of History of Gallbladder 2021 Last Documented On 2 10:54AM ; [facility] History of hysterectomy 07/29/2022 Last Documented On 2 10:54AM ; [facility] History of appendectomy 06/20/2017 Last Documented On 2 10:54AM ; [facility] History of heart surgery 06/20/2017 Last Documented On 2 10:54AM ; [facility] Medical History Includes: Medical History addressed during this encounter Description Last Updated Recent immunization for flu 08/10/2021 Last Documented On 2 10:54AM ; [facility] History of arthritis 07/29/2022 Last Documented On 2 10:54AM ; [facility] History of asthma 07/29/2022 Last Documented On 2 10:54AM ; [facility], [facility] History of heart disease 07/29/2022 Last Documented On 2 10:54AM ; [facility] History of Heartburn / Acid Reflux 07/29 Last Documented On 2 10:54AM ; [facility] History of History of Blood Clots 2021 Last Documented On 2 10:54AM ; [facility] History of History of Blood Transfusion 07/29/2022 Last Documented On 2 10:54AM ; [facility] History of History of Heart Attack / Str [place] 07/29/2022 Last Documented On 2 10:54AM ; [facility], [facility] History of History of Rheumatology 07/29 Last Documented On 2 10:54AM ; [facility] History of Hypertension 07/29/2022 Last Documented On 2 10:54AM ; [facility] History of osteoporosis 07/29/2022 Last Documented On 2 10:54AM ; [facility] Past Surgical History: P. knee replaceme nt 07/29/2022 Last Documented On 2 10:54AM ; [facility] Recent immunization for pneumococcal pne umonia 201907/29/2022 Last Documented On 2 10:54AM ; [facility] A history of cancer 06/20/2017 Last Documented On 2 10:54AM ; [facility] Arthritic joint problems 06/20/2017 Last Documented On 2 10:54AM ; [facility] Gallbladder disease 06/20/2017 Last Documented On 2 10:54AM ; [facility] History of acute myocardial infarction 0 06/20/2017 Last Documented On 2 10:54AM ; [facility] History of depression 06/20/2017 Last Documented On 2 10:54AM ; [facility] Rheumatology history 06/20/2017 Last Documented On 2 10:54AM ; [facility] A recent injection 06/20/2017 Last Documented On 2 10:54AM ; [facility] Family History Includes: Family History addressed during this encounter Description Last Updated Diabetes mellitus 07/29/2022 Last Documented On 2 10:54AM ; [facility] Family history of cancer 07/29/2022 Last Documented On 2 10:54AM ; [facility] Family history of heart disease 07/29/20 22 Last Documented On 2 10:54AM ; [facility] Family history of osteoporosis 2 Last Documented On 2 10:54AM ; [facility] Family history of rheumatoid arthritis 0 07/29/2022 Last Documented On 2 10:54AM ; [facility] Family history of systemic hypertension 07/29/2022 Last Documented On 2 10:54AM ; [facility] Family history of thromboembolic disease 07/29/2022 Last Documented On 2 10:54AM ; [facility] stroke seizures 06/20/2017 Last Documented On 2 10:54AM ; [facility] Fraternal history of family history of h eart disease 06/20/2017 Last Documented On 2 10:54AM ; [facility] Fraternal history of rheumatoid arthriti s 06/20/2017 Last Documented On 2 10:54AM ; [facility] Maternal history of diabetes mellitus Last Documented On 2 10:54AM ; [facility] Maternal history of family history of ca ncer 06/20/2017 Last Documented On 2 10:54AM ; [facility] Maternal history of thromboembolic disea se 06/20/2017 Last Documented On 2 10:54AM ; [facility] Review of Systems Includes: Review of [...] Last Documented On 2 12:54PM ; [facility] Omnicef Allergy 07/29/2022 Active Last Documented On 2 12:54PM ; [facility] Macrobid Allergy 07/29/2022 Active Last Documented On 2 12:54PM ; [facility] Ibuprofen Allergy 07/29/2022 Active Last Documented On 2 12:54PM ; [facility] Cipro Allergy 07/29/2022 Active Last Documented On 2 12:54PM ; [facility] Ceftin Allergy 07/29/2022 Active Last Documented On 2 12:54PM ; [facility] Encounters Encounter Provider Location Date Check-In Time Check-Out Time Diagnosis Post Op Ole Bello PA-C [facility] 2 10:30AM 11:27AM Insurance Includes: Active Insurance Policies Plan Name Member ID Group # Subscriber Relationship Effect meet Dates 1 - Medicare Part B [facility] [id number] Julieta Bunn Self 11/14/2002 - Unknown 2 - [employer] [id number] Julieta Bunn Self 11/14/2016 - Unknown Clinical Notes Includes: Clinical Notes from this encounter No Clinical Notes Recorded
--- OUTSIDE RECORDS SUMMARY | 2025-09-21 13:56 | XMS_ITS ---
Author Organization [facility] , [facility] Address [address] [place] [address] Phone Care Team Providers Care Bi Tri Operator Name Role Phone ANJALI LEIVA, FABI Unavailable [phone] Claudia LEIVA, Meño Boggs Unavailable [phone] Elliott LEIVA, Virgil Martins Primary Care Provider [...] Documented On 7 10:55AM ; [facility], [facility] Plan of Treatment Instructions to patient [...] BP Last Documented On 7 10:12AM ; [facility], [facility] No intervention and counseli ng on cessation of tobacco use Last Documented On 7 3:39PM ; [facility], [facility] Assessments Includes: Assessments for all patient encounters No Assessments Recorded Instructions Includes: Instructions for all patient encounters Instructions to patient Instructions for patient See PCP for BP Last Documented On 2 12:40PM ; [facility] Lose weight Last Documented On 2 12:40PM ; [facility] Instructions for patient See PCP for BP Last Documented On 2 10:54AM ; [facility] Lose weight Last Documented On 2 10:54AM ; [facility] Instructions for patient See PCP for BP Last Documented On 2 1:19PM ; [facility] Lose weight Last Documented On 2 1:21PM ; [facility] Instructions for patient See PCP for BP Last Documented On 7 11:12AM ; [facility], [facility] Instructions for patient See PCP for BP Last Documented On 7 10:12AM ; [facility], [facility] No intervention and counseli ng on cessation of tobacco use Last Documented On 7 3:39PM ; [facility], [facility] Medical Equipment - Implanted Devices Includes: Current and historical Devices No Medical Equipment Recorded Medications Includes: Current and historical Medications Current Medications (continue as prescribed) Nitroglycerin 0.4 MG Subling ual Tablet Sublingual 07/29/2022 Provider: Virgil Gallagher MD Diagnosis: Last Documented On 2 2:59PM By Chantell Arthur ; [facility] Ventolin HFA 108 (90 Base) MCG/ACT Inhalation Ae rosol Solution 07/29/2022 Provider: Diagnosis: Last Documented On 2 3:00PM By Chantell Arthur ; [facility] FLUoxetine HCl 20 MG Oral Capsule 07/28/2022 Provide r: iVrgil Gallagher MD Diagnosis: Last Documented On 2 11:55AM By Whit Crook ; [facility] Famotidine 40 MG Oral Tablet 07/28/2022 Provider: Virgil Gallagher MD Diagnosis: Last Documented On 2 11:55AM By Whit Crook ; [facility], [facility] Enalapril Maleate 10 MG Oral Tablet 07/28/2022 Provi gifty: Diagnosis: Last Documented On 2 2:59PM By Chantell Arthur ; [facility], [facility] Atorvastatin Calcium 80 MG Oral Tablet 07/28/2022 Pr ovider: Virgil Gallagher MD Diagnosis: Last Documented On 2 2:59PM By Chantell Arthur ; [facility], [facility] Montelukast Sodium 10 MG Oral Tablet 07/13/2022 Prov ider: Diagnosis: Last Documented On 2 2:59PM By Chantell Arthur ; [facility], [facility] Fluticasone Propionate 50 MC G/ACT Nasal Suspension 07/13/2022 Provider: Virgil Gallagher MD Diagnosis: Last Documented On 2 2:59PM By Chantell Arthur ; [facility], [facility] ALPRAZolam 0.25 MG Oral Tablet 07/13/2022 Provider: Virgil Gallagher MD Diagnosis: Last Documented On 2 2:59PM By Chantell Arthur ; [facility], [facility] Symbicort 160-4.5 MCG/ACT Inhalation Aerosol Provider: Virgil Gallagher MD Diagnosis: Last Documented On 2 11:55AM By Whit Crook ; [facility], [facility] Metoprolol Tartrate 50 MG Oral Tablet 06/15/2022 Pro vider: Virgil Gallagher MD Diagnosis: Last Documented On 2 2:59PM By Chantell Arthur ; [facility], [facility] Gabapentin 600 MG Oral Tablet 06/08/2022 Provider: Virgil Gallagher MD Diagnosis: Last Documented On 2 2:59PM By Chantell Arthur ; [facility], [facility] Amitriptyline HCl 25 MG Oral Tablet 03/18/2022 Provi gifty: Virgil Gallagher MD Diagnosis: Last Documented On 2 2:59PM By Chantell Arthur ; [facility], [facility] traMADol HCl 50 MG Oral Tablet 02/24/2022 Provider: Virgil Gallagher MD Diagnosis: Last Documented On 2 2:59PM By Chantell Arthur ; [facility], [facility] Stelara 45 MG/0.5ML Subcutaneous Solution Prefil led Syringe 02/05/2022 Provider: Diagnosis: Last Documented On 11:55AM By Whit Crook ; [facility], [facility] Past Medications on file Warfarin Sodium 2 MG Oral Tablet 09/13/2022 - 09/28/2022 Provider: Ole duran PA-C Diagnosis: once a day Last Documented On 4:25PM By Enedina Martines ; [facility] Warfarin Sodium 3 MG Oral Tablet 09/02/2022 - 10/02/2022 Provider: Ole duran PA-C Diagnosis: once a day Last Documented On 12:18PM By Enedina Martines ; [facility] Warfarin Sodium 3 MG Oral Tablet 08/24/2022 - 09/08/2022 Provider: Meño bauer MD Diagnosis: once a day Last Documented On 1:03PM By Enedina Martines ; [facility], [facility] Warfarin Sodium 5 MG Oral Tablet 08/10/2022 - 08/25/2022 Provider: Meño bauer MD Diagnosis: once a day Last Documented On 10:20AM By Carlito Taylor ; [facility], [facility] Lovenox 40 MG/0.4ML Injection Solution Prefilled Syringe 08/10/2022 - 08/12/2022 Provider: Meño bauer MD Diagnosis: 1 sub q injection 1 time day Last Documented On 2 10:20AM By Carlito Taylor ; [facility], [facility] traMADol HCl 50 MG Oral Tablet 08/09/2022 - 08/14/2022 Provider: Meño bauer MD Diagnosis: 1-2 po q 4-6h Last Documented On 8:44AM By Carlito Taylor ; [facility] oxyCODONE HCl 5 MG Oral Tablet 08/09/2022 - 08/14/2022 Provider: Meño bauer MD Diagnosis: 1-2 po q 4-6h Last Documented On 8:44AM By Carlito Taylor ; [facility] Ondansetron HCl 4 MG Oral Tablet 08/09/2022 - 08/14/2022 Provider: Meño Taylor MD Diagnosis: [id number] Last Documented On 2 8:44AM By Carlito Taylor ; [facility] Meloxicam 15 MG Oral Tablet 08/09/2022 - 09/08/2022 Provider: Meño bauer MD Diagnosis: once a day Last Documented On 2 8:44AM By Carlito Taylor ; [facility] Colace 100 MG Oral Capsule 08/09/2022 - 11/07/2022 Provider: Meño bauer MD Diagnosis: 1-2 tabs daily Last Documented On 8:44AM By Carlito Taylor ; [facility] Cefadroxil 500 MG Oral Capsule 08/09/2022 - 08/12/2022 Provider: Meño bauer MD Diagnosis: twice a day Last Documented On 2 8:44AM By Carlito Taylor ; [facility] Acetaminophen 500 MG Oral Tablet 08/09/2022 - 09/08/2022 Provider: Meño Taylor MD Diagnosis: 2 three times a day Last Documented On 8:44AM By Carlito Taylor ; [facility] Vitamin D3 50 MCG (1999 [place]) Oral Tablet 08/04/2022 - 09/03/2022 Provider: Nayeli RUTH Diagnosis: once a day Last Documented On 7:55PM By Nayeli Duque ; [facility] Polyethylene Glycol 3350 Granules 07/29/2022 - 022 Provider: Diagnosis: Last Documented On 2 11:52AM By Whit Crook ; [facility] raNITIdine HCl 150 MG Oral Capsule 07/29/2022 - 2021 Provider: Diagnosis: Last Documented On 11:52AM By Whit Crook ; [facility] ALPRAZolam 0.25 MG Oral Tablet [...] On 7 1:56PM By Scarlett Li ; [facility] Mobic 15MG Oral Tablet 07/26/2017 - 07/29/2022 Provider: Meño Taylor MD Diagnosis: Aftercare follow ing joint replacement surgery once a day FOR SURGERY DO NOT FILL TILL 08/02/17 Last Documented On 2 2:57PM By Chantell Arthur ; [facility] Colace 100MG Oral Capsule, [...] On 2 2:57PM By Chantell Arthur ; [facility], [facility] TraMADol HCl 50MG Oral Tablet 07/26/2017 - 08/08/2017 Provider: Meño Taylor MD Diagnosis: Aftercare follow ing joint replacement surgery 2 tablets every 6 hours. FOR SURGERY DO NOT FILL TILL 08/02/17 Last Documented On 7 1:57PM By Scarlett Li ; [facility], [facility] Medications Administered Includes: Administered Medications in patient's chart No Administered Medications Recorded Results Includes: Results from 09/21/2024 through 09/21/2025 No Results Recorded For Specified Dates History of Present Illness History of Present Illness not supported for this document type No History of Present Illness Recorded Social History Description Last Updated No recent change in diet 07/29/2022 Last Documented On 2 4:25PM ; [facility], [facility] Not a current smoker. 07/29/2022 Last Documented On 2 4:25PM ; [facility], [facility] Tobacco non-user 07/29/2022 Last Documented On 2 4:25PM ; [facility], [facility] No tobacco use 06/20/2017 Last Documented On 7 9:36AM ; [facility], [facility] Smoking status : Never smoker 06/20/2017 Last Documented On 7 9:36AM ; [facility], [facility] Caffeine use 06/20/2017 Last Documented On 7 9:36AM ; [facility], [facility] No recent change in diet 06/20/2017 Last Documented On 7 9:36AM ; [facility], [facility] Not a current smoker 06/20/2017 Last Documented On 7 9:36AM ; [facility], [facility] Not exercising regularly 06/20/2017 Last Documented On 7 9:36AM ; [facility], [facility] Not using alcohol 06/20/2017 Last Documented On 7 9:36AM ; [facility], [facility] Not using drugs 06/20/2017 Last Documented On 7 9:36AM ; [facility], [facility] Procedures and Surgical History Surgical History Last Updated History of History of Gallbladder 2021 Last Documented On 2 4:25PM ; [facility], [facility] History of hysterectomy 07/29/2022 Last Documented On 2 4:25PM ; [facility], [facility] History of appendectomy 06/20/2017 Last Documented On 7 9:36AM ; [facility], [facility] History of heart surgery 06/20/2017 Last Documented On 7 9:36AM ; [facility], [facility] Medical History Includes: Medical History in patient's chart Description Last Updated Recent immunization for flu 08/26/2022 1 12/19/2021 Last Documented On 2 1:19PM ; [facility], [facility] History of arthritis 07/29/2022 Last Documented On 2 4:25PM ; [facility], [facility] History of asthma 07/29/2022 Last Documented On 2 4:25PM ; [facility], [facility] History of heart disease 07/29/2022 Last Documented On 2 4:25PM ; [facility], [facility] History of Heartburn / Acid Reflux 07/29 Last Documented On 2 4:25PM ; [facility], [facility] History of History of Blood Clots 2021 Last Documented On 2 4:25PM ; [facility], [facility] History of History of Blood Transfusion 07/29/2022 Last Documented On 2 4:25PM ; [facility], [facility] History of History of Heart Attack / Str [place] 07/29/2022 Last Documented On 2 4:25PM ; [facility], [facility] History of History of Rheumatology 07/29 Last Documented On 2 4:25PM ; [facility], [facility] History of Hypertension 07/29/2022 Last Documented On 2 4:25PM ; [facility], [facility] History of osteoporosis 07/29/2022 Last Documented On 2 4:25PM ; [facility], [facility] Past Surgical History: P. knee replaceme nt 07/29/2022 Last Documented On 2 4:25PM ; [facility], [facility] Recent immunization for pneumococcal pne onia 201907/29/2022 Last Documented On 2 4:25PM ; [facility] A history of cancer 06/20/2017 Last Documented On 7 9:36AM ; [facility] Arthritic joint problems 06/20/2017 Last Documented On 7 9:36AM ; [facility] Gallbladder disease 06/20/2017 Last Documented On 7 9:36AM ; [facility] History of acute myocardial infarction 0 06/20/2017 Last Documented On 7 9:36AM ; [facility] History of depression 06/20/2017 Last Documented On 7 9:36AM ; [facility] Rheumatology history 06/20/2017 Last Documented On 7 9:36AM ; [facility] A recent injection 06/20/2017 Last Documented On 7 9:36AM ; [facility] Family History Includes: Family History in patient's chart Description Last Updated Diabetes mellitus 07/29/2022 Last Documented On 2 4:25PM ; [facility], [facility] Family history of cancer 07/29/2022 Last Documented On 2 4:25PM ; [facility] Family history of heart disease 07/29/20 22 Last Documented On 2 4:25PM ; [facility], [facility] Family history of osteoporosis 2 Last Documented On 2 4:25PM ; [facility] Family history of rheumatoid arthritis 0 07/29/2022 Last Documented On 2 4:25PM ; [facility], [facility] Family history of systemic hypertension 07/29/2022 Last Documented On 2 4:25PM ; [facility], [facility] Family history of thromboembolic disease 07/29/2022 Last Documented On 2 4:25PM ; [facility], [facility] stroke seizures 06/20/2017 Last Documented On 7 9:36AM ; [facility], [facility] Fraternal history of family history of h eart disease 06/20/2017 Last Documented On 7 9:36AM ; [facility] Fraternal history of rheumatoid arthriti s 06/20/2017 Last Documented On 7 9:36AM ; [facility] Maternal history of diabetes mellitus Last Documented On 7 9:36AM ; [facility] Maternal history of family history of ca ncer 06/20/2017 Last Documented On 7 9:36AM ; [facility], [facility] Maternal history of thromboembolic disea se 06/20/2017 Last Documented On 7 9:36AM ; [facility] Review of Systems Review of Systems [...] Patient Last Documented On 2 12:55PM ; [facility] Influenza 2 08/26/2021 Complete (Reported) Patient Last Documented On 2 12:56PM ; [facility] PCV (Pneumovax 23) 1 10/18/2022 Complete (Refused - Patient objection) [facility] Last Documented On 2 12:55PM ; [facility] Allergies Includes: Active, inactive, and resolved Allergies Substance Type Reaction Onset Date Resolved Date Statu s Sulfa Antibiotics Allergy 07/29/2022 A ctive Last Documented On 2 12:54PM ; [facility] Septra Allergy 07/29/2022 Active Last Documented On 2 12:54PM ; [facility] predniSONE Allergy 07/29/2022 Active Last Documented On 2 12:54PM ; [facility] Penicillins Allergy 07/29/2022 Active Last Documented On 2 12:54PM ; [facility] Omnicef Allergy 07/29/2022 Active Last Documented On 2 12:54PM ; [facility] Macrobid Allergy 07/29/2022 Active Last Documented On 2 12:54PM ; [facility] Ibuprofen Allergy 07/29/2022 Active Last Documented On 2 12:54PM ; [facility] Cipro Allergy 07/29/2022 Active Last Documented On 2 12:54PM ; [facility] Ceftin Allergy 07/29/2022 Active Last Documented On 2 12:54PM ; [facility] Insurance Includes: Active Insurance Policies Plan Name Member ID Group # Subscriber Relationship Effect meet Dates 1 - Medicare Part B [facility] [id number] Julieta Bunn Self 11/14/2002 - Unknown 2 - [employer] [id number] Julieta Bunn Self 11/14/2016 - Unknown Clinical Notes Includes: Signed Clinical Notes starting from 10/28/2022 No Clinical Notes Recorded
--- OUTSIDE RECORDS SUMMARY | 2025-09-21 13:56 | XMS_ITS | Referral Summary ---
Author Organization [employer] ([place], [place], [place], [place], [place]) Address [address] [place] [address] Care Team Providers Care Seasoner Hand Name Role Phone Unavailable Primary Care Provider [...] Date Chente rded Speak language other than Cambodian at home Not on file 09/09/2024 Want [...] Treatment Not on file Insurance [facility] MCR ADV DUAL COMPLETE
--- OUTSIDE RECORDS SUMMARY | 2025-09-21 13:56 | XMS_ITS | Clinical Summary ---
Author Organization [facility] , [facility] Address [address] [place] [address] Phone Care Team Providers Care E Marketing Specialist Name Role Phone ANJALI LEIVA, FABI Unavailable [phone] Claudia LEIVA, Meño Boggs Unavailable [phone] Virgil Gallagher MD Primary Care Provider [phone] Reason for Visit and Chief Complaint The Chief Complaint is: RIGHT KNEE PAIN Problems Includes: Problems addressed during this encounter and other active Problems All Visits Onset Date Resolved Date Provider Condition S tatus Joint Pain Left Knee 06/20/2017 Meño Taylor MD Active Last Documented On 7 10:55AM ; [facility], [facility] Plan of Treatment patient was doing relatively well. She is to continue with gradual progression to activity as tolerated. Follow-up in the office in one year with repeat x-rays of bilateral knees. Left partial knee replacement reports patient is doing well roughly 5 years postop today - Last Documented On 10/18/2022 1:19PM ; [facility], [facility] Instructions to patient Instructions for patient See PCP for BP Last Documented On 2 12:40PM ; [facility], [facility] Lose weight Last Documented On 2 12:40PM ; [facility], [facility] Assessments Includes: Assessments from this encounter Findings 9 weeks postop right medial UKA - Last Documented On 10/18/2022 1:19PM ; [facility], [facility] Instructions Includes: Instructions from this encounter Instructions to patient Instructions for patient See PCP for BP Last Documented On 2 12:40PM ; [facility] [place] Lose weight Last Documented On 2 12:40PM ; [facility] Medical Equipment - Implanted Devices Includes: Current Devices No Medical Equipment Recorded Medications Includes: Medications discussed during this encounter and other current Medications Current Medications (continue as prescribed) Nitroglycerin 0.4 MG Subling ual Tablet Sublingual 07/29/2022 Provider: Virgil Gallagher MD Diagnosis: Last Documented On 2 2:59PM By Chantell Arthur ; [facility], [facility] Ventolin HFA 108 (90 Base) MCG/ACT Inhalation Ae rosol Solution 07/29/2022 Provider: Diagnosis: Last Documented On 2 3:00PM By Chantell Arthur ; [facility] FLUoxetine HCl 20 MG Oral Capsule 07/28/2022 Provide r: Virgil Gallagher MD Diagnosis: Last Documented On 2 11:55AM By Whit Crook ; [facility] Famotidine 40 MG Oral Tablet 07/28/2022 Provider: Virgil Gallagher MD Diagnosis: Last Documented On 2 11:55AM By Whit Crook ; [facility] Enalapril Maleate 10 MG Oral Tablet 07/28/2022 Provi gifty: Diagnosis: Last Documented On 2 2:59PM By Chantell Arthur ; [facility] Atorvastatin Calcium 80 MG Oral Tablet 07/28/2022 Pr ovider: Virgil Gallagher MD Diagnosis: Last Documented On 2 2:59PM By Chantell Arthur ; [facility] Montelukast Sodium 10 MG Oral Tablet 07/13/2022 Prov ider: Diagnosis: Last Documented On 2 2:59PM By Chantell Arthur ; [facility], [facility] Fluticasone Propionate 50 MC G/ACT Nasal Suspension 07/13/2022 Provider: Virgil Gallagher MD Diagnosis: Last Documented On 2 2:59PM By Chantell Arthur ; [facility] ALPRAZolam 0.25 MG Oral Tablet 07/13/2022 Provider: Virgil Gallagher MD Diagnosis: Last Documented On 2 2:59PM By Chantell Arthur ; [facility] Symbicort 160-4.5 MCG/ACT Inhalation Aerosol Provider: Virgil Gallagher MD Diagnosis: Last Documented On 2 11:55AM By Whit Crook ; [facility], [facility] Metoprolol Tartrate 50 MG Oral Tablet 06/15/2022 Pro vider: Virgil Gallagher MD Diagnosis: Last Documented On 2 2:59PM By Chantell Arthur ; [facility] Gabapentin 600 MG Oral Tablet 06/08/2022 Provider: Virgil Gallagher MD Diagnosis: Last Documented On 2 2:59PM By Chantell Arthur ; [facility] Amitriptyline HCl 25 MG Oral Tablet 03/18/2022 Provi gifty: Virgil Gallagher MD Diagnosis: Last Documented On 2 2:59PM By Chantell Arthur ; [facility] traMADol HCl 50 MG Oral Tablet 02/24/2022 Provider: Virgil Gallagher MD Diagnosis: Last Documented On 2 2:59PM By Chantell Arthur ; [facility], [facility] Stelara 45 MG/0.5ML Subcutaneous Solution Prefil led Syringe 02/05/2022 Provider: Diagnosis: Last Documented On 2 11:55AM By Whit Crook ; [facility], [facility] Past Medications on file Warfarin Sodium 2 MG Oral Tablet 09/13/2022 - 09/28/2022 Provider: Ole duran PA-C Diagnosis: once a day Last Documented On 2 4:25PM By Enedina Martines ; [facility], [facility] Warfarin Sodium 3 MG Oral Tablet 09/02/2022 - 10/02/2022 Provider: Ole duran PA-C Diagnosis: once a day Last Documented On 2 12:18PM By Enedina Martines ; [facility], [facility] Warfarin Sodium 3 MG Oral Tablet 08/24/2022 - 09/08/2022 Provider: Meño bauer MD Diagnosis: once a day Last Documented On 2 1:03PM By Enedina Martines ; [facility], [facility] Warfarin Sodium 5 MG Oral Tablet 08/10/2022 - 08/25/2022 Provider: Meño bauer MD Diagnosis: once a day Last Documented On 2 10:20AM By Carlito Taylor ; [facility] Lovenox 40 MG/0.4ML Injection Solution Prefilled Syringe 08/10/2022 - 08/12/2022 Provider: Meño bauer MD Diagnosis: 1 sub q injection 1 time day Last Documented On 2 10:20AM By Carlito Taylor ; [facility] traMADol HCl 50 MG Oral Tablet 08/09/2022 - 08/14/2022 Provider: Meño bauer MD Diagnosis: 1-2 po q 4-6h Last Documented On 2 8:44AM By Carlito Taylor ; [facility] oxyCODONE HCl 5 MG Oral Tablet 08/09/2022 - 08/14/2022 Provider: Meño bauer MD Diagnosis: 1-2 po q 4-6h Last Documented On 2 8:44AM By Carlito Taylor ; [facility] Ondansetron HCl 4 MG Oral Tablet 08/09/2022 - 08/14/2022 Provider: Meño Taylor MD Diagnosis: [id number] Last Documented On 2 8:44AM By Carlito Taylor ; [facility] Meloxicam 15 MG Oral Tablet 08/09/2022 - 09/08/2022 Provider: Meño bauer MD Diagnosis: once a day Last Documented On 2 8:44AM By Carlito Taylor ; [facility] Colace 100 MG Oral Capsule 08/09/2022 - 11/07/2022 Provider: Meño bauer MD Diagnosis: 1-2 tabs daily Last Documented On 2 8:44AM By Carlito Taylor ; [facility] Cefadroxil 500 MG Oral Capsule 08/09/2022 - 08/12/2022 Provider: Meño bauer MD Diagnosis: twice a day Last Documented On 2 8:44AM By Carlito Taylor ; [facility] Acetaminophen 500 MG Oral Tablet 08/09/2022 - 09/08/2022 Provider: Meño Taylor MD Diagnosis: 2 three times a day Last Documented On 2 8:44AM By Carlito Taylor ; [facility] Vitamin D3 50 MCG (1999 [place]) Oral Tablet 08/04/2022 - 09/03/2022 Provider: Nayeli RUTH Diagnosis: once a day Last Documented On 2 7:55PM By Nayeli MG [facility] Neurontin 300MG Oral Capsule, conventional 07/26/2017 - 10/24/2017 Provider: Meño Taylor MD Diagnosis: Aftercare follow ing joint replacement surgery 1 every bedtime FOR SURGERY DO NOT FILL TILL 08/02/17 Last Documented On 7 1:56PM By Scarlett MG [facility] TraMADol HCl 50MG Oral Tablet 07/26/2017 - 08/08/2017 Provider: Meño Taylor MD Diagnosis: Aftercare follow ing joint replacement surgery 2 tablets every 6 hours. FOR SURGERY DO NOT FILL TILL 08/02/17 Last Documented On 7 1:57PM By Scarlett Li ; [facility] Medications Administered Includes: Administered Medications from this encounter No Administered Medications Recorded Vital Signs Includes: Vital Signs from this encounter Vital Name 10/18/2022 12:55P Blood Pressure Sitting (mmHg) 98/76 Pulse Rate-Sitting (bpm) 71 Height (in) 64 Weight (lb) 161 Body Mass Index (kg/m2) 27.6 Body Surface Area (m2) 1.8 Note: ck Last Documented: On 10/18/2022 12:57P M ; [facility] Results Includes: Results discussed during this [...] Documented On 2 12:40PM ; [facility] Not a current smoker. 07/29/2022 Last Documented On 2 12:40PM ; [facility] Tobacco non-user 07/29/2022 Last Documented On 2 12:40PM ; [facility], [facility] No tobacco use 06/20/2017 Last Documented On 2 12:40PM ; [facility], [facility] Smoking status : Never smoker 06/20/2017 Last Documented On 2 12:40PM ; [facility] Caffeine use 06/20/2017 Last Documented On 2 12:40PM ; [facility] No recent change in diet 06/20/2017 Last Documented On 2 12:40PM ; [facility], [facility] Not a current smoker 06/20/2017 Last Documented On 2 12:40PM ; [facility], [facility] Not exercising regularly 06/20/2017 Last Documented On 2 12:40PM ; [facility], [facility] Not using alcohol 06/20/2017 Last Documented On 2 12:40PM ; [facility] Not using drugs 06/20/2017 Last Documented On 2 12:40PM ; [facility], [facility] Procedures and Surgical History Includes: Procedures from this encounter Procedures Code Diagnosis Performing Provider Service L ocation Service Date use of tobacco assessment performed 1000F Last Documented On 2 12:40PM ; [facility], [facility] patient screened for future fall risk: documentation of any fall with injury in past year 1100F Last Documented On 2 12:40PM ; [facility], [facility] Surgical History Last Updated History of History of Gallbladder 2021 Last Documented On 2 12:40PM ; [facility], [facility] History of hysterectomy 07/29/2022 Last Documented On 2 12:40PM ; [facility], [facility] History of appendectomy 06/20/2017 Last Documented On 2 12:40PM ; [facility], [facility] History of heart surgery 06/20/2017 Last Documented On 2 12:40PM ; [facility], [facility] Medical History Includes: Medical History addressed during this encounter Description Last Updated Recent immunization for flu 08/26/2022 1 12/19/2021 Last Documented On 2 1:19PM ; [facility], [facility] History of arthritis 07/29/2022 Last Documented On 2 12:40PM ; [facility], [facility] History of asthma 07/29/2022 Last Documented On 2 12:40PM ; [facility], [facility] History of heart disease 07/29/2022 Last Documented On 2 12:40PM ; [facility], [facility] History of Heartburn / Acid Reflux 07/29 Last Documented On 2 12:40PM ; [facility], [facility] History of History of Blood Clots 2021 Last Documented On 2 12:40PM ; [facility], [facility] History of History of Blood Transfusion 07/29/2022 Last Documented On 2 12:40PM ; [facility], [facility] History of History of Heart Attack / Str [place] 07/29/2022 Last Documented On 2 12:40PM ; [facility], [facility] History of History of Rheumatology 07/29 Last Documented On 2 12:40PM ; [facility], [facility] History of Hypertension 07/29/2022 Last Documented On 2 12:40PM ; [facility], [facility] History of osteoporosis 07/29/2022 Last Documented On 2 12:40PM ; [facility], [facility] Past Surgical History: P. knee replaceme nt 07/29/2022 Last Documented On 2 12:40PM ; [facility] Recent immunization for pneumococcal pne umonia 2020 07/29/2022 Last Documented On 2 12:40PM ; [facility], [facility] A history of cancer 06/20/2017 Last Documented On 2 12:40PM ; [facility], [facility] Arthritic joint problems 06/20/2017 Last Documented On 2 12:40PM ; [facility], [facility] Gallbladder disease 06/20/2017 Last Documented On 2 12:40PM ; [facility] History of acute myocardial infarction 0 06/20/2017 Last Documented On 2 12:40PM ; [facility], [facility] History of depression 06/20/2017 Last Documented On 2 12:40PM ; [facility] Rheumatology history 06/20/2017 Last Documented On 2 12:40PM ; [facility] A recent injection 06/20/2017 Last Documented On 2 12:40PM ; [facility], [facility] Family History Includes: Family History addressed during this encounter Description Last Updated Diabetes mellitus 07/29/2022 Last Documented On 2 12:40PM ; [facility], [facility] Family history of cancer 07/29/2022 Last Documented On 2 12:40PM ; [facility], [facility] Family history of heart disease 07/29/20 22 Last Documented On 2 12:40PM ; [facility], [facility] Family history of osteoporosis 2 Last Documented On 2 12:40PM ; [facility], [facility] Family history of rheumatoid arthritis 0 07/29/2022 Last Documented On 2 12:40PM ; [facility], [facility] Family history of systemic hypertension 07/29/2022 Last Documented On 2 12:40PM ; [facility], [facility] Family history of thromboembolic disease 07/29/2022 Last Documented On 2 12:40PM ; [facility], [facility] stroke seizures 06/20/2017 Last Documented On 2 12:40PM ; [facility], [facility] Fraternal history of family history of h eart disease 06/20/2017 Last Documented On 2 12:40PM ; [facility], [facility] Fraternal history of rheumatoid arthriti s 06/20/2017 Last Documented On 2 12:40PM ; [facility], [facility] Maternal history of diabetes mellitus Last Documented On 2 12:40PM ; [facility], [facility] Maternal history of family history of ca ncer 06/20/2017 Last Documented On 2 12:40PM ; [facility], [facility] Maternal history of thromboembolic disea se 06/20/2017 Last Documented On 2 12:40PM ; [facility], [facility] Review of Systems Includes: Review of [...] Patient Last Documented On 2 12:55PM ; [facility] Influenza 2 08/26/2021 Complete (Reported) Patient Last Documented On 2 12:56PM ; [facility] PCV (Pneumovax 23) 1 10/18/2022 Complete (Refused - Patient objection) [facility] Last Documented On 2 12:55PM ; [facility] Allergies Includes: Active Allergies Substance Type Reaction Onset Date Resolved Date Statu s Sulfa Antibiotics Allergy 07/29/2022 A ctive Last Documented On 2 12:54PM ; [facility] Septra Allergy 07/29/2022 Active Last Documented On 2 12:54PM ; [facility] predniSONE Allergy 07/29/2022 Active Last Documented On 2 12:54PM ; [facility] Penicillins Allergy 07/29/2022 Active Last Documented On 2 12:54PM ; [facility] Omnicef Allergy 07/29/2022 Active Last Documented On 2 12:54PM ; [facility] Macrobid Allergy 07/29/2022 Active Last Documented On 2 12:54PM ; [facility] Ibuprofen Allergy 07/29/2022 Active Last Documented On 2 12:54PM ; [facility] Cipro Allergy 07/29/2022 Active Last Documented On 2 12:54PM ; [facility] Ceftin Allergy 07/29/2022 Active Last Documented On 2 12:54PM ; [facility] Encounters Encounter Provider Location Date Check-In Time Check-Out Time Diagnosis Post Op Ole Bello PA-C [facility] 2 12:44PM 1:24PM Insurance Includes: Active Insurance Policies Plan Name Member ID Group # Subscriber Relationship Effect meet Dates 1 - Medicare Part B [facility] [id number] Julieta Bunn Self 11/14/2002 - Unknown 2 - [employer] [id number] Julieta Bunn Self 11/14/2016 - Unknown Clinical Notes Includes: Clinical Notes from this encounter No Clinical Notes Recorded
--- OUTSIDE RECORDS SUMMARY | 2025-09-21 13:56 | XMS_ITS | Clinical Summary ---
Author Organization [facility] Address [address] [place] [address] Care Team Providers Care Auto Claim Representative Name Role Phone Virgil Gallagher MD Primary [...] 08/19/2016 Overview (11/28/2019): a. Inferior ST elevation [place], 03/12/2015. b. Single-vessel coronary artery disease, left [...] 03/13/2015 5:42 AM EDT Specimen Type: Blood Karthikeyan [facility] BLOOD ORDERABLES Final Result [facility] [address] [place] [address], from Last 3 Months or Most Recently Relevant to Health Maintenance Insurance MEDICARE ADVANTAGE [facility] HMO NON PAR Care Teams Auto Claim Representative Relationship Specialty Start Date End Date Virgil Gallagher MD PCP - General Emergency Medicine 11/30/19
--- NOTE | 2025-09-21 14:00 | ED_ITS ---
<Statement entered by Daniel Pena MD - 09/21/25 15:32> Daniel Pena MD: I was consulted by the CURT, and we discussed the complexity of the problems being addressed. I approved the treatment and management plan for this patient's care in the emergency department, thus performing a substantive portion of the medical decision making. Discharge Plan Disposition Patient Disposition: Home, Self-Care Condition: Fair Prescriptions Prescriptions: No Action cholecalciferol (vitamin D3) 50 mcg (2,000 unit) capsule 2,000 unit PO DAILY Qty: 90 0RF Yesintek 45 mg/0.5 mL syringe 45 mg SQ oxybutynin chloride 5 mg tablet extended release 24hr 5 mg PO DAILY Qty: 14 1RF oxycodone 10 mg tablet 10 mg PO Q6H PRN (Reason: pain) Qty: 30 0RF albuterol sulfate 1.25 mg/3 mL solution for nebulization 1.25 mg INHALATION Q4-6H PRN (Reason: shortness of breath or wheezing) Qty: 90 2RF (DME) Depend Underwear For Women Lrg Misc See Rx Instructions .Route Qty: 68 0RF Rx Instructions: As directed nitroglycerin 0.4 mg tablet, sublingual See Rx Instructions .ROUTE .COMPLEX Qty: 25 1RF Dose Instruction: DISSOLVE 1 TABLET UNDER THE TONGUE EVERY 5 MINUTES NEEDED FOR CHEST PAIN. DO NOT EXCEED A TOTAL OF 3 DOSES IN 15 MINUTES. Rx Instructions: DISSOLVE 1 TABLET UNDER THE TONGUE EVERY 5 MINUTES NEEDED FOR CHEST PAIN. DO NOT EXCEED A TOTAL OF 3 DOSES IN 15 MINUTES. budesonide 0.25 mg/2 mL suspension for nebulization 0.25 mg INHALATION BID Qty: 60 3RF albuterol sulfate [Ventolin HFA] 90 mcg/actuation HFA aerosol inhaler See Rx Instructions .ROUTE .COMPLEX Qty: 54 12RF Dose Instruction: INHALE 1 PUFF EVERY 6 HOURS NEEDED FOR SHORTNESS OF BREATH Rx Instructions: INHALE 1 PUFF EVERY 6 HOURS NEEDED FOR SHORTNESS OF BREATH fluticasone propionate 50 mcg/actuation spray,suspension See Rx Instructions .ROUTE .COMPLEX Qty: 48 2RF Dose Instruction: SPRAY 1 TIME IN EACH NOSTRIL 1 TIME EACH DAY FOR ALLERGIES Rx Instructions: SPRAY 1 TIME IN EACH NOSTRIL 1 TIME EACH DAY FOR ALLERGIES amitriptyline 25 mg tablet See Rx Instructions .ROUTE .COMPLEX Qty: 180 2RF Dose Instruction: TAKE 2 TABLETS 1 TIME EACH DAY AT BEDTIME Rx Instructions: TAKE 2 TABLETS 1 TIME EACH DAY AT BEDTIME atorvastatin 80 mg tablet See Rx Instructions .ROUTE .COMPLEX Qty: 90 2RF Dose Instruction: TAKE 1 TABLET 1 TIME EACH DAY IN THE EVENING \ Rx Instructions: TAKE 1 TABLET 1 TIME EACH DAY IN THE EVENING \ famotidine 40 mg tablet 40 mg PO DAILY 90 Days Qty: 90 1RF montelukast 10 mg tablet See Rx Instructions .ROUTE .COMPLEX Qty: 90 3RF Dose Instruction: TAKE 1 TABLET 1 TIME EACH DAY IN THE EVENING FOR ALLERGIES Rx Instructions: TAKE 1 TABLET 1 TIME EACH DAY IN THE EVENING FOR ALLERGIES alprazolam 0.25 mg tablet 0.25 mg PO BID Qty: 60 2RF gabapentin 600 mg tablet 600 mg PO TID Qty: 90 2RF fluoxetine 20 mg capsule See Rx Instructions .ROUTE .COMPLEX Qty: 30 5RF Dose Instruction: TAKE 1 CAPSULE 1 TIME EACH DAY Rx Instructions: TAKE 1 CAPSULE 1 TIME EACH DAY tramadol 50 mg tablet 50 mg PO Q8H PRN (Reason: pain) Qty: 90 1RF metoprolol tartrate 25 mg tablet 25 mg PO BID Qty: 60 2RF aspirin 81 MG tablet,delayed release (DR/EC) 81 mg PO DAILY Referrals Follow up/Referrals: Thuan Tripp MD [Primary Care Provider, Internal Medicine] - See instructions Activity Restrictions/Add. Instructions Additional Instructions/Restrictions: Today you were evaluated in the emergency department for pain. Please take your prescribed pain medication as directed and follow-up with the orthopedic office that performed your procedure first thing Tuesday. Return to the ED for any worsening of your condition. Clinical Impressions Clinical Impression: Back pain Instructions Patient Instructions: DI for Acute Pain in Adults Print Language Print Language: Italian Discharge ED Provider: Daniel Pena General Adult HPI General Chief complaint: PAIN Stated complaint: back pain Time Seen by Provider: 09/21/25 13:52 Mode of Arrival: Wheelchair Source of Information: Patient Description of Symptoms (Recalled from ER Triage Doc. by RN): pt presents to ED via wheelchair for pain in back .pt reports that she had pain procedure this morning at a doctors office in [place]. pt unable to tell me name of office, is attempting to get paperwork. states that pt had cement placed on her spine. spouse states that pt was told that pain would go away instantly and it has not. pt reports pain sharp and radiating into legs but unable to give a pain scale rating History of Present Illness HPI narrative: patient is a 75-year-old female PMHx recent T12 compression fracture, GERD, hypertension, CAD, anxiety, fibromyalgia who had a T12 kyphoplasty this morning at [facility], was discharged home. Patient states she is presenting to the ED today for increased back pain after procedure. Patient has a prescription for hydrocodone and gabapentin that she was provided after the procedure, she states she has not taken anything because it does not work . Related Data Home Medications ?Medication ?Instructions ?Recorded ?Confirmed aspirin 81 mg tablet,delayed 81 mg PO DAILY HEART HEAL TH 05/19/18 09/12/25 release ustekinumab-kfce 45 mg/0.5 mL 45 mg SQ 05/21/25 subcutaneous syringe (Yesintek) Previous Rx's ?Medication ?Instructions ?Recorded cholecalciferol (vitamin D3) 50 2,000 unit PO DAILY Rodriguez pplement #90 04/09/20 mcg (2,000 unit) capsule caps albuterol sulfate 1.25 mg/3 mL 1.25 mg (3 mL) inhalati on Q4-6H 07/07/20 solution for nebulization PRN shortness of breath or wheezing #90 mL diaper,brief,adult,disposable #68 ea 02/11/23 (Depend Underwear For Women Large) budesonide 0.25 mg/2 mL suspension 0.25 mg (2 mL) inha lation BID . 03/27/24 for nebulization #60 mL nitroglycerin 0.4 mg sublingual See Rx Instructions .R oute 03/27/24 tablet .COMPLEX #25 tabs albuterol sulfate 90 mcg/actuation See Rx Instructions .Route 05/04/24 aerosol inhaler (Ventolin HFA) .COMPLEX #54 grams amitriptyline 25 mg tablet See Rx Instructions .Route 02/13/25 .COMPLEX #180 tabs atorvastatin 80 mg tablet See Rx Instructions .Route 0 02/13/25 .COMPLEX #90 tabs fluticasone propionate 50 See Rx Instructions .Route 0 02/13/25 mcg/actuation nasal .COMPLEX #48 grams spray,suspension famotidine 40 mg tablet 40 mg PO DAILY 90 days #90 t abs 04/16/25 oxybutynin chloride 5 mg 5 mg PO DAILY urine incontin ence 05/21/25 tablet,extended release 24 hr #14 tabs montelukast 10 mg tablet See Rx Instructions .Route 0 07/10/25 .COMPLEX #90 tabs alprazolam 0.25 mg tablet 0.25 mg PO BID Anxiety #60 t abs 07/30/25 fluoxetine 20 mg capsule See Rx Instructions .Route 1 .COMPLEX #30 caps gabapentin 600 mg tablet 600 mg PO TID #90 tabs 08/19 tramadol 50 mg tablet 50 mg PO Q8H PRN pain #90 ta bs 08/19/25 metoprolol tartrate 25 mg tablet 25 mg PO BID High blo od pressure 08/20/25 #60 tabs oxycodone 10 mg tablet 10 mg PO Q6H PRN pain #30 ta bs 09/09/25 Allergies Allergy/AdvReac Type Severity Reaction Status Date / Time cefdinir (From Omnicef) Allergy Unknown Rash Verified 09/12/25 08:54 cefuroxime (From Ceftin) Allergy Unknown Rash Verified 09/12/25 08:54 ciprofloxacin (From Cipro) Allergy Unknown Rash Verified 09/12/25 08:54 ibuprofen (From Motrin) Allergy Unknown Vomiting Verified 09/12/25 08:54 nitrofurantoin (From Allergy Unknown Rash Verified 09/12/25 08:54 MACROBID) Penicillins Allergy Unknown Rash Verified 09/12/25 08:54 Sulfa (Sulfonamide Allergy Unknown Rash Verified 09/12/25 08:54 Antibiotics) sulfamethoxazole (From Allergy Unknown Rash Verified 09/12/25 08:54 SEPTRA) trimethoprim (From SEPTRA) Allergy Unknown Rash Verified 09/12/25 08:54 prednisone AdvReac Mild Agitated Verified 09/12/25 08:54 PFSH PFSH Disclaimer: The information contained in this section may have been updated after the patient was seen, as this information can be updated by other users. Medical History Low back pain Old myocardial infarction Claudication Crohn disease Thyroid nodule CAD (coronary artery disease) Anxiety DDD (degenerative disc disease), lumbar Surgical History History of knee surgery Family History Sister Cancer Father Coronary artery disease Heart attack Mother Diabetes Heart attack Stroke Social History Smoking Status: Current every day smoker tobacco type: cigarettes second hand exposure: No alcohol intake: never substance use type: denies use current occupational status: retired Travel in the last 8 weeks?: None household members: spouse housing: house current occupational exposures/hazards: No caffeine: No Have you lived/traveled outside [place] in past 30 days?: No Contact w/someone who lives/traveled outside [place] past 30 days?: No Exposure to someone with infectious disease in past 14 days?: No Do you have a fever (greater than 100.4 F or 38 C)?: No Have you tested positive for COVID-19?: No Exposed to someone with COVID-19 in past 14 days?: No Do you have a sore throat?: No Do you have a cough?: No Do you have any weakness?: No Do you have any diarrhea?: No Are you experiencing any unusual bleeding?: No Do you have any muscle aches/pain?: No Do you have any abdominal pain?: No Are you experiencing loss of taste or smell?: No Other Medical History Have you received the Flu Vaccine for this season: Yes Have you received the Pneumonia Vaccine: Yes ROS Obtained: Yes Systems reviewed as appropriate & no additional complaints except as documented Physical Exam General General appearance: alert Head Head exam: atraumatic Eye Eye exam: Present PERRL Neck Neck exam: Present full ROM Respiratory Respiratory exam: Present normal lung sounds bilaterally Cardiovascular Cardiovascular exam: Present regular rate Abdominal Exam Abdominal exam: Present soft Back Exam Back exam: Present tenderness (T spine ) Neurological Exam Neurological exam: Present alert and oriented X3; Absent motor sensory deficit Skin Skin exam: Present dry Medical Decision Making Medical Records Screening: Per USPSTF and CDC recommendations, given the prevalence of disease in our region, it is our hospital?s policy to screen for HIV and viral Hepatitis for all patients aged 18 and over and those with ongoing risk factors. Sixto Inquiry Pt receiving controlled substance: No Vital Signs: 09/21/25 13:39 09/21/25 14:30 09/21/25 15:00 Temperature 98.1 F Temperature Source Oral Pulse Rate 77 81 Pulse Rate [Left Radial] 84 Respiratory Rate 16 Blood Pressure 158/98 H 149/60 H Blood Pressure [Right Arm] 161/57 H Blood Pressure Mean 118 89 Blood Pressure Mean [Right Arm] 91 02 Sat by Pulse Oximetry 96 94 L 95 Oxygen Delivery Method Room Air Room Air 09/21/25 15:49 Temperature 98.0 F Temperature Source Pulse Rate 81 Pulse Rate [Left Radial] Respiratory Rate 19 Blood Pressure 149/60 H Blood Pressure [Right Arm] Blood Pressure Mean Blood Pressure Mean [Right Arm] 02 Sat by Pulse Oximetry Oxygen Delivery Method Orders (Tests/Meds): ED MEDICATIONS Discontinued Medications Generic Name Dose Route Start Last Admin Trade Name Freq PRN Reason Stop Dose Admin Hydromorphone HCl 1 mg 09/21/25 14:06 09/21/25 14:47 Hydromorphone 2mg/Ml Syringe IV 09/21/25 14:07 1 mg ONCE ONE Administration Lidocaine 1 each 09/21/25 14:06 09/21/25 14:46 Lidocaine 5% Transdermal Patch TD 09/21/25 14:07 1 each ONCE ONE Administration Ondansetron HCl 4 mg 09/21/25 14:06 09/21/25 14:47 Ondansetron 4mg/2ml Vial IV 09/21/25 14:07 4 mg ONCE ONE Administration Medical Decision Narrative: In summary, patient is a 75-year-old female PMHx recent T12 compression fracture, GERD, hypertension, CAD, anxiety, fibromyalgia who had a T12 kyphoplasty this morning at [facility], was discharged home. Patient states she is presenting to the ED today for increased back pain after procedure. Patient has a prescription for hydrocodone and gabapentin that she was provided after the procedure, she states she has not taken anything because it does not work . Patient denies any red flag back pain symptoms, denies fever, urinary or bowel incontinence, decreased sensation, saddle anesthesia. Upon initial evaluation she is alert, oriented and cooperative. She is ambulatory. Her physical exam is unremarkable other than tenderness around injection area, patient has what appears to be Dermabond over 2 areas on her back. Differential diagnosis include infectious process, intractable pain, among others. I discussed with patient she will need to take her pain medication as prescribed. She states she does not want to take her oral pain medication currently because it does not work. I advised her we will obtain an IV and administer Dilaudid and Zofran, will use lidocaine patch and reevaluate. She is agreeable to plan at this time. Upon reassessment, patient states her condition has improved, she is pain-free at this time. Advised her that she will need to start the oral medications that were prescribed to her and take as directed. Discussed with her that she will need to follow-up as scheduled. We discussed return precautions to the ED and patient verbalized understanding. Upon discharge she was stable and ambulatory without difficulty from the ED. Critical Care Critical Care Time Critical Care Time: No
[2025-09-21 14:30] VITALS: BP 158/98; PULSE 77; O2SAT 94
[2025-09-21] MEDS: LIDOCAINE 5% TRANSDERMAL PATCH 1 EACH TD (14:46)
[2025-09-21] MEDS: HYDROMORPHONE 2MG/ML SYRINGE 1 MG IV (14:47)
[2025-09-21] MEDS: ONDANSETRON 4MG/2ML VIAL 4 MG IV (14:47)
[2025-09-21 15:00] VITALS: BP 149/60; PULSE 81; O2SAT 95
[2025-09-21 15:49] VITALS: BP 149/60; PULSE 81; RESP 19; TEMP 36.7
== END 2025-09-21 15:50 | disposition home or self-care (01) ==
PROVIDERS: Emergency Provider Emergency Medicine; PCP Family Medicine
DX: M54.6 Pain in thoracic spine (principal); F17.210 Nicotine dependence, cigarettes, uncomplicated; Z87.81 Personal history of (healed) traumatic fracture
CPT/HCPCS: 96374; 96375; 99284; J1171; J2405